=== PATIENT | female | born 1985 | race Two or more races ===

== ENCOUNTER → 2021-03-30 13:24 | Outpatient (REF) | payer OTHER, SELFPAY ==
--- NOTE | 2021-03-30 13:32 | CA_ITS ---
Transthoracic Echocardiogram Patient (Last, First, Middle): Verona Holland D Gender: Female Date of : 1985 Age: 35 Procedure Date: 03/30/2021 Procedure Type: Transthoracic Echocardiogram Location: OP Height: 162.56 cm Weight: 96.62 kg BSA: 2.01 m2 Heart Rate: bpm BP: 137 / 75 mmHg Pen Tester: WON Referring MD: Jose J Mujica MD Symptoms: AWAITING [employer]GAN TRANSPLANT pre kidney Study Quality: Fair ECG Rhythm: Sinus Conclusions: - The left ventricular systolic function is normal. The visually estimated ejection fraction is between 60-65%. - No obvious valvular pathology seen on this study. Findings Left Ventricle Normal left ventricular cavity size. There is normal left ventricular wall thickness. The left ventricular systolic function is normal. The visually estimated ejection fraction is between 60-65%. There is no evidence of regional wall motion abnormalities. Diastolic function is normal for age. Right Ventricle Normal right ventricular cavity size and systolic function. Atria Both atria are normal in size. Aortic Valve There is a normal trileaflet aortic valve. There is mild calcification of the aortic valve. There is no aortic valve stenosis. There is no aortic valve regurgitation. Mitral Valve The mitral valve appears normal. There is no mitral valve regurgitation. There is no mitral valve stenosis. Pulmonic Valve The pulmonic valve was not well visualized. Tricuspid Valve There is trace tricuspid valve regurgitation. The pulmonary artery systolic pressure is normal. Great Vessels The aortic annulus, sinuses of valsalva, and asc aorta are normal in size. Venous The inferior vena cava is normal in size and collapses greater than 50% with inspiration. Pericardium/Pleural There is a trivial pericardial effusion. Prior Study Comparison Changes noted compared to prior study dated: 02/08/2019. Pericardial effusion size smaller. Recommendations, Care & Conclusions No obvious valvular pathology seen on this study. Measurements 2D Linear Measurements IVSd: 0.99 0.6-0.9/0.6-1.0 cm LVIDd: 4.49 3.9-5.3/4.2-5.9 cm LVIDd Index: 2.23 2.4-3.2/2.2-3.1 cm/m2 LVIDs: 3.04 2.0-3.6 cm LVPWd: 1.12 0.7-1.1 cm Ao Root: 3.10 2.1-3.5 cm LA Diam: 3.60 2.7-3.8/3.0-4.0 cm LAIDs Index: 1.79 1.5-2.3 cm/m2 LV Mass: 204.72 67-162/88-224 g LV Mass Index: 101.85 43-95/49-115 g/m2 LVOT Diam: 2.00 3.0+(-)1.3 cm 2D Systolic Function EF 4C: 65.90 >55% EF 2C: 60.00 >55% EF BiP: 63.70 >55% Mitral Valve MV Pk E: 0.66 MV PK A: 0.56 MV Decel Time: 186.00 E/A: 1.20 E'Lateral: 9.03 E'Medial: 7.07 E/E' Med: 9.30 E/E' Lat: 7.30 PHT: 54.00 MVA PHT: 4.07 Decel Bethel: 3.56 Aortic Valve AoV Pk Kevin: 1.36 AoV Pk Grad: 7.00 LVOT LVOT Pk Kevin: 1.17 LVOT Mn Kevin: 0.81 LVOT VTI: 0.27 LVOT Pk Grad: 5.00 LVOT Mn Grad: 3.00 LVOT Diam: 2.00 LVOT Area: 3.14 Diastolic Function MV Pk E: 0.66 MV Pk A: 0.56 E/A: 1.20 E'Medial: 7.07 E/E' Med: 9.30 E' Laterial: 9.03 E/E' Lat: 7.30 Right Ventricle TAPSE (mm): 2.17 Tricuspid Valve TR Pk Kevin: 1.93 TR Pk Grad: 15.00 RA Press: 3.00 RVSP: 18.00 Great Vessels Aorta Ao Root-2D: 3.10 2.0-3.7 cm Ao Asc: 3.10 2.1-3.4 cm Ao Arch: 2.80 Updated in Other Vendor System with Status of Final Cornelio Cheng MD electronically signed on 03/31/2021 8:55:30 AM with status of Final
== END ==
LOC: HO.CARD 13:24
PROVIDERS: PCP Internal Medicine; Visit Provider Internal Medicine Nephrology
DX: Z76.82 Awaiting organ transplant status (principal)
CPT/HCPCS: 93306

== ENCOUNTER 2021-04-27 09:11 | Outpatient (REF) | payer OTHER, SELFPAY ==
[2021-04-27 09:24] LABS: MANUAL DIFF FLAG NO
[2021-04-27 09:45] LABS: Basophils Absolute Auto 0.1 X10*3/uL (0.0-0.2); Basophils Percent Auto 0.8 % (0-2); Eosinophils Absolute Auto 0.3 X10*3/uL (0.0-0.4); Eosinophils Percent Auto 3.1 % (0-4); Hematocrit 38.2 % (37.0-47.0); Hemoglobin 12.2 g/dl (12.0-16.0); Imm Gran Abs Auto 0.03 X10*3/uL (0.00-0.03); Imm Gran Pct Auto 0.3 % (0.0-0.4); Lymphocytes Absolute Auto 2.8 X10*3/uL (1.2-4.9); Lymphocytes Percent Auto 28.2 % (20-40); Mean Corpuscular HGB Conc 31.9 g/dl (31.0-35.0); Mean Corpuscular Hemoglobin 27.4 pg (27.0-33.0); Mean Corpuscular Volume 85.7 fL (80.0-98.0); Mean Platelet Volume 10.3 fL (9.4-12.3); Monocytes Absolute Auto 0.7 X10*3/uL (0.1-1.2); Monocytes Percent Auto 6.7 % (2-11); Neutrophils Percent Auto 60.9 % (45-73); Platelet Count 365 X10*3/uL (160-400); Red Blood Count 4.46 X10*6/uL (4.20-5.50); Red Cell Distribution Width 13.9 % (11.0-16.0); White Blood Count 9.8 X10*3/uL (4.8-10.8)
[2021-04-27 10:27] LABS: Alanine Aminotransferase 8 U/L (0-31); Albumin Level 4.1 g/dL (3.5-5.0); Alkaline Phosphatase 89 U/L (39-117); Anion Gap 19 (12-20); Aspartate Amino Transferase 8 U/L (5-31); Bilirubin Total 0.5 mg/dL (0.0-1.0); Blood Urea Nitrogen 43 mg/dL (9-16); Calcium 8.7 mg/dL (8.4-10.2); Carbon Dioxide 26 mmol/L (22-29); Chloride 100 mmol/L (96-108); Cholesterol 266 mg/dL; Estimated Glomerular Filt Rate 6; Glucose Fasting 81 mg/dL (60-99); HDL Cholesterol 32 mg/dL; LDL Cholesterol Calculated 185 mg/dl; Potassium 3.8 mmol/L (3.3-5.1); Sodium 141 mmol/L (135-145); Total Protein 7.3 g/dL (6.5-8.0); Triglycerides 245 mg/dL
[2021-04-27 10:46] LABS: Vitamin D 25-OH Total 16.7 ng/mL (>30)
[2021-04-27 12:08] LABS: Free T4 (Free Thyroxine) 0.83 ng/dL (0.71-1.85)
== END 2021-04-27 09:12 | disposition home or self-care (01) ==
LOC: HO.LAB 09:11
PROVIDERS: PCP Internal Medicine; Visit Provider Internal Medicine
DX: Z01.810 Encounter for preprocedural cardiovascular examination (principal); I12.0 Hypertensive chronic kidney disease with stage 5 chronic kidney disease or end stage renal disease; N18.6 End stage renal disease; E10.22 Type 1 diabetes mellitus with diabetic chronic kidney disease; E78.00 Pure hypercholesterolemia, unspecified; E55.9 Vitamin D deficiency, unspecified; Z99.2 Dependence on renal dialysis
CPT/HCPCS: 36415; 80053; 80061; 82306; 84439; 84443; 85025; 93005; 99212

== ENCOUNTER → 2021-06-21 09:33 | Outpatient (REF) | payer OTHER, SELFPAY ==
--- NOTE | ~2021-06-21 | NM_ITS ---
Lexiscan Myocardial perfusion study Indication: Preoperative cardiac vascular evaluation, diabetes, assess for coronary disease and ischemia Technique: The patient was brought in for a Lexiscan perfusion study on 06/21/2021 and was injected 0.4 mg of Lexiscan intravenously. Within a minute of this injection 35 mCi of sestamibi was given intravenously. Images were obtained using the SPECT gamma camera interlaced with the gating device. Images were obtained in supine position. Resting perfusion study was performed on 06/23/2021. Patient was administered 35 mCi of sestamibi intravenously at rest. Images were then obtained in supine position. Total DLP 135mGy-cm. Images were processed with the software and compared side to side in short axis, horizontal long axis and vertical long axis views. Findings: Raw acquisition was reviewed. The stress perfusion study showed no significant perfusion abnormality. Both uncorrected as well as CT attenuation corrected images were reviewed. The gated study shows normal LV systolic function with calculated LVEF of 74%. LV cavity is normal in size. The gated study shows normal wall thickening and contraction of segments. Resting study shows no significant perfusion abnormality. Gating at rest reveals normal wall motion with ejection fraction at 69%. The findings are consistent with no significant reversible or fixed perfusion defects. NM/NM cardiolite stress test Impression: 1. Myocardial perfusion imaging study shows likely normal myocardial perfusion. No definitive evidence of any ischemia or infarction. 2. Gated LVEF is 74% during stress and 69% during rest. 3. Transient ischemic dilatation not present. EKG component of the test reported separately.
--- NOTE | 2021-06-21 09:36 | CA_ITS ---
Acquisition Time: 2021-06-21 10:52:04 Total Exercise Time: 00:06:09 Test Indications: Pre-Op Evaluation Medications: SEE H Protocol: KATE Max HR: 122 BPM 66% of Pred: 183 BPM Max BP: 138/058 mmHG Max Work Load: 7.1 METS Exercise stress test with exercise 6 min 9 sec of Kate protocol with request to stop due to difficulty keeping up with treadmill in stage 3. Heart rate suboptimal and EKG nondiagnostic for ischemia. Treadmill placed in recovery and slowed to 1 MPH. Testing changed to a pharmacological stress test with Lexiscan, without arrythmia, with normotensive response to exercise, with nondiagnostic EKG for ischemia. Nuclear images pending. Test reviewed with Dr Harrell. Referred By: Cornelio Cheng Overread By: CRISTOBAL ACE
== END ==
LOC: HO.CARD 09:33
PROVIDERS: PCP Internal Medicine; Visit Provider Internal Medicine
DX: Z01.810 Encounter for preprocedural cardiovascular examination (principal)
CPT/HCPCS: 78452; 93017; A9500; J0280; J2785

== ENCOUNTER 2021-11-04 11:10 | Outpatient (REF) | payer OTHER, SELFPAY ==
[2021-11-04 11:28] LABS: MANUAL DIFF FLAG NO
[2021-11-04 11:47] LABS: Basophils Absolute Auto 0.1 X10*3/uL (0.0-0.2); Basophils Percent Auto 0.7 % (0-2); Eosinophils Absolute Auto 0.2 X10*3/uL (0.0-0.4); Eosinophils Percent Auto 2.4 % (0-4); Hematocrit 36.7 % (37.0-47.0); Hemoglobin 11.6 g/dl (12.0-16.0); Imm Gran Abs Auto 0.03 X10*3/uL (0.00-0.03); Imm Gran Pct Auto 0.3 % (0.0-0.4); Lymphocytes Percent Auto 23.4 % (20-40); Mean Corpuscular HGB Conc 31.6 g/dl (31.0-35.0); Mean Corpuscular Hemoglobin 27.3 pg (27.0-33.0); Mean Corpuscular Volume 86.4 fL (80.0-98.0); Mean Platelet Volume 10.4 fL (9.4-12.3); Monocytes Absolute Auto 0.6 X10*3/uL (0.1-1.2); Monocytes Percent Auto 6.9 % (2-11); Neutrophils Absolute Auto 5.7 x10*3/uL (2.0-8.3); Neutrophils Percent Auto 66.3 % (45-73); Platelet Count 349 X10*3/uL (160-400); Red Blood Count 4.25 X10*6/uL (4.20-5.50); Red Cell Distribution Width 13.9 % (11.0-16.0); White Blood Count 8.6 X10*3/uL (4.8-10.8)
[2021-11-04 12:35] LABS: Free T4 (Free Thyroxine) 0.91 ng/dL (0.71-1.85); Vitamin D 25-OH Total 11.3 ng/mL (>30)
[2021-11-04 13:25] LABS: Alanine Aminotransferase 7 U/L (0-31); Albumin Level 3.7 g/dL (3.5-5.0); Alkaline Phosphatase 75 U/L (39-117); Anion Gap 16 (12-20); Aspartate Amino Transferase 7 U/L (5-31); Bilirubin Total 0.5 mg/dL (0.0-1.0); Blood Urea Nitrogen 20 mg/dL (9-16); Calcium 8.7 mg/dL (8.4-10.2); Carbon Dioxide 30 mmol/L (22-29); Chloride 94 mmol/L (96-108); Cholesterol 248 mg/dL; Estimated Glomerular Filt Rate 7; Glucose Fasting 217 mg/dL (60-99); HDL Cholesterol 32 mg/dL; LDL Cholesterol Calculated 175 mg/dl; Potassium 4.1 mmol/L (3.3-5.1); Sodium 136 mmol/L (135-145); Total Protein 6.9 g/dL (6.5-8.0); Triglycerides 206 mg/dL
[2021-11-04 13:48] LABS: Appearance Urine TURBID; Color Urine RED; Glucose Urine UA >=1000 MG/DL (NEG); Leukocyte Esterase Urine 1+ (NEG); Nitrite Urine NEG (NEG); PH 8.5 (5.0-8.0); UACC Culture Trigger YES; Urine Blood 3+ (NEG); Urine Ketones NEG (NEG)
[2021-11-04 13:51] LABS: Urine Protein 3+ MG/DL (NEG-TRACE)
[2021-11-04 14:19] LABS: Bacteria Urine 2+ /LPF; Squamous Epithelial Cell Urine 2+ /LPF; Triple Phosphate Crystal Urine 4+ /LPF
== END 2021-11-04 11:11 | disposition home or self-care (01) ==
LOC: HO.LAB 11:10
PROVIDERS: PCP Internal Medicine; Visit Provider Internal Medicine
DX: E03.9 Hypothyroidism, unspecified (principal); I10 Essential (primary) hypertension; E55.9 Vitamin D deficiency, unspecified; E78.00 Pure hypercholesterolemia, unspecified
CPT/HCPCS: 36415; 80053; 80061; 81001; 82306; 84439; 84443; 85025; 87086

== ENCOUNTER 2022-03-11 08:53 | Outpatient (REF) | payer OTHER, SELFPAY ==
[2022-03-11 09:12] LABS: MANUAL DIFF FLAG NO
[2022-03-11 09:52] LABS: Basophils Absolute Auto 0.1 X10*3/uL (0.0-0.2); Basophils Percent Auto 0.7 % (0-2); Eosinophils Absolute Auto 0.3 X10*3/uL (0.0-0.4); Eosinophils Percent Auto 2.4 % (0-4); Hematocrit 39.4 % (37.0-47.0); Hemoglobin 12.5 g/dl (12.0-16.0); Imm Gran Abs Auto 0.06 X10*3/uL (0.00-0.03); Imm Gran Pct Auto 0.5 % (0.0-0.4); Mean Corpuscular HGB Conc 31.7 g/dl (31.0-35.0); Mean Corpuscular Hemoglobin 27.5 pg (27.0-33.0); Mean Corpuscular Volume 86.6 fL (80.0-98.0); Mean Platelet Volume 10.5 fL (9.4-12.3); Monocytes Absolute Auto 0.9 X10*3/uL (0.1-1.2); Monocytes Percent Auto 6.9 % (2-11); Neutrophils Absolute Auto 8.3 x10*3/uL (2.0-8.3); Neutrophils Percent Auto 65.5 % (45-73); Platelet Count 397 X10*3/uL (160-400); Red Blood Count 4.55 X10*6/uL (4.20-5.50); Red Cell Distribution Width 14.6 % (11.0-16.0); White Blood Count 12.7 X10*3/uL (4.8-10.8)
[2022-03-11 10:42] LABS: Appearance Urine Turbid; Color Urine Yellow; Glucose Urine UA 100 mg/dL (Negative); Leukocyte Esterase Urine Large (3+) (Negative); Nitrite Urine Negative (Negative); Specific Gravity - Urine 1.015 (1.005-1.025); UMIC TRIGGER UACC YES; Urine Blood Moderate (2+) (Negative); Urine Ketones Negative (Negative); Urine Protein 100 (2+) mg/dL (Neg-Trace)
[2022-03-11 10:58] LABS: Free T4 (Free Thyroxine) 1.05 ng/dL (0.71-1.85); Thyroid Stimulating Hormone 5.77 uIU/mL (0.32-4.0); Vitamin D 25-OH Total 20.7 ng/mL (>30)
[2022-03-11 11:03] LABS: Bacteria Urine 4+ (None Seen); Hyaline Casts Urine 0-2 /LPF (0-2); RBC Urine >20 /HPF (0-2); Squamous Epithelial Cell Urine 0-2 /HPF (0-2); UACC Culture Trigger YES; WBC Urine >50 /HPF (0-5)
[2022-03-11 11:04] LABS: Alanine Aminotransferase 6 U/L (0-31); Alkaline Phosphatase 63 U/L (39-117); Anion Gap 20 (12-20); Aspartate Amino Transferase 9 U/L (5-31); Bilirubin Total 0.5 mg/dL (0.0-1.0); Blood Urea Nitrogen 41 mg/dL (9-16); Calcium 9.3 mg/dL (8.4-10.2); Carbon Dioxide 27 mmol/L (22-29); Chloride 98 mmol/L (96-108); Cholesterol 247 mg/dL; Estimated Glomerular Filt Rate 6; Glucose Fasting 103 mg/dL (60-99); HDL Cholesterol 34 mg/dL; LDL Cholesterol Calculated 183 mg/dl; Potassium 3.9 mmol/L (3.3-5.1); Sodium 141 mmol/L (135-145); Triglycerides 150 mg/dL
== END 2022-03-11 08:54 | disposition home or self-care (01) ==
LOC: HO.LAB 08:53
PROVIDERS: PCP Internal Medicine; Visit Provider Internal Medicine
DX: I10 Essential (primary) hypertension (principal); E78.00 Pure hypercholesterolemia, unspecified; E03.9 Hypothyroidism, unspecified; E55.9 Vitamin D deficiency, unspecified
CPT/HCPCS: 36415; 80053; 80061; 81001; 82306; 84439; 84443; 85025; 87086; 87088; 87186

== ENCOUNTER 2023-01-05 11:28 | Outpatient (AMB) | payer OTHER, SELFPAY ==
[2023-01-05 11:34] VITALS: BP 122/80; PULSE 87; O2SAT 92
--- NOTE | 2023-01-05 11:34 | MHC.PC.OV ---
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 Required: No Accompanied by: Self / Same As Patient Allergies No Known Allergies Allergy (Mild, Verified 01/05/23 12:03) NONE Medication List - Last Reconciled 01/05/23 by Jason Salmon MD atorvastatin 10 mg PO BEDTIME blood sugar diagnostic (FreeStyle Lite Strips) As directed cholecalciferol (vitamin D3) 50 mcg PO DAILY clonidine 1 patch topical QWEEK ferrous sulfate 325 mg PO DAILY 30 days fluticasone propionate 50 mcg/actuation (Flonase Allergy Relief) 1 spray intranasal DAILY 30 days gabapentin 100 mg PO TID insulin aspart U-100 (Novolog FlexPen U-100 Insulin aspart) subcut insulin glargine (Lantus Solostar U-100 Insulin) units subcut levothyroxine 175 mcg PO DAILY 90 days metolazone 10 mg PO DAILY nifedipine ER 90 mg PO DAILY pen needle, diabetic (BD Kiana 2nd Gen Pen Needle) As directed sevelamer carbonate 2,400 mg PO DAILY torsemide 100 mg PO BID Tobacco use date assessed: 01/05/23 Dental Screening Dental Screen Date: 01/05/23 Did you have a dental visit in the last 12 months?: Yes Did you have a dental problem in the last 6 months where you did not have access to dental care?: No Was dental information given to patient?: Patient has dentist HPI DM, HLD, thyroid HPI Details Patient comes in today for her HDF follow up visit She was admitted to [facility] for a week last month for an infection on her left foot She was discharged home with IV Cefazolin that was continued every Monday and Monday after her dialysis sessions until 12/21/22 She was seen for follow-up a couple of weeks ago and was started back on antibiotics, which she is currently still on Patient feels that her left foot infection has improved significantly and is presently almost resolved States that she feels okay Denies any headaches or dizziness Denies any chest pains, no shortness of breath No nausea/vomiting, no abdominal pain No change in bowel habits noted [facility] Medical History Acquired hypothyroidism Anemia Benign essential hypertension Chronic kidney disease with end stage renal failure on dialysis Diabetic retinopathy Obesity (BMI 30-39.9) Peripheral neuropathy Pure hypercholesterolemia Type 1 diabetes mellitus Surgical History History of cataract surgery (~08/2017) History of detached retina repair (~08/15/16) History of eye surgery (~03/2017) S/P arteriovenous (AV) fistula creation (~07/09/18) S/P dilatation and curettage (~02/2018) S/P gastric sleeve procedure (~07/2020) Family History Father No problems noted. Mother No problems noted. Social History Housing: House Alcohol intake: never Patient Tobacco Use Status: Never used Tobacco e-Cigarette/Vaping Use: Never Used Second Hand Smoke Exposure: No service: No Current occupational status: employed Cognitive needs: No Hearing needs: No Vision needs: Yes Questionnaire PHQ-9 Over the last 2 weeks, how often have you been bothered by any of the following problems? 1. Little interest or pleasure in doing things: not at all 2. Feeling down, depressed, or hopeless: not at all 3. Trouble falling or staying asleep, or sleeping too much: not at all 4. Feeling tired or having little energy: not at all 5. Poor appetite or overeating: not at all 6. Feeling bad about yourself - or that you are a failure or have let yourself or your family down: not at all 7. Trouble concentrating on things, such as reading the newspaper or watching television: not at all 8. Moving or speaking so slowly that other people could have noticed. Or the opposite - being so fidgety or restless that you have been moving around a lot more than usual: not at all 9. Thoughts that you would be better off or of hurting yourself in some way: not at all Total score: 0 Depression Screening Interpretation: Negative 47566 - PHQ-9 Billing: Yes Source: Developed by Drs. Dc Fall, Antoine Dailey and colleagues, with an educational itz from [employer]. Thrive Questionnaire Date Thrive assessed: 01/05/23 I am a: Patient What is your living situation today?: I have a steady place to live Within the past 12 months, did the food you bought not last and you didn't have the money to get more?: Never true Within the past 12 months, did you worry whether your food would run out before you got money to buy more?: Never true Do you have trouble paying for medicines?: No Do you have trouble getting transportation to medical appointments?: No Do you have trouble paying your heating and electricity bill?: No Do you have trouble taking care of your child, family member or friend?: No Do you have trouble with day-to-day activities such as bathing, preparing meals, shopping, managing finances, etc.?: No Are you currently unemployed and looking for a job?: No Are you interested in more education?: No Please select the resources that you would like help with: None Currently or been in a relationship where the following occur: no concerns reported AUDIT C Alcohol Use Questionnaire (AUDIT-C) 1. How often do you have a drink containing alcohol?: Never 3. How often do you have six or more drinks on one occasion?: Never Total Score: 0 Score Reviewed/Action Taken: Yes LEÓN-7 AMB Questionnaire LEÓN-7 Date LEÓN - 7 assessed: 01/05/23 Feeling nervous, anxious, or on edge: 0 = Not at all Not being able to stop or control worryin = Not at all Worrying too much about different things: 0 = Not at all Trouble relaxin = Not at all Being so restless that it is hard to sit still: 0 = Not at all Becoming easily annoyed or irritable: 0 = Not at all Feeling afraid as if something awful might happen: 0 = Not at all Total LEÓN-7 score (0-4 normal; 5-9 mild; 10-14 moderate; 15-21 severe): 0 Source: Developed by Drs. Dc Fall, Isaura Cotton, Antoine Rankin and colleagues, with an educational itz from [employer]. LEÓN-7 Assessment Billing LEÓN-7 Assessment Tool: LEÓN-7 Assessment 45037 Review of Systems Const Denies chills, Reports fatigue, Denies fever(s) and Denies headache(s) ENT Denies dysphagia, Denies dizziness, Denies otalgia, Denies headache(s), Denies odynophagia and Denies sore throat Card Denies chest pain, Denies palpitations and Denies dyspnea Resp Denies chest congestion, Denies cough and Denies dyspnea GI Denies abdominal pain, Denies constipation, Denies dysphagia, Denies heartburn, Denies diarrhea, Denies nausea, Denies odynophagia and Denies vomiting Denies difficulty voiding, Denies nocturia and Denies dysuria Neuro Denies dizziness and Denies headache(s) Endo Reports fatigue and Denies palpitations Physical exam (Primary Care) Vital Signs: Last Vital Signs Pulse 87 01/05/23 11:34 BP 122/80 01/05/23 11:34 Pulse Ox 92 01/05/23 11:34 Oxygen Delivery Method Room Air 01/05/23 11:34 Tobacco/Smoking Status: Tobacco use Status Tobacco use date assessed 01/05/23 01/05/23 11:40 Patient Tobacco Use Status Never used Tobacco 01/05/23 11:40 e-Cigarette/Vaping Use Never Used 01/05/23 11:40 PHQ-9: PHQ-9 Score PHQ-9: Total score 0 01/05/23 12:30 Depression Screening Interpretation: Negative Thrive Assessment: Date of Thrive Assessment Date Thrive assessed 01/05/23 01/05/23 11:40 Currently or been in a relationship where the following occur: no concerns reported Const General: no acute distress and alert HENMT Ears: TM's normal bilaterally and EAC's normal Throat: Yes posterior oropharynx normal and Yes tonsils normal (no TP congestion) Neck Neck: Yes no lymphadenopathy and Yes supple Resp Auscultation: clear to auscultation bilaterally, no rales and no wheezes Cardio Rate: regular rate Rhythm: regular rhythm Heart sounds: no murmurs GI Palpation (GI): Soft to palpation and nontender Auscultation: normal bowel sounds Skin Rashes: no rashes Extrem General: Yes no clubbing, cyanosis or edema Results AMB Hemoglobin A1c AMB Hemoglobin A1c 6.6 % Last Edit by Emy Lincoln on 01/05/23 12:31 Results Reviewed Results Reviewed: Laboratory Last Values Hgb A1c (Clinic) 6.6 % (4.0-6.0) H 01/05/23 12:06 Assessment and Plan Assessment & Plan (1) Left foot infection: Code(s): L08.9 - Local infection of the skin and subcutaneous tissue, unspecified Plan: Resolving; S/P IV Cefazolin TIW after dialysis x 14 days Was recently started back on Abx but patient is not sure of the name of the medication - states that she will be finishing up her Abx Tx in another week or so (2) Type 1 diabetes mellitus: Code(s): E10.9 - Type 1 diabetes mellitus without complications Qualifiers: Diabetes mellitus complication detail: with diabetic retinopathy Diabetic retinopathy severity: with proliferative retinopathy Proliferative retinopathy type: unspecified Diabetes mellitus macular edema: macular edema presence unspecified Laterality: bilateral Diabetes mellitus complication status: with ophthalmic complications Qualified Code(s): E10.3593 - 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, bilateral Plan: In-office HgbA1c done today is at 6.6% (was at 6.2% a few months ago) - goal is <7.0% HgbA1c may be inaccurate and is likely lower than it actually is due to her ESRD - is on HD TIW Reinforced diabetic diet Continue Basaglar Kwikpen 20 units daily at bedtime and Humalog Kwikpen 3 times a day with meals per sliding scale Follow up with [facility] Endocrinology as scheduled (3) Benign essential hypertension: Code(s): I10 - Essential (primary) hypertension Plan: Reinforced low sodium diet Continue Nifedipine ER 90 mg QD and Clonidine 0.1 mg patch once a week (4) Pure hypercholesterolemia: Code(s): E78.00 - Pure hypercholesterolemia, unspecified Plan: Reinforced low cholesterol diet Continue Atorvastatin 10 mg QD Will recheck her labs again in 4 months for follow up (5) Chronic kidney disease with end stage renal failure on dialysis: Code(s): N18.6 - End stage renal disease; Z99.2 - Dependence on renal dialysis Plan: Is currently on hemodialysis 3 times a week on Follow up with nephrology as scheduled Continue Sevelamer 800 mg 3 tablets QD and Torsemide 100 mg BID; continue Metolazone 10 mg Q 7 days (6) Anemia: Code(s): D64.9 - Anemia, unspecified Qualifiers: Anemia type: due to chronic kidney disease Chronic kidney disease stage: on chronic dialysis Qualified Code(s): N18.6 - End stage renal disease; D63.1 - Anemia in chronic kidney disease; Z99.2 - Dependence on renal dialysis Plan: Continue Ferrous Sulfate 325 mg QD Will recheck CBC in 4 months for follow up (7) Acquired hypothyroidism: Code(s): E03.9 - Hypothyroidism, unspecified Plan: Continue Levothyroxine 175 mcg QD WIll recheck TFTs in 3 months for follow up (8) Diabetic retinopathy: Comment: Has advanced bilateral diabetic retinopathy (worse in the left eye) and has received injections and laser therapy - is legally blind Code(s): E11.319 - Type 2 diabetes mellitus with unspecified diabetic retinopathy without macular edema Qualifiers: Diabetes mellitus type: type 1 Diabetic retinopathy severity: with proliferative retinopathy Proliferative retinopathy type: unspecified Laterality: bilateral Qualified Code(s): E10.3593 - 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, bilateral Plan: Continue Latanoprost 0.005% 1 drop into the left eye Q HS Follow up with ophthalmology and retina specialist as scheduled (9) Peripheral neuropathy: Code(s): G62.9 - Polyneuropathy, unspecified Qualifiers: Peripheral neuropathy type: polyneuropathy, unspecified Qualified Code(s): G62.9 - Polyneuropathy, unspecified Plan: Continue Gabapentin 100 mg BID (10) Obesity (BMI 30-39.9): Comment: S/P gastric sleeve surgery in July 2020 Code(s): E66.9 - Obesity, unspecified Plan: Reinforced diet/exercise as tolerated/lose weight Plan Follow up in 4 months Orders: Orders Comprehensive [place] Panel Fast 4 Months E78.00 - Pure hypercholesterolemia, unspecified Hemoglobin A1c 4 Months E11.9 - Type 2 diabetes mellitus without complications Lipid Panel 4 Months E78.00 - Pure hypercholesterolemia, unspecified TSH reflex Free T4 4 Months E78.00 - Pure hypercholesterolemia, unspecified Vitamin D 25-OH Total 4 Months E55.9 - Vitamin D deficiency, unspecified Complete Blood Count Auto Diff 4 Months I10 - Essential (primary) hypertension AMB Hemoglobin A1c 01/05/23 E10.9 - Type 1 diabetes mellitus without complications Coding Level of Care Code Est Pt Level 4 (70100) Diagnoses Left foot infection L08.9 Type 1 diabetes mellitus E10.3593 Diabetes mellitus complication detail: with diabetic retinopathy Diabetic retinopathy severity: with proliferative retinopathy Proliferative retinopathy type: unspecified Diabetes mellitus macular edema: macular edema presence unspecified Laterality: bilateral Diabetes mellitus complication status: with ophthalmic complications Benign essential hypertension I10 Pure hypercholesterolemia E78.00 Chronic kidney disease with end stage renal failure on dialysis N18.6; Z99.2 Anemia N18.6; D63.1; Z99.2 Anemia type: due to chronic kidney disease Chronic kidney disease stage: on chronic dialysis Acquired hypothyroidism E03.9 Diabetic retinopathy E10.3593 Diabetes mellitus type: type 1 Diabetic retinopathy severity: with proliferative retinopathy Proliferative retinopathy type: unspecified Laterality: bilateral Peripheral neuropathy G62.9 Peripheral neuropathy type: polyneuropathy, unspecified Obesity (BMI 30-39.9) E66.9 Additional Codes LEÓN-7 Assessment Billing - LEÓN-7 Assessment Tool: LEÓN-7 Assessment [id number] ([id number])
== END 2023-01-05 12:26 | disposition home or self-care (01) ==
PROVIDERS: Visit Provider Internal Medicine
DX: E10.3593 Type 1 diabetes mellitus with proliferative diabetic retinopathy without macular edema, bilateral (principal); I12.0 Hypertensive chronic kidney disease with stage 5 chronic kidney disease or end stage renal disease; N18.6 End stage renal disease; Z99.2 Dependence on renal dialysis; L08.9 Local infection of the skin and subcutaneous tissue, unspecified; E78.00 Pure hypercholesterolemia, unspecified; D63.1 Anemia in chronic kidney disease; E03.9 Hypothyroidism, unspecified; G62.9 Polyneuropathy, unspecified; E66.9 Obesity, unspecified
CPT/HCPCS: 83036; 99214

== ENCOUNTER → 2023-05-02 10:43 | Outpatient (BNVA) | payer OTHER, SELFPAY | PROVIDERS: PCP Internal Medicine; Visit Provider Physician Assistant Surgical ==

== ENCOUNTER 2023-05-15 08:14 | Outpatient (AMB) | payer OTHER, SELFPAY ==
--- NOTE | 2023-05-15 08:07 | MHC.OFFVISWM ---
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 BMI 42.9 Allergies No Known Allergies Allergy (Mild, Verified 05/15/23 08:07) NONE Medication List - Last Reconciled 05/15/23 by Rodriguez Matthews MD atorvastatin 10 mg PO BEDTIME blood sugar diagnostic (FreeStyle Lite Strips) As directed cholecalciferol (vitamin D3) 50 mcg PO DAILY ferrous sulfate 325 mg PO DAILY 30 days fluticasone propionate 50 mcg/actuation (Flonase Allergy Relief) 1 spray intranasal DAILY 30 days gabapentin 100 mg PO TID insulin aspart U-100 (Novolog FlexPen U-100 Insulin aspart) subcut insulin glargine (Lantus Solostar U-100 Insulin) units subcut levothyroxine 175 mcg PO DAILY 90 days metolazone 10 mg PO DAILY nifedipine ER 90 mg PO DAILY pen needle, diabetic (BD Kiana 2nd Gen Pen Needle) As directed sevelamer carbonate 2,400 mg PO DAILY torsemide 100 mg PO BID HPI 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 BMI 42.9 HPI Details Start time: 8.02am, End time: 9.07am ?I spent 60 minutes speaking with the patient on the phone plus an additional 5 minutes reviewing and updating records for a total of 65 minutes HPI Comments History of Present Illness Details Previous weight loss efforts: LSG in 2019 Dr Shelton Wakes up: M/W/F: 8am-10pm, /: 5am-9pm, Weekends: 10am-10pm Breakfast: 9am (toast) Lunch: 12p in non-dialysis days (sandwich) Dinner: 5pm (rice, potatoes, chicken) Snacks: 2-3 between breakfast (cheese crackers, yogurt) Exercise: yoga, has home treadmill Fluids: coffee/tea: none, soda: Gingerale, juice: 3/wk, ETOH: none PFSH Medical History (Updated 05/15/23 @ 08:17 by Rodriguez Matthews MD) Morbid obesity Peripheral neuropathy Diabetic retinopathy Obesity (BMI 30-39.9) Acquired hypothyroidism Chronic kidney disease with end stage renal failure on dialysis Pure hypercholesterolemia Benign essential hypertension Type 1 diabetes mellitus Anemia Surgical History S/P arteriovenous (AV) fistula creation (~07/09/18) S/P dilatation and curettage (~02/2018) History of cataract surgery (~08/2017) History of eye surgery (~03/2017) History of detached retina repair (~08/15/16) S/P gastric sleeve procedure (~07/2020) Family History Father No problems noted. Mother No problems noted. Social History Housing: House Alcohol intake: never Patient Tobacco Use Status: Never used Tobacco e-Cigarette/Vaping Use: Never Used Second Hand Smoke Exposure: No service: No Current occupational status: employed Cognitive needs: No Hearing needs: No Vision needs: Yes Physical Exam Vital Signs: BMI result Body Mass Index 42.8 Assessment & Plan Assessment & Plan (1) Morbid obesity: Code(s): E66.01 - Morbid (severe) obesity due to excess calories Plan: 1.? Plan for lap sleeve gastrectomy. If diaphragmatic or ventral hernias are present at time of surgery, these will be repaired laparoscopically as well. Risks and complications were discussed in detail including possible conversion to an open procedure, anastomotic leak, bleeding requiring transfusion, small bowel obstruction, , DVT and pulmonary embolism, cardiac, or pulmonary complications, as parts counterman complications such as anastomotic ulcer, insufficient weight loss and vitamin deficiencies. I emphasized the importance of close follow-up, adherence to instructions and good communication. 2. Nutritional counseling. a) WITH DINNER: Start with one Isopure INFUSIONS protein shake (buy at [employer]), (HALF scoop in 8oz water) at 10am-12pm, 2 protein bars (Zone Perfect protein bars, buy at [employer]) at 1pm-3pm and 4pm-6pm, dinner at 7pm (6 forks of protein and 6 forks of salad/vegetables). If you wake up at 5am, then you add one more Isopure INFUSIONS shake at 7am-9am with HALF scoop in 8oz water b) WITH LUNCH: Start with one Isopure INFUSIONS protein shake (buy at [employer]), (HALF scoop in 8oz water) at 10am-12pm, dinner at 1pm (6 forks of protein and 6 forks of salad/vegetables), 2 protein bars (Zone Perfect protein bars, buy at [employer]) at 3pm-5pm and 6pm-8pm and one more Isopure INFUSIONS protein shake with HALF scoop in 8oz water. If you wake up at 5am, then you add one more Isopure INFUSIONS shake at 7am-9am with HALF scoop in 8oz water So you do 2-3 protein shakes, 2 protein bars and one meal per day. Meal to include lean meat (beef, fish, pork, turkey, chicken), or serbian yogurt, or egg whites, or beans with a salad with olive oil and fruits (berries, pears, apples, kiwi). Avoid salt, breads, potatoes, rice, pasta, desserts. 3. Each shake would be drunk slowly, like coffee in a period of 2 hours. 4. Cut each bar in 4 pieces and eat each piece in 30min ?to make each bar last 2 hours. 5. I emphasized the importance of measuring accurately the food portion and measure it when serving the food in plate 6. The meal portions include 6 full-size forks of meat and 6 full-size forks of salad. You always eat the meat portion but you can replace up to 3 forks for salad/vegetables with rice, potatoes or pasta, or a fruit ?if you like. The less you do it the better weight loss will be. 7. One full-size fork is what it can be scooped on the fork without falling aside and not what can be bit with the fork. Use regular forks like those you find in a typical restaurant. 8.? Please send me weight measurements as soon as possible and then once a week. Always include your diet and exercise plan. 9. Start treadmill with an incline of 2.0 and speed of 2.5. Increase incline by 1 every 3 min to a max incline of 8.0, stay 3min at 8.0 and then return to 2.0 and repeat same steps until calorie goal is met. Goal is to burn 2000 calories per week on exercise, which means either 300 calories daily, or 400 calories 5 days per week, or 500 calories 4 days per week, or 650 calories 3 days per week. It would be best to do it daily in two sessions for 150 calories each. 10.?It is important of avoiding and for at least 18 months postoperatively and has been discussed at the infosession. 11. Goal is to lose at least 1.5-2lbs per week 12. Goal to lose 10% of your weight before surgery, which is about 25lbs. Ultimate weight goal: 225lbs before surgery 13. Please follow the diet plan exactly without any change. If you don't like something about the plan or you feel hungry you need to communicate with me so I can help you revise the plan. You should not change the plan yourself. 14. Check your blood sugar daily and let me know if it is below 100 or over 150. When you start the diet plan please stop the Novolog Orders: Orders Insulin Today E66.01 - Morbid (severe) obesity due to excess calories Lipid Panel Today E66.01 - Morbid (severe) obesity due to excess calories Vitamin B12 and Folate Today E66.01 - Morbid (severe) obesity due to excess calories Zinc Today E66.01 - Morbid (severe) obesity due to excess calories C Reactive Protein Today E66.01 - Morbid (severe) obesity due to excess calories Vitamin A Today E66.01 - Morbid (severe) obesity due to excess calories US abdomen comp w elastography Today E66.01 - Morbid (severe) obesity due to excess calories XR chest 2V Today E66.01 - Morbid (severe) obesity due to excess calories Hemoglobin A1c Today E66.01 - Morbid (severe) obesity due to excess calories H Pylori Breath Test Today E66.01 - Morbid (severe) obesity due to excess calories Complete Blood Count Auto Diff Today E66.01 - Morbid (severe) obesity due to excess calories IRON PROFILE Today E66.01 - Morbid (severe) obesity due to excess calories Comprehensive Met. Panel Today E66.01 - Morbid (severe) obesity due to excess calories Vitamin B1 Today E66.01 - Morbid (severe) obesity due to excess calories TSH reflex Free T4 Today E66.01 - Morbid (severe) obesity due to excess calories Ferritin Today E66.01 - Morbid (severe) obesity due to excess calories Vitamin D 25-OH Total Today E66.01 - Morbid (severe) obesity due to excess calories ECG 12 lead EKG Today E66.01 - Morbid (severe) obesity due to excess calories FL upper GI w air Today E66.01 - Morbid (severe) obesity due to excess calories Referrals Behavioral Health Referral E66.01 - Morbid (severe) obesity due to excess calories Nutrition/Dietitian Referral E66.01 - Morbid (severe) obesity due to excess calories Telehealth Telehealth Location of provider rendering services: practice address Location of patient: address on file Patient Identification confirmed using: Name, : Yes Telehealth method: voice only Patient verbally consented to treatment: Yes Patient verbally consented to billing insurance company: Yes Patient informed of any privacy concerns related to visit: Yes Minutes spent on Phone/Video with Pt.: 65 Coding Level of Care Code Tele [facility] Pt Level 5 (07729) Diagnoses Morbid obesity E66.01 Time Spent (min) 65
[2023-05-15 08:29] VITALS: BMI 42.8
== END 2023-05-15 09:08 | disposition home or self-care (01) ==
PROVIDERS: PCP Internal Medicine; Visit Provider Surgery
DX: E66.01 Morbid (severe) obesity due to excess calories (principal); Z68.41 Body mass index [BMI] 40.0-44.9, adult
CPT/HCPCS: 99443

== ENCOUNTER → 2023-05-15 08:14 | Outpatient (BNVA) | payer OTHER, SELFPAY | PROVIDERS: PCP Internal Medicine; Visit Provider Surgery ==

== ENCOUNTER 2023-05-16 07:17 | Outpatient (REF) | payer OTHER, SELFPAY ==
--- NOTE | ~2023-05-16 | XR_ITS ---
EXAMINATION: XR CHEST CLINICAL INFORMATION: Reason for Exam E66.01 - Morbid (severe) obesity due to excess calories COMPARISON: Chest radiograph 09/13/2018 TECHNIQUE: 2 views of the chest FINDINGS: Lines and tubes: None. Clear lungs. No pleural effusion. No pneumothorax. Borderline enlarged cardiac silhouette, decreased from prior. XR/XR chest 2V IMPRESSION: Borderline enlarged cardiac silhouette, decreased from prior.
[2023-05-16 07:51] LABS: MANUAL DIFF FLAG NO
--- NOTE | 2023-05-16 07:51 | ECG_ITS ---
Test Reason : E66.01 Blood Pressure : / mmHG Vent. Rate : 080 BPM Atrial Rate : 080 BPM P-R Int : 146 ms QRS Dur : 088 ms QT Int : 406 ms P-R-T Axes : 059 053 061 degrees QTc Int : 468 ms Normal sinus rhythm Normal ECG When compared with ECG of 13-SEP-2018 10:17, No significant change was found Referred By: Rodriguez Matthews Electronically Signed By:Clement Harrell
[2023-05-16 08:04] LABS: Basophils Absolute Auto 0.1 X10*3/uL (0.0-0.2); Basophils Percent Auto 1.1 % (0-2); Eosinophils Absolute Auto 0.2 X10*3/uL (0.0-0.4); Eosinophils Percent Auto 2.5 % (0-4); Hematocrit 34.9 % (37.0-47.0); Hemoglobin 11.1 g/dl (12.0-16.0); Imm Gran Abs Auto 0.02 X10*3/uL (0.00-0.03); Imm Gran Pct Auto 0.2 % (0.0-0.4); Lymphocytes Absolute Auto 2.1 X10*3/uL (1.2-4.9); Lymphocytes Percent Auto 25.8 % (20-40); Mean Corpuscular HGB Conc 31.8 g/dl (31.0-35.0); Mean Corpuscular Hemoglobin 26.7 pg (27.0-33.0); Mean Corpuscular Volume 84.1 fL (80.0-98.0); Monocytes Absolute Auto 0.8 X10*3/uL (0.1-1.2); Neutrophils Percent Auto 60.4 % (45-73); Platelet Count 321 X10*3/uL (160-400); Red Blood Count 4.15 X10*6/uL (4.20-5.50); Red Cell Distribution Width 13.2 % (11.0-16.0); White Blood Count 8.3 X10*3/uL (4.8-10.8)
[2023-05-16 08:11] LABS: Estimated Average Glucose 226 mg/dL; Hemoglobin A1c % 9.5 % (<6.0)
[2023-05-16 08:35] LABS: Alanine Aminotransferase 13 U/L (0-31); Albumin Level 3.9 g/dL (3.5-5.0); Alkaline Phosphatase 55 U/L (39-117); Anion Gap 19 (12-20); Aspartate Amino Transferase 16 U/L (5-31); Bilirubin Total 0.4 mg/dL (0.0-1.0); Blood Urea Nitrogen 36 mg/dL (9-16); C Reactive Protein 3.89 mg/dL (< or = 0.50); Carbon Dioxide 31 mmol/L (22-29); Chloride 94 mmol/L (96-108); Cholesterol 244 mg/dL (<200); Estimated Glomerular Filt Rate 5; Glucose Random 120 mg/dL (60-115); HDL Cholesterol 36 mg/dL (>40); Iron 44 mcg/dL (30-160); LDL Cholesterol Calculated 170 mg/dL (<100); Percent Iron Saturation 24 % (15-50); Potassium 3.6 mmol/L (3.3-5.1); Sodium 140 mmol/L (135-145); Total Iron Binding Capacity 186 mcg/dL (228-428); Total Protein 7.6 g/dL (6.5-8.0); Triglycerides 190 mg/dL (<150); Unsaturated Iron Binding 142 ug/dL
[2023-05-16 08:49] LABS: Insulin 39 uU/mL (2-29); TSH reflex Free T4 0.41 uIU/mL (0.32-4.0); Vitamin D 25-OH Total 17.3 ng/mL (>30)
[2023-05-16 08:59] LABS: Folate 2.5 ng/mL (> or = 4.0); Vitamin B12 355 pg/mL (200-900)
[2023-05-16 09:19] LABS: Ferritin 1649 ng/mL (10-122)
[2023-05-18 16:43] LABS: Zinc 86 mcg/dL (60-130)
[2023-05-19 17:09] LABS: Vitamin A 56 mcg/dL (38-98)
[2023-05-22 13:32] LABS: Vitamin B1 11 nmol/L (8-30)
== END 2023-05-16 07:18 | disposition home or self-care (01) ==
LOC: HO.LAB 07:17
PROVIDERS: PCP Internal Medicine; Visit Provider Surgery
DX: E66.01 Morbid (severe) obesity due to excess calories (principal); I73.9 Peripheral vascular disease, unspecified; E78.00 Pure hypercholesterolemia, unspecified; E55.9 Vitamin D deficiency, unspecified; E53.8 Deficiency of other specified B group vitamins; R30.0 Dysuria; E11.9 Type 2 diabetes mellitus without complications
CPT/HCPCS: 36415; 71046; 80053; 80061; 82306; 82607; 82728; 82746; 83036; 83525; 83540; 84425; 84443; 84590; 84630; 85025; 86140; 93005

== ENCOUNTER → 2023-05-16 07:51 | Outpatient (BNV) | payer OTHER, SELFPAY | PROVIDERS: PCP Internal Medicine; Visit Provider Internal Medicine Cardiovascular Disease | DX: I10 Essential (primary) hypertension (principal) | CPT/HCPCS: 93010 ==

== ENCOUNTER 2023-05-16 09:42 | Outpatient (AMB) | payer OTHER, SELFPAY ==
--- NOTE | 2023-05-16 09:45 | MHC.PC.OV ---
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 Accompanied by: Self / Same As Patient Allergies No Known Allergies Allergy (Mild, Verified 02/04/24 03:01) NONE Medication List - Last Reconciled 05/16/23 by Jason Salmon MD atorvastatin 10 mg PO BEDTIME blood sugar diagnostic (FreeStyle Lite Strips) As directed cholecalciferol (vitamin D3) 50 mcg PO DAILY ferrous sulfate 325 mg PO DAILY 30 days fluticasone propionate 50 mcg/actuation (Flonase Allergy Relief) 1 spray intranasal DAILY 30 days gabapentin 100 mg PO TID insulin aspart U-100 (Novolog FlexPen U-100 Insulin aspart) subcut insulin glargine (Lantus Solostar U-100 Insulin) units subcut levothyroxine 175 mcg PO DAILY 90 days metolazone 10 mg PO DAILY nifedipine ER 90 mg PO DAILY pen needle, diabetic (BD Kiana 2nd Gen Pen Needle) As directed sevelamer carbonate 2,400 mg PO DAILY torsemide 100 mg PO BID Tobacco use date assessed: 05/16/23 Dental Screening Dental Screen Date: 05/16/23 Did you have a dental visit in the last 12 months?: Yes Did you have a dental problem in the last 6 months where you did not have access to dental care?: No Was dental information given to patient?: Patient has dentist HPI DM, ESRD (on HD), sepsis/diabetic foot infection HPI Details Patient comes in today for her follow up visit States that she has been experiencing some SOB and LAN lately; has also been having trouble sleeping at night lately Denies any chest pains Has also noticed lately that her legs will often start to feel heavy with increased walking Also relates (+) pain and cramping in her legs with increased activity/walking She continues to go to dialysis 3 times a week She denies any fever, headaches or dizziness lately No nausea/vomiting, no abdominal pain No change in bowel habits noted Had her follow up labs done a couple of months ago - to discuss her results [facility] Medical History (Updated 02/04/24 @ 04:20 by Jason Salmon MD) Morbid obesity Peripheral neuropathy Diabetic retinopathy Obesity (BMI 30-39.9) Acquired hypothyroidism Chronic kidney disease with end stage renal failure on dialysis Pure hypercholesterolemia Benign essential hypertension Type 1 diabetes mellitus Anemia Surgical History (Updated 02/04/24 @ 04:07 by Jason Salmon MD) History of amputation of lesser toe of left foot S/P arteriovenous (AV) fistula creation (~07/09/18) S/P dilatation and curettage (~02/2018) History of cataract surgery (~08/2017) History of eye surgery (~03/2017) History of detached retina repair (~08/15/16) S/P gastric sleeve procedure (~07/2020) Family History Father No problems noted. Mother No problems noted. Social History Housing: House Alcohol intake: never Patient Tobacco Use Status: Never used Tobacco e-Cigarette/Vaping Use: Never Used Second Hand Smoke Exposure: No service: No Current occupational status: employed Cognitive needs: No Hearing needs: No Vision needs: Yes Questionnaire PHQ-9 Over the last 2 weeks, how often have you been bothered by any of the following problems? 1. Little interest or pleasure in doing things: not at all 2. Feeling down, depressed, or hopeless: not at all 3. Trouble falling or staying asleep, or sleeping too much: not at all 4. Feeling tired or having little energy: not at all 5. Poor appetite or overeating: not at all 6. Feeling bad about yourself - or that you are a failure or have let yourself or your family down: not at all 7. Trouble concentrating on things, such as reading the newspaper or watching television: not at all 8. Moving or speaking so slowly that other people could have noticed. Or the opposite - being so fidgety or restless that you have been moving around a lot more than usual: not at all 9. Thoughts that you would be better off or of hurting yourself in some way: not at all Total score: 0 Depression Screening Interpretation: Negative Depression Screening Done: Yes 16538 - PHQ-9 Billing: Yes Source: Developed by Isaura Solo Kurt Kroenke and colleagues, with an educational itz from [employer]. Thrive Questionnaire Date Thrive assessed: 05/16/23 I am a: Patient What is your living situation today?: I have a steady place to live Within the past 12 months, did the food you bought not last and you didn't have the money to get more?: Never true Within the past 12 months, did you worry whether your food would run out before you got money to buy more?: Never true Do you have trouble paying for medicines?: No Do you have trouble getting transportation to medical appointments?: No Do you have trouble paying your heating and electricity bill?: No Do you have trouble taking care of your child, family member or friend?: No Do you have trouble with day-to-day activities such as bathing, preparing meals, shopping, managing finances, etc.?: No Are you currently unemployed and looking for a job?: No Are you interested in more education?: No Please select the resources that you would like help with: None Currently or been in a relationship where the following occur: no concerns reported AUDIT C Alcohol Use Questionnaire (AUDIT-C) 1. How often do you have a drink containing alcohol?: Never 3. How often do you have six or more drinks on one occasion?: Never Total Score: 0 Score Reviewed/Action Taken: Yes LEÓN-7 AMB Questionnaire LEÓN-7 Date LÓEN - 7 assessed: 05/16/23 Feeling nervous, anxious, or on edge: 0 = Not at all Not being able to stop or control worryin = Not at all Worrying too much about different things: 0 = Not at all Trouble relaxin = Not at all Being so restless that it is hard to sit still: 0 = Not at all Becoming easily annoyed or irritable: 0 = Not at all Feeling afraid as if something awful might happen: 0 = Not at all Total LEÓN-7 score (0-4 normal; 5-9 mild; 10-14 moderate; 15-21 severe): 0 Source: Developed by Isaura Solo Kurt Kroenke and colleagues, with an educational itz from [employer]. LEÓN-7 Assessment Billing LEÓN-7 Assessment Tool: LEÓN-7 Assessment 48442 Review of Systems Const Denies chills, Reports difficulty sleeping (increasing lately), Reports fatigue, Denies fever(s) and Denies headache(s) ENT Denies dysphagia, Denies dizziness, Denies otalgia, Denies headache(s), Denies odynophagia and Denies sore throat Card Denies chest pain, Denies palpitations and Reports dyspnea on exertion Resp Denies chest congestion, Denies cough and Reports dyspnea on exertion GI Denies abdominal pain, Denies constipation, Denies dysphagia, Denies heartburn, Denies diarrhea, Denies nausea, Denies odynophagia and Denies vomiting Denies difficulty voiding, Denies nocturia and Denies dysuria Musc Reports muscle cramps (in both legs, with increased walking) Skin/Breast Denies rash Neuro Denies dizziness and Denies headache(s) Endo Reports fatigue and Denies palpitations Physical exam (Primary Care) Vital Signs: Last Vital Signs Pulse 94 05/16/23 09:46 BP 122/84 05/16/23 09:46 Pulse Ox 92 05/16/23 09:46 Oxygen Delivery Method Room Air 05/16/23 09:46 BMI result Body Mass Index 42.8 Tobacco/Smoking Status: Tobacco use Status Tobacco use date assessed 05/16/23 05/16/23 09:51 Patient Tobacco Use Status Never used Tobacco 05/16/23 09:51 e-Cigarette/Vaping Use Never Used 05/16/23 09:51 PHQ-9: PHQ-9 Score PHQ-9: Total score 0 05/16/23 12:01 Depression Screening Interpretation: Negative Thrive Assessment: Date of Thrive Assessment Date Thrive assessed 05/16/23 05/16/23 09:51 Currently or been in a relationship where the following occur: no concerns reported Const General: no acute distress and alert HENMT Ears: TM's normal bilaterally and EAC's normal Throat: Yes posterior oropharynx normal and Yes tonsils normal (no TP congestion) Neck Neck: Yes no lymphadenopathy and Yes supple Thyroid: Thyroid normal Resp Auscultation: clear to auscultation bilaterally, no rales and no wheezes Cardio Rate: regular rate Rhythm: regular rhythm Heart sounds: no murmurs GI Palpation (GI): Soft to palpation and nontender Auscultation: normal bowel sounds Skin Rashes: no rashes Extrem General: Yes no clubbing, cyanosis or edema Results Reviewed Results Reviewed: Laboratory Tests 03/11/22 03/11/22 03/11/22 09:07 09:10 09:10 WBC 12.7 H Hgb 12.5 Hct 39.4 Plt Count 397 Sodium 141 Potassium 3.9 Creatinine 7.99 H* Estimated GFR 6 Fasting Glucose 103 H Hgb A1c (Clinic) Hemoglobin A1c % Insulin Level Calcium 9.3 D Ferritin AST 9 ALT 6 C-Reactive Protein Triglycerides 150 Cholesterol 247 LDL Cholesterol, Calc 183 HDL Cholesterol 34 25-OH Vitamin D Total 20.7 TSH 5.77 H Free T4 1.05 Ur Specific [place] 1.015 Urine Protein 100 (2+) H Urine Glucose (UA) 100 H Urine Blood Moderate (2+) H 05/18/22 01/05/23 05/16/23 14:48 12:06 07:49 WBC Hgb Hct 34.9 L Plt Count 321 Sodium 140 Potassium 3.6 Creatinine 8.19 H* Estimated GFR 5 Fasting Glucose Hgb A1c (Clinic) 6.2 H 6.6 H Hemoglobin A1c % 9.5 H Insulin Level Calcium Ferritin AST ALT C-Reactive Protein Triglycerides Cholesterol LDL Cholesterol, Calc HDL Cholesterol 25-OH Vitamin D Total TSH Free T4 Ur Specific [place] Urine Protein Urine Glucose (UA) Urine Blood 05/16/23 07:49 WBC 8.3 Hgb 11.1 L Hct Plt Count Sodium Potassium Creatinine Estimated GFR Fasting Glucose Hgb A1c (Clinic) Hemoglobin A1c % Insulin Level 39 H Calcium Ferritin 1649 H AST 16 ALT 13 C-Reactive Protein 3.89 H Triglycerides 190 H Cholesterol 244 H LDL Cholesterol, Calc 170 H HDL Cholesterol 36 L 25-OH Vitamin D Total 17.3 L TSH 0.41 Free T4 Ur Specific [place] Urine Protein Urine Glucose (UA) Urine Blood Assessment and Plan Assessment & Plan (1) Type 1 diabetes mellitus: Code(s): E10.9 - Type 1 diabetes mellitus without complications Qualifiers: Diabetes mellitus complication detail: with diabetic retinopathy Diabetes mellitus complication status: with ophthalmic complications Diabetes mellitus macular edema: macular edema presence unspecified Diabetic retinopathy severity: with proliferative retinopathy Laterality: bilateral Proliferative retinopathy type: unspecified Qualified Code(s): E10.3593 - 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, bilateral Plan: Her HgbA1c was at 9.5% on her labs done earlier today (in-office HgbA1c was at 6.6% a few months ago in January 2023) - goal is <7.0% Her HgbA1c may be inaccurate and is likely lower than it actually is due to her ESRD - is on HD TIW Reinforced diabetic diet Continue Lantus Solostar 50 units Q AM and 44 units Q PM and Novolog Flexpen 20 to 50 units 3 times a day with meals per sliding scale Follow up with [facility] Endocrinology as scheduled (2) Benign essential hypertension: Code(s): I10 - Essential (primary) hypertension Plan: Reinforced low sodium diet Continue Nifedipine ER 90 mg QD and Clonidine 0.1 mg patch once a week (3) Pure hypercholesterolemia: Code(s): E78.00 - Pure hypercholesterolemia, unspecified Plan: Results of her labs done earlier today reviewed and discussed with patient Reinforced low cholesterol diet Will increase her Atorvastatin to 20 mg QD Will recheck her labs and fasting lipids in 4 months for follow up (4) Chronic kidney disease with end stage renal failure on dialysis: Comment: 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 Code(s): N18.6 - End stage renal disease; Z99.2 - Dependence on renal dialysis Plan: She is currently on hemodialysis 3 times a week on Follow up with nephrology as scheduled Continue Sevelamer 800 mg 3 tablets QD and Torsemide 100 mg BID; continue Metolazone 10 mg Q 7 days (5) Anemia: Code(s): D64.9 - Anemia, unspecified Qualifiers: Anemia type: due to chronic kidney disease Chronic kidney disease stage: on chronic dialysis Qualified Code(s): N18.6 - End stage renal disease; D63.1 - Anemia in chronic kidney disease; Z99.2 - Dependence on renal dialysis Plan: Corrected on her recent labs - continue Ferrous Sulfate 325 mg QD Will recheck her CBC in 4 months for follow up (6) Acquired hypothyroidism: Code(s): E03.9 - Hypothyroidism, unspecified Plan: Continue Levothyroxine 175 mcg QD WIll recheck TFTs in 4 months for follow up (7) Diabetic retinopathy: Comment: Has advanced bilateral diabetic retinopathy (worse in the left eye) and has received injections and laser therapy - is legally blind Code(s): E11.319 - Type 2 diabetes mellitus with unspecified diabetic retinopathy without macular edema Qualifiers: Diabetes mellitus type: type 1 Diabetic retinopathy severity: with proliferative retinopathy Laterality: bilateral Proliferative retinopathy type: unspecified Qualified Code(s): E10.3593 - 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, bilateral Plan: Continue Latanoprost 0.005% 1 drop into the left eye Q HS Follow up with ophthalmology and retina specialist as scheduled (8) Peripheral neuropathy: Code(s): G62.9 - Polyneuropathy, unspecified Qualifiers: Peripheral neuropathy type: polyneuropathy, unspecified Qualified Code(s): G62.9 - Polyneuropathy, unspecified Plan: Continue Gabapentin 100 mg BID (9) Claudication of both lower extremities: Code(s): I73.9 - Peripheral vascular disease, unspecified Plan: Will refer her to vascular surgery for further evaluation and management (10) Insomnia: Code(s): G47.00 - Insomnia, unspecified Qualifiers: Insomnia type: unspecified Qualified Code(s): G47.00 - Insomnia, unspecified Plan: Sleep hygiene discussed Will start her on Trazodone 50 mg Q HS PRN (11) Obesity (BMI 30-39.9): Comment: S/P gastric sleeve surgery in July 2020 Code(s): E66.9 - Obesity, unspecified Plan: Reinforced diet/exercise as tolerated/lose weight Plan Follow up in 4 months Orders: Orders Complete Blood Count Auto Diff 4 Months I10 - Essential (primary) hypertension Lipid Panel 4 Months E78.00 - Pure hypercholesterolemia, unspecified TSH reflex Free T4 4 Months E78.00 - Pure hypercholesterolemia, unspecified UA CC w/rflx Micro + Cult 4 Months R30.0 - Dysuria Microalbumin, Random (w Creat) 4 Months E11.9 - Type 2 diabetes mellitus without complications Vitamin D 25-OH Total 4 Months E55.9 - Vitamin D deficiency, unspecified Vitamin B12 and Folate 4 Months E53.8 - Deficiency of other specified B group vitamins Comprehensive [place]. Panel Fast 4 Months E78.00 - Pure hypercholesterolemia, unspecified Hemoglobin A1c 4 Months E11.9 - Type 2 diabetes mellitus without complications Referrals Vascular Surgery Referral I73.9 - Peripheral vascular disease, unspecified Medications: New trazodone 50 mg PO BEDTIME PRN 30 tabs 3RF sleep 30 days atorvastatin 20 mg PO BEDTIME 90 tabs 3RF 90 days Coding Level of Care Code Est Pt Level 4 (03569) Complex EM visit Add On G2211 Diagnoses Type 1 diabetes mellitus with proliferative retinopathy of both eyes, macular edema presence unspecified, unspecified proliferative retinopathy type E10.3593 Diabetes mellitus complication detail: with diabetic retinopathy Diabetes mellitus complication status: with ophthalmic complications Diabetes mellitus macular edema: macular edema presence unspecified Diabetic retinopathy severity: with proliferative retinopathy Laterality: bilateral Proliferative retinopathy type: unspecified Benign essential hypertension I10 Pure hypercholesterolemia E78.00 Chronic kidney disease with end stage renal failure on dialysis N18.6; Z99.2 Anemia due to chronic kidney disease, on chronic dialysis N18.6; D63.1; Z99.2 Anemia type: due to chronic kidney disease Chronic kidney disease stage: on chronic dialysis Acquired hypothyroidism E03.9 Proliferative diabetic retinopathy of both eyes associated with type 1 diabetes mellitus, unspecified proliferative retinopathy type E10.3593 Diabetes mellitus type: type 1 Diabetic retinopathy severity: with proliferative retinopathy Laterality: bilateral Proliferative retinopathy type: unspecified Peripheral polyneuropathy G62.9 Peripheral neuropathy type: polyneuropathy, unspecified Claudication of both lower extremities I73.9 Insomnia, unspecified type G47.00 Insomnia type: unspecified Obesity (BMI 30-39.9) E66.9 Additional Codes LEÓN-7 Assessment Billing - LEÓN-7 Assessment Tool: LEÓN-7 Assessment [id number] ([id number])
[2023-05-16 09:46] VITALS: BP 122/84; PULSE 94; O2SAT 92; BMI 42.8
== END 2023-05-16 10:39 | disposition home or self-care (01) ==
PROVIDERS: PCP Internal Medicine; Visit Provider Internal Medicine
DX: E10.3593 Type 1 diabetes mellitus with proliferative diabetic retinopathy without macular edema, bilateral (principal); I12.0 Hypertensive chronic kidney disease with stage 5 chronic kidney disease or end stage renal disease; E78.00 Pure hypercholesterolemia, unspecified; N18.6 End stage renal disease; Z99.2 Dependence on renal dialysis; D63.1 Anemia in chronic kidney disease; E03.9 Hypothyroidism, unspecified; G62.9 Polyneuropathy, unspecified; I73.9 Peripheral vascular disease, unspecified; G47.00 Insomnia, unspecified; E66.9 Obesity, unspecified
CPT/HCPCS: 99499

== ENCOUNTER 2023-06-07 08:09 | Outpatient (AMB) | payer OTHER, SELFPAY ==
--- NOTE | 2023-06-07 09:06 | A.OFFVIS_ITS ---
Intake Intake Visit Reasons: TV Follow Up SWL - 1ST Allergies No Known Allergies Allergy (Mild, Verified 05/16/23 10:30) NONE HPI TV Follow Up SWL - 1ST HPI Details Start time: 8.50am, End time: 9.14am ?I spent 19 minutes speaking with the patient on the phone plus an additional 5 minutes reviewing and updating records for a total of 24 minutes HPI Comments History of Present Illness Details Has purchased her body composiiton scale but has not arrived yet Has also purchased the protein shakes and bars Reviewed blood work, CXR and EKG results PFSH Medical History Morbid obesity Peripheral neuropathy Diabetic retinopathy Obesity (BMI 30-39.9) Acquired hypothyroidism Chronic kidney disease with end stage renal failure on dialysis Pure hypercholesterolemia Benign essential hypertension Type 1 diabetes mellitus Anemia Surgical History S/P arteriovenous (AV) fistula creation (~07/09/18) S/P dilatation and curettage (~02/2018) History of cataract surgery (~08/2017) History of eye surgery (~03/2017) History of detached retina repair (~08/15/16) S/P gastric sleeve procedure (~07/2020) Family History Father No problems noted. Mother No problems noted. Social History Housing: House Alcohol intake: never Patient Tobacco Use Status: Never used Tobacco e-Cigarette/Vaping Use: Never Used Second Hand Smoke Exposure: No service: No Current occupational status: employed Cognitive needs: No Hearing needs: No Vision needs: Yes Assessment & Plan Assessment & Plan (1) Morbid obesity: Code(s): E66.01 - Morbid (severe) obesity due to excess calories Plan: 1. Check your blood sugar daily and let me know if it drops below 100. Check also your blood pressure daily and let me know if it drops below 120/70. 2. Nutritional counseling. a) WITH DINNER: Start with one Isopure INFUSIONS protein shake (buy at [employer]), (HALF scoop in 8oz water) at 10am-12pm, 2 protein bars (Zone Perfect protein bars, buy at [employer]) at 1pm-3pm and 4pm-6pm, dinner at 7pm (6 forks of protein and 6 forks of salad/vegetables). If you wake up at 5am, then you add one more Isopure INFUSIONS shake at 7am-9am with HALF scoop in 8oz water b) WITH LUNCH: Start with one Isopure INFUSIONS protein shake (buy at [employer]), (HALF scoop in 8oz water) at 10am-12pm, dinner at 1pm (6 forks of protein and 6 forks of salad/vegetables), 2 protein bars (Zone Perfect protein bars, buy at [employer]) at 3pm-5pm and 6pm-8pm. If you wake up at 5am, then you add one more Isopure INFUSIONS shake at 7am-9am with HALF scoop in 8oz water So you do 1-2 protein shakes, 2 protein bars and one meal per day. Meal to include lean meat (beef, fish, pork, turkey, chicken), or guamanian yogurt, or egg whites, or beans with a salad with olive oil and fruits (berries, pears, apples, kiwi). Avoid salt, breads, potatoes, rice, pasta, desserts. 3. Each shake would be drunk slowly, like coffee in a period of 2 hours. 4. Cut each bar in 4 pieces and eat each piece in 30min ?to make each bar last 2 hours. 5. I emphasized the importance of measuring accurately the food portion and measure it when serving the food in plate 6. The meal portions include 6 full-size forks of meat and 6 full-size forks of salad. You always eat the meat portion but you can replace up to 3 forks for salad/vegetables with rice, potatoes or pasta, or a fruit ?if you like. The less you do it the better weight loss will be. 7. One full-size fork is what it can be scooped on the fork without falling aside and not what can be bit with the fork. Use regular forks like those you find in a typical restaurant. 8.? Please send me weight measurements as soon as possible and then once a week. Always include your diet and exercise plan. 9. Start treadmill with an incline of 2.0 and speed of 2.5. Increase incline by 1 every 3 min to a max incline of 8.0, stay 3min at 8.0 and then return to 2.0 and repeat same steps until calorie goal is met. Goal is to burn 2000 calories per week on exercise, which means either 300 calories daily, or 400 calories 5 days per week, or 500 calories 4 days per week, or 650 calories 3 days per week. It would be best to do it daily in two sessions for 150 calories each. Orders: Orders CA echo transthorac w con Today I51.7 - Cardiomegaly Medications: New cholecalciferol (vitamin D3) 125 mcg PO DAILY 90 caps 0RF E55.9 - Vitamin D deficiency, unspecified vitamin E63-agose acid 500-400 mcg administer with a meal 1 tab PO DAILY 90 tabs 0RF E53.8 - Deficiency of other specified B group vitamins Telehealth Telehealth Location of provider rendering services: practice address Location of patient: address on file Patient Identification confirmed using: Name, : Yes Telehealth method: voice only Patient verbally consented to treatment: Yes Patient verbally consented to billing insurance company: Yes Patient informed of any privacy concerns related to visit: Yes Minutes spent on Phone/Video with Pt.: 24 Coding Level of Care Code Tele Est Pt Level 3 (98015) Diagnoses Morbid obesity E66.01 Time Spent (min) 24
== END 2023-06-07 09:15 | disposition home or self-care (01) ==
LOC: HO.HBS 08:09
PROVIDERS: PCP Internal Medicine; Visit Provider Surgery
DX: E66.01 Morbid (severe) obesity due to excess calories (principal); Z68.41 Body mass index [BMI] 40.0-44.9, adult
CPT/HCPCS: 99442

== ENCOUNTER → 2023-06-07 08:09 | Outpatient (BNVA) | payer OTHER, SELFPAY | PROVIDERS: PCP Internal Medicine; Visit Provider Surgery ==

== ENCOUNTER 2023-06-08 10:48 | Outpatient (AMB) | payer OTHER, SELFPAY ==
--- NOTE | 2023-06-08 10:37 | MHC.AMNUTRGE ---
Intake Intake Visit Reasons: TV Initial Nutrition SWL Allergies No Known Allergies Allergy (Mild, Verified 05/16/23 10:30) NONE HPI Nutrition Presentation Details Pt is on Dialysis 3x per week, Peripheral polyneuropathy and retinopathy LSG in 2019 Dr Rojas Reason for consult elevated BMI Diet Assmnt Details Pt reports she has began cutting back on her portions but hasn't started Dr. Matthews nutrition plan. Pt reports seeing Dietitian at [facility] and renal RD Elda Exercise: yoga and walking inside 3x per week SWL online classes : none yet Dietary counseling reduction Who buys your food self and parent Who prepares/cooks your food self and parent Meal frequency regular: breakfast, lunch (sandwich ), dinner and snacks Lifestyle Food frequency Fruit: several times weekly, Vegetables: several times weekly, Grains/pasta/breads/cereal (carbs): daily, Meats/poultry/fish (protein): daily, Meat substitutes/nuts/seeds/legumes: daily, Water: daily, Soda: daily, Juice: daily and Coffee: daily Most Recent Diabetes Results: Cholesterol 244 mg/dL (<200) H 05/16/23 HDL Cholesterol 36 mg/dL (>40) L 05/16/23 Triglycerides 190 mg/dL (<150) H 05/16/23 Creatinine 8.19 mg/dL (0.5-1.4) H* 05/16/23 Blood Urea Nitrogen 36 mg/dL (9-16) H 05/16/23 Sodium 140 mmol/L (135-145) 05/16/23 Potassium 3.6 mmol/L (3.3-5.1) 05/16/23 Chloride 94 mmol/L (96-108) L 05/16/23 Carbon Dioxide 31 mmol/L (22-29) H 05/16/23 Calcium 10.0 mg/dL (8.4-10.2) 05/16/23 AST 16 U/L (5-31) 05/16/23 ALT 13 U/L (0-31) 05/16/23 Total Protein 7.6 g/dL (6.5-8.0) 05/16/23 Albumin 3.9 g/dL (3.5-5.0) 05/16/23 FORMERLY [facility] Medical History Morbid obesity Peripheral neuropathy Diabetic retinopathy Obesity (BMI 30-39.9) Acquired hypothyroidism Chronic kidney disease with end stage renal failure on dialysis Pure hypercholesterolemia Benign essential hypertension Type 1 diabetes mellitus Anemia Surgical History S/P arteriovenous (AV) fistula creation (~07/09/18) S/P dilatation and curettage (~02/2018) History of cataract surgery (~08/2017) History of eye surgery (~03/2017) History of detached retina repair (~08/15/16) S/P gastric sleeve procedure (~07/2020) Family History Father No problems noted. Mother No problems noted. Social History Housing: House Alcohol intake: never Patient Tobacco Use Status: Never used Tobacco e-Cigarette/Vaping Use: Never Used Second Hand Smoke Exposure: No service: No Current occupational status: employed Cognitive needs: No Hearing needs: No Vision needs: Yes Assessment & Plan Assessment & Plan (1) Chronic kidney disease with end stage renal failure on dialysis: Code(s): N18.6 - End stage renal disease; Z99.2 - Dependence on renal dialysis (2) Morbid obesity: Code(s): E66.01 - Morbid (severe) obesity due to excess calories Plan encouraged communication with all providers to ensure delivery of a consistent message. will be seen again to discuss post op diet recs. Telehealth Telehealth Location of provider rendering services: practice address Location of patient: address on file Patient Identification confirmed using: Name, : Yes Telehealth method: voice only Patient verbally consented to treatment: Yes Patient verbally consented to billing insurance company: Yes Patient informed of any privacy concerns related to visit: Yes Minutes spent on Phone/Video with Pt.: 15 Coding Level of Care Code Nutr Indiv Intake (10766) Diagnoses Chronic kidney disease with end stage renal failure on dialysis N18.6; Z99.2 Morbid obesity E66.01 Time Spent (min) 15
== END 2023-06-08 10:51 | disposition home or self-care (01) ==
LOC: HO.HBS 10:48
PROVIDERS: PCP Internal Medicine; Visit Provider Dietitian, Registered
DX: N18.6 End stage renal disease (principal); Z99.2 Dependence on renal dialysis; E66.01 Morbid (severe) obesity due to excess calories

== ENCOUNTER → 2023-06-08 10:48 | Outpatient (BNVA) | payer OTHER, SELFPAY | PROVIDERS: PCP Internal Medicine; Visit Provider Dietitian, Registered | DX: E66.01 Morbid (severe) obesity due to excess calories (principal); N18.6 End stage renal disease; Z99.2 Dependence on renal dialysis | CPT/HCPCS: 97802 ==

== ENCOUNTER 2023-06-19 08:27 | Outpatient (REF) | payer OTHER, SELFPAY ==
--- NOTE | ~2023-06-19 | US_ITS ---
EXAMINATION: US COMPLETE ABDOMEN WITH LIVER ELASTOGRAPHY CLINICAL INFORMATION: Obesity. COMPARISON: Renal ultrasound dated 10/18/2017. TECHNIQUE: Real-time imaging of the abdominal viscera. Noninvasive ultrasound liver fibrosis assessment is performed using Robert ElastPQ point quantification shear wave elastography (2D-SWE) with a C5-2 MHz transducer. Multiple elastography samples are obtained. FINDINGS: PANCREAS: Normal. The visualized pancreatic head and body are normal in appearance. The remainder of the pancreas is obscured from visualization by the overlying bowel gas. ABDOMINAL AORTA: The proximal, middle, and distal aortic segments are normal in caliber. INFERIOR VENA CAVA: Visualized portions are normal. LIVER: There is hepatomegaly. The liver shows normal contour and generally increased echogenicity. No focal lesion or intrahepatic biliary duct dilatation. The right lobe measures 19.6 cm in length. The left lobe measures 12.3 cm in length. Portal flow is towards the liver (hepatopetal). Shear wave liver elastography median stiffness is 1.1 m/s (reference: normal median stiffness is 1.3 m/s or less). IQR/median stiffness to assess sampling precision is 0.12 (reference: good quality data set is IQR/median stiffness of 0.15 or less). GALLBLADDER: There is a large amount of mobile biliary sludge. The gallbladder is physiologically distended without evidence of stones, polyps, wall thickening or pericholecystic fluid. COMMON BILE DUCT: Normal in caliber measuring 0.2 cm in diameter. RIGHT KIDNEY: Normal. No hydronephrosis. No renal calculi or focal parenchymal lesions. The kidney measures 9.5 cm in maximum dimension. LEFT KIDNEY: Normal. No hydronephrosis. No renal calculi or focal parenchymal lesions. The kidney measures 10.0 cm in maximum dimension. SPLEEN: Normal. The spleen measures 10.6 cm in maximum dimension. FREE FLUID: None. US/US abdomen comp w elastography IMPRESSION: 1. There is hepatomegaly. 2. There is generalized increase in hepatic echotexture, consistent with fatty infiltration or hepatocellular disease. Please correlate clinically. No focal hepatic mass or intrahepatic biliary dilatation is seen. 3. Liver elastography: Measurements are consistent with a high probability of normal liver stiffness. 4. There is marked nonshadowing biliary sludge, without shadowing calculus or cholecystitis noted. REFERENCE: Society of Radiologists in Ultrasound Liver Stiffness Thresholds (2020): LIVER STIFFNESS THRESHOLDS: *Liver Stiffness equal or less than 1.3 m/s: High probability of being normal. *Liver Stiffness less than 1.7 m/s: In the absence of other known clinical signs, rules out compensated advanced chronic liver disease. *Liver Stiffness 1.7-2.1 m/s: Suggestive of compensated advanced chronic liver disease but need further test for confirmation. *Liver Stiffness over 2.1 m/s: Rules in compensated advanced chronic liver disease. *Liver Stiffness over 2.4 m/s: Suggestive of clinically significant portal hypertension. QUALITY OF DATA SET: *IQR/Median value equal or less than 0.15 implies a quality data set. *IQR/Median value over 0.15 implies a poor quality data set. SIGNIFICANT CHANGE FROM PRIOR EXAM: Significant change if liver stiffness measurement is 10% or greater from prior exam. OTHER CONSIDERATIONS: The stage of liver fibrosis may be overestimated in the setting of acute hepatitis, liver inflammation, elevated liver function tests, hepatic vascular congestion, obstructive cholestasis, non-fasting state, and infiltrative diseases such as amyloidosis and lymphoma. In some patients with NAFLD, the liver stiffness thresholds for compensated advanced chronic liver disease may be lower. In causes other than viral hepatitis and NAFLD, liver stiffness thresholds are not well established.
== END 2023-06-19 08:28 | disposition home or self-care (01) ==
LOC: HO.US 08:27
PROVIDERS: PCP Internal Medicine; Visit Provider Surgery
DX: E66.01 Morbid (severe) obesity due to excess calories (principal)
CPT/HCPCS: 76700; 76981

== ENCOUNTER 2023-06-21 12:31 | Day surgery (SDC) | payer OTHER, SELFPAY ==
--- NOTE | 2023-06-16 23:38 | MHC.SHP ---
Pre-Procedural Eval Section A Date of Service: 06/16/23 The patient is an INPATIENT: No The History & Physical has been completed within 30 days and I have reviewed it.: Yes Section B Chief Complaint: obesity Details of Present Illness: GERD, s/p sleeve gastrectomy Relevant Family History (Specify if Yes): No Relevant Social History: None Present Medications: None Medical History: No relevant PMH History of Previous Operations: No relevant previous surgery Allergies: Allergies Allergy/AdvReac Type Severity Reaction Status Date / Time No Known Allergies Allergy Mild NONE Verified 05/16/23 10:30 Review of Systems Sugical H&P ROS: Negative: Constitution, Cardiovascular, Respiratory, Neurological, Psychiatric, Hem-Onc, Allergic/Immunologic, Gastrointestinal, Genitourinary, Musculoskeletal, Integumentary, Endocrine and Eyes/Ears/Nose/Throat Exam Surgical H&P Exam: Normal: HEENT, Normal: Heart, Normal: Lungs, Normal: Extremities, Normal: Abdomen, Normal: Skin and Normal: Neurological Plan Diagnosis/Plan: Unchanged (EGD to assess for esophagitis. Risks for perforation and bleeding were discussed with patient. She is in agreement with the plan) I have reviewed the history and physical and performed a pertinent physical examination on my patient. No changes have occurred unless specified. Time Spent With Patient Time: Total time managing care of this patient today ____ minutes.
--- NOTE | 2023-06-19 12:23 | HO.ANESPROP2 ---
Documented by User: Joan Hayden NP 06/19/23 12:29 HPI - Anesthesia Eval Consult details Narrative: 38yo F for Upper Endoscopy ESRD d/t DM on HD MWF. *LUE AV fistula* No IV/BP on LEFT* Legally blind (retinopathy d/t DM) (HCG quant ordered for DOS - ? anuresis) PMFSH Active Problems Active Problems: All Active Problems (Updated 06/07/23 @ 09:13 by Rodriguez Matthews MD) Cardiomegaly (Acute) Vitamin B12 deficiency (Acute) Folic acid deficiency (Acute) Vitamin D deficiency (Acute) Claudication of both lower extremities (Acute) Morbid obesity (Acute) Left foot infection (Acute) Seasonal allergies (Acute) Dyspnea (Acute) Preoperative cardiovascular examination (Acute) Peripheral neuropathy (Acute) Diabetic retinopathy (Acute) Obesity (BMI 30-39.9) (Acute) Acquired hypothyroidism (Acute) Chronic kidney disease with end stage renal failure on dialysis (Acute) Pure hypercholesterolemia (Acute) Benign essential hypertension (Acute) Type 1 diabetes mellitus (Acute) Anemia (Acute) Past Medical History Medical History Morbid obesity Peripheral neuropathy Diabetic retinopathy Obesity (BMI 30-39.9) Acquired hypothyroidism Chronic kidney disease with end stage renal failure on dialysis Pure hypercholesterolemia Benign essential hypertension Type 1 diabetes mellitus Anemia Family History Family History Father No problems noted. Mother No problems noted. Surgical History Surgical History S/P arteriovenous (AV) fistula creation (~07/09/18) S/P dilatation and curettage (~02/2018) History of cataract surgery (~08/2017) History of eye surgery (~03/2017) History of detached retina repair (~08/15/16) S/P gastric sleeve procedure (~07/2020) Social History Social History Housing: House Alcohol intake: never Patient Tobacco Use Status: Never used Tobacco e-Cigarette/Vaping Use: Never Used Second Hand Smoke Exposure: No Use of substances other than those prescribed or required for medical reasons: No Have you been hit, kicked, punched, or otherwise hurt by someone within the past year? If so, by whom?: No Advance Directives: No Advance Directives Information Provided: Yes Recently lost weight without trying: No Eating poorly because of decreased appetite: No Nutrition Risks: No Nutritional Risk Patient : No FDLMP: 06/15/23 : No Poor oral hygiene: No service: No Current occupational status: employed Cognitive needs: No Hearing needs: No Vision needs: Yes Meds Allergies Allergy/AdvReac Type Severity Reaction Status Date / Time No Known Allergies Allergy Mild NONE Verified 05/16/23 10:30 Home Medications Medication Instructions Recorded Confirmed Last Taken Type blood sugar diagnostic (FreeStyle #10 ea 04/09/21 05/16/23 Unknown History Lite Strips) insulin aspart U-100 100 unit/mL 20 - 50 sliding scale dose subcut 04/09/21 06/19/23 Unknown History (3 mL) subcutaneous pen (Novolog TIDAC FlexPen U-100 Insulin aspart) insulin glargine 100 unit/mL (3 50 unit subcut QAM 04/09/21 06/19/23 Unknown History mL) subcutaneous pen (Lantus Solostar U-100 Insulin) nifedipine 90 mg tablet,extended 90 mg PO DAILY 04/09/21 06/19/23 Unknown History release pen needle, diabetic 32 gauge x #50 ea 04/09/21 05/16/23 Unknown History (BD Kiana 2nd Gen Pen Needle) gabapentin 100 mg capsule 100 mg PO TID 04/10/21 06/19/23 Unknown History metolazone 10 mg tablet 10 mg PO DAILY 04/10/21 06/19/23 Unknown History sevelamer carbonate 800 mg tablet 2,400 mg PO DAILY 04/10/21 06/19/23 Unknown History torsemide 100 mg tablet 100 mg PO BID 04/10/21 06/19/23 Unknown History insulin glargine 100 unit/mL (3 44 unit subcut QPM 06/19/23 06/19/23 Unknown History mL) subcutaneous pen Exam Pertinent Lab Results Pertinent Lab Results: Laboratory Tests 05/16/23 07:49 WBC 8.3 Hgb 11.1 L Hct 34.9 L Plt Count 321 Narrative Narrative: EKG 05/2023 Vent. Rate : 080 BPM Atrial Rate : 080 BPM P-R Int : 146 ms QRS Dur : 088 ms QT Int : 406 ms P-R-T Axes : 059 053 061 degrees QTc Int : 468 ms Normal sinus rhythm Normal ECG When compared with ECG of 13-SEP-2018 10:17, No significant change was found Assessment and Plan Assessment Anesthesia Assessment: Chart Reviewed Documented by User: Isidra Sr MD 06/21/23 13:40 HPI - Anesthesia Eval Consult details Narrative: 38yo F for Upper Endoscopy ESRD d/t DM on HD MWF. *LUE AV fistula* No IV/BP on LEFT* Legally blind (retinopathy d/t DM) (HCG quant ordered for DOS - ? anuresis) Dialysis this am 06/21/23. Post dialysis K+ 3.5 PMFSH Active Problems Active Problems: All Active Problems (Updated 06/21/23 @ 13:23 by Isidra Sr MD) Cardiomegaly (Acute) Vitamin B12 deficiency (Acute) Folic acid deficiency (Acute) Vitamin D deficiency (Acute) Claudication of both lower extremities (Acute) Morbid obesity (Acute) Seasonal allergies (Acute) Dyspnea (Acute) Preoperative cardiovascular examination (Acute) Peripheral neuropathy (Acute) Diabetic retinopathy (Acute) Obesity (BMI 30-39.9) (Acute) BMI 42.8 Acquired hypothyroidism (Acute) Chronic kidney disease with end stage renal failure on dialysis (Acute) Pure hypercholesterolemia (Acute) Benign essential hypertension (Acute) Type 1 diabetes mellitus (Acute) Anemia (Acute) ANDERSON. Uses CPAP machine Past Medical History Medical History Morbid obesity Peripheral neuropathy Diabetic retinopathy Obesity (BMI 30-39.9) Acquired hypothyroidism Chronic kidney disease with end stage renal failure on dialysis Pure hypercholesterolemia Benign essential hypertension Type 1 diabetes mellitus Anemia Family History Family History Father No problems noted. Mother No problems noted. Family history of problems with anesthesia: No Surgical History Surgical History S/P arteriovenous (AV) fistula creation (~07/09/18) S/P dilatation and curettage (~02/2018) History of cataract surgery (~08/2017) History of eye surgery (~03/2017) History of detached retina repair (~08/15/16) S/P gastric sleeve procedure (~07/2020) History of Problems with Anesthesia: No Social History Social History Housing: House Alcohol intake: never Patient Tobacco Use Status: Never used Tobacco e-Cigarette/Vaping Use: Never Used Second Hand Smoke Exposure: No Use of substances other than those prescribed or required for medical reasons: No Have you been hit, kicked, punched, or otherwise hurt by someone within the past year? If so, by whom?: No Advance Directives: No Advance Directives Information Provided: Yes Recently lost weight without trying: No Eating poorly because of decreased appetite: No Nutrition Risks: No Nutritional Risk Patient : No FDLMP: 06/15/23 : No Poor oral hygiene: No service: No Current occupational status: employed Cognitive needs: No Hearing needs: No Vision needs: Yes Meds Allergies Allergy/AdvReac Type Severity Reaction Status Date / Time No Known Allergies Allergy Mild NONE Verified 05/16/23 10:30 Home Medications Medication Instructions Recorded Confirmed Last Taken Type blood sugar diagnostic (FreeStyle #10 ea 04/09/21 05/16/23 Unknown History Lite Strips) insulin aspart U-100 100 unit/mL 20 - 50 sliding scale dose subcut 04/09/21 06/19/23 Unknown History (3 mL) subcutaneous pen (Novolog TIDAC FlexPen U-100 Insulin aspart) insulin glargine 100 unit/mL (3 50 unit subcut QAM 04/09/21 06/19/23 Unknown History mL) subcutaneous pen (Lantus Solostar U-100 Insulin) nifedipine 90 mg tablet,extended 90 mg PO DAILY 04/09/21 06/19/23 Unknown History release pen needle, diabetic 32 gauge x #50 ea 04/09/21 05/16/23 Unknown History (BD Kiana 2nd Gen Pen Needle) gabapentin 100 mg capsule 100 mg PO TID 04/10/21 06/19/23 Unknown History metolazone 10 mg tablet 10 mg PO DAILY 04/10/21 06/19/23 Unknown History sevelamer carbonate 800 mg tablet 2,400 mg PO DAILY 04/10/21 06/19/23 Unknown History torsemide 100 mg tablet 100 mg PO BID 04/10/21 06/19/23 Unknown History insulin glargine 100 unit/mL (3 44 unit subcut QPM 06/19/23 06/19/23 Unknown History mL) subcutaneous pen Exam Height,Weight and Vital Signs: Height 5 ft 4 in Weight 113.115 kg Vital Signs Temp Pulse Resp BP Pulse Ox O2 Del Method 06/21/23 13:13 97.9 F 87 16 121/74 97 Room Air Pertinent Lab Results Pertinent Lab Results: Laboratory Tests 05/16/23 07:49 WBC 8.3 Hgb 11.1 L Hct 34.9 L Plt Count 321 Lab Results 06/21/23 06/21/23 Range/Units 12:57 13:32 Sodium 136 (135-145) mmol/L Potassium 3.5 (3.3-5.1) mmol/L Chloride 92 L (96-108) mmol/L Carbon Dioxide 32 H (22-29) mmol/L Anion Gap 16 (12-20) POC Glucose 108 (60-115) mg/dL Beta HCG, Quant < 2 mIU/mL Airway Mallampati Class: II TM Dist: >3cm Neck ROM: Full Loose/Missing/Broken Teeth: Yes (Missing 1 tooth back bottom left and right. Denies broken or loose teeth) Heart: RRR Lungs: CTAB Assessment and Plan Assessment Anesthesia Assessment: Anesthesia Plan Discussed Final Anesthetic Review Family History of Problems with Anesthesia: No History of Problems with Anesthesia: No NPO: Yes ASA Class: III Final Preanesthetic Review: No Changes in Pt Med Stat, Meds/Allgs Chart Reviewed, Consent Obtained/Reviewed and Anes Risks/Benef Reviewed Patient Risk: Intermediate Procedure Risk: Low Assessment/Block/Sedation in SS: Assess/Block/Sedation-SS Anesthetic Plan Anesthetic Plan: TIVA Disposition: Standard PACU
[2023-06-19 13:42] VITALS: BMI 42.8
[2023-06-21 13:13] VITALS: BP 121/74; PULSE 87; RESP 16; TEMP 36.6; O2SAT 97
[2023-06-21] MEDS: 0.9 % Sodium Chloride 1,000 ML 100 ML IVCONT (13:15)
[2023-06-21 13:20] LABS: Anion Gap 16 (12-20); Carbon Dioxide 32 mmol/L (22-29); Chloride 92 mmol/L (96-108); Potassium 3.5 mmol/L (3.3-5.1); Sodium 136 mmol/L (135-145)
[2023-06-21 13:26] LABS: HCG Quantitative < 2 mIU/mL
[2023-06-21 13:37] LABS: Glucose, Whole Blood 108 mg/dL (60-115)
--- NOTE | 2023-06-21 13:39 | P.BOP_ITS ---
Brief Operative Note Date of Service: 06/21/23 Pre-op diagnosis: Anemia Post-op diagnosis: same Procedure: PROCEDURE DATE: 06/21/2023 PREOPERATIVE DIAGNOSIS: Anemia, s/p sleeve gastrectomy POSTOPERATIVE DIAGNOSIS: ?Same as above. 1) redundant proximal sleeve, 2) esophagitis PROCEDURE: [id number] with biopsies Surgeon: ?Leonid Matthews M.D.. Ph.D. Industrial Automation Engineer: None ? Anesthesia: IV sedation Estimated blood loss: ?Minimal FINDINGS AND PROCEDURE: ? OPERATIVE INDICATIONS: ?The patient is a 38 year old female known to me who underwent a laparoscopic sleeve gastrectomy by Dr. Rojas. The patient had inadequate weight loss so far and has anemia. Based on this information I recommended an upper endoscopy to evaluate the patient's symptoms. Risks and complications of the surgery were discussed with the patient in advance particularly the possibility of perforation or bleeding that may require surgical intervention. The patient understood the risks and was in agreement with the plan. ? PROCEDURE: After informed consent was obtained by the patient, the patient was ?transferred to the Operating Room and was placed in the supine position.? After successful induction of IV sedation, a mouth block was inserted and the patient was placed in the left lateral decubitus position. An upper endoscopy was performed next, the oropharynx and esophagus appeared within the normal limits. There was no hiatal hernia. The z-line was irregular with tongues of gastric mucosa protruding into the esophagus in 25% of cicrumference. Two biopsies were obtained from the distal esophagus 2-3 cm prox imal to the GE junction and two additional biopsies from the GE junction. The sleeve was entered. There was redundancy in the proximal stomach and the caliber was larger than the rest of the sleeve. Overall the sleeve caliber was enlarged as well. There was no gastritis at distal antrum. There was no stricture or ulcer. Biopsies were obtained from the proximal sleeve as well as the distal antrum. No significant bleeding was noted from any of the biopsy sites. The scope was then advanced into the duodenum which appeared to be normal as well. At that point the duodenum ?and the sleeve were decompressed and the scope was withdrawn from the patient's mouth. The patient extubated and was transferred in stable condition to the Recovery Room for further care. I was present and performed all steps of the procedure. There were no residents to assist with this case. Leonid Matthews M.D., Ph.D. Surgeon: Rodriguez Matthews MD Anesthesia: MAC Was an Industrial Automation Engineer used for this Procedure?: No Estimated blood loss (mL): 0 IV fluids (mL): 400 Urine output (mL): 0 (No Lozada to record output) Pathology: other (1) antrum x1, 2) proximal sleeve/gastric fundus x1, 3) EGJ x2, 4) distal esophagus x2) Condition: stable Disposition: PACU
[2023-06-21 14:14] VITALS: BP 116/68; PULSE 81; RESP 16; TEMP 36.6; O2SAT 95
[2023-06-21 14:29] VITALS: BP 118/70; PULSE 86; RESP 16; O2SAT 96
[2023-06-21 14:44] VITALS: BP 121/82; PULSE 97; RESP 16; TEMP 36.1; O2SAT 99
== END 2023-06-21 15:52 | disposition home or self-care (01) ==
PROVIDERS: Nurse Practitioner; PCP Internal Medicine; Visit Provider Surgery
PROC: 0DJ08ZZ Inspection of Upper Intestinal Tract, Via Natural or Artificial Opening Endoscopic (ICD-10-PCS; CPT 43235; principal; 2023-06-21 15:10)
DX: D64.9 Anemia, unspecified (principal); K20.90 Esophagitis, unspecified without bleeding; K63.89 Other specified diseases of intestine; E66.01 Morbid (severe) obesity due to excess calories; I12.0 Hypertensive chronic kidney disease with stage 5 chronic kidney disease or end stage renal disease; E10.22 Type 1 diabetes mellitus with diabetic chronic kidney disease; N18.6 End stage renal disease; H54.7 Unspecified visual loss; Z98.84 Bariatric surgery status; Z99.2 Dependence on renal dialysis
CPT/HCPCS: 43239; 36415; 80051; 82947; 84702; 88305; 88313; 88342; J1596; J2250; J2704

== ENCOUNTER → 2023-06-21 12:31 | Outpatient (BNV) | payer OTHER, SELFPAY | PROVIDERS: PCP Internal Medicine; Visit Provider Surgery | DX: D64.9 Anemia, unspecified (principal); K95.89 Other complications of other bariatric procedure; Z90.3 Acquired absence of stomach [part of]; K20.90 Esophagitis, unspecified without bleeding | CPT/HCPCS: 43239 ==

== ENCOUNTER → 2023-06-29 10:51 | Outpatient (REF) | payer OTHER, SELFPAY ==
--- NOTE | 2023-06-29 10:53 | CA_ITS ---
Transthoracic Echocardiogram Patient (Last, First, Middle): Verona Holland D Gender: Female Date of : 1985 Age: 38 Procedure Date: 06/29/2023 Procedure Type: Transthoracic Echocardiogram Location: OP Height: 162.56 cm Weight: 99.79 kg BSA: 2.04 m2 Heart Rate: bpm BP: 140 / 60 mmHg Thinner Sprayer: TO Referring MD: Rodriguez Matthews MD [employer] Marketing: Zana Mendoza MD Symptoms: I51.7 - Cardiomegaly Study Quality: Fair/contrast ECG Rhythm: Sinus Conclusions: - 1. Technically limited study despite use of contrast agent 2. Normal LV ejection fraction with mild LVH 3. Mildly dilated left atrium 4. Normal cardiac valvular Doppler Findings Procedure Information Contrast agent, definity, is being given per protocol without apparent complications. Left Ventricle Normal left ventricular size and systolic function. There is mildly increased left ventricular wall thickness. The visually estimated ejection fraction is between 65-70%. Spectral Doppler is indicative of a normal filling pattern. Right Ventricle Normal right ventricular cavity size and systolic function. Atria The left atrium is mildly dilated. Interatrial shunt cannot be excluded. The right atrium is normal in size. Aortic Valve The aortic valve structure and function is likely normal. There is no aortic valve stenosis. There is no aortic valve regurgitation. Mitral Valve Likely normal mitral valve structure and function. There is trace mitral valve regurgitation. There is no mitral valve stenosis. Pulmonic Valve The pulmonic valve is likely normal. Tricuspid Valve The tricuspid valve was not well visualized. Tricuspid regurgitation envelope is inadequate for calculation of right ventricular systolic pressure. Normal right atrial pressure. Great Vessels The aorta was not well visualized. The pulmonary artery was not well visualized. There is no dilatation of the ascending aorta measuring 3.10 cm. Venous The inferior vena cava is normal in size and collapses greater than 50% with inspiration. Pericardium/Pleural The pericardium was not well visualized. Measurements 2D Linear Measurements IVSd: 1.45 0.6-0.9/0.6-1.0 cm LVIDd: 4.34 3.9-5.3/4.2-5.9 cm LVIDd Index: 2.13 2.4-3.2/2.2-3.1 cm/m2 LVIDs: 3.14 2.0-3.6 cm LVPWd: 1.19 0.7-1.1 cm LA Diam: 3.80 2.7-3.8/3.0-4.0 cm LAIDs Index: 1.86 1.5-2.3 cm/m2 LV Mass: 268.65 67-162/88-224 g LV Mass Index: 131.69 43-95/49-115 g/m2 LVOT Diam: 2.00 3.0+(-)1.3 cm 2D Systolic Function EF 4C: 69.20 >55% EF 2C: 68.80 >55% EF BiP: 68.60 >55% Mitral Valve MV VTI: 0.26 MV Pk Kevin: 1.18 MV Mn Kevin: 0.80 MV Pk Grad: 6.00 MV Mn Grad: 3.00 MV Pk E: 1.08 MV PK A: 0.75 MV Decel Time: 171.00 E/A: 1.40 E'Lateral: 9.25 E'Medial: 8.92 E/E' Med: 12.10 E/E' Lat: 11.70 PHT: 50.00 MVA PHT: 4.40 MVA Continuity: 3.46 Decel Ballard: 6.29 Aortic Valve AoV Pk Kevin: 1.70 AoV Mn Kevin: 1.12 AoV VTI: 0.31 AoV Pk Grad: 12.00 Aov Mn Grad: 6.00 JACKELIN Cont.VTI: 2.91 LVOT LVOT Pk Kevin: 1.41 LVOT Mn Kevin: 0.96 LVOT VTI: 0.29 LVOT Pk Grad: 8.00 LVOT Mn Grad: 4.00 LVOT Diam: 2.00 LVOT Area: 3.14 Diastolic Function MV Pk E: 1.08 MV Pk A: 0.75 E/A: 1.40 E'Medial: 8.92 E/E' Med: 12.10 E' Laterial: 9.25 E/E' Lat: 11.70 Right Ventricle TAPSE (mm): 18.90 TVS' Kevin: 18.40 Tricuspid Valve RA Press: 3.00 Great Vessels Aorta Sinus of Valsalva: 3.17 2.0-3.5 cm Ao Asc: 3.10 2.1-3.4 cm Updated in Other Vendor System with Status of Final Zana Mendoza MD electronically signed on 06/30/2023 1:25:10 PM with status of Final
== END ==
LOC: HO.CARD 10:51
PROVIDERS: PCP Internal Medicine; Visit Provider Surgery
DX: I51.7 Cardiomegaly (principal)
CPT/HCPCS: 93306; Q9957

== ENCOUNTER → 2023-06-29 10:53 | Outpatient (BNV) | payer OTHER, SELFPAY | PROVIDERS: PCP Internal Medicine; Visit Provider Internal Medicine Cardiovascular Disease | DX: I51.7 Cardiomegaly (principal) | CPT/HCPCS: 93306 ==

== ENCOUNTER 2023-07-07 08:04 | Outpatient (AMB) | payer OTHER, SELFPAY ==
--- NOTE | 2023-07-07 09:43 | A.OFFVIS_ITS ---
Intake VS Expanded 07/07/23 09:44 Height 5 ft 4 in Weight 244 lb 2 oz BMI 41.9 Intake Visit Reasons: TV Follow Up SWL Allergies No Known Allergies Allergy (Mild, Verified 05/16/23 10:30) NONE HPI TV Follow Up SWL HPI Details Start time: 9.36am, End time: 10.02am ?I spent 21 minutes speaking with the patient on the phone plus an additional 5 minutes reviewing and updating records for a total of 26 minutes HPI Comments History of Present Illness Details Overall weight loss: 5.6 lbs, or 2.24% TBWL Is doing 2 Isopure Infusions shakes (1/2 scoop in water), 2 Zone Perfect protein bars and one meal (4 forks of protein and 4 forks of salad or vegetables) Exercise: is doing treadmill x3/wk for 600 calories for 1hr (incline 2.5, speed 1-2 PFSH Medical History Morbid obesity Peripheral neuropathy Diabetic retinopathy Obesity (BMI 30-39.9) Acquired hypothyroidism Chronic kidney disease with end stage renal failure on dialysis Pure hypercholesterolemia Benign essential hypertension Type 1 diabetes mellitus Anemia Surgical History S/P arteriovenous (AV) fistula creation (~07/09/18) S/P dilatation and curettage (~02/2018) History of cataract surgery (~08/2017) History of eye surgery (~03/2017) History of detached retina repair (~08/15/16) S/P gastric sleeve procedure (~07/2020) Family History Father No problems noted. Mother No problems noted. Social History Housing: House Alcohol intake: never Patient Tobacco Use Status: Never used Tobacco e-Cigarette/Vaping Use: Never Used Second Hand Smoke Exposure: No service: No Current occupational status: employed Cognitive needs: No Hearing needs: No Vision needs: Yes Assessment & Plan Assessment & Plan (1) Morbid obesity: Code(s): E66.01 - Morbid (severe) obesity due to excess calories Plan: 1. Continue same nutritional plan of 2 Isopure Infusons protein shakes (half scoop each in 8oz water), 2 Zone Perfect protein bars and one meal (4 forks of protein and 4 forks of salad or vegetables) 2. Start treadmill with an incline of 2.0 and speed of 3.0. Increase incline by 1 every 3 min to a max incline of 8.0, stay 3min at 8.0 and then return to 2.0 and repeat same steps until calorie goal is met. Goal is to burn 2000 calories per week on exercise, which means either 300 calories daily, or 400 calories 5 days per week, or 500 calories 4 days per week, or 650 calories 3 days per week. 3. Send me pictures of the console of the treadmill after you complete the work- out 4. Send me pictures of your meal daily after you measure it but before you eat it 5. Send me weight measurements weekly on Saturdays Telehealth Telehealth Location of provider rendering services: practice address Location of patient: address on file Patient Identification confirmed using: Name, : Yes Telehealth method: voice only Patient verbally consented to treatment: Yes Patient verbally consented to billing insurance company: Yes Patient informed of any privacy concerns related to visit: Yes Minutes spent on Phone/Video with Pt.: 26 Coding Level of Care Code Tele Est Pt Level 3 (64767) Diagnoses Morbid obesity E66.01 Time Spent (min) 26
[2023-07-07 09:44] VITALS: BMI 41.9
== END 2023-07-07 10:03 | disposition home or self-care (01) ==
LOC: HO.HBS 08:04
PROVIDERS: PCP Internal Medicine; Visit Provider Surgery
DX: E66.01 Morbid (severe) obesity due to excess calories (principal); Z68.41 Body mass index [BMI] 40.0-44.9, adult; Z90.3 Acquired absence of stomach [part of]; Z98.84 Bariatric surgery status
CPT/HCPCS: 99443

== ENCOUNTER → 2023-07-07 08:04 | Outpatient (BNVA) | payer OTHER, SELFPAY | PROVIDERS: PCP Internal Medicine; Visit Provider Surgery ==

== ENCOUNTER 2023-07-25 16:00 | Outpatient (AMB) | payer OTHER, SELFPAY ==
--- NOTE | 2023-07-25 16:10 | A.OFFWM_ITS ---
Intake Intake Visit Reasons: VIDEO BH Intake Allergies No Known Allergies Allergy (Mild, Verified 05/16/23 10:30) NONE PFSH Medical History Morbid obesity Peripheral neuropathy Diabetic retinopathy Obesity (BMI 30-39.9) Acquired hypothyroidism Chronic kidney disease with end stage renal failure on dialysis Pure hypercholesterolemia Benign essential hypertension Type 1 diabetes mellitus Anemia Surgical History S/P arteriovenous (AV) fistula creation (~07/09/18) S/P dilatation and curettage (~02/2018) History of cataract surgery (~08/2017) History of eye surgery (~03/2017) History of detached retina repair (~08/15/16) S/P gastric sleeve procedure (~07/2020) Family History Father No problems noted. Mother No problems noted. Social History Housing: House Alcohol intake: never Patient Tobacco Use Status: Never used Tobacco e-Cigarette/Vaping Use: Never Used Second Hand Smoke Exposure: No service: No Current occupational status: employed Cognitive needs: No Hearing needs: No Vision needs: Yes Behavioral Health Assessment Weight Management Therapy Therapy Notes Details Pt is looking to have weight loss surgery revision to help improve her health and quality of care. Pt is on dialysis and needs a kidney transplant. She is currently not in therapy but was when she was a child, she grew up with her extended family and had some anger issues. Has been on medication for anxiety a few years ago but not currently. Pt has no history of problems with drugs or alcohol. No hx of inpatient psychiatric admissions. Presenting Concerns Referral Source provider Reason for referral weight loss surgery evaluation Precipitating Event obesity Living Situation Current Living Situation Relative's/Guardian's Tao At risk of losing current housing? No Satisfied with current living situation? Yes Comments Pt lives with her mom and dad. She is single and has no children. Food/Weight/Diet Expectations of change weight loss and maintenance History/Relationship with food Pt stated that she has struggled to loose weight because of her health, she reported eating small portions since having previous LSG. History/Relationship with weight Pt stated that she has been overweight since childhood. History/Relationship with dieting highest 300lbs and then after LSG in 2019 she went down to 230lbs. Social History Family history and relationship mon, mon, monday she is in dialysis for 4 hours, then if she feels well enough she will do some chores. 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 Verona is a single 38 year old female with no children, currently lives with her parents. 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 none reported Education Highest grade completed associates degree Preferred learning style Auditory, Verbal, Written, Learn by doing and Visual Currently enrolled in educational program? No Interested in further educational program? 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 No Meaningful activities goes to the gym, gardening, taking photos Financial Situation Describe current financial situation Occasional struggle Financial assistance? None Service Service? No Mental Health and Addiction Treatment Current/Past substance abuse? No Current/Past addictive behavior concerns? No Medical and Physical Health Summary Physical exam in the last year? Yes Pain Screening Current pain? No Pain in the last few months? No Medications Is the patient compliant with medications? Yes Does the patient have Luke Guardian in place? Not applicable Does the patient use complimentary health approaches? No Trauma/Abuse History History of trauma? No Questionnaires PHQ-9 Over the last 2 weeks, how often have you been bothered by any of the following problems? 1. Little interest or pleasure in doing things: several days 2. Feeling down, depressed, or hopeless: several days 3. Trouble falling or staying asleep, or sleeping too much: more than half the days 4. Feeling tired or having little energy: more than half the days 5. Poor appetite or overeating: not at all 6. Feeling bad about yourself - or that you are a failure or have let yourself or your family down: more than half the days 7. Trouble concentrating on things, such as reading the newspaper or watching television: not at all 8. Moving or speaking so slowly that other people could have noticed. Or the opposite - being so fidgety or restless that you have been moving around a lot more than usual: not at all 9. Thoughts that you would be better off or of hurting yourself in some way: not at all Total score: 8 Source: Developed by Drs. Dc Fall, Isaura Cotton, Antoine Rankin and colleagues, with an educational itz from [employer]. Binge Eating Scale Group 1 A. I don't feel self-conscious about my wt. or body size when I'm with others. B. I feel concerned about how I look to others, but it normally does not make me fell disappointed with myself C. I do get self-conscious about my appearance and wt. which makes me feel disappointed in myself. D. I feel very self-conscious about my wt. and frequently I feel intense shame and disgust for myself. I try to avoid social contacts because of my self- consciousness. Response Group 1: C Group 2 A. I don't have any difficulty eating slowly in the proper manner. B. Although I seem to gobble down foods, I don't end up feeling stuffed because of eating to much. C. At times, I tend to eat quickly and then, I feel uncomfortably full afterwards. D. I have the habit of bolting down my food, without really chewing it. When this happens I usually feel uncomfortably stuffed because I've eaten to much. Response Group 2: A Group 3 A. I feel capable to control my eating urges when I want to. B. I feel like I have failed to control my eating more than the average person. C. I feel utterly helpless when it comes to feeling in control of my eating urges. D. Because I feel so helpless about controlling my eating I have become very desperate about trying to get control. Response Group 3: A Group 4 A. I don't have the habit of eating when I'm bored. B. I sometimes eat when I'm bored, but often I'm able to get busy and get my mind off food. C. I have a regular habit of eating when I'm bored, but occasionally, I can use some other activity to get my mind off eating. D. I have a strong habit of eating when I'm bored. Nothing seems to help me breath the habit. Response Group 4: A Group 5 A. I'm usually physically hungry when I eat something. B. Occasionally, I eat something on impulse even though I really am not hungry. C. I have the regular habit of eating foods, that I might not really enjoy, to satisfy a hungry feeling even though physically, I don't need the food. D. Although I'm not physically hungry, I get a hungry feeling in my mouth that only seems to be satisfied when I eat a food, like sandwich, that fills my mouth. Sometimes, when I eat the food to satisfy my mouth hunger, I then spit the food out so I won't gain weight. Response Group 5: A Group 6 A. I don't feel any guilt or self-hate after I overeat. B. After I overeat, occasionally I feel guilt or self-hate. C. Almost all the time I experience strong guilt or self-hate after I overeat. Response Group 6: A Group 7 A. I don't lose total control of my eating when dieting even after periods when I overeat. B. Sometimes when I eat a forbidden food on a diet, I feel like I blew it and eat even more. C. Frequently, I have the habit of saying to myself, I've blown it now, why not go all the way, when I overeat on a diet. When that happens I eat more. D. I have a regular habit of starting a strict diets for myself but I break the diets by going on an eating binge. My life seems to be either a feast or famine. Response Group 7: A Group 8 A. I rarely eat so much food that I feel uncomfortably stuffed afterwards. B. Usually about once a month, I each such a quantity of food, I end up feeling very stuffed. C. I have regular periods during the month when I eat large amounts of food, either at mealtime or at snacks. D. I eat so much food that I regularly feel quite uncomfortable after eating and sometimes a bit nauseous. Response Group 8: A Group 9 A. My level of calorie intake does not go up very high or go down very low on a regular basis. B. Sometimes after I overeat, I will try to reduce my caloric intake to almost nothing to compensate for the excess calories I've eaten. C. I have a regular habit of overeating during the night. It seems that my routine is not to be hungry in the morning but overeat in the evening. D. In my adult years, I have had week-long periods where I practically starve myself. This follows periods when I overeat. It seems I live a life of either feast or famine. Response Group 9: A Group 10 A. I usually am able to stop eating when I want to. I know when enough is enough. B. Every so often, I experience a compulsion to eat which I can't seem to control. C. Frequently, I experience strong urges to eat which I seem unable to control, but at other times I can control my eating urges. D. I feel incapable of controlling urges to eat. I have a fear of not being able to stop eating voluntarily. Response Group 10: A Group 11 A. I don't have any problem stopping eating when I feel full. B. I usually can stop eating when I feel full but occasionally overeat leaving me feeling uncomfortably stuffed. C. I have a problem stopping eating once I start and usually I feel uncomfortably stuffed after I eat a meal. D. Because I have a problem not being able to stop eating when I want, I sometimes have to induce vomiting to relieve my stuffed feeling. Response Group 11: A Group 12 A. I seem to eat just as much when I'm with others, Family social gatherings as when I'm by myself. B. Sometimes, when I'm with other persons, I don't eat as much as I want to eat because I'm self-conscious about my eating. C. Frequently, I eat only a small amount of food when others are present, because I'm very embarrassed about my eating. D. I feel so ashamed about overeating that I pick times to overeat when I know no one will see me. I feel like a closet eater. Response Group 12: A Group 13 A. I eat three meals a day with only an occasional between meal snack. B. I eat 3 meals a day, but I also normally snack between meals. C. When I am snacking heavily, I get in the habit of skipping regular meals. D. There are regular periods when I seem to be continually eating, with no planned meals. Response Group 13: A Group 14 A. I don't think much about trying to control unwanted eating urges. B. At least some of the time, I feel my thoughts are pre-occupied with trying to control my eating urges. C. I feel that frequently I spend much time thinking about how much I ate or about trying not to eat anymore. D. It seems to me that most of my waking hours are pre-occupied by thoughts about eating or not eating. I feel like I'm constantly struggling not to eat. Response Group 14: A Group 15 A. I don't think about food a great deal. B. I have strong craving for food but they last only for brief periods of time. C. I have days when I can't seem to think about anything else but food. D. Most of my days seem to be pre-occupied with thoughts about food. I feel like I live to eat. Response Group 15: A Group 16 A. I usually know whether or not I'm physically hungry. I take the right portion of food to satisfy me. B. Occasionally, I feel uncertain about knowing whether or not I'm physically hungry. A these times it's hard to know how much food I should take to satisfy me. C. Even though I might know how many calories I should eat, I don't have any idea what is a normal amount of food for me. 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 She is currently not in therapy and would like to have more support. She has no other major barriers. Pt is cleared for surgery and will be seen again. Telehealth Telehealth Location of provider rendering services: other Location of patient: other Patient Identification confirmed using: Name, : Yes Telehealth method: voice only Patient verbally consented to treatment: Yes Patient verbally consented to billing insurance company: Yes Patient informed of any privacy concerns related to visit: Yes Minutes spent on Phone/Video with Pt.: 40 Coding Level of Care Code Tele Psy Diag Yandel ([id number]) Diagnoses Major depressive disorder, recurrent, mild F33.0 Chronic kidney disease with end stage renal failure on dialysis N18.6; Z99.2 Time Spent (min) 45
== END 2023-07-25 17:30 ==
LOC: HO.HBST 07-26 08:42
PROVIDERS: PCP Internal Medicine; Visit Provider Counselor Mental Health
DX: F33.0 Major depressive disorder, recurrent, mild (principal); N18.6 End stage renal disease; Z99.2 Dependence on renal dialysis
CPT/HCPCS: 90791

== ENCOUNTER → 2023-07-25 16:00 | Outpatient (BNVA) | payer OTHER, SELFPAY | PROVIDERS: PCP Internal Medicine; Visit Provider Counselor Mental Health | DX: F33.0 Major depressive disorder, recurrent, mild (principal); N18.6 End stage renal disease; Z99.2 Dependence on renal dialysis ==

== ENCOUNTER 2023-07-31 08:01 | Outpatient (AMB) | payer OTHER, SELFPAY ==
[2023-07-31 09:13] VITALS: BMI 41.0
--- NOTE | 2023-07-31 09:13 | MHC.OFFVISWM ---
Intake VS Expanded 07/31/23 09:13 Height 5 ft 4 in Weight 239 lb BMI 41.0 Intake Visit Reasons: TV Follow Up SWL Allergies No Known Allergies Allergy (Mild, Verified 05/16/23 10:30) NONE HPI TV Follow Up SWL HPI Details Start time: 9.10am, End time: 9.30am ?I spent 15 minutes speaking with the patient on the phone plus an additional 5 minutes reviewing and updating records for a total of 20 minutes HPI Comments History of Present Illness Details Overall weight loss: 10.8 lbs, or 4.32% TBWL Is doing 2-3 Isopure Infusions (1/2 scoop in water), 1.5-2 Zone Perfect protein bars and one meal (4 forks of meat and 4 forks of rice) Exercise: treadmill for 4 days per week [facility] Medical History Morbid obesity Peripheral neuropathy Diabetic retinopathy Obesity (BMI 30-39.9) Acquired hypothyroidism Chronic kidney disease with end stage renal failure on dialysis Pure hypercholesterolemia Benign essential hypertension Type 1 diabetes mellitus Anemia Surgical History S/P arteriovenous (AV) fistula creation (~07/09/18) S/P dilatation and curettage (~02/2018) History of cataract surgery (~08/2017) History of eye surgery (~03/2017) History of detached retina repair (~08/15/16) S/P gastric sleeve procedure (~07/2020) Family History Father No problems noted. Mother No problems noted. Social History Housing: House Alcohol intake: never Patient Tobacco Use Status: Never used Tobacco e-Cigarette/Vaping Use: Never Used Second Hand Smoke Exposure: No service: No Current occupational status: employed Cognitive needs: No Hearing needs: No Vision needs: Yes Physical Exam Vital Signs: BMI result Body Mass Index 41.0 Assessment & Plan Assessment & Plan (1) Morbid obesity: Code(s): E66.01 - Morbid (severe) obesity due to excess calories Plan: 1. Continue same nutritional plan of 2 Isopure Infusions (1/2 scoop in water), 2 Zone Perfect protein bars and one meal (4 forks of meat and 4 forks of rice) 2. Try to replace rice with 4 slices of tomoato or cucumbers a few days per week 3. Do the treadmill for 100 calories before your dialysis the 5 days of dialysis, and for 400 calories per day the two days you don't have dialysis 4. Buy a body composition scale 5. Send weight measurements weekly on Sundays Telehealth Telehealth Location of provider rendering services: practice address Location of patient: address on file Patient Identification confirmed using: Name, : Yes Telehealth method: voice only Patient verbally consented to treatment: Yes Patient verbally consented to billing insurance company: Yes Patient informed of any privacy concerns related to visit: Yes Minutes spent on Phone/Video with Pt.: 20 Coding Level of Care Code Tele Est Pt Level 3 (22385) Diagnoses Morbid obesity E66.01 Time Spent (min) 20
== END 2023-07-31 09:53 | disposition home or self-care (01) ==
LOC: HO.HBS 08:02
PROVIDERS: PCP Internal Medicine; Visit Provider Surgery
DX: E66.01 Morbid (severe) obesity due to excess calories (principal); Z68.41 Body mass index [BMI] 40.0-44.9, adult
CPT/HCPCS: 99442

== ENCOUNTER → 2023-07-31 08:01 | Outpatient (BNVA) | payer OTHER, SELFPAY | PROVIDERS: PCP Internal Medicine; Visit Provider Surgery ==

== ENCOUNTER 2023-08-01 09:03 | Outpatient (REF) | payer OTHER, SELFPAY ==
--- NOTE | ~2023-08-01 | FL_ITS ---
EXAMINATION: XR FLUOROSCOPY UPPER GI WITH AIR CLINICAL INFORMATION: Preop evaluation prior to bariatric surgery COMPARISON: None TECHNIQUE: Fluoroscopic air contrast upper GI examination was performed utilizing standard techniques with thin and thick barium and effervescent granules. Numerous spot images were obtained. FINDINGS: Dual and single contrast images of the esophagus demonstrate normal caliber, contour, and mucosal pattern. No evidence of stricture, mass, or ulcerations identified. Esophageal peristalsis was normal. No evidence of hiatus hernia identified. No significant gastroesophageal reflux was seen during the course of the examination and on reflux views. Dual contrast and single contrast images of the stomach demonstrated an expected contour consistent with history of sleeve gastrectomy. Mucosal pattern is normal, without evidence of mass, ulceration, or other abnormality. Contrast freely passed into the gastric antrum and duodenal bulb without delay. Single and air-contrast images of the duodenal bulb demonstrate no abnormality. The duodenal sweep has a normal appearance, course, and mucosal fold appearance. The imaged proximal jejunum has a normal fold pattern and caliber. FLUOROSCOPY TIME: 2 minutes 49 seconds Number of Spot Images: 6 Number of Cine: 13 DOSE AREA PRODUCT: 2444 uGy-m2 (microgray-meter squared) FL/FL upper GI w air IMPRESSION: 1. Postsurgical changes consistent with prior history of sleeve gastrectomy. Otherwise unremarkable examination. This procedure was performed by Gabriele Cortez PA-C, and supervised by Dr. Miller
== END 2023-08-01 09:04 | disposition home or self-care (01) ==
LOC: HO.XRAY 09:03
PROVIDERS: PCP Internal Medicine; Visit Provider Surgery
DX: E66.01 Morbid (severe) obesity due to excess calories (principal)
CPT/HCPCS: 74246

== ENCOUNTER → 2023-08-01 09:04 | Outpatient (BNV) | payer OTHER, SELFPAY | PROVIDERS: PCP Internal Medicine; Visit Provider Physician Assistant Surgical | DX: E66.01 Morbid (severe) obesity due to excess calories (principal); Z01.818 Encounter for other preprocedural examination | CPT/HCPCS: 74246 ==

== ENCOUNTER 2023-08-08 13:16 | Outpatient (AMB) | payer OTHER, SELFPAY ==
--- NOTE | 2023-08-08 13:13 | A.OFFVIS_ITS ---
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 Matthews - no concerns or issues. she is rather guarded. Asked what she struggled with after LSG in 2019 and she states nothing at all. chicken and salad I have to separate all my food into portions Pt reports seeing Dietitian at [facility] and renal RD Elda SEXTON online classes: completed Dietary counseling reduction Diagnosis Nutrition problem #1 overweight/obesity As related to (etiology) #1 excess energy intake and physical inactivity As evidenced by (sign/symptom) #1 high BMI Monitoring/Goals Nutrition problem monitoring total energy intake, level of knowledge/skill, total PRO intake, weight and oral fluids Learning/Education Readiness to learn poor Most Recent Diabetes Results: Sodium 136 mmol/L (135-145) 06/21/23 Potassium 3.5 mmol/L (3.3-5.1) 06/21/23 Chloride 92 mmol/L (96-108) L 06/21/23 Carbon Dioxide 32 mmol/L (22-29) H 06/21/23 [facility] Medical History Morbid obesity Peripheral neuropathy Diabetic retinopathy Obesity (BMI 30-39.9) Acquired hypothyroidism Chronic kidney disease with end stage renal failure on dialysis Pure hypercholesterolemia Benign essential hypertension Type 1 diabetes mellitus Anemia Surgical History S/P arteriovenous (AV) fistula creation (~07/09/18) S/P dilatation and curettage (~02/2018) History of cataract surgery (~08/2017) History of eye surgery (~03/2017) History of detached retina repair (~08/15/16) S/P gastric sleeve procedure (~07/2020) Family History Father No problems noted. Mother No problems noted. Social History Housing: House Alcohol intake: never Patient Tobacco Use Status: Never used Tobacco e-Cigarette/Vaping Use: Never Used Second Hand Smoke Exposure: No service: No Current occupational status: employed Cognitive needs: No Hearing needs: No Vision needs: Yes Assessment & Plan Assessment & Plan (1) Morbid (severe) obesity due to excess calories: Code(s): E66.01 - Morbid (severe) obesity due to excess calories Plan pt is cleared when ready but would benefit from more time in the program Telehealth Telehealth Location of provider rendering services: practice address Location of patient: address on file Patient Identification confirmed using: Name, : Yes Telehealth method: voice only Patient verbally consented to treatment: Yes Patient verbally consented to billing insurance company: Yes Patient informed of any privacy concerns related to visit: Yes Minutes spent on Phone/Video with Pt.: 15 Coding Level of Care Code Nutr Indiv Subseq (52768) Diagnoses Morbid (severe) obesity due to excess calories E66.01 Time Spent (min) 15
== END 2023-08-08 13:21 | disposition home or self-care (01) ==
LOC: HO.HBS 13:16
PROVIDERS: PCP Internal Medicine; Visit Provider Dietitian, Registered
DX: E66.01 Morbid (severe) obesity due to excess calories (principal)

== ENCOUNTER → 2023-08-08 13:16 | Outpatient (BNVA) | payer OTHER, SELFPAY | PROVIDERS: PCP Internal Medicine; Visit Provider Dietitian, Registered | DX: E66.01 Morbid (severe) obesity due to excess calories (principal) | CPT/HCPCS: 97803 ==

== ENCOUNTER 2023-08-08 13:58 | Outpatient (AMB) | payer OTHER, SELFPAY ==
--- NOTE | 2024-01-03 15:02 | MHC.WMTHER ---
Intake Intake Visit Reasons: VIDEO BH F/U Allergies No Known Allergies Allergy (Mild, Verified 09/19/23 15:17) NONE PFS Medical History Morbid obesity Peripheral neuropathy Diabetic retinopathy Obesity (BMI 30-39.9) Acquired hypothyroidism Chronic kidney disease with end stage renal failure on dialysis Pure hypercholesterolemia Benign essential hypertension Type 1 diabetes mellitus Anemia Surgical History S/P arteriovenous (AV) fistula creation (~07/09/18) S/P dilatation and curettage (~02/2018) History of cataract surgery (~08/2017) History of eye surgery (~03/2017) History of detached retina repair (~08/15/16) S/P gastric sleeve procedure (~07/2020) Family History Father No problems noted. Mother No problems noted. Social History Housing: House Alcohol intake: never Patient Tobacco Use Status: Never used Tobacco e-Cigarette/Vaping Use: Never Used Second Hand Smoke Exposure: No service: No Current occupational status: employed Cognitive needs: No Hearing needs: No Vision needs: Yes Behavioral Health Assessment Weight Management Therapy Therapy Notes Details Patient reports doing well no issues, could not identify what she has struggled with in the past. Pt is looking to have weight loss surgery revision to help improve her health and quality of care. Pt is on dialysis and needs a kidney transplant. She is currently not in therapy but was when she was a child, she grew up with her extended family and had some anger issues. Has been on medication for anxiety a few years ago but not currently. Pt has no history of problems with drugs or alcohol. No hx of inpatient psychiatric admissions. Presenting Concerns Referral Source provider Reason for referral weight loss surgery evaluation Precipitating Event obesity Living Situation Current Living Situation Relative's/Guardian's Tao At risk of losing current housing? No Satisfied with current living situation? Yes Comments Pt lives with her mom and dad. She is single and has no children. Food/Weight/Diet Expectations of change weight loss and maintenance History/Relationship with food Pt stated that she has struggled to loose weight because of her health, she reported eating small portions since having previous LSG. History/Relationship with weight Pt stated that she has been overweight since childhood. History/Relationship with dieting highest 300lbs and then after LSG in 2019 she went down to 230lbs. Social History Family history and relationship mon, mon, monday she is in dialysis for 4 hours, then if she feels well enough she will do some chores. 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 [place] is a single 38 year old female with no children, currently lives with her parents. Parental/Familial first breaker feeder obligations none Developmental history and status none known Social support parents Restoration/Spirituality Jain Cultural/Ethnic information Legal Involvement and History Current or historical involvement with the legal system? none reported Education Highest grade completed associates degree Preferred learning style Auditory, Verbal, Written, Learn by doing and Visual Currently enrolled in educational program? No Interested in further educational program? No Employment Employment Status [employer] Wants help to find employment? No Meaningful activities goes to the gym, gardening, taking photos Financial Situation Describe current financial situation Occasional struggle Financial assistance? None Service Service? No Mental Health and Addiction Treatment Current/Past substance abuse? No Current/Past addictive behavior concerns? No Medical and Physical Health Summary Physical exam in the last year? Yes Pain Screening Current pain? No Pain in the last few months? No Medications Is the patient compliant with medications? Yes Does the patient have Luke Guardian in place? Not applicable Does the patient use complimentary health approaches? No Trauma/Abuse History History of trauma? No Assessment & Plan Assessment & Plan (1) Major depressive disorder, recurrent, mild: Code(s): F33.0 - Major depressive disorder, recurrent, mild (2) Chronic kidney disease with end stage renal failure on dialysis: Comment: dialysis MWF @ [facility] Code(s): N18.6 - End stage renal disease; Z99.2 - Dependence on renal dialysis Plan Pt is a 38 year female who has some depression due to her health status. She is currently not in therapy and would like to have more support. She has no other major barriers. Telehealth Telehealth Location of provider rendering services: other Location of patient: other Patient Identification confirmed using: Name, : Yes Telehealth method: voice only Patient verbally consented to treatment: Yes Patient verbally consented to billing insurance company: Yes Patient informed of any privacy concerns related to visit: Yes Minutes spent on Phone/Video with Pt.: 30 Coding Level of Care Code Tele Psytx 30 mins (26894) Diagnoses Major depressive disorder, recurrent, mild F33.0 Chronic kidney disease with end stage renal failure on dialysis N18.6; Z99.2 Time Spent (min) 30
== END 2023-08-08 14:30 | disposition home or self-care (01) ==
LOC: HO.HBST 13:58
PROVIDERS: PCP Internal Medicine; Visit Provider Counselor Mental Health
DX: F33.0 Major depressive disorder, recurrent, mild (principal); N18.6 End stage renal disease; Z99.2 Dependence on renal dialysis
CPT/HCPCS: 99499

== ENCOUNTER 2023-09-19 13:49 | Outpatient (REF) | payer OTHER, SELFPAY ==
[2023-09-19 14:01] LABS: MANUAL DIFF FLAG NO
[2023-09-19 14:16] LABS: Appearance Urine Clear; Color Urine Yellow; Glucose Urine UA 500 mg/dL (Negative); Leukocyte Esterase Urine Negative (Negative); Nitrite Urine Negative (Negative); PH 8.5 (5.0-9.0); Specific Gravity - Urine 1.015 (1.005-1.025); UMIC TRIGGER UACC YES; Urine Blood Trace (Negative); Urine Ketones Negative (Negative); Urine Protein 100 (2+) mg/dL (Neg-Trace)
[2023-09-19 14:21] LABS: Bacteria Urine None Seen (None Seen); Hyaline Casts Urine 0-2 /LPF (0-2); RBC Urine 0-2 /HPF (0-2); Squamous Epithelial Cell Urine 0-2 /HPF (0-2); WBC Urine 0-5 /HPF (0-5)
[2023-09-19 14:21] LABS: Basophils Absolute Auto 0.1 X10*3/uL (0.0-0.2); Basophils Percent Auto 0.8 % (0-2); Eosinophils Absolute Auto 0.3 X10*3/uL (0.0-0.4); Eosinophils Percent Auto 3.5 % (0-4); Hematocrit 40.2 % (37.0-47.0); Hemoglobin 12.9 g/dl (12.0-16.0); Imm Gran Abs Auto 0.03 X10*3/uL (0.00-0.03); Imm Gran Pct Auto 0.3 % (0.0-0.4); Lymphocytes Absolute Auto 2.2 X10*3/uL (1.2-4.9); Lymphocytes Percent Auto 24.8 % (20-40); Mean Corpuscular HGB Conc 32.1 g/dl (31.0-35.0); Mean Corpuscular Hemoglobin 26.8 pg (27.0-33.0); Mean Corpuscular Volume 83.6 fL (80.0-98.0); Mean Platelet Volume 10.5 fL (9.4-12.3); Monocytes Absolute Auto 0.7 X10*3/uL (0.1-1.2); Monocytes Percent Auto 7.5 % (2-11); Neutrophils Absolute Auto 5.5 x10*3/uL (2.0-8.3); Neutrophils Percent Auto 63.1 % (45-73); Platelet Count 344 X10*3/uL (160-400); Red Blood Count 4.81 X10*6/uL (4.20-5.50); Red Cell Distribution Width 14.5 % (11.0-16.0); White Blood Count 8.8 X10*3/uL (4.8-10.8)
[2023-09-19 14:44] LABS: Estimated Average Glucose 209 mg/dL; Hemoglobin A1c % 8.9 % (<6.0)
[2023-09-19 15:17] LABS: Creatinine Urine 67.43 mg/dL; Microalbum/Creatinine Ratio Ur 290.6 ug/mg cr (<30)
[2023-09-19 17:28] LABS: Alanine Aminotransferase 28 U/L (0-31); Albumin Level 3.9 g/dL (3.5-5.0); Alkaline Phosphatase 105 U/L (39-117); Anion Gap 16 (12-20); Aspartate Amino Transferase 13 U/L (5-31); Bilirubin Total 0.7 mg/dL (0.0-1.0); Blood Urea Nitrogen 41 mg/dL (9-16); Calcium 8.6 mg/dL (8.4-10.2); Carbon Dioxide 28 mmol/L (22-29); Chloride 97 mmol/L (96-108); Cholesterol 218 mg/dL (<200); Estimated Glomerular Filt Rate 6; Glucose Fasting 246 mg/dL (60-99); HDL Cholesterol 35 mg/dL (>40); LDL Cholesterol Calculated 148 mg/dL (<100); Potassium 4.2 mmol/L (3.3-5.1); Sodium 137 mmol/L (135-145); Total Protein 7.7 g/dL (6.5-8.0); Triglycerides 175 mg/dL (<150)
[2023-09-19 17:42] LABS: TSH reflex Free T4 0.97 uIU/mL (0.32-4.0); Vitamin D 25-OH Total 71.2 ng/mL (>30)
[2023-09-19 19:06] LABS: Folate 3.4 ng/mL (> or = 4.0); Vitamin B12 851 pg/mL (200-900)
== END 2023-09-19 13:50 | disposition home or self-care (01) ==
LOC: HO.LAB 13:49
PROVIDERS: Visit Provider Internal Medicine
DX: I10 Essential (primary) hypertension (principal); E55.9 Vitamin D deficiency, unspecified; E53.8 Deficiency of other specified B group vitamins; E11.9 Type 2 diabetes mellitus without complications; E78.00 Pure hypercholesterolemia, unspecified
CPT/HCPCS: 36415; 80053; 80061; 81001; 82043; 82306; 82570; 82607; 82746; 83036; 84443; 85025

== ENCOUNTER 2023-09-19 15:13 | Outpatient (AMB) | payer OTHER, SELFPAY ==
--- NOTE | 2023-09-19 15:15 | MHC.PC.OV ---
Vital Signs 09/19/23 15:17 Height 5 ft 4 in Weight 245 lb 6 oz BMI 42.1 BP 122/72 Blood Pressure Location Rt brachial Position Sitting Pulse 91 Pulse Source Pulse Oximeter Pulse Oximetry (%) 95 Oxygen Delivery Method Room Air Intake Visit Reasons: DM, hyperlipidemia, ESRD Intake Note: Patient is here to follow up on DM, HLD, ESRD. Application Administrator Required: No Reservation Clerk: Not Required per policy Accompanied by: Self / Same As Patient Allergies No Known Allergies Allergy (Mild, Verified 02/04/24 03:01) NONE Medication List - Last Reconciled 02/04/24 by Jason Salmon MD atorvastatin 20 mg PO BEDTIME 90 days blood sugar diagnostic (FreeStyle Lite Strips) As directed cholecalciferol (vitamin D3) 125 mcg PO DAILY cyanocobalamin (vitamin B-12) 500 mcg PO DAILY 90 days ferrous sulfate 325 mg PO DAILY 30 days fluticasone propionate 50 mcg/actuation (Flonase Allergy Relief) 1 spray intranasal DAILY 30 days folic acid 400 mcg PO DAILY 90 days gabapentin 100 mg PO TID insulin aspart U-100 (Novolog FlexPen U-100 Insulin aspart) 20 - 50 sliding scale doses subcut TIDAC insulin glargine 44 units subcut QPM insulin glargine (Lantus Solostar U-100 Insulin) 50 units subcut QAM levothyroxine 175 mcg PO DAILY 90 days metolazone 10 mg PO DAILY nifedipine ER 90 mg PO DAILY pen needle, diabetic (BD Kiana 2nd Gen Pen Needle) As directed sevelamer carbonate 2,400 mg PO DAILY torsemide 100 mg PO BID trazodone 50 mg PO BEDTIME PRN 30 days Tobacco use date assessed: 09/19/23 Dental Screening Dental Screen Date: 09/19/23 Did you have a dental visit in the last 12 months?: Yes Did you have a dental problem in the last 6 months where you did not have access to dental care?: No Was dental information given to patient?: Patient has dentist HPI DM, hyperlipidemia, ESRD HPI Details Patient comes in today for her follow up visit States that she feels okay She denies any headaches or dizziness Denies any chest pains, no increased SOB No nausea/vomiting, no abdominal pain No change in bowel habits noted She had her follow up labs done just a couple of hours ago at [facility] - to discuss her results [facility] Medical History Morbid obesity Peripheral neuropathy Diabetic retinopathy Obesity (BMI 30-39.9) Acquired hypothyroidism Chronic kidney disease with end stage renal failure on dialysis Pure hypercholesterolemia Benign essential hypertension Type 1 diabetes mellitus Anemia Surgical History S/P arteriovenous (AV) fistula creation (~07/09/18) S/P dilatation and curettage (~02/2018) History of cataract surgery (~08/2017) History of eye surgery (~03/2017) History of detached retina repair (~08/15/16) S/P gastric sleeve procedure (~07/2020) Family History Father No problems noted. Mother No problems noted. Social History Housing: House Alcohol intake: never Patient Tobacco Use Status: Never used Tobacco e-Cigarette/Vaping Use: Never Used Second Hand Smoke Exposure: No service: No Current occupational status: employed Cognitive needs: No Hearing needs: No Vision needs: Yes Questionnaire PHQ-9 Over the last 2 weeks, how often have you been bothered by any of the following problems? 1. Little interest or pleasure in doing things: not at all 2. Feeling down, depressed, or hopeless: not at all 3. Trouble falling or staying asleep, or sleeping too much: not at all 4. Feeling tired or having little energy: not at all 5. Poor appetite or overeating: not at all 6. Feeling bad about yourself - or that you are a failure or have let yourself or your family down: not at all 7. Trouble concentrating on things, such as reading the newspaper or watching television: not at all 8. Moving or speaking so slowly that other people could have noticed. Or the opposite - being so fidgety or restless that you have been moving around a lot more than usual: not at all 9. Thoughts that you would be better off or of hurting yourself in some way: not at all Total score: 0 Depression Screening Interpretation: Negative Depression Screening Done: Yes 51953 - PHQ-9 Billing: Yes Source: Developed by Drs. Dc Fall, Antoine Dailey and colleagues, with an educational itz from [employer]. Thrive Questionnaire Date Thrive assessed: 09/19/23 I am a: Patient What is your living situation today?: I have a steady place to live Within the past 12 months, did the food you bought not last and you didn't have the money to get more?: Never true Within the past 12 months, did you worry whether your food would run out before you got money to buy more?: Never true Do you have trouble paying for medicines?: No Do you have trouble getting transportation to medical appointments?: No Do you have trouble paying your heating and electricity bill?: No Do you have trouble taking care of your child, family member or friend?: No Do you have trouble with day-to-day activities such as bathing, preparing meals, shopping, managing finances, etc.?: No Are you currently unemployed and looking for a job?: No Are you interested in more education?: No Currently or been in a relationship where the following occur: no concerns reported THRIVE Score: 0 AUDIT C Alcohol Use Questionnaire (AUDIT-C) 1. How often do you have a drink containing alcohol?: Never 3. How often do you have six or more drinks on one occasion?: Never Total Score: 0 Score Reviewed/Action Taken: Yes LEÓN-7 AMB Questionnaire LEÓN-7 Date LEÓN - 7 assessed: 09/19/23 Feeling nervous, anxious, or on edge: 0 = Not at all Not being able to stop or control worryin = Not at all Worrying too much about different things: 0 = Not at all Trouble relaxin = Not at all Being so restless that it is hard to sit still: 0 = Not at all Becoming easily annoyed or irritable: 0 = Not at all Feeling afraid as if something awful might happen: 0 = Not at all Total LEÓN-7 score (0-4 normal; 5-9 mild; 10-14 moderate; 15-21 severe): 0 Source: Developed by Isaura Solo Kurt Kroenke and colleagues, with an educational itz from [employer]. Review of Systems Const Denies chills, Reports difficulty sleeping, Reports fatigue, Denies fever(s) and Denies headache(s) ENT Denies dysphagia, Denies dizziness, Denies otalgia, Denies headache(s), Denies neck pain, Denies odynophagia and Denies sore throat Card Denies chest pain, Denies palpitations and Reports dyspnea on exertion (mild) Resp Denies chest congestion, Denies cough and Reports dyspnea on exertion (mild) GI Denies abdominal pain, Denies constipation, Denies dysphagia, Denies heartburn, Denies diarrhea, Denies nausea, Denies odynophagia and Denies vomiting Denies difficulty voiding, Denies nocturia, Denies dysuria and Denies urinary urgency Musc Reports muscle cramps (in both legs, with increased walking) and Denies neck pain Skin/Breast Denies rash Neuro Denies dizziness and Denies headache(s) Endo Reports fatigue and Denies palpitations Physical exam (Primary Care) Vital Signs: Last Vital Signs Pulse 91 09/19/23 15:17 BP 122/72 09/19/23 15:17 Pulse Ox 95 09/19/23 15:17 Oxygen Delivery Method Room Air 09/19/23 15:17 BMI result Body Mass Index 42.1 Tobacco/Smoking Status: Tobacco use Status Tobacco use date assessed 09/19/23 09/19/23 15:23 Patient Tobacco Use Status Never used Tobacco 09/19/23 15:23 e-Cigarette/Vaping Use Never Used 09/19/23 15:23 PHQ-9: PHQ-9 Score PHQ-9: Total score 0 09/19/23 15:53 Depression Screening Interpretation: Negative Thrive Assessment: Date of Thrive Assessment Date Thrive assessed 09/19/23 09/19/23 15:23 Currently or been in a relationship where the following occur: no concerns reported Const General: no acute distress and alert HENMT Ears: TM's normal bilaterally and EAC's normal Throat: Yes posterior oropharynx normal and Yes tonsils normal (no TP congestion) Neck Neck: Yes no lymphadenopathy and Yes supple Thyroid: Thyroid normal Resp Auscultation: clear to auscultation bilaterally, no rales and no wheezes Cardio Rate: regular rate Rhythm: regular rhythm Heart sounds: no murmurs GI Palpation (GI): Soft to palpation and nontender Auscultation: normal bowel sounds Skin Rashes: no rashes Extrem General: Yes no clubbing, cyanosis or edema Results Reviewed Results Reviewed: Laboratory Tests 09/19/23 09/19/23 13:55 13:58 WBC 8.8 Hgb 12.9 Hct 40.2 Plt Count 344 Sodium 137 Potassium 4.2 Creatinine 7.88 H* Estimated GFR 6 Fasting Glucose 246 H Hemoglobin A1c % 8.9 H Calcium 8.6 D AST 13 ALT 28 Triglycerides 175 H Cholesterol 218 H LDL Cholesterol, Calc 148 H HDL Cholesterol 35 L Vitamin B12 851 25-OH Vitamin D Total 71.2 TSH 0.97 Ur Specific Jenison 1.015 Urine Protein 100 (2+) H Urine Glucose (UA) 500 H Urine Blood Trace H Urine Nitrite Negative Ur Leukocyte Esterase Negative Microalb/Creat Ratio 290.6 H Assessment and Plan Assessment & Plan (1) Type 1 diabetes mellitus: Code(s): E10.9 - Type 1 diabetes mellitus without complications Qualifiers: Diabetes mellitus complication detail: with diabetic retinopathy Diabetes mellitus complication status: with ophthalmic complications Diabetes mellitus macular edema: macular edema presence unspecified Diabetic retinopathy severity: with proliferative retinopathy Laterality: bilateral Proliferative retinopathy type: unspecified Qualified Code(s): E10.3593 - 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, bilateral Plan: Her HgbA1c was at 8.9% on her labs done earlier today (her in-office HgbA1c was at 6.6% a few months ago) - goal is <7.0% Reinforced diabetic diet Continue Lantus Solostar 50 units Q AM and 44 units Q PM and Novolog Flexpen 20 to 50 units 3 times a day with meals per sliding scale Follow up with [facility] Endocr[facility]ology as scheduled (2) Benign essential hypertension: Code(s): I10 - Essential (primary) hypertension Plan: Reinforced low sodium diet Continue Nifedipine ER 90 mg QD and Clonidine 0.1 mg patch once a week (3) Pure hypercholesterolemia: Code(s): E78.00 - Pure hypercholesterolemia, unspecified Plan: Results of her labs done earlier today reviewed and discussed with patient Reinforced low cholesterol diet Continue Atorvastatin 20 mg QD Will recheck her labs and fasting lipids in 4 months for follow up (4) Chronic kidney disease with end stage renal failure on dialysis: Comment: dialysis MWF @ [id number] is weekend anchor Code(s): N18.6 - End stage renal disease; Z99.2 - Dependence on renal dialysis Plan: Is currently on hemodialysis 3 times a week on Follow up with nephrology (Dr. Patel) as scheduled Continue Sevelamer 800 mg 3 tablets QD and Torsemide 100 mg BID; continue Metolazone 10 mg Q 7 days (5) Anemia: Code(s): D64.9 - Anemia, unspecified Qualifiers: Anemia type: due to chronic kidney disease Chronic kidney disease stage: on chronic dialysis Qualified Code(s): N18.6 - End stage renal disease; D63.1 - Anemia in chronic kidney disease; Z99.2 - Dependence on renal dialysis Plan: Her H/H appear to have corrected on her recent labs Continue Ferrous Sulfate 325 mg QD Will continue to monitor her CBC regularly and recheck her CBC in 4 months for follow up (6) Acquired hypothyroidism: Code(s): E03.9 - Hypothyroidism, unspecified Plan: Continue Levothyroxine 175 mcg QD WIll recheck her TFTs in 4 months for follow up (7) Diabetic retinopathy: Comment: Has advanced bilateral diabetic retinopathy (worse in the left eye) and has received injections and laser therapy - is legally blind Code(s): E11.319 - Type 2 diabetes mellitus with unspecified diabetic retinopathy without macular edema Qualifiers: Diabetes mellitus type: type 1 Diabetic retinopathy severity: with proliferative retinopathy Laterality: bilateral Proliferative retinopathy type: unspecified Qualified Code(s): E10.3593 - 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, bilateral Plan: Continue Latanoprost 0.005% 1 drop into the left eye Q HS Follow up with ophthalmology and retina specialist as scheduled (8) Peripheral neuropathy: Code(s): G62.9 - Polyneuropathy, unspecified Qualifiers: Peripheral neuropathy type: polyneuropathy, unspecified Qualified Code(s): G62.9 - Polyneuropathy, unspecified Plan: Continue Gabapentin 100 mg BID (9) Obesity (BMI 30-39.9): Comment: S/P gastric sleeve surgery in July 2020 Code(s): E66.9 - Obesity, unspecified Plan: Reinforced diet/exercise as tolerated/lose weight Plan Follow up in 4 months Orders: Orders Comprehensive [place]. Panel Fast 4 Months E78.00 - Pure hypercholesterolemia, unspecified TSH reflex Free T4 4 Months E78.00 - Pure hypercholesterolemia, unspecified UA CC w/rflx Micro + Cult 4 Months R30.0 - Dysuria Hemoglobin A1c 4 Months E11.9 - Type 2 diabetes mellitus without complications Complete Blood Count Auto Diff 4 Months D64.9 - Anemia, unspecified Lipid Panel 4 Months E78.00 - Pure hypercholesterolemia, unspecified Microalbumin, Random (w Creat) 4 Months E11.9 - Type 2 diabetes mellitus without complications Vitamin D 25-OH Total 4 Months E55.9 - Vitamin D deficiency, unspecified Coding Level of Care Code Est Pt Level 4 (52547) Complex EM visit Add On G2211 Diagnoses Type 1 diabetes mellitus with proliferative retinopathy of both eyes, macular edema presence unspecified, unspecified proliferative retinopathy type E10.3593 Diabetes mellitus complication detail: with diabetic retinopathy Diabetes mellitus complication status: with ophthalmic complications Diabetes mellitus macular edema: macular edema presence unspecified Diabetic retinopathy severity: with proliferative retinopathy Laterality: bilateral Proliferative retinopathy type: unspecified Benign essential hypertension I10 Pure hypercholesterolemia E78.00 Chronic kidney disease with end stage renal failure on dialysis N18.6; Z99.2 Anemia due to chronic kidney disease, on chronic dialysis N18.6; D63.1; Z99.2 Anemia type: due to chronic kidney disease Chronic kidney disease stage: on chronic dialysis Acquired hypothyroidism E03.9 Proliferative diabetic retinopathy of both eyes associated with type 1 diabetes mellitus, unspecified proliferative retinopathy type E10.3593 Diabetes mellitus type: type 1 Diabetic retinopathy severity: with proliferative retinopathy Laterality: bilateral Proliferative retinopathy type: unspecified Peripheral polyneuropathy G62.9 Peripheral neuropathy type: polyneuropathy, unspecified Obesity (BMI 30-39.9) E66.9
[2023-09-19 15:17] VITALS: BP 122/72; PULSE 91; O2SAT 95; BMI 42.1
== END 2023-09-19 15:58 | disposition home or self-care (01) ==
PROVIDERS: PCP Internal Medicine; Visit Provider Internal Medicine
DX: E10.3593 Type 1 diabetes mellitus with proliferative diabetic retinopathy without macular edema, bilateral (principal); I12.0 Hypertensive chronic kidney disease with stage 5 chronic kidney disease or end stage renal disease; E78.00 Pure hypercholesterolemia, unspecified; N18.6 End stage renal disease; Z99.2 Dependence on renal dialysis; D63.1 Anemia in chronic kidney disease; E03.9 Hypothyroidism, unspecified; G62.9 Polyneuropathy, unspecified; E66.9 Obesity, unspecified
CPT/HCPCS: 99499

== ENCOUNTER 2024-02-06 12:35 | Outpatient (AMB) | payer OTHER, SELFPAY ==
[2024-02-06 12:41] VITALS: BP 118/64; PULSE 90; O2SAT 98; BMI 39.0
--- NOTE | 2024-02-06 12:41 | MHC.PC.OV ---
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 [place] [facility] [place] the same day. She was seen at ED after injuring her second right toe on right foot. She was treated with Keflex Abx for 5 days. Xray Foot negative for Fx. Today Pt reports feeling good, denies pain to the wound. Denies fevers, chills, nauses or vomiting. She had a wound care nurse who came in today and changed dressing. [facility] Medical History (Updated 02/04/24 @ 04:20 by Jason Salmon MD) Morbid obesity Peripheral neuropathy Diabetic retinopathy Obesity (BMI 30-39.9) Acquired hypothyroidism Chronic kidney disease with end stage renal failure on dialysis Pure hypercholesterolemia Benign essential hypertension Type 1 diabetes mellitus Anemia Surgical History History of amputation of lesser toe of left foot S/P arteriovenous (AV) fistula creation (~07/09/18) S/P dilatation and curettage (~02/2018) History of cataract surgery (~08/2017) History of eye surgery (~03/2017) History of detached retina repair (~08/15/16) S/P gastric sleeve procedure (~07/2020) Family History Father No problems noted. Mother No problems noted. Social History Housing: House Alcohol intake: never Patient Tobacco Use Status: Never used Tobacco e-Cigarette/Vaping Use: Never Used Second Hand Smoke Exposure: No service: No Current occupational status: employed Cognitive needs: No Hearing needs: No Vision needs: Yes Questionnaire PHQ-9 Over the last 2 weeks, how often have you been bothered by any of the following problems? 1. Little interest or pleasure in doing things: not at all 2. Feeling down, depressed, or hopeless: not at all 3. Trouble falling or staying asleep, or sleeping too much: not at all 4. Feeling tired or having little energy: not at all 5. Poor appetite or overeating: not at all 6. Feeling bad about yourself - or that you are a failure or have let yourself or your family down: not at all 7. Trouble concentrating on things, such as reading the newspaper or watching television: not at all 8. Moving or speaking so slowly that other people could have noticed. Or the opposite - being so fidgety or restless that you have been moving around a lot more than usual: not at all 9. Thoughts that you would be better off or of hurting yourself in some way: not at all Total score: 0 Depression Screening Interpretation: Negative Depression Screening Done: Yes [id number] - PHQ-9 Billing: Yes Source: Developed by Drs. Dc Fall, Isaura Cotton, Antoine Rankin and colleagues, with an educational itz from [employer]. Thrive Questionnaire Date Thrive assessed: 02/06/24 I am a: Patient What is your living situation today?: I have a steady place to live Within the past 12 months, did the food you bought not last and you didn't have the money to get more?: Never true Within the past 12 months, did you worry whether your food would run out before you got money to buy more?: Never true Do you have trouble paying for medicines?: No Do you have trouble getting transportation to medical appointments?: No Do you have trouble paying your heating and electricity bill?: No Do you have trouble taking care of your child, family member or friend?: No Do you have trouble with day-to-day activities such as bathing, preparing meals, shopping, managing finances, etc.?: No Are you currently unemployed and looking for a job?: No Are you interested in more education?: No Please select the resources that you would like help with: None Currently or been in a relationship where the following occur: No concerns reported THRIVE Score: 0 AUDIT C Alcohol Use Questionnaire (AUDIT-C) 1. How often do you have a drink containing alcohol?: Never 3. How often do you have six or more drinks on one occasion?: Never Total Score: 0 Score Reviewed/Action Taken: Yes LEÓN-7 AMB Questionnaire LEÓN-7 Date LEÓN - 7 assessed: 02/06/24 Feeling nervous, anxious, or on edge: 0 = Not at all Not being able to stop or control worryin = Not at all Worrying too much about different things: 0 = Not at all Trouble relaxin = Not at all Being so restless that it is hard to sit still: 0 = Not at all Becoming easily annoyed or irritable: 0 = Not at all Feeling afraid as if something awful might happen: 0 = Not at all Total LEÓN-7 score (0-4 normal; 5-9 mild; 10-14 moderate; 15-21 severe): 0 Source: Developed by Drs. Dc Fall, Isaura Cotton, Antoine Rankin and colleagues, with an educational itz from [employer]. Review of Systems Const All systems reviewed & are unremarkable except as noted in HPI and below Physical exam (Primary Care) Vital Signs: Last Vital Signs Pulse 90 02/06/24 12:41 BP 118/64 02/06/24 12:41 Pulse Ox 98 02/06/24 12:41 Oxygen Delivery Method Room Air 02/06/24 12:41 BMI result Body Mass Index 39.0 Tobacco/Smoking Status: Tobacco use Status Tobacco use date assessed 02/06/24 02/06/24 12:49 Patient Tobacco Use Status Never used Tobacco 02/06/24 12:49 e-Cigarette/Vaping Use Never Used 02/06/24 12:49 PHQ-9: PHQ-9 Score PHQ-9: Total score 0 02/06/24 12:53 Depression Screening Interpretation: Negative Thrive Assessment: Date of Thrive Assessment Date Thrive assessed 09/03/24 09/03/24 12:49 Currently or been in a relationship where the following occur: No concerns reported Const General: cooperative, comfortable and no acute distress Nutritional Appearance: obese Orientation/consciousness: patient oriented x3 Skin Wounds: wounds noted (right second toe) Neuro General: patient oriented x3, gait normal and moves all extremities Extrem Right lower extremity: foot (Clean and dry dressing right second toe ) Details: normal capillary refill, toes with normal ROM and no edema; no tenderness Psych Speech and movement: Normal speech and movement present Assessment and Plan Assessment & Plan (1) Injury of second toe of right foot: Code(s): S99.921A - Unspecified injury of right foot, initial encounter Plan: Well healing wound, no S&S of infection at this point Finished Abx prescribed from ED Has Wound care nurse who come in for dressing changes. Coding Level of Care Code Est Pt Level 4 (33633) Diagnoses Injury of second toe of right foot S99.921A Time Spent (min) 20 Comment Spent reviewing hospital notes
== END 2024-02-06 16:07 | disposition home or self-care (01) ==
PROVIDERS: PCP Internal Medicine; Visit Provider Nurse Practitioner Family
DX: S99.921A Unspecified injury of right foot, initial encounter (principal)
CPT/HCPCS: 99214

== ENCOUNTER 2024-07-26 15:53 | Outpatient (AMB) | payer OTHER, SELFPAY ==
--- OUTSIDE RECORDS SUMMARY | 2024-07-26 15:55 | XMS_ITS | Continuity of Care Document ---
Author Organization [facility] Address [address] [place] [id number]- Care Team Providers Care Bottle Booth Attendant Name Role Phone Luis Antonio NAIDU, Jason Martinez Primary Care Physician Encounter [facility] [place](s): 06/14/24 - 07/14/24 [facility] [address] [place] [id number] Encounter Type: Triage Allergies, Adverse Reactions, Alerts No Known Allergies Immunizations Given and Recorded Vaccine Date Status Refusal Reason influenza virus vaccine, inactivated 03/07/24 Give n SARS-CoV-2 (COVID-19) mRNA-1273 vaccine 08/26/20 R ecorded SARS-CoV-2 (COVID-19) mRNA-1273 vaccine 07/15/20 R ecorded Medications Alcohol Pads See Instructions, # 200 each, Refills 11, Tot. Refills 11, Maintenance, use as directed for diabetes care 4 times per day. E10.9, 10/27/23 2:49:00 PM EDT, Supply, 164.3, cm, 10/27/23 14:32:00 EDT, Height, 109.8, kg, 01/19/23 8:11:00 EDT, Dry Weight Start Date: 10/27/23 Status: Ordered Quantity: 200.0 Unit: each Repeat number: 12 atorvastatin 20 mg oral tablet 90 each, 0 Refill(s), TAKE 1 TABLET BY MOUTH AT BEDTIME, 0 Refills, 03/05/24 9:33:00 AM EDT, Partialfill upon patient request if the prescription is for a schedule II opioid drug. Start Date: 03/05/24 Status: Ordered Repeat number: 1 Auryxia 210 mg oral tablet 2 tablet = 420 mg, By Mouth, 3 times a day with meals, # 200 each, 0 Refills, Maintenance, 05/07/24 7:59:00 AM EST, Tablet, Partial fill upon patient request if the prescription is for a schedule II opioid drug. Start Date: 05/07/24 Status: Ordered Quantity: 200.0 Unit: each Repeat number: 1 BKA prosthesis BKA prosthesis, See Instructions, # 1 each, Refills 0, Tot. Refills 0, Maintenance, right BKA, K3, 07/04/24 8:29:00 AM EST, Supply Start Date: 07/04/24 Status: Ordered Quantity: 1.0 Unit: each Repeat number: 1 Dexcom G7 Fig Bar Machine Operator Dexcom G7 Fig Bar Machine Operator, See Instructions, # 1 each, Refills 0, Tot. Refills 0, Maintenance, Use as directed for type 1 diabetes control. 90 day supply, 12/11/23 1:31:00 PM EDT, Supply, 164.3, cm, 10/27/23 14:32:00 EDT, Height, 109.8, kg, 01/19/23 8:11:00 EDT, Dry Weight Start Date: 12/11/23 Status: Ordered Quantity: 1.0 Unit: each Repeat number: 1 Dexcom G7 Sensor Dexcom G7 Sensor, See Instructions, # 9 each, Refills 3, Tot. Refills 3, Maintenance, Use as directed for diabetes control. 90 day supply, 10/27/23 2:49:00 PM EDT, Supply, 164.3, cm, 10/27/23 14:32:00EDT, Height, 109.8, kg, 01/19/23 8:11:00 EDT, Dry Weight Start Date: 10/27/23 Status: Ordered Quantity: 9.0 Unit: each Repeat number: 4 Dexcom G7 sensors Dexcom G7 sensors, See Instructions, # 3 each, Refills 11, Tot. Refills 11, Maintenance, Use sensorto monitor glucose. New sensor to be placed every 10 days. E10.65, 11/30/23 9:32:00 AM EDT, please include skin tac wipes, Supply, 164.3, cm, 10/27/23 14:32:00 EDT, Height, 109.8, kg, 01/19/23 8:11:00EDT, Dry Weight Start Date: 11/30/23 Status: Ordered Quantity: 3.0 Unit: each Repeat number: 12 Dilaudid 2 mg oral tablet See Instructions, 1 tablet By Mouth at bedtime, # 14 tablet, 0 Refills, Maintenance, 06/14/24 8:01:00 AM EST, [facility], Partial fill upon patient request if the prescription is for a schedule II opioid drug., 162.5, cm, 06/14/24 7:57:00 EST, Height, 95, kg, 06/04/24 23:11:00 EST, Dry Weight Start Date: 06/14/24 Status: Ordered Quantity: 14.0 Unit: tablet Repeat number: 1 ergocalciferol 94291 iu oral capsule 3 each, 0 Refill(s), TAKE 1 CAPSULE BY MOUTH WEEKLY FOR 8 WEEKS THEN 1 CAP MONTHLY THEREAFTER, Refills 0, 03/05/24 9:33:00 AM EDT, Partial fill upon patient request if the prescription is for a schedule II opioid drug. Start Date: 03/05/24 Status: Ordered Repeat number: 1 ferrous sulfate 325 mg oral enteric coated tablet 325 mg, 1, tablet, By Mouth, Daily, # 30 tablet, Refills 0, Maintenance, 07/09/18 10:46:43 AM EST Start Date: 07/09/18 Status: Ordered Quantity: 30.0 Unit: tablet Repeat number: 1 fluticasone 50 mcg/inh nasal spray 32 Gm, 0 Refill(s), SPRAY 1 SPRAY INTO NOSTRILS EVERY DAY, 0 Refills, 03/05/24 9:33:00 AM EDT, Partial fill upon patient request if the prescription is for a schedule II opioid drug. Start Date: 03/05/24 Status: Ordered Repeat number: 1 Freestyle Lancets See Instructions, # 250 each, Refills 11, Tot. Refills 11, Maintenance, test blood sugar 7-8x day DX E10.9, 09/15/17 1:50:16 PM EDT, Compound Start Date: 09/15/17 Stop Date: 09/10/18 Status: Ordered Quantity: 250.0 Unit: each Repeat number: 12 Indication: Type 1 diabetes mellitus without complications Freestyle Lancets See Instructions, # 200 each, Refills 11, Tot. Refills 11, Maintenance, use as directed for diabetes care 4 times per day. E10.9, 10/27/23 2:49:00 PM EDT, Supply, 164.3, cm, 10/27/23 14:32:00 EDT, Height, 109.8, kg, 01/19/23 8:11:00 EDT, Dry Weight Start Date: 10/27/23 Status: Ordered Quantity: 200.0 Unit: each Repeat number: 12 Freestyle Lite Monitor See Instructions, # 1 each, Refills 0, Tot. Refills 0, Maintenance, use as directed for diabetes care 4 times per day. E10.9. Patient had lost her old meter., 10/27/23 2:50:00 PM EDT, Supply, 164.3, cm, 10/27/23 14:32:00 EDT, Height, 109.8, kg, 01/19/23 8:11:00 EDT, Dry Weight Start Date: 10/27/23 Status: Ordered Quantity: 1.0 Unit: each Repeat number: 1 Freestyle Lite Monitor See Instructions, # 1 each, Refills 0, Tot. Refills 0, Maintenance, Use to check blood sugar 5 times daily. E10.65., 12/31/20 8:03:00 PM EDT, Compound, 165.1, cm, 07/04/20 3:17:00 EST, Height, 122.6, kg, 07/02/20 12:48:00 EST, Dry Weight Start Date: 12/31/20 Status: Ordered Quantity: 1.0 Unit: each Repeat number: 1 Indication: Type 1 diabetes mellitus without complications Freestyle Lite Test Strips See Instructions, # 200 each, Refills 11, Tot. Refills 11, Maintenance, use as directed for diabetes care 4 times per day. E10.9, 10/27/23 2:50:00 PM EDT, Supply, 164.3, cm, 10/27/23 14:32:00 EDT, Height, 109.8, kg, 01/19/23 8:11:00 EDT, Dry Weight Start Date: 10/27/23 Status: Ordered Quantity: 200.0 Unit: each Repeat number: 12 Freestyle Lite Test Strips See Instructions, # 150 each, Refills 11, Tot. Refills 11, Maintenance, Use to check blood sugar 5 times daily. E10.65., 01/03/22 10:39:00 AM EDT, Compound, 165, cm, 07/07/21 8:08:00 EST, Height, 122.6, kg, 07/02/20 12:48:00 EST, Dry Weight Start Date: 01/03/22 Status: Ordered Quantity: 150.0 Unit: each Repeat number: 12 gabapentin 100 mg oral capsule 100 mg, 1, capsule, By Mouth, 3 times a day, # 90 capsule, Refills 5, Tot. Refills 5, Maintenance, 05/10/24 12:48:00 PM EST, Route to Pharmacy Electronically, [facility], Partial fill upon patient request if the prescription is for a schedule II opioid drug., 163, cm, 05/10/24 11:58:00 EST, Height, 95, kg, 05/06/24 8:01:00 EST, Dry Weight Start Date: 05/10/24 Status: Ordered Quantity: 90.0 Unit: capsule Repeat number: 6 gabapentin 100 mg oral capsule 100 mg, 1, capsule, By Mouth, 2 times a day, PRN, # 120 capsule, Refills 0, Maintenance, Other, 04/08/22 11:20:00 AM EDT, Partial fill upon patient request if the prescription is for a schedule II opioid drug. Start Date: 04/08/22 Status: Ordered Quantity: 120.0 Unit: capsule Repeat number: 1 Glucagon Emergency Kit See Instructions, PRN, # 3 each, Refills 12, Tot. Refills 12, Maintenance, Blood Glucose, for use if BG <40, unconscious, or difficulty swallowing.1mo., 07/24/17 8:56:39 AM EST, Compound Start Date: 07/24/17 Stop Date: 08/18/18 Status: Ordered Quantity: 3.0 Unit: each Repeat number: 13 Indication: Type 1 diabetes mellitus without complications insulin lispro 100 u/ml subcutaneous injection 25-55 units, Subcutaneous Injection, 3 times a day with meals, Starting at 135 for BS, 0 Refills, Maintenance, 03/20/24 12:55:00 PM EDT, Injection, Partial fill upon patient request if the prescription is for a schedule II opioid drug. Start Date: 03/20/24 Status: Ordered Repeat number: 1 Ketostix See Instructions, # 1 pack/packet, Refills 3, Tot. Refills 3, Maintenance, Use twice daily if glucose is over 400 or is consistently over 200., 10/27/23 2:52:00 PM EDT, Supply, 164.3, cm, 10/27/23 14:32:00 EDT, Height, 109.8, kg, 01/19/23 8:11:00 EDT, Dry Weight Start Date: 10/27/23 Stop Date: 10/21/24 Status: Ordered Quantity: 1.0 Unit: pack/packet Repeat number: 4 Ketostix See Instructions, # 2 vials, Refills 11, Tot. Refills 11, Maintenance, use as directed for Type 1 Diabetes Mellitus. sugar 350 mg/dL or ill., 04/28/17 3:05:32 PM EST, Compound Start Date: 04/28/17 Stop Date: 04/23/18 Status: Ordered Quantity: 2.0 Unit: vials Repeat number: 12 Indication: Type 1 diabetes mellitus without complications ketotifen 0.025% ophthalmic solution 5 mL, 0 Refill(s), INSTILL 1 DROP INTO BOTH EYES TWICE A DAY NEEDED, 0 Refills, 03/05/24 9:33:00 AM EDT, Partial fill upon patient request if the prescription is for a schedule II opioid drug. Start Date: 03/05/24 Status: Ordered Repeat number: 1 Lantus Inj = 50 units, Subcutaneous Injection, Daily in AM, 0 Refills, Maintenance, 03/20/24 12:55:00 PM EDT, Injection, Partial fill upon patient request if the prescription is for a schedule II opioid drug. Start Date: 03/20/24 Status: Ordered Repeat number: 1 latanoprost 0.005% ophthalmic solution 1 drops, Eye, Left, Daily at bedtime, # 3 mL, 0 Refills, Maintenance, 04/08/22 11:20:00 AM EDT, Ophth Solution, Partial fill upon patient request if the prescription is for a schedule II opioid drug. Start Date: 04/08/22 Status: Ordered Quantity: 3.0 Unit: mL Repeat number: 1 levothyroxine 175 mcg (0.175 mg) oral tablet 1 tablet = 175 mcg, By Mouth, Daily, # 30 tablet, 11 Refills, Maintenance, 10/05/17 11:44:04 AM EDT, Tablet, [facility] #[id number] Start Date: 10/05/17 Status: Ordered Quantity: 30.0 Unit: tablet Repeat number: 12 loratadine 10 mg oral tablet 15 each, 0 Refill(s), TAKE 1 TABLET BY MOUTH EVERY OTHER DAY NEEDED FOR ITCHING, Refills 0, 03/05/24 9:33:00 AM EDT, Partial fill upon patient request if the prescription is for a schedule II opioid drug. Start Date: 03/05/24 Status: Ordered Repeat number: 1 melatonin 3 mg oral tablet = 3 mg, By Mouth, Daily at bedtime, PRN Insomnia, 0 Refills, Maintenance, 03/20/24 12:57:00 PM EDT,Tablet, Partial fill upon patient request if the prescription is for a schedule II opioid drug. Start Date: 03/20/24 Status: Ordered Repeat number: 1 Nephrocap Capsule 1, capsule, By Mouth, Daily, Refills 0, Maintenance, 03/20/24 12:56:00 PM EDT, Capsule, Partial fill upon patient request if the prescription is for a schedule II opioid drug. Start Date: 03/20/24 Status: Ordered Repeat number: 1 offloading shoe for right foot offloading shoe for right foot, See Instructions, # 1 each, Refills 0, Tot. Refills 0, Maintenance,Dx: diabetic foot wound, s/p R2 toe amp and right lateral plantar foot wound over R5 MT head, 02/27/24 1:56:00 PM EDT, Supply Start Date: 02/27/24 Status: Ordered Quantity: 1.0 Unit: each Repeat number: 1 Pen [place], 32 G x 4 mm BD Ultra Fine III See instructions, # 150 each, Refills 11, Tot. Refills 11, Maintenance, 5 daily inejctions. for T1DM E10.9, 02/24/21 9:59:00 AM EDT, Compound, 165, cm, 02/24/21 9:31:00 EDT, Height, 122.6, kg, 07/02/20 12:48:00 EST, Dry Weight Start Date: 02/24/21 Stop Date: 02/19/22 Status: Ordered Quantity: 150.0 Unit: each Repeat number: 12 Indication: Type 2 diabetes mellitus without complications physical therapy physical therapy, See Instructions, # 1 each, Refills 0, Tot. Refills 0, Maintenance, Dx: right BKA, gait and prosthetic training, 07/04/24 8:29:00 AM EST, Supply Start Date: 07/04/24 Status: Ordered Quantity: 1.0 Unit: each Repeat number: 1 Please measure left forefoot offloading shoe Please measure left forefoot offloading shoe, See Instructions, # 1 each, Refills 0, Tot. Refills 0, Maintenance, Please measure patient for a left forefoot offloading shoe she has a wound to her left forefoot status post ray amputation left fifth toe, 01/05/23 9:49:00 AM EDT, Supply Start Date: 01/05/23 Status: Ordered Quantity: 1.0 Unit: each Repeat number: 1 Rolling Walker. Rolling Walker., See Instructions, # 1 each, Refills 0, Tot. Refills 0, Maintenance, Rolling Walker, 12/09/22 9:04:00 AM EDT, Supply Start Date: 12/09/22 Status: Ordered Quantity: 1.0 Unit: each Repeat number: 1 Sensipar 30 mg oral tablet = 90 mg, By Mouth, Daily, 0 Refills, Maintenance, 03/20/24 12:56:00 PM EDT, Tablet, Partial fill upon patient request if the prescription is for a schedule II opioid drug. Start Date: 03/20/24 Status: Ordered Repeat number: 1 sevelamer carbonate 800 mg oral tablet = 1,600 mg, By Mouth, 3 times a day with meals, Refill per PCP or Director Of [employer], # 180 tablet, 0 Refills, Maintenance, 01/30/24 1:52:00 PM EDT, Tablet, 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 Refills 0, Maintenance, right BKA, K3, 07/04/24 8:28:00 AM EST, Supply Start Date: 07/04/24 Status: Ordered Quantity: 1.0 Unit: each Repeat number: 1 timolol maleate 0.5% ophthalmic solution 15 mL, 0 Refill(s), INSTILL 1 DROP INTO BOTH EYES TWICE A DAY, 0 Refills, 03/05/24 9:33:00 AM EDT, Partial fill upon patient request if the prescription is for a schedule II opioid drug. Start Date: 03/05/24 Status: Ordered Repeat number: 1 torsemide 100 mg oral tablet 1 tablet = 100 mg, By Mouth, 2 times a day, 0 Refills, Maintenance, 10/15/18 7:33:49 AM EDT Start Date: 10/15/18 Status: Ordered Repeat number: 1 Tylenol 325 mg oral tablet 975 mg, By Mouth, Every 6 hours, PRN, Refills 0, Maintenance, Pain , Moderate, 03/20/24 12:54:00 PMEDT, Partial fill upon patient request if the prescription is for a schedule II opioid drug. Start Date: 03/20/24 Status: Ordered Repeat number: 1 Vitamin D3 2000 intl units oral tablet = 50 mcg, By Mouth, Daily, 0 Refills, Maintenance, 06/29/20 6:16:00 PM EST, Partial fill upon patient request if the prescription is for a schedule II opioid drug. Start Date: 06/29/20 Status: Ordered Repeat number: 1 Problem List Condition Confirmation Course Effective Dates Status H ealth Status Informant Cataract Confirmed Active CKD (chronic kidney disease), stage IV Confirmed Active Menorrhalgia Confirmed Active ESRD (end stage renal disease)starting on dialysis 1, 2, 3 Confirmed Active EIN (endometrial intraepithelial neoplasia) Confirmed Active History of PCOS Confirmed Active S/P dilatation and curettage Confirmed Active S/P cataract surgery Confirmed Active Hyperlipidemia Confirmed Active Hypothyroidism Confirmed Active Anemia, iron deficiency Confirmed Active Morbid obesity Confirmed Active Nephrotic syndrome Confirmed Active Peripheral artery disease Confirmed Active Retinal detachment Confirmed Active Severe obesity (BMI 35.0-39.9) with comorbidity Confirmed Active Type 1 diabetes, HbA1c goal < 8% Confirmed Active [facility] [place] [facility] [address], [place] [address] 2M,W,F 11am-3:30pm [phone] Social History Social History Type Response Smoking Status Never smoker entered on: 09/15/17 Sex Sex Representation Female (finding) Patient Care team information Care Team Personnel Name: Blas Doty Position: [facility] Associate Professional Member Role: Lifetime Consulting Provider Address: [address] [facility] [place], [place] [address] Telecom: Name: Jason Salmon MD Position: Reference Physician Member Role: PCP Address: [address] [place] [address] Drive [address] [place], [place] [address] Telecom: Name: Christina Gan RN Position: [facility] RN Member Role: Primary Care Nurse Name: Tiffanie Santos RN Position: [facility] RN Member Role: Primary Care Nurse Name: Bianka Mendes RN Position: [facility] RN Member Role: Primary Care Nurse Name: Yolanda Butler Position: [facility] Outreach Member Role: Lifetime Consulting Physician Name: Joy Springer Position: [facility] Associate Professional Member Role: Lifetime Consulting Provider Address: [address] [facility] [place] [address]- Telecom: Name: Al Suazo MD Position: [facility] Renal MD Member Role: Lifetime Consulting Physician Address: [address] [place] [address] [address] [facility] [place], [place] [address] Telecom: Name: Sydnie Rubi RN Position: [facility] RN Member Role: Primary Care Nurse Name: Anupam Vernon RN Position: [facility] RN Member Role: Primary Care Nurse Name: Ana Manzano RN Position: [facility] RN Member Role: Primary Care Nurse Name: Chery Lazo RN Position: [facility] RN Member Role: Primary Care Nurse Name: Whitney Reid RN Position: [facility] RN Member Role: Primary Care Nurse Name: Anthony Feliciano RN Position: [facility] RN Member Role: Primary Care Nurse Name: Kelli Corado RN Position: [facility] RN Member Role: Primary Care Nurse Name: Dale Barajas RN Position: [facility] RN Member Role: Primary Care Nurse Name: Teresa Guerra Position: [facility] Outreach Member Role: Lifetime Consulting Physician Name: Ronak Yates RN Position: [facility] RN Member Role: Primary Care Nurse Name: Baldemar Romero RN Position: [facility] RN Member Role: Primary Care Nurse Name: Sunitha Murillo RN Position: [facility] RN Member Role: Primary Care Nurse Name: Dc Blackwood III, RN Position: [facility] RN Member Role: Primary Care Nurse Name: Dede Jordan RN Position: [facility] RN Member Role: Primary Care Nurse Name: Charissa Dominguez RN Position: [facility] RN Member Role: Primary Care Nurse Name: Vicenta Simms RN Position: [facility] RN Member Role: Primary Care Nurse Name: Danyell Frost RN Position: [facility] RN Member Role: Primary Care Nurse Name: Pooja Starkey RN Position: [facility] OB RN Member Role: Primary Care Nurse Name: Jesus Patel MD Position: [facility] Renal MD Member Role: Lifetime Consulting Physician Address: [address] [facility] [address] Telecom: Name: Maria Del Rosario Mejia RN Position: [facility] RN Member Role: Primary Care Nurse Name: Patricia Oshea RN Position: [facility] RN Member Role: Primary Care Nurse Name: Kuldeep Paris RN Position: [facility] RN Member Role: Primary Care Nurse Name: Yola Choi MD Position: [facility] SERV[employer]ER [employer]ACH[employer] MD Member Role: Lifetime [employer]ER [employer] Physician Address: [address] [facility] [employer] [address] Telecom: Name: Giovana Osei RN Position: [facility] RN Member Role: Primary Care Nurse Name: Ellen Feldman RN Position: [facility] RN Member Role: Primary Care Nurse Name: Alesha Montes RN Position: [facility] RN Member Role: Primary Care Nurse Name: Elizabeth Peralta RN Position: [facility] RN Member Role: Primary Care Nurse Name: Mayra Diaz RN Position: [facility] RN Member Role: Primary Care Nurse Care Team Related Persons Name: KAREEM, KATIE Name: ISAURA GREENE Name: NIC GREENE Name: TRACI ALBERT Insurance Providers Guarantor name: CARLEEN GREENE [facility] Plan Information #: 1 Payer: [facility] [employer]/[facility] Member Number: NA Policy Number: NA Group Number: [id number]
--- OUTSIDE RECORDS SUMMARY | 2024-07-26 15:55 | XMS_ITS ---
Author Organization [facility] ([facility]) Address [address] [place] [id number] Care Team Providers Care Subeditor Name Role Phone Unavailable Unavailable Unavailable Allergies, Adverse Reactions, Alerts This patient has no known allergies or adverse reactions. Problems This patient has no known problems.
--- OUTSIDE RECORDS SUMMARY | 2024-07-26 15:55 | XMS_ITS | Encounter Summary ---
Author Organization [facility] Address [address] [address] Phone Care Team Providers Care Datastage Consultant Name Role Phone April Sharma MD Primary Care Provider [phone] Encounter Details Date Type Department Care Team ([facility] st Contact Info) Description 07/17/2024 Treatment [facility] P. [address] [address] Cade Spencer MD [address] [address] Social History Tobacco Use Types Packs/Day Years Used Date Smoking Tobacco: Never Alcohol Use Standard Drinks/Week Comments Yes 0 (1 standard drink = 0.6 oz pure alcohol) Alcoholic Drinks/day: Occasional social drink Comments Unknown Sex and Gender Information Value Date Recorded Sex Assigned at Not on file Legal Sex Female 4:59 PM EST Gender Identity Not on file Sexual Orientation Not on file documented as of this encounter Miscellaneous Notes * Dialysis Note - Cade Spencer MD - 07/17/2024 12:00 AM EST Patient: Verona Holland : 1985 Note Type: Dialysis Rounds-Comp Service Date: 07/17/2024 This patient was personally seen for a complete visit as part of routine monthly dialysis care for end stage renal disease. Attending Automatic Typewriter Inspector: CADE SPENCER MD Dialysis Location: [facility] Schedule: Shift: 2 ADEQUACY ASSESSMENT Kt/V, Natural Log 1.28 (07/10/24) 1.48 (06/12/24) 1.51 (05/17/24) UREA REDUCTION RATIO (%) 66 (07/10/24) 71 (06/12/24) 73 (05/17/24) BUN 50 (07/10/24) 62 (06/12/24) 73 (05/17/24) BUN Post Dialysis 17 (07/10/24) 18 (06/12/24) 20 (05/17/24) Creatinine 8.62 (07/10/24) 8.89 (06/12/24) 12.86 (05/17/24) Bicarbonate (CO2) 26 (07/10/24) 24 (06/12/24) 14 (05/17/24) Sodium 140 (07/10/24) 136 (06/12/24) 139 (05/17/24) ANEMIA ASSESSMENT Hgb 11.5 (07/10/24) 10.3 (06/12/24) 10.8 (05/26/24) Iron Saturation (TSat) 42 (07/10/24) 53 (06/12/24) 48 (05/17/24) Ferritin 1,207 (07/10/24) 1,507 (06/12/24) 2,003 (04/12/24) Iron 78 (07/10/24) 92 (06/12/24) 77 (05/17/24) TIBC 185 (07/10/24) 175 (06/12/24) 160 (05/17/24) MCV 86.4 (07/10/24) 84.6 (06/12/24) 87.6 (05/17/24) Platelets 401 (07/10/24) 361 (06/12/24) 448 (05/17/24) BMM ASSESSMENT Calcium, Adjusted Total 10.0 07/10/24 9.2 06/12/24 10.1 06/02/24 Calcium 10.0 07/10/24 9.1 06/12/24 10.0 06/02/24 Phosphorus, Serum 5.0 07/10/24 9.9 06/26/24 10.1 06/12/24 Ca*PO4 50.0 07/10/24 91.9 06/12/24 113.0 06/02/24 PTH, Intact 1,081 07/10/24 1,522 06/12/24 532 04/17/24 Vitamin D, 25-Hydroxy 40 06/12/24 Magnesium 2.5 07/10/24 2.4 06/12/24 2.7 05/17/24 Alkaline Phosphatase 118 07/10/24 77 06/12/24 94 05/17/24 Aluminum 2 06/12/24 NUTRITION ASSESSMENT Albumin 4.0 07/10/24 3.9 06/12/24 3.9 06/02/24 Potassium 4.2 07/10/24 4.3 06/19/24 4.1 06/12/24 Hemoglobin A1C 6.9 06/12/24 ADDITIONAL LABS White Blood Cells 12.0 (07/10/24) 12.1 (06/12/24) 11.7 (05/17/24) Cholesterol 221 (06/12/24) HDL 38 (06/12/24) LDL-Calc 152 (06/12/24) Triglycerides 156 (06/12/24) Hep B Surface Antibody 45 (06/12/24) 14 (05/17/24) Uric Acid 5.8 (06/12/24) ADDITIONAL COMMENT COMMENTS: 07/15/24 stable 07/17/24 cont f/u re prosthesis 02/07/24 stable 02/12/24 no new issues 02/19/24 stable 02/26/24 doing ok, has appt for xplant eval in [place] 03/27/24 [facility], cont f/u vasc and wound care 04/15/24 stable, cont Abx 05/03/24 doing ok 05/06/24 cont f/u ortho re osteo foot 05/20/24 same issues 06/07/24 cont rehab 06/26/24 stable, still not ready for prosthesis 07/05/24 stable Signed by: CADE SPENCER MD on 07/18/2024 at 06:10:57 AM documented in this encounter Plan of Treatment Not on file documented as of this encounter Visit Diagnoses Not on filedocumented in this encounter Care Teams Datastage Consultant Relationship Specialty Start Date End Date April Sharma MD [facility] [address] [place], [place] PCP - General 06/15/20 documented as of this encounter
--- OUTSIDE RECORDS SUMMARY | 2024-07-26 15:55 | XMS_ITS | Encounter Summary ---
Author Organization [facility] Address [address] [address] Phone Care Team Providers Care Surgical Territory Manager Name Role Phone April Sharma MD Primary Care Provider [phone] Encounter Details Date Type Department Care Team (Late st Contact Info) Description 06/26/2024 Treatment [facility] P. [address] [address] Cade Spencer MD [address] [address] Social History Tobacco Use Types [...] Dialysis Note - Cade Spencer MD - 06/26/2024 12:00 AM EST Patient: Verona Holland : 1985 Note Type: Dialysis Rounds-Basic Telehealth Service Date: 06/26/2024 Telehealth encounter using audiovisual technology, performed according to state requirements. Appropriate patient consent obtained. This patient was personally seen for a basic visit as part of routine monthly dialysis care for end stage renal disease. Attending Mountain Bike Guide: CADE SPENCER Dialysis Location: [facility] Schedule: Shift: 2 ADEQUACY ASSESSMENT Kt/V, Natural Log 1.48 (06/12/24) 1.51 (05/17/24) 1.69 (04/12/24) UREA REDUCTION RATIO (%) 71 (06/12/24) 73 (05/17/24) 77 (04/12/24) BUN 62 (06/12/24) 73 (05/17/24) 56 (04/12/24) BUN Post Dialysis 18 (06/12/24) 20 (05/17/24) 13 (04/12/24) Creatinine 8.89 (06/12/24) 12.86 (05/17/24) 9.00 (04/12/24) Bicarbonate (CO2) 24 (06/12/24) 14 (05/17/24) 19 (04/12/24) Sodium 136 (06/12/24) 139 (05/17/24) 136 (04/12/24) ANEMIA ASSESSMENT Hgb 10.3 (06/12/24) 10.8 (05/26/24) 11.4 (05/22/24) Iron Saturation (TSat) 53 (06/12/24) 48 (05/17/24) 39 (04/12/24) Ferritin 1,507 (06/12/24) 2,003 (04/12/24) Iron 92 (06/12/24) 77 (05/17/24) 64 (04/12/24) TIBC 175 (06/12/24) 160 (05/17/24) 162 (04/12/24) MCV 84.6 (06/12/24) 87.6 (05/17/24) 87.1 (04/12/24) Platelets 361 (06/12/24) 448 (05/17/24) 469 (04/12/24) BMM ASSESSMENT Calcium, Adjusted Total 9.2 06/12/24 10.1 06/02/24 9.8 05/22/24 Calcium 9.1 06/12/24 10.0 06/02/24 9.8 05/22/24 Phosphorus, Serum 10.1 06/12/24 11.3 06/02/24 12.0 05/17/24 Ca*PO4 91.9 06/12/24 113.0 06/02/24 108.0 05/17/24 PTH, Intact 1,522 06/12/24 532 04/17/24 Vitamin D, 25-Hydroxy 40 06/12/24 Magnesium 2.4 06/12/24 2.7 05/17/24 2.6 04/12/24 Alkaline Phosphatase 77 06/12/24 94 05/17/24 127 04/12/24 Aluminum 2 06/12/24 NUTRITION ASSESSMENT Albumin 3.9 06/12/24 3.9 06/02/24 4.0 05/22/24 Potassium 4.3 06/19/24 4.1 06/12/24 4.5 06/02/24 Hemoglobin A1C 6.9 06/12/24 ADDITIONAL LABS White Blood Cells 12.1 (06/12/24) 11.7 (05/17/24) 16.8 (04/12/24) Cholesterol 221 (06/12/24) HDL 38 (06/12/24) LDL-Calc 152 (06/12/24) Triglycerides 156 (06/12/24) Hep B Surface Antibody 45 (06/12/24) 14 (05/17/24) Uric Acid 5.8 (06/12/24) ADDITIONAL COMMENT COMMENTS: 02/07/24 stable 02/12/24 no new issues 02/19/24 stable 02/26/24 doing ok, has appt for xplant eval in [place] 03/27/24 [facility], cont f/u vasc and wound care 04/15/24 stable, cont Abx 05/03/24 doing ok 05/06/24 cont f/u ortho re osteo foot 05/20/24 same issues 06/07/24 cont rehab 06/26/24 stable, still not ready for prosthesis Signed by: CADE SPENCER MD on 06/26/2024 at 06:03:53 PM Transcribed by: CADE SPENCER MD on 06/26/2024 at 06:03:53 PM documented in this encounter Plan of Treatment Not on file documented as of this encounter Visit Diagnoses Not on filedocumented in this encounter Care Teams Surgical Territory Manager Relationship Specialty Start Date End Date April Sharma MD [facility] INTER[facility] [address] [place] PCP - General 06/15/20 documented as of this encounter
--- OUTSIDE RECORDS SUMMARY | 2024-07-26 15:55 | XMS_ITS | Encounter Summary ---
Author Organization [facility] Address [address] [address] Phone Care Team Providers Care Neurodiagnostic Technician Name Role Phone April Sharma MD Primary Care Provider [phone] Encounter Details Date Type Department Care Team (Late st Contact Info) Description 06/28/2024 Treatment [facility] P. [address] [address] Cade Spencer MD [address] [address] Social History Tobacco Use Types [...] Dialysis Note - Cade Spencer MD - 06/28/2024 12:00 AM EST Patient: Verona Holland : 1985 Note Type: Dialysis Rounds-Basic Telehealth Service Date: 06/28/2024 Telehealth encounter using audiovisual technology, performed according to state requirements. Appropriate patient consent obtained. This patient was personally seen for a basic visit as part of routine monthly dialysis care for end stage renal disease. Attending Garbage Pick Up Worker: CADE SPENCER Dialysis Location: [facility] Schedule: Shift: 2 ADEQUACY ASSESSMENT Kt/V, [...] 06/12/24 10.0 06/02/24 9.8 05/22/24 Phosphorus, Serum 9.9 06/26/24 10.1 06/12/24 11.3 06/02/24 Ca*PO4 91.9 06/12/24 113.0 06/02/24 108.0 05/17/24 [...] ok, has appt for xplant eval in [place] 03/27/24 [facility], cont f/u vasc and wound care 04/15/24 stable, cont Abx 05/03/24 doing ok 05/06/24 cont f/u ortho re osteo foot 05/20/24 same issues 06/07/24 cont rehab 06/26/24 stable, still not ready for prosthesis 07/05/24 stable Signed by: CADE SPENCER MD on 07/05/2024 at 08:01:53 PM Transcribed by: CADE SPENCER MD on 07/05/2024 at 08:01:53 PM documented in this encounter Plan of Treatment Not on file documented as of this encounter Visit Diagnoses Not on filedocumented in this encounter Care Teams Neurodiagnostic Technician Relationship Specialty Start Date End Date Po, MD April [facility] INTER[facility] [address] [place], [place] PCP - General 06/15/20 documented as of this encounter
--- OUTSIDE RECORDS SUMMARY | 2024-07-26 15:55 | XMS_ITS | Continuity of Care Document ---
Author Organization [facility] Address [address] [place] [address], [address] [address]- Care Team Providers Care Clinical Nursing Director Name Role Phone Jason Salmon MD Primary Care Physician Encounter [facility] [id number] Date(s): 06/04/24 - 07/04/24 [facility] [address] [facility], [address] [place] [phone] Encounter Type: Triage Allergies, Adverse Reactions, Alerts [...] Unit: each Repeat number: 1 Dexcom G7 Senior Medical Director Dexcom G7 Senior Medical Director, See Instructions, # 1 each, Refills 0, [...] 0 Refills, Maintenance, 06/14/24 8:01:00 AM EST, [facility], Partial fill upon patient request if the prescription is for a schedule II opioid drug., 162.5, cm, 06/14/24 7:57:00 EST, Height, 95, kg, 06/04/24 23:11:00 EST, Dry Weight Start Date: 06/14/24 Status: Ordered Quantity: 14.0 Unit: tablet Repeat number: 1 ergocalciferol 03465 iu oral capsule 3 each, 0 Refill(s), [...] 12:48:00 PM EST, Route to Pharmacy Electronically, [facility], Partial fill upon patient request if [...] Refills, Maintenance, 10/05/17 11:44:04 AM EDT, Tablet, [id number] Start Date: 10/05/17 Status: Ordered Quantity: 30.0 [...] 1.0 Unit: each Repeat number: 1 Pen [place], 32 G x 4 mm BD Ultra [...] day with meals, Refill per PCP or Sourcing Associate, # 180 tablet, 0 Refills, Maintenance, 01/30/24 1:52:00 PM EDT, Tablet, [facility], Partial fill upon patient request if the prescription is for a schedule II opioid drug., 163, cm, 01/30/24 11:32:00 EDT, Height, 106.9, kg, 01/26/24 21:23:00 EDT, Dry Weight Start Date: 01/30/24 Status: Ordered Quantity: 180.0 Unit: tablet Repeat number: 1 stump fisheries diver stump fisheries diver, See Instructions, # 1 each, Refills 0, [...] goal < 8% Confirmed Active [facility] [place] [facility] [address], [place], [place] 2M,W,F 11am-3:30pm [id number] Social History Social History Type Response Smoking Status Never smoker entered on: 09/15/17 Sex Sex Representation Female (finding) Patient Care team information Care Team Personnel Name: Blas Doty Position: [facility] Associate Professional Member Role: Lifetime Consulting Provider Address: [address] [facility] [place] [place] [address] Telecom: Name: Jason Salmon MD Position: Reference Physician Member Role: PCP Address: [address] [place] [address] [address] [place], [place] [address] Telecom: Name: Christina Gan RN Position: [facility] RN Member Role: Primary Care Nurse Name: Tiffanie Santos RN Position: [facility] RN Member Role: Primary Care Nurse Name: Bianka Mendes RN Position: [facility] RN Member Role: Primary Care Nurse Name: Yolanda Butler Position: [facility] Outreach Member Role: Lifetime Consulting Physician Name: Joy Springer Position: [facility] Associate Professional Member Role: Lifetime Consulting Provider Address: [address] [facility] [place] [address]- Telecom: Name: Al Suazo MD Position: [facility] Renal MD Member Role: Lifetime Consulting Physician Address: [address] [place] [address] [address] [facility] [place], [place] [facility] Telecom: Name: Sydnie Rubi RN Position: [facility] RN Member Role: Primary Care Nurse Name: Anupam Vernon RN Position: [facility] RN Member Role: Primary Care Nurse Name: Ana Manzano RN Position: [facility] RN Member Role: Primary Care Nurse Name: Chery Lazo RN Position: S RN Member Role: Primary Care Nurse Name: Whitney Reid RN Position: [facility] RN Member Role: Primary Care Nurse Name: Anthony Feliciano RN Position: S RN Member Role: Primary Care Nurse Name: Kelli Corado RN Position: [facility] SN RN Member Role: Primary Care Nurse Name: Dale Barajas RN Position: [facility] RN Member Role: Primary Care Nurse Name: Teresa Guerra Position: [facility] Outreach Member Role: Lifetime Consulting Physician Name: Ronak Yates RN Position: [facility] RN Member Role: Primary Care Nurse Name: Baldemar Romero RN Position: [facility] RN Member Role: Primary Care Nurse Name: Sunitha Murillo RN Position: [facility] RN Member Role: Primary Care Nurse Name: Dc Blackwood III, RN Position: [facility] RN Member Role: Primary Care Nurse Name: Dede Jordan RN Position: [facility] RN Member Role: Primary Care Nurse Name: Charissa Dominguez RN Position: [facility] RN Member Role: Primary Care Nurse Name: Vicenta Simms RN Position: [facility] RN Member Role: Primary Care Nurse Name: Danyell Frost RN Position: [facility] RN Member Role: Primary Care Nurse Name: Pooja Starkey RN Position: [facility] OB RN Member Role: Primary Care Nurse Name: Jesus Patel MD Position: [facility] Renal MD Member Role: Lifetime Consulting Physician Address: [address] [facility] [address] [facility] [address] Telecom: Name: Maria Del Rosario Mejia RN Position: [facility] RN Member Role: Primary Care Nurse Name: Patricia Oshea RN Position: [facility] RN Member Role: Primary Care Nurse Name: Kuldeep Paris RN Position: [facility] RN Member Role: Primary Care Nurse Name: Yola Choi MD Position: [facility] BOAT TESTER MD Member Role: Lifetime BOAT TESTER Physician Address: [address] [facility] [place]AT TE[place], [place] [address] Telecom: Name: Giovana Osei RN Position: [facility] RN Member Role: Primary Care Nurse Name: Ellen Feldman RN Position: [facility] RN Member Role: Primary Care Nurse Name: Alesha Montes RN Position: [facility] RN Member Role: Primary Care Nurse Name: Elizabeth Peralta RN Position: [facility] RN Member Role: Primary Care Nurse Name: Mayra Diaz RN Position: [facility] RN Member Role: Primary Care Nurse Care Team Related Persons Name: KATIE SERNA Name: ISAURA GREENE Name: NIC GREENE Name: TRACI ALBERT Insurance Providers Guarantor name: CARLEEN GREENE Health Plan Information #: 1 Payer: [facility] Member Number: NA Policy Number: NA Group Number: NA
--- OUTSIDE RECORDS SUMMARY | 2024-07-26 15:55 | XMS_ITS | Encounter Summary ---
Author Organization [facility] Address [address] [address] Phone Care Team Providers Care Pipe Insulator Helper Name Role Phone April Sharma MD Primary Care Provider [phone] Encounter Details Date Type Department Care Team (Late st Contact Info) Description 07/05/2024 Treatment [facility] P. [address] [address] Cade Spencer MD [address] [address] Social History Tobacco Use Types [...] Dialysis Note - Cade Spencer MD - 07/05/2024 12:00 AM EST Patient: Verona Holland : 1985 Note Type: Dialysis Rounds-Basic Telehealth Service Date: 07/05/2024 Telehealth encounter using audiovisual technology, performed according to state requirements. Appropriate patient consent obtained. This patient was personally seen for a basic visit as part of routine monthly dialysis care for end stage renal disease. Attending Engraving Press Operator: CADE SPENCER Dialysis Location: [facility] Schedule: Shift: 2 ADEQUACY ASSESSMENT [...] ok, has appt for xplant eval in [place] 03/27/24 [facility], cont f/u vasc and wound care 04/15/24 stable, cont Abx 05/03/24 doing ok 05/06/24 cont f/u ortho re osteo foot 05/20/24 same issues 06/07/24 cont rehab 06/26/24 stable, still not ready for prosthesis 07/05/24 stable Signed by: CADE SPENCER MD on 07/05/2024 at 08:01:31 PM Transcribed by: CADE SPENCER MD on 07/05/2024 at 08:01:31 PM documented in this encounter Plan of Treatment Not on file documented as of this encounter Visit Diagnoses Not on filedocumented in this encounter Care Teams Pipe Insulator Helper Relationship Specialty Start Date End Date Po, MD April [facility] INTERNAL [address] [place], [place] PCP - General 06/15/20 documented as of this encounter
--- OUTSIDE RECORDS SUMMARY | 2024-07-26 15:55 | XMS_ITS | Encounter Summary ---
Author Organization [facility] Address [address] [address] Phone Care Team Providers Care Manager Home Name Role Phone April Sharma MD Primary Care Provider [phone] Encounter Details Date Type Department Care Team ([facility] st Contact Info) Description 07/15/2024 Treatment [facility] P. [address] [address] Cade Spencer MD [address] [address] Social History Tobacco Use Types [...] Dialysis Note - Cade Spencer MD - 07/15/2024 12:00 AM EST Patient: Verona Holland : 1985 Note Type: Dialysis Rounds-Basic Service Date: 07/15/2024 This patient was personally seen for a basic visit as part of routine monthly dialysis care for end stage renal disease. Attending Director Of Physical Education: CADE SPENCER MD Dialysis Location: [facility] Schedule: Shift: 2 ADEQUACY ASSESSMENT Kt/V, [...] ok, has appt for xplant eval in [place] 03/27/24 [facility], cont f/u vasc and wound care 04/15/24 stable, cont Abx 05/03/24 doing ok 05/06/24 cont f/u ortho re osteo foot 05/20/24 same issues 06/07/24 cont rehab 06/26/24 stable, still not ready for prosthesis 07/05/24 stable Signed by: CADE SPENCER MD on 07/18/2024 at 06:11:09 AM documented in this encounter Plan of Treatment Not on file documented as of this encounter Visit Diagnoses Not on filedocumented in this encounter Care Teams Manager Home Relationship Specialty Start Date End Date April Sharma MD [facility] [place] [address] [place], [place] PCP - General 06/15/20 documented as of this encounter
--- OUTSIDE RECORDS SUMMARY | 2024-07-26 15:55 | XMS_ITS | Encounter Summary ---
Author Organization [facility] Address [address] [facility] [facility] [address] [place] [address] Phone Care Team Providers Care Distribution Engineer Name Role Phone April Sharma MD Primary Care Provider [phone] Reason for Visit * Reason Comments Med Refill Encounter Details Date Type Department Care Team (Late st Contact Info) Description 10/18/2020 Refill [facility] [address] [facility] [facility] [address] [place] [phone] Seamus Ramsey MD [address] [facility] [address] [place] [phone] Social History Tobacco Use Types Packs/Day Years [...] as of this encounter Miscellaneous Notes * Telephone Encounter - Chery Langford - 10/20/2020 10:12 AM EDT Called [facility]; they will be filling Clonidine patch for pt! Thank you * Telephone Encounter - Seamus Ramsey MD - 10/18/2020 10:58 PM EDT Have meds through her dialysis center please documented in this encounter Plan of Treatment Not on file documented as of this encounter Visit Diagnoses Not on filedocumented in this encounter Care Teams Distribution Engineer Relationship Specialty Start Date End Date April Sharma MD [address] [place] PCP - General 06/15/20 documented as of this encounter
[2024-07-26 15:56] VITALS: BP 110/64; PULSE 97; O2SAT 98
--- NOTE | 2024-07-26 15:56 | A.OFFPC_ITS ---
Vital Signs 07/26/24 15:56 Height 5 ft 4 in BMI Reason not done Patient refused/unable BP 110/64 Blood Pressure Location Lt brachial Position Sitting Pulse 97 Pulse Source Pulse Oximeter Pulse Oximetry (%) 98 Oxygen Delivery Method Room Air Intake Visit Reasons: Follow Up Check up Hydraulic Miner Required: No Accompanied by: Self / Same As Patient Allergies No Known Allergies Allergy (Mild, Verified 07/26/24 16:40) NONE Medication List - Last Reconciled 07/26/24 by Jason Salmon MD atorvastatin 20 mg PO BEDTIME 90 days blood sugar diagnostic (FreeStyle Lite Strips) As directed cholecalciferol (vitamin D3) 125 mcg PO DAILY cyanocobalamin (vitamin B-12) 500 mcg PO DAILY 90 days ferrous sulfate 325 mg PO DAILY 30 days fluticasone propionate 50 mcg/actuation (Flonase Allergy Relief) 1 spray intranasal DAILY 30 days folic acid 400 mcg PO DAILY 90 days gabapentin 100 mg PO TID insulin aspart U-100 (Novolog FlexPen U-100 Insulin aspart) 20 - 50 sliding scale doses subcut TIDAC insulin glargine 44 units subcut QPM insulin glargine (Lantus Solostar U-100 Insulin) 50 units subcut QAM levothyroxine 175 mcg PO DAILY 90 days metolazone 10 mg PO DAILY nifedipine ER 90 mg PO DAILY pen needle, diabetic (BD Kiaan 2nd Gen Pen Needle) As directed sevelamer carbonate 2,400 mg PO DAILY torsemide 100 mg PO BID trazodone 50 mg PO BEDTIME PRN 30 days Tobacco use date assessed: 07/26/24 Dental Screening Dental Screen Date: 07/26/24 Did you have a dental visit in the last 12 months?: Yes Did you have a dental problem in the last 6 months where you did not have access to dental care?: No Was dental information given to patient?: Patient has dentist HPI Follow Up Check up HPI Details Patient comes in today for her follow-up visit - she was last seen by me over 10 months ago on 09/19/2023 Since then, she has 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 She initially underwent R2 amputation with right SFA and AT angioplasty but developed necrotizing fasciitis of the foot and had a right TMA done in March 2024 Her surgical incision did not heal and she ultimately had a right BKA done on 05/07/2024 due to lack of revascularization options She currently is still experiencing phantom limb pain over her right lower extremity States that she feels okay otherwise and that she is continuing to see criminal lawyer and endocrinology at [facility] for her diabetes management She denies any headaches or dizziness Denies any chest pains, no increased shortness of breath No nausea / vomiting, no abdominal pain No change in bowel habits noted She is currently still going through hemodialysis 3 times a week and states that her labs are monitored regularly there although we do not have any recent lab results available on file for review [facility] Medical History (Updated 07/27/24 @ 05:12 by Jason Salmon MD) Peripheral artery disease Amputation of toe of right foot Morbid obesity Peripheral neuropathy Diabetic retinopathy Obesity (BMI 30-39.9) Acquired hypothyroidism Chronic kidney disease with end stage renal failure on dialysis Pure hypercholesterolemia Benign essential hypertension Type 1 diabetes mellitus Anemia Surgical History (Updated 07/27/24 @ 04:52 by Jason Salmon MD) History of amputation of right second toe Hx of right BKA History of amputation of lesser toe of left foot S/P arteriovenous (AV) fistula creation (~07/09/18) S/P dilatation and curettage (~02/2018) History of cataract surgery (~08/2017) History of eye surgery (~03/2017) History of detached retina repair (~08/15/16) S/P gastric sleeve procedure (~07/2020) Family History Father No problems noted. Mother No problems noted. Social History Housing: House Alcohol intake: never Patient Tobacco Use Status: Never used Tobacco e-Cigarette/Vaping Use: Never Used Second Hand Smoke Exposure: No service: No Current occupational status: employed Cognitive needs: No Hearing needs: No Vision needs: Yes Questionnaire PHQ-9 Over the last 2 weeks, how often have you been bothered by any of the following problems? 1. Little interest or pleasure in doing things: several days 2. Feeling down, depressed, or hopeless: several days 3. Trouble falling or staying asleep, or sleeping too much: more than half the days 4. Feeling tired or having little energy: more than half the days 5. Poor appetite or overeating: more than half the days 6. Feeling bad about yourself - or that you are a failure or have let yourself or your family down: not at all 7. Trouble concentrating on things, such as reading the newspaper or watching television: not at all 8. Moving or speaking so slowly that other people could have noticed. Or the opposite - being so fidgety or restless that you have been moving around a lot more than usual: not at all 9. Thoughts that you would be better off or of hurting yourself in some way: not at all Total score: 8 Depression Screening Interpretation: Positive Depression Screening Follow-up: Follow-up Visit Requested and Declines treatment Depression Screening Done: Yes 55623 - PHQ-9 Billing: Yes Source: Developed by Drs. Dc Fall, Isaura Cotton, Antoine Rankin and colleagues, with an educational itz from [employer]). Thrive Questionnaire Date Thrive assessed: 07/26/24 I am a: Patient What is your living situation today?: I have a steady place to live Within the past 12 months, did the food you bought not last and you didn't have the money to get more?: Never true Within the past 12 months, did you worry whether your food would run out before you got money to buy more?: Never true Do you have trouble paying for medicines?: No Do you have trouble getting transportation to medical appointments?: No Do you have trouble paying your heating and electricity bill?: No Do you have trouble taking care of your child, family member or friend?: No Do you have trouble with day-to-day activities such as bathing, preparing meals, shopping, managing finances, etc.?: No Are you currently unemployed and looking for a job?: No Are you interested in more education?: No Please select the resources that you would like help with: None Currently or been in a relationship where the following occur: No concerns reported THRIVE Score: 0 AUDIT C Alcohol Use Questionnaire (AUDIT-C) 1. How often do you have a drink containing alcohol?: Never 3. How often do you have six or more drinks on one occasion?: Never Total Score: 0 Score Reviewed/Action Taken: Yes LEÓN-7 AMB Questionnaire LEÓN-7 Date LEÓN - 7 assessed: 07/26/24 Feeling nervous, anxious, or on edge: 0 = Not at all Not being able to stop or control worryin = More than half the days Worrying too much about different things: 0 = Not at all Trouble relaxin = Several days Being so restless that it is hard to sit still: 0 = Not at all Becoming easily annoyed or irritable: 1 = Several days Feeling afraid as if something awful might happen: 0 = Not at all Total LEÓN-7 score (0-4 normal; 5-9 mild; 10-14 moderate; 15-21 severe): 4 Source: Developed by Drs. Dc Fall, Isaura Cotton, Antoine Rankin and colleagues, with an educational itz from [employer]). Review of Systems Const Denies chills, Reports difficulty sleeping, Reports fatigue, Denies fever(s) and Denies headache(s) ENT Denies dysphagia, Denies dizziness, Denies otalgia, Denies headache(s), Denies neck pain, Denies odynophagia and Denies sore throat Card Denies chest pain, Denies palpitations and Reports dyspnea on exertion (mild) Resp Denies chest congestion, Denies cough and Reports dyspnea on exertion (mild) GI Denies abdominal pain, Denies constipation, Denies dysphagia, Denies heartburn, Denies diarrhea, Denies nausea, Denies odynophagia and Denies vomiting Denies difficulty voiding, Denies nocturia, Denies dysuria and Denies urinary urgency Musc Denies back pain and Denies neck pain Skin/Breast Denies rash Neuro Details: (+) recurrent phantom limb pain on R lower extremity Denies dizziness and Denies headache(s) Psych Reports depression Endo Reports fatigue and Denies palpitations Physical exam (Primary Care) Vital Signs: Last Vital Signs Pulse 97 07/26/24 15:56 BP 110/64 07/26/24 15:56 Pulse Ox 98 07/26/24 15:56 Oxygen Delivery Method Room Air 07/26/24 15:56 Tobacco/Smoking Status: Tobacco use Status Tobacco use date assessed 07/26/24 07/26/24 16:06 Patient Tobacco Use Status Never used Tobacco 07/26/24 16:06 e-Cigarette/Vaping Use Never Used 07/26/24 16:06 PHQ-9: PHQ-9 Score PHQ-9: Total score 8 07/26/24 16:45 Depression Screening Interpretation: Positive Depression Screening Follow-up: Follow-up Visit Requested and Declines treatment Thrive Assessment: Date of Thrive Assessment Date Thrive assessed 07/26/24 07/26/24 16:06 Currently or been in a relationship where the following occur: No concerns reported Const General: no acute distress and alert HENMT Ears: TM's normal bilaterally and EAC's normal Throat: Yes posterior oropharynx normal and Yes tonsils normal (no TP congestion) Neck Neck: Yes supple and No lymphadenopathy Thyroid: Thyroid normal Resp Auscultation: clear to auscultation bilaterally, no rales and no wheezes Cardio Rate: regular rate Rhythm: regular rhythm Heart sounds: no murmurs GI Palpation (GI): Soft to palpation and nontender Auscultation: normal bowel sounds General: Yes no CVA tenderness Back/Spine/Pelvis Back: no CVA tenderness Thoracic/Lumbar Spine: No lumbar spinal tenderness Skin Rashes: no rashes Extrem Other: S/P R BKA General: Yes no clubbing, cyanosis or edema (on left lower extremity) Coding Level of Care Code Est Pt Level 4 (61083) Diagnoses Type 1 diabetes mellitus with proliferative retinopathy of both eyes, macular edema presence unspecified, unspecified proliferative retinopathy type E10.3593 Diabetes mellitus complication status: with ophthalmic complications Diabetes mellitus complication detail: with diabetic retinopathy Diabetic retinopathy severity: with proliferative retinopathy Proliferative retinopathy type: unspecified Diabetes mellitus macular edema: macular edema presence unspecified Laterality: bilateral Benign essential hypertension I10 Pure hypercholesterolemia E78.00 Chronic kidney disease with end stage renal failure on dialysis N18.6; Z99.2 Anemia due to chronic kidney disease, on chronic dialysis N18.6; D63.1; Z99.2 Anemia type: due to chronic kidney disease Chronic kidney disease stage: on chronic dialysis Acquired hypothyroidism E03.9 Proliferative diabetic retinopathy of both eyes associated with type 1 diabetes mellitus, unspecified proliferative retinopathy type E10.3593 Diabetes mellitus type: type 1 Diabetic retinopathy severity: with proliferative retinopathy Proliferative retinopathy type: unspecified Laterality: bilateral Peripheral polyneuropathy G62.9 Peripheral neuropathy type: polyneuropathy, unspecified Peripheral artery disease I73.9 Vitamin D deficiency E55.9 Vitamin B12 deficiency E53.8 Major depressive disorder, recurrent, mild F33.0 Insomnia, unspecified type G47.00 Insomnia type: unspecified Obesity (BMI 30-39.9) E66.9 Additional Codes PHQ-9 - 91705 - PHQ-9 Billing: Yes ([id number]) Assessment & Plan Assessment & Plan (1) Type 1 diabetes mellitus: Code(s): E10.9 - Type 1 diabetes mellitus without complications Category: Medical Qualifiers: Diabetes mellitus complication status: with ophthalmic complications Diabetes mellitus complication detail: with diabetic retinopathy Diabetic retinopathy severity: with proliferative retinopathy Proliferative retinopathy type: unspecified Diabetes mellitus macular edema: macular edema presence unspecified Laterality: bilateral Qualified Code(s): E10.3593 - 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, bilateral Plan: Patient's last recorded HgbA1c was at 8.9% back on 09/19/2023 - goal is at least <7.0% Reinforced diabetic diet Continue Lantus Solostar 50 units Q AM and 44 units Q PM and NovoLog FlexPen 20-50 units 3 times a day with meals per sliding scale Patient is instructed to continue following up with [facility] Endocrinology and with her criminal lawyer as scheduled We have not received any correspondence from [facility] Endocrinology so far and will again try to request for copies of her outpatient visit notes sent over for her records and documentation (2) Benign essential hypertension: Code(s): I10 - Essential (primary) hypertension Category: Medical Plan: Reinforced low sodium diet Continue Nifedipine ER 90 mg QD and Clonidine 0.1 mg patch once a week (3) Pure hypercholesterolemia: Code(s): E78.00 - Pure hypercholesterolemia, unspecified Category: Medical Plan: Patient has no follow-up labs done in a while now and have instructed her to have her labs drawn before her next hemodialysis session to get this updated - she is provided with a printout of her lab orders today Reinforced low cholesterol diet Continue Atorvastatin 20 mg QD (4) Chronic kidney disease with end stage renal failure on dialysis: Comment: 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 Patel) as scheduled Continue Sevelamer 800 mg 3 tablets QD and Torsemide 100 mg BID; continue Metolazone 10 mg Q 7 days (5) Anemia: Code(s): D64.9 - Anemia, unspecified Category: Medical Qualifiers: Anemia type: due to chronic kidney disease Chronic kidney disease stage: on chronic dialysis Qualified Code(s): N18.6 - End stage renal disease; D63.1 - Anemia in chronic kidney disease; Z99.2 - Dependence on renal dialysis Plan: Continue Ferrous Sulfate 325 mg QD Will have patient check her CBC LISBETH for follow-up (6) Acquired hypothyroidism: Code(s): E03.9 - Hypothyroidism, unspecified Category: Medical Plan: Continue Levothyroxine 175 mcg QD WIll recheck her TFTs LISBETH for follow up (7) Diabetic retinopathy: Comment: Has advanced bilateral diabetic retinopathy (worse in the left eye) and has received injections and laser therapy - is legally blind Code(s): E11.319 - Type 2 diabetes mellitus with unspecified diabetic retinopathy without macular edema Category: Medical Qualifiers: Diabetes mellitus type: type 1 Diabetic retinopathy severity: with proliferative retinopathy Proliferative retinopathy type: unspecified Laterality: bilateral Qualified Code(s): E10.3593 - 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, bilateral Plan: Continue Latanoprost 0.005% 1 drop into the left eye Q HS Follow up with ophthalmology and retina specialist as scheduled (8) Peripheral neuropathy: Code(s): G62.9 - Polyneuropathy, unspecified Category: Medical Qualifiers: Peripheral neuropathy type: polyneuropathy, unspecified Qualified Code(s): G62.9 - Polyneuropathy, unspecified Plan: Continue Gabapentin 100 mg BID (9) Peripheral artery disease: Code(s): I73.9 - Peripheral vascular disease, unspecified Category: Medical Plan: She initially underwent R2 amputation with right SFA and AT angioplasty but developed necrotizing fasciitis of the foot and had a right TMA done in March 2024 Her surgical incision did not heal and she ultimately had a right BKA done on 05/07/2024 due to lack of revascularization options Follow-up with vascular surgery as scheduled (10) Vitamin D deficiency: Code(s): E55.9 - Vitamin D deficiency, unspecified Category: Medical Plan: Continue Vitamin D3 125 mcg QD (11) Vitamin B12 deficiency: Code(s): E53.8 - Deficiency of other specified B group vitamins Category: Medical Plan: Continue Vitamin B12 500 mcg QD (12) Major depressive disorder, recurrent, mild: Code(s): F33.0 - Major depressive disorder, recurrent, mild Category: Medical Plan: Follow up with psychiatry as scheduled (13) Insomnia: Code(s): G47.00 - Insomnia, unspecified Category: Medical Qualifiers: Insomnia type: unspecified Qualified Code(s): G47.00 - Insomnia, unspecified Plan: Sleep hygiene reinforced Will increase her Trazodone from 50 mg to 100 mg Q HS PRN (14) Obesity (BMI 30-39.9): Comment: S/P gastric sleeve surgery in July 2020 Code(s): E66.9 - Obesity, unspecified Category: Medical Plan: Reinforced diet; exercise and weight loss may be impractical given patient's BKA status and multiple comorbidities Plan Follow up in 3 months Orders: Orders Complete Blood Count Auto Diff 07/26/24 D64.9 - Anemia, unspecified Comprehensive [place]. Panel Fast 07/26/24 E78.00 - Pure hypercholesterolemia, unspecified Lipid Panel 07/26/24 E78.00 - Pure hypercholesterolemia, unspecified Vitamin D 25-OH Total 07/26/24 E55.9 - Vitamin D deficiency, unspecified Hemoglobin A1c 07/26/24 E11.9 - Type 2 diabetes mellitus without complications TSH reflex Free T4 07/26/24 E78.00 - Pure hypercholesterolemia, unspecified Medications: Changed From trazodone 50 mg PO BEDTIME 30 days PRN 30 tabs 3RF sleep To trazodone 100 mg PO BEDTIME 30 days PRN 30 tabs 3RF sleep
--- OUTSIDE RECORDS SUMMARY | 2024-07-26 15:56 | XMS_ITS | Continuity of Care Document ---
Author Organization [facility] Address [address] [place] [address]- [facility] Name Relationship Address Phone KATIE SERNA Other Unknown Unavailable TRACI GREENE Personal Relationship Unknown Kayy vailable TRACI ALBERT Personal Relationship Unknown Unava ilable RAMONA, OGELLIOTT mother Unknown Unavailable NIC GREENE mother Unknown Unavailable Care Team Providers Care Associate Professor Of Biostatistics Name Role Phone Jason Salmon MD Primary [id number] Date[facility]/30/24 - 06/29/24 [facility] [address] [facility] [address] Attending Physician: Nahomy Chapman MD Admitting Physician: Nahomy Chapman MD Encounter Type: Pre-OutPatient One Time Allergies, Adverse Reactions, Alerts No Known Allergies [...] Quantity: 200.0 Unit: each Repeat number: 1 Dexcom G7 Rigging Slinger Dexcom G7 Rigging Slinger, See Instructions, # 1 each, Refills 0, [...] 0 Refills, Maintenance, 06/14/24 8:01:00 AM EST, [facility], Partial fill upon patient request if the prescription is for a schedule II opioid drug., 162.5, cm, 06/14/24 7:57:00 EST, Height, 95, kg, 06/04/24 23:11:00 EST, Dry Weight Start Date: 06/14/24 Status: Ordered Quantity: 14.0 Unit: tablet Repeat number: 1 ergocalciferol 81774 iu oral capsule 3 each, 0 Refill(s), [...] 12:48:00 PM EST, Route to Pharmacy Electronically, [facility], Partial fill upon patient request if [...] Refills, Maintenance, 10/05/17 11:44:04 AM EDT, Tablet, [facility]/pharmacy #[id number] Start Date: 10/05/17 Status: Ordered Quantity: 30.0 [...] 1.0 Unit: each Repeat number: 1 Pen [place], 32 G x 4 mm BD Ultra [...] Indication: Type 2 diabetes mellitus without complications Please measure left forefoot offloading shoe Please [...] day with meals, Refill per PCP or Canceling Machine Operator, # 180 tablet, 0 Refills, Maintenance, 01/30/24 1:52:00 PM EDT, Tablet, [facility], Partial fill upon patient request if the prescription is for a schedule II opioid drug., 163, cm, 01/30/24 11:32:00 EDT, Height, 106.9, kg, 01/26/24 21:23:00 EDT, Dry Weight Start Date: 01/30/24 Status: Ordered Quantity: 180.0 Unit: tablet Repeat number: 1 timolol maleate 0.5% ophthalmic [...] goal < 8% Confirmed Active [facility] [place] [facility] [address], [place] [address] 2M,W,F 11am-3:30pm [phone] Social History Social History Type Response Smoking Status Never smoker entered on: 09/15/17 Sex Sex Representation Female (finding) Patient Care team information Care Team Personnel Name: Blas Doty Position: [facility] Associate Professional Member Role: Lifetime Consulting Provider Address: [address] [place] [address] [address] [facility] [place] [address]- Telecom: Name: Jason Salmon MD Position: Reference Physician Member Role: PCP Address: [address] [place] [address] [address] [place] [address]- Telecom: Name: Christina Gan RN Position: S RN Member Role: Primary Care Nurse Name: Tiffanie Santos RN Position: [facility] RN Member Role: Primary Care Nurse Name: Bianka Mendes RN Position: [facility] RN Member Role: Primary Care Nurse Name: Yolanda Butler Position: [facility] Outreach Member Role: Lifetime Consulting Physician Name: Joy Springer Position: [facility] Associate Professional Member Role: Lifetime Consulting Provider Address: [address] [facility] [address] [facility] [place] [address]- [place] Telecom: Name: Al Suazo MD Position: [facility] Renal MD Member Role: Lifetime Consulting Physician Address: [address] [place] [address] [address] [place] [address]- [place] Telecom: Name: Sydnie Rubi RN Position: [facility] RN Member Role: Primary Care Nurse Name: Anupam Vernon RN Position: [facility] RN Member Role: Primary Care Nurse Name: Ana Manzano RN Position: [facility] RN Member Role: Primary Care Nurse Name: Chery Lazo RN Position: [facility] RN Member Role: Primary Care Nurse Name: Whitney Reid RN Position: [facility] RN Member Role: Primary Care Nurse Name: Anthony Feliciano RN Position: [facility] RN Member Role: Primary Care Nurse Name: Kelli Corado RN Position: [facility] SN RN Member Role: Primary Care Nurse Name: Dale Baraajs RN Position: [facility] RN Member Role: Primary Care Nurse Name: Teresa Guerra Position: [facility] Outreach Member Role: Lifetime Consulting Physician Name: Ronak Yates RN Position: [facility] RN Member Role: Primary Care Nurse Name: Baldemar Romero RN Position: [facility] RN Member Role: Primary Care Nurse Name: Sunitha Murillo RN Position: [facility] RN Member Role: Primary Care Nurse Name: Dc Blackwood III, RN Position: [facility] RN Member Role: Primary Care Nurse Name: Dede Jordan RN Position: [facility] RN Member Role: Primary Care Nurse Name: Charissa Dominguez RN Position: [facility] RN Member Role: Primary Care Nurse Name: Vicenta Simms RN Position: [facility] RN Member Role: Primary Care Nurse Name: Danyell Frost RN Position: [facility] RN Member Role: Primary Care Nurse Name: Pooja Starkey RN Position: [facility] OB RN Member Role: Primary Care Nurse Name: Jesus Patel MD Position: [facility] Renal MD Member Role: Lifetime Consulting Physician Address: [address] [facility] [address] [facility] [place] [address]- Telecom: Name: Maria Del Rosario Mejia RN Position: S RN Member Role: Primary Care Nurse Name: Patricia Oshea RN Position: [facility] RN Member Role: Primary Care Nurse Name: Kuldeep Paris RN Position: [facility] RN Member Role: Primary Care Nurse Name: Yola Choi MD Position: [facility] RN FLOAT MD Member Role: Lifetime RN FLOAT Physician Address: [address] [facility] [place] [address]- Telecom: Name: Giovana Osei RN Position: S RN Member Role: Primary Care Nurse Name: Ellen Feldman RN Position: [facility] RN Member Role: Primary Care Nurse Name: Alesha Montes RN Position: [facility] RN Member Role: Primary Care Nurse Name: Elizabeth Peralta RN Position: [facility] RN Member Role: Primary Care Nurse Name: Mayra Diaz RN Position: [facility] RN Member Role: Primary Care Nurse Care Team Related Persons Name: KAREEM, KATIE Name: ISAURA GREENE Name: NIC GREENE Name: TRACI ALBERT Insurance Providers Guarantor name: CARLEEN GREENE Health Plan Information #: 1 Payer: [facility] Member Number: [id number] Policy Number: NA Group Number: NA Health Plan Information #: 2 Payer: [facility] CARE ALLIANCE/ONE CARE Member Number: NA Policy Number: NA Group Number: NA
--- OUTSIDE RECORDS SUMMARY | 2024-07-26 15:56 | XMS_ITS | Continuity of Care Document ---
Author Organization [facility] Address [address] [place] [address], [address] [place] [address]- Care Team Providers Care Asparagus Cutter Name Role Phone Jason Salmon MD Primary Care Physician [id number] Date[facility]s): 06/12/24 - 07/12/24 [facility] [address] [facility], [address] [place] [address]- Encounter Type: Triage Allergies, Adverse Reactions, Alerts [...] Unit: each Repeat number: 1 Dexcom G7 Professor Of Industrial Technology Dexcom G7 Professor Of Industrial Technology, See Instructions, # 1 each, Refills 0, [...] 0 Refills, Maintenance, 06/14/24 8:01:00 AM EST, [facility], Partial fill upon patient request if the prescription is for a schedule II opioid drug., 162.5, cm, 06/14/24 7:57:00 EST, Height, 95, kg, 06/04/24 23:11:00 EST, Dry Weight Start Date: 06/14/24 Status: Ordered Quantity: 14.0 Unit: tablet Repeat number: 1 ergocalciferol 36212 iu oral capsule 3 each, 0 Refill(s), [...] 12:48:00 PM EST, Route to Pharmacy Electronically, [facility], Partial fill upon patient request [...] Maintenance, 10/05/17 11:44:04 AM EDT, Tablet, [id number] Start Date: 10/05/17 Status: Ordered Quantity: 30.0 [...] 1.0 Unit: each Repeat number: 1 Pen [place], 32 G x 4 mm BD Ultra [...] day with meals, Refill per PCP or Tobacco Curer, # 180 tablet, 0 Refills, Maintenance, 01/30/24 1:52:00 PM EDT, Tablet, [facility], Partial fill upon patient request if the prescription is for a schedule II opioid drug., 163, cm, 01/30/24 11:32:00 EDT, Height, 106.9, kg, 01/26/24 21:23:00 EDT, Dry Weight Start Date: 01/30/24 Status: Ordered Quantity: 180.0 Unit: tablet Repeat number: 1 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 agent 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 agent, See Instructions, # 1 each, Refills 0, [...] goal < 8% Confirmed Active [facility] [place] [facility] [address], [place] [address] 2M,W,F 11am-3:30pm [phone] Social History Social History Type Response Smoking Status Never smoker entered on: 09/15/17 Sex Sex Representation Female (finding) Patient Care team information Care Team Personnel Name: Blas Doty Position: [facility] Associate Professional Member Role: Lifetime Consulting Provider Address: [address] [facility] [address] Telecom: Name: Jason Salmon MD Position: Reference Physician Member Role: PCP Address: [address] [place] [address] [address] [place], [place] [address] Telecom: Name: Christina Gan RN Position: [facility] RN Member Role: Primary Care Nurse Name: Tiffanie Santos RN Position: [facility] RN Member Role: Primary Care Nurse Name: Bianka Mendes RN Position: [facility] RN Member Role: Primary Care Nurse Name: Yolanda Butler Position: [facility] Outreach Member Role: Lifetime Consulting Physician Name: Joy Springer Position: [facility] Associate Professional Member Role: Lifetime Consulting Provider Address: [address] [facility] [address] Telecom: Name: Al Suazo MD Position: [facility] Renal MD Member Role: Lifetime Consulting Physician Address: [address] [place] [address] [address] [facility] [place], [place] [address] Telecom: Name: Sydnie Rubi RN Position: [facility] RN Member Role: Primary Care Nurse Name: Anupam Vernon RN Position: [facility] RN Member Role: Primary Care Nurse Name: Ana Manzano RN Position: [facility] RN Member Role: Primary Care Nurse Name: Chery Lazo RN Position: [facility] RN Member Role: Primary Care Nurse Name: Whitney Reid RN Position: [facility] RN Member Role: Primary Care Nurse Name: Anthony Feliciano RN Position: [facility] RN Member Role: Primary Care Nurse Name: Kelli Corado RN Position: [facility] SN RN Member Role: Primary Care Nurse Name: Dale Barajas RN Position: [facility] RN Member Role: Primary Care Nurse Name: Charlie Teresa Position: [facility] Outreach Member Role: Lifetime Consulting Physician Name: Ronak Yates RN Position: [facility] RN Member Role: Primary Care Nurse Name: Baldemar Romero RN Position: [facility] RN Member Role: Primary Care Nurse Name: Sunitha Murillo RN Position: [facility] RN Member Role: Primary Care Nurse Name: Dc Blackwood III, RN Position: [facility] RN Member Role: Primary Care Nurse Name: Dede Jordan RN Position: [facility] RN Member Role: Primary Care Nurse Name: Charissa Dominguez RN Position: [facility] RN Member Role: Primary Care Nurse Name: Vicenta Simms RN Position: [facility] RN Member Role: Primary Care Nurse Name: Danyell Frost RN Position: [facility] RN Member Role: Primary Care Nurse Name: Pooja Starkey RN Position: [facility] OB RN Member Role: Primary Care Nurse Name: Jesus Patel MD Position: [facility] Renal MD Member Role: Lifetime Consulting Physician Address: [address] [facility] [address] [facility] [address] Telecom: Name: Maria Del Rosario Mejia RN Position: [facility] RN Member Role: Primary Care Nurse Name: Patricia Oshea RN Position: [facility] RN Member Role: Primary Care Nurse Name: Kuldeep Paris RN Position: [facility] RN Member Role: Primary Care Nurse Name: Yola Cohi MD Position: [facility] MALTHOUSE LABORER MD Member Role: Lifetime MALTHOUSE LABORER Physician Address: [address] [facility] MALTHOUSE LABORER [place], [place] [address] Telecom: Name: Giovana Osei RN Position: [facility] RN Member Role: Primary Care Nurse Name: Ellen Feldman RN Position: [facility] RN Member Role: Primary Care Nurse Name: Alesha Montes RN Position: [facility] RN Member Role: Primary Care Nurse Name: Elizabeth Peralta RN Position: [facility] RN Member Role: Primary Care Nurse Name: Mayra Diaz RN Position: [facility] RN Member Role: Primary Care Nurse Care Team Related Persons Name: KATIE SERNA Name: ISAURA GREENE Name: NIC GREENE Name: TRACI ALBERT Insurance Providers Guarantor name: CARLEEN GREENE Health Plan Information #: 1 Payer: [facility] CARE ALLIANCE/[facility] CARE Member Number: NA Policy Number: NA Group Number: NA
--- OUTSIDE RECORDS SUMMARY | 2024-07-26 15:56 | XMS_ITS | Continuity of Care Document ---
Author Organization [facility] Address [address] [place] [address]- Care Team Providers Care Greens Laborer Name Role Phone Luis Antonio NAIDU, Jason Martinez Primary Care Physician Encounter [facility] Date(s): 06/21/24 - 07/21/24 [facility] [address] [place] [address] Attending Physician: Admtr, Ar8 Admitting Physician: Admtr Ar8 Referring Physician: Admtr, Ar8 Encounter Type: Triage Allergies, Adverse Reactions, Alerts [...] Unit: each Repeat number: 1 Dexcom G7 Therapist Respiratory Dexcom G7 Therapist Respiratory, See Instructions, # 1 each, Refills 0, [...] 0 Refills, Maintenance, 06/14/24 8:01:00 AM EST, [facility], Partial fill upon patient request if the prescription is for a schedule II opioid drug., 162.5, cm, 06/14/24 7:57:00 EST, Height, 95, kg, 06/04/24 23:11:00 EST, Dry Weight Start Date: 06/14/24 Status: Ordered Quantity: 14.0 Unit: tablet Repeat number: 1 ergocalciferol 67596 iu oral capsule 3 each, 0 Refill(s), [...] 12:48:00 PM EST, Route to Pharmacy Electronically, [facility], Partial fill upon patient request [...] Refills, Maintenance, 10/05/17 11:44:04 AM EDT, Tablet, [facility]/pharmacy #[id number] Start Date: 10/05/17 Status: Ordered Quantity: 30.0 [...] 1.0 Unit: each Repeat number: 1 Pen [employer], 32 G x 4 mm BD Ultra [...] day with meals, Refill per PCP or Tax Preparer, # 180 tablet, 0 Refills, Maintenance, 01/30/24 1:52:00 PM EDT, Tablet, [facility], Partial fill upon patient request if the prescription is for a schedule II opioid drug., 163, cm, 01/30/24 11:32:00 EDT, Height, 106.9, kg, 01/26/24 21:23:00 EDT, Dry Weight Start Date: 01/30/24 Status: Ordered Quantity: 180.0 Unit: tablet Repeat number: 1 stump medicare biller stump medicare biller, See Instructions, # 1 each, Refills 0, [...] goal < 8% Confirmed Active [facility] [place] MWF [address], [place], [place] 2M,W,F 11am-3:30pm [phone] Social History Social History Type Response Smoking Status Never smoker entered on: 09/15/17 Sex Sex Representation Female (finding) Patient Care team information Care Team Personnel Name: Blas Doty Position: [facility] Associate Professional Member Role: Lifetime Consulting Provider Address: [address] [facility] [place], [place] [address] Telecom: Name: Jason Salmon MD Position: Reference Physician Member Role: PCP Address: [address] [place] [address] Drive [address] [place], [place] [facility] Telecom: Name: Christina Gan RN Position: [facility] RN Member Role: Primary Care Nurse Name: Tiffanie Santos RN Position: [facility] RN Member Role: Primary Care Nurse Name: Bianka Mendes RN Position: [facility] RN Member Role: Primary Care Nurse Name: Yolanda Butler Position: [facility] Outreach Member Role: Lifetime Consulting Physician Name: Joy Springer Position: [facility] Associate Professional Member Role: Lifetime Consulting Provider Address: [address] [facility] [address] [facility] [place], [place] [address] Telecom: Name: Al Suazo MD Position: [facility] Renal MD Member Role: Lifetime Consulting Physician Address: [address] [place] [address] [address] [facility] [place], [place] [facility] Telecom: Name: Sydnie Rubi RN Position: [facility] RN Member Role: Primary Care Nurse Name: Anupam Vernon RN Position: S RN Member Role: Primary Care Nurse Name: Ana Manzano RN Position: [facility] RN Member Role: Primary Care Nurse Name: Chery Lazo RN Position: S RN Member Role: Primary Care Nurse Name: Whitney Reid RN Position: S RN Member Role: Primary Care Nurse Name: Anthony Feliciano RN Position: [facility] RN Member Role: Primary Care Nurse Name: Kelli Corado RN Position: [facility] SN RN Member Role: Primary Care Nurse Name: Dale Barajas RN Position: [facility] RN Member Role: Primary Care Nurse Name: Teresa Guerra Position: [facility] Outreach Member Role: Lifetime Consulting Physician Name: Ronak Yates RN Position: [facility] RN Member Role: Primary Care Nurse Name: Baldemar Romero RN Position: [facility] RN Member Role: Primary Care Nurse Name: Sunitha Murillo RN Position: [facility] RN Member Role: Primary Care Nurse Name: Dc Blackwood III, RN Position: [facility] RN Member Role: Primary Care Nurse Name: Dede Jordan RN Position: [facility] RN Member Role: Primary Care Nurse Name: Charissa Dominguez RN Position: [facility] RN Member Role: Primary Care Nurse Name: Vicenta Simms RN Position: [facility] RN Member Role: Primary Care Nurse Name: Danyell Frost RN Position: [facility] RN Member Role: Primary Care Nurse Name: Pooja Starkey RN Position: [facility] OB RN Member Role: Primary Care Nurse Name: Jesus Patel MD Position: [facility] Renal MD Member Role: Lifetime Consulting Physician Address: [address] [facility] [address] [facility] [address] Telecom: Name: Maria Del Rosario Mejia RN Position: [facility] RN Member Role: Primary Care Nurse Name: Patricia Oshea RN Position: [facility] RN Member Role: Primary Care Nurse Name: Kuldeep Paris RN Position: [facility] RN Member Role: Primary Care Nurse Name: Yola Choi MD Position: [facility] RAW STOCK DYEING MACHINE TENDER MD Member Role: Lifetime RAW STOCK DYEING MACHINE TENDER Physician Address: [address] [facility] RAW STOCK [place]ING [place] [address]- Telecom: Name: Giovana Osei RN Position: [facility] RN Member Role: Primary Care Nurse Name: Ellen Feldman RN Position: [facility] RN Member Role: Primary Care Nurse Name: Alesha Montes RN Position: [facility] RN Member Role: Primary Care Nurse Name: Elizabeth Peralta RN Position: [facility] RN Member Role: Primary Care Nurse Name: Mayra Diaz RN Position: [facility] RN Member Role: Primary Care Nurse Care Team Related Persons Name: KATIE SERNA Name: ISAURA GREENE Name: NIC GREENE Name: TRACI ALBERT Insurance Providers Guarantor name: CARLEEN GREENE Health Plan Information #: 1 Payer: [facility] CARE ALLIANCE/[facility] CARE Member Number: NA Policy Number: NA Group Number: NA
--- OUTSIDE RECORDS SUMMARY | 2024-07-26 15:56 | XMS_ITS | Continuity of Care Document ---
Author Organization [facility] Address [address] [place] [address]- Care Team Providers Care Carpenter/Labor Name Role Phone Jason Salmon MD Primary Care Physician [phone] [id number] Date(s): 07/04/24 - 07/11/24 [facility] [address] [place] [address]- Attending Physician: Lisa Wu NP Admitting Physician: Bryce ERICKSON, Lisa Croft Referring Physician: Jason Salmon MD Encounter Type: Office Visit Allergies, Adverse Reactions, Alerts No Known Allergies [...] Unit: each Repeat number: 1 Dexcom G7 Wax Pattern Coater Dexcom G7 Wax Pattern Coater, See Instructions, # 1 each, Refills 0, [...] 0 Refills, Maintenance, 06/14/24 8:01:00 AM EST, [facility], Partial fill upon patient request if the prescription is for a schedule II opioid drug., 162.5, cm, 06/14/24 7:57:00 EST, Height, 95, kg, 06/04/24 23:11:00 EST, Dry Weight Start Date: 06/14/24 Status: Ordered Quantity: 14.0 Unit: tablet Repeat number: 1 ergocalciferol 44602 iu oral capsule 3 each, 0 Refill(s), [...] 12:48:00 PM EST, Route to Pharmacy Electronically, [facility], Partial fill upon patient [...] Refills, Maintenance, 10/05/17 11:44:04 AM EDT, Tablet, [facility]/pharmacy #[id number] Start Date: 10/05/17 Status: Ordered Quantity: 30.0 [...] 1.0 Unit: each Repeat number: 1 Pen Whitmire, 32 G x 4 mm BD Ultra [...] day with meals, Refill per PCP or Harness Preparer, # 180 tablet, 0 Refills, Maintenance, 01/30/24 1:52:00 PM EDT, Tablet, [facility], Partial fill upon patient request if the prescription is for a schedule II opioid drug., 163, cm, 01/30/24 11:32:00 EDT, Height, 106.9, kg, 01/26/24 21:23:00 EDT, Dry Weight Start Date: 01/30/24 Status: Ordered Quantity: 180.0 Unit: tablet Repeat number: 1 [facility] family practice doctor [facility] practice doctor, See Instructions, # 1 each, Refills 0, [...] goal < 8% Confirmed Active [facility] [place] MWF [address], [place] [address] 2M,W,F 11am-3:30pm [phone] Vital Signs Most recent to oldest [Reference Range]: 1 Height 162.5 cm (07/04/24 8:14 AM) Weight 94.3 kg (07/04/24 8:14 AM) Oxygen Saturation [94-100 %] 98 % (07/04/24 8:14 AM) Pulse Rate [55-90 bpm] 98 bpm *H* (07/04/24 8:14 AM) Body Mass Index [18.5-24.99 kg/m2] 35.71 kg/m2 *>HHI* (07/04/24 8:14 AM) Blood Pressure [90-138/55-84 mm Hg] 140/ 80mm Hg *H* (07/04/24 8:14 AM) Mode of Delivery (Oxygen) Room air (07/04/24 8:14 AM) Blood pressure sites Arm, right (07/04/24 8:14 AM) Weight Obtained Via Patient/family state d (07/04/24 8:14 AM) Social History Social History Type Response Smoking Status Never smoker entered on: 09/15/17 Sex Sex Representation Female (finding) Note * Indy Gunn: PERFORM Event Display: Patient Education/Instruction Authored Date: [id number] Ambulatory Adult Visit Summary [id number] [place] [address] Name: CARLEEN GREENE : 1985?? Visit: 07/04/2024 07:42?? Ambulatory Visit Instructions ?? Your Care Team Primary Care Provider Luis Antonio NAIDU, Jason Martinez? This Visit Provider Bryce ERICKSON , Lisa Croft Vitals Signs Pulse Rate:??98 bpm??High Height: 162.5 cm Systolic Blood Pressure:??140 mm Hg??High Weight: 94.3 kg Diastolic Blood Pressure: 80 mm Hg Body Mass Index:??35.71 kg/m2??Critical Oxygen Saturation: 98 % Body surface area: 2.06 What to do next Scheduled Follow-Up Appointments Monday 8:30 AM EST ?? With: Bryce ERICKSON, Lisa Croft Where: [facility] [address] [place] [address]- Status: Pending 2024 9:00 AM EDT ?? Where: Diabetic Teaching Status: Pending Medications The list below reflects the information in our records and provided by you today along with any changes made during this visit. Please continue your medications until treatment is completed or stopped by your provider. If this is different from the information you have or there are other questions,please contact the prescribing provider. What How Much When Why Instructions New Miscellaneous Rx (BKA prosthesis) See instructions right BKA, K3 ?? Printed Prescription New Miscellaneous Rx (physical therapy) See instructions Dx: right BKA, gait and prosthetic training ?? Printed Prescription New Miscellaneous Rx (stump family practice doctor) See instructions right BKA, K3 ?? Printed Prescription Unchanged Acetaminophen (Tylenol 325 mg oral tablet) 975 Milligram Oral Every 6 hours as needed for Pain , Moderate Unchanged Atorvastatin (atorvastatin 20 mg oral tablet) 90 each, 0 Refill(s), TAKE 1 TABLET BY MOUTH AT BEDTIME ?? Unchanged Cholecalciferol (Vitamin D3 2000 intl units oral tablet) 50 Microgram Oral Daily Unchanged Cinacalcet (Sensipar 30 mg oral tablet) 90 Milligram Oral Daily Unchanged Durable Medical Equipment (Alcohol Pads) See instructions use as directed for diabetes care 4 times per day. E10.9 ?? Unchanged Durable Medical Equipment (Dexcom G7 Wax Pattern Coater) See instructions Use as directed for type 1 diabetes control. 90 day supply ?? Unchanged Durable Medical Equipment (Dexcom G7 Sensor) See instructions Use as directed for diabetes control. 90 day supply ?? Unchanged Durable Medical Equipment (Dexcom G7 sensors) See instructions Use sensor to monitor glucose. New sensor to be placed every 10 days. E10.65 ?? Unchanged Durable Medical Equipment (Freestyle Lancets) See instructions Type 1 diabetes Duration: 30 Days test blood sugar 7-8x day DX E10.9 ?? Unchanged Durable Medical Equipment (Freestyle Lancets) See instructions use as directed for diabetes care 4 times per day. E10.9 ?? Unchanged Durable Medical Equipment (Freestyle Lite Monitor) See instructions Type 1 diabetes mellitus Use to check blood sugar 5 times daily. E10.65. ?? Unchanged Durable Medical Equipment (Freestyle Lite Monitor) See instructions use as directed for diabetes care 4 times per day. E10.9. Patient had lost her old meter. ?? Unchanged Durable Medical Equipment (Freestyle Lite Test Strips) See instructions Use to check blood sugar 5 times daily. E10.65. ?? Unchanged Durable Medical Equipment (Freestyle Lite Test Strips) See instructions use as directed for diabetes care 4 times per day. E10.9 ?? Unchanged Durable Medical Equipment (Glucagon Emergency Kit) See instructions Type 1 diabetes Duration: 30 Days for use if BG <40, unconscious, or difficulty swallowing.1mo., As needed for Blood Glucose ?? Unchanged Durable Medical Equipment (Ketostix) See instructions Type 1 diabetes Duration: 30 Days use as directed for Type 1 Diabetes Mellitus. sugar 350 mg/ dL or ill. ?? Unchanged Durable Medical Equipment (Ketostix) See instructions Duration: 90 Days Use twice daily if glucose is over 400 or is consistently over 200. ?? Unchanged Durable Medical Equipment (Pen Whitmire, 32 G x 4 mm BD Ultra Fine III) See instructions Type 2 diabetes mellitus Duration: 30 Days 5 daily inejctions. for T1DM E10.9 ?? Unchanged Durable Medical Equipment (Please measure left forefoot offloading shoe) See instructions Please measure patient for a left forefoot offloading shoe she has a wound to her left forefoot status post ray amputation left fifth toe ?? Unchanged Durable Medical Equipment (Rolling Walker.) See instructions Rolling Walker ?? Unchanged Ergocalciferol (ergocalciferol 83101 iu oral capsule) 3 each, 0 Refill(s), TAKE 1 CAPSULE BY MOUTH WEEKLY FOR 8 WEEKS THEN 1 CAP MONTHLY THEREAFTER ?? Unchanged ferric citrate (Auryxia 210 mg oral tablet) 2 tab(s) Oral 3 times a day with meals Unchanged Ferrous Sulfate (ferrous sulfate 325 mg oral enteric coated tablet) 1 tab(s) Oral Daily Unchanged Fluticasone Nasal (fluticasone 50 mcg/ inh nasal spray) 32 Gm, 0 Refill(s), SPRAY 1 SPRAY INTO NOSTRILS EVERY DAY ?? Unchanged Gabapentin (gabapentin 100 mg oral capsule) 1 capsule Oral 3 times a day Unchanged Gabapentin (gabapentin 100 mg oral capsule) 1 capsule Oral Twice a day as needed for Other Unchanged Hydromorphone (Dilaudid 2 mg oral tablet) See instructions 1 tablet By Mouth ??at bedtime ?? Unchanged Insulin Glargine (Lantus Inj) 50 unit(s) Subcutaneous Injection Daily in the morning Unchanged Insulin Lispro (insulin lispro 100 u/ ml subcutaneous injection) 25-55 units Subcutaneous Injection 3 times a day with meals Starting at 135 for BS ?? Unchanged Ketotifen Ophthalmic (ketotifen 0.025% ophthalmic solution) 5 mL, 0 Refill(s), INSTILL 1 DROP INTO BOTH EYES TWICE A DAY NEEDED ?? Unchanged Latanoprost Ophthalmic (latanoprost 0.005% ophthalmic solution) 1 Drops Left eye Daily at Bedtime Unchanged Levothyroxine (levothyroxine 175 mcg (0.175 mg) oral tablet) 1 tab(s) Oral Daily Unchanged Loratadine (loratadine 10 mg oral tablet) 15 each, 0 Refill(s), TAKE 1 TABLET BY MOUTH EVERY OTHER DAY NEEDED FOR ITCHING ?? Unchanged Melatonin (melatonin 3 mg oral tablet) 3 Milligram Oral Daily at Bedtime as needed for Insomnia Unchanged Miscellaneous Rx (offloading shoe for right foot) See instructions Dx: diabetic foot wound, s/ p R2 toe amp and right lateral plantar foot wound over R5 MT head ?? Unchanged Multivitamin (Nephrocap Capsule) 1 capsule Oral Daily Unchanged Sevelamer (sevelamer carbonate 800 mg oral tablet) 1,600 Milligram Oral 3 times a day with meals Refill per PCP or Harness Preparer ?? Unchanged Timolol Ophthalmic (timolol maleate 0.5% ophthalmic solution) 15 mL, 0 Refill(s), INSTILL 1 DROP INTO BOTH EYES TWICE A DAY ?? Unchanged torsemide (torsemide 100 mg oral tablet) 1 tab(s) Oral Twice a day Medications and Immunizations Administered Medications Given During Visit No medications given during this visit.?? Allergies (NKA means No Known Allergies) NKA Common Emergency Awareness Tips IS IT A STROKE? Act FAST and Check for these signs: FACE Does the face look uneven? ARM Does one arm drift down? SPEECH Does their speech sound strange? TIME Call at any sign of stroke ?? Heart Attack Signs Chest discomfort: Most heart attacks involve discomfort in the center of the chest and lasts more than a few minutes, or goes away and comes back. It can feel like uncomfortable pressure, squeezing, fullness or pain. Discomfort in upper body: Symptoms can include pain or discomfort in one or both arms, back, neck, jaw or stomach. Shortness of breath: With or without discomfort. Other signs: Breaking out in a cold sweat, nausea, or lightheaded. Remember, MINUTES DO MATTER. If you experience any of these heart attack warning signs, call to get immediate medical attention! ?? Smoking can increase your chances of developing chronic health problems and can cause harmful effects to other family members in your house. If you smoke, you are strongly encouraged to quit. Please call [facility] at [phone] or [phone] ([phone]) or log in to [email or web address] for referrals to smoking cessation programs. ?? The National Suicide Prevention Hotline is available 26/12 if you or someone you know needs to find a reason to keep living. By calling 6-561-708-Telerivet (2849) you'll be connected to a skilled, trained counselor at a crisis center in your area. [facility] You can view and manage your care through the patient portal or by using a health care ariadne of your choosing. Search123 is a website that allows you to securely view your medical information including your hospital discharge summary, office visit summaries, medications and follow-up visits. You can also request appointments, renew medications, and request access to your medical information using a health care ariadne of your choosing, or just ask a question. You can enroll at [email or web address] or register during your next office visit. [facility], in keeping with [facility] guidance, no longer requires face masks for staff, patientsor visitors in most situations. Similiar to time spent indoors at other locations, there is the chance that you were exposed to repiratory viruses during your time with us (such as flu or COVID-19). If you develop symptoms concerning for a viral respiratory infection, please seek testing (and treatment if indicated) from your medical provider or home test kit. ?? Disclaimer: The information provided is of a general nature and is intended to be used in conjunction with the recommendations and advice of your health care practitioner. Every effort has been made to ensure that the information provided is accurate and complete at the time it is provided to you however, as your needs change, or, as new information becomes available, different or additional instructions may be required. ?? If you have questions, please consult with your primary care provider or pharmacist, as appropriate. This information is not intended to serve as substitution for assessment and evaluation by a qualified health care provider. If you do not have a primary care provider, you may find a [facility] provider by calling [facility] at [phone]. Patient Care team information Care Team Personnel Name: Blas Doty Position: [facility] Associate Professional Member Role: Lifetime Consulting Provider Address: [address] [facility] [place] [address]- Telecom: Name: Jason Salmon MD Position: Reference Physician Member Role: PCP Address: [address] [place] [address] [address] [place] [place] [facility] Tele[facility]: Name: Christina Gan RN Position: [facility] RN Member Role: Primary Care Nurse Name: Tiffanie Santos RN Position: S RN Member Role: Primary Care Nurse Name: Bianka Mendes RN Position: [facility] RN Member Role: Primary Care Nurse Name: Yolanda Butler Position: [facility] Outreach Member Role: Lifetime Consulting Physician Name: Joy Springer Position: [facility] Associate Professional Member Role: Lifetime Consulting Provider Address: [address] [facility] [place] [address]- [place] Telecom: Name: Al Suazo MD Position: [facility] Renal MD Member Role: Lifetime Consulting Physician Address: [address] [place] [address] [address] [facility] [place], [place] - [place] Telecom: Name: Sydnie Rubi RN Position: S RN Member Role: Primary Care Nurse Name: Anupam Vernon RN Position: S RN Member Role: Primary Care Nurse Name: Ana Manzano RN Position: S RN Member Role: Primary Care Nurse Name: Chery Lazo RN Position: S RN Member Role: Primary Care Nurse Name: Whitney Reid RN Position: S RN Member Role: Primary Care Nurse Name: Anthony Feliciano RN Position: [facility] RN Member Role: Primary Care Nurse Name: Kelli Corado RN Position: [facility] SN RN Member Role: Primary Care Nurse Name: Dale Barajas RN Position: [facility] RN Member Role: Primary Care Nurse Name: Teresa Guerra Position: [facility] Outreach Member Role: Lifetime Consulting Physician Name: Ronak Yates RN Position: [facility] RN Member Role: Primary Care Nurse Name: Baldemar Romero RN Position: [facility] RN Member Role: Primary Care Nurse Name: Sunitha Murillo RN Position: [facility] RN Member Role: Primary Care Nurse Name: Dc Blackwood III, RN Position: [facility] RN Member Role: Primary Care Nurse Name: Dede Jordan RN Position: [facility] RN Member Role: Primary Care Nurse Name: Charissa Dominguez RN Position: [facility] RN Member Role: Primary Care Nurse Name: Vicenta Simms RN Position: [facility] RN Member Role: Primary Care Nurse Name: Danyell Frost RN Position: [facility] RN Member Role: Primary Care Nurse Name: Pooja Starkey RN Position: [facility] OB RN Member Role: Primary Care Nurse Name: Jesus Patel MD Position: [facility] Renal MD Member Role: Lifetime Consulting Physician Address: [address] [facility] [address] Telecom: Name: Maria Del Rosario Mejia RN Position: [facility] RN Member Role: Primary Care Nurse Name: Patricia Oshea RN Position: [facility] RN Member Role: Primary Care Nurse Name: Kuldeep Paris RN Position: [facility] RN Member Role: Primary Care Nurse Name: Yola Choi MD Position: [facility] TICKET TAKER FERRYBOAT MD Member Role: Lifetime TICKET TAKER FERRYBOAT Physician Address: [address] [facility] [place] [address]- Telecom: Name: Giovana Osei RN Position: [facility] RN Member Role: Primary Care Nurse Name: Ellen Feldman RN Position: [facility] RN Member Role: Primary Care Nurse Name: Alesha Montes RN Position: [facility] RN Member Role: Primary Care Nurse Name: Elizabeth Peralta RN Position: [facility] RN Member Role: Primary Care Nurse Name: Mayra Diaz RN Position: S RN Member Role: Primary Care Nurse Care Team Related Persons Name: KATIE SERNA Name: ISAURA GREENE Name: NIC GREENE Name: TRACI ALBERT Insurance Providers Guarantor name: CARLEEN GREENE [facility] Information #: 1 Payer[facility] Member Number: [id number] Policy Number: NA Group Number: [facility] Information #: 2 Payer: [facility] [employer] Member Number: [id number] Policy Number: NA Group Number: NA
--- OUTSIDE RECORDS SUMMARY | 2024-07-26 15:56 | XMS_ITS ---
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) ACTIVE 03/20/2024 TYPE 1 DIABETES MELLITUS WIT H OTHER SKIN COMPLICATIONS (E10.628 - ICD-10-CM) ACTIVE 03/20/2024 TYPE 1 DIABETES MELLITUS WIT H DIABETIC NEUROPATHY, UNSPECIFIED (E10.40 - ICD-10-CM) ACTIVE 03/20/2024 LOCAL INFECTION OF THE SKIN AND SUBCUTANEOUS TISSUE, UNSPECIFIED (L08.9 - ICD-10-CM) ACTIVE 03/20/2024 CARRIER OF CARBAPENEM-RESIST ANT ENTEROBACTERALES (Z22.350 - ICD-10-CM) ACTIVE 03/20/2024 PERIPHERAL VASCULAR DISEASE, UNSPECIFIED (I73.9 - ICD-10-CM) ACTIVE 03/20/2024 END STAGE RENAL DISEASE (N18.6 - ICD-10-CM) ACTIVE 03/20/2024 DEPENDENCE ON RENAL DIALYSIS (Z99.2 - ICD-10-CM) ACTIV E 03/20/2024 HYPOTHYROIDISM, UNSPECIFIED (E03.9 - ICD-10-CM) ACTIVE 03/20/2024 ESSENTIAL (PRIMARY) HYPERTENSION (I10 - ICD-10-CM) ACT JUD 03/20/2024 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) A CTIVE 03/20/2024 Encounters Encounter Performer Performer Role Encounter Diagnoses Location Date Discharge - Discharged / Transferred to another hospital - [facility]) - [facility] 03/20/2024 04:05 pm EDT - 04/10/2024 02:04 pm EST Reason For Referral Vascular MD transferred during f/u appt Immunizations Vaccine Date Influenza SARS-COV-2 (COVID-19) 08/26/2020 12:00 a m EDT SARS-COV-2 (COVID-19) 07/15/2020 12:00 a m EST Prevnar 20 Pneumococcal conjugate (PCV20 ) SARS-COV-2 (COVID-19 BOOSTER) SARS-COV-2 (COVID-19 BOOSTER) 05/24/2023 12:00 am EST SARS-COV-2 (COVID-19 BOOSTER) 05/18/2021 12:00 am EST RSV, bivalent, protein subunit RSVpreF, diluent rec influenza, unspecified formulation 03/07 12:00 am EDT Social History
--- OUTSIDE RECORDS SUMMARY | 2024-07-26 15:56 | XMS_ITS | Continuity of Care Document ---
Author Organization [facility] [employer] Address [address] [place] [address], [address] [place] [address]- Care Team Providers Care Airplane Charter Clerk Name Role Phone Jason Salmon MD Primary Care Physician [phone] Encounter [facility] [place] [id number] Date(s): 06/04/24 - 07/04/24 [facility] Putneyreva LarsenMisfit Wearabless [facility] [address] [facility] [facility], [address] [place], [place] [address] Attending Physician: AdmRosana campos Admitting Physician: AdmRosana campos Referring Physician: Admtr ArAxel Encounter Type: Triage Allergies, Adverse Reactions, Alerts [...] Unit: each Repeat number: 1 Dexcom G7 Advanced Practice Rn Dexcom G7 Advanced Practice Rn, See Instructions, # 1 each, Refills 0, [...] 0 Refills, Maintenance, 06/14/24 8:01:00 AM EST, [facility], Partial fill upon patient request if the prescription is for a schedule II opioid drug., 162.5, cm, 06/14/24 7:57:00 EST, Height, 95, kg, 06/04/24 23:11:00 EST, Dry Weight Start Date: 06/14/24 Status: Ordered Quantity: 14.0 Unit: tablet Repeat number: 1 ergocalciferol 05321 iu oral capsule 3 each, 0 Refill(s), [...] 12:48:00 PM EST, Route to Pharmacy Electronically, [facility], Partial fill upon [...] Refills, Maintenance, 10/05/17 11:44:04 AM EDT, Tablet, [facility]/pharmacy #[id number] Start Date: 10/05/17 Status: Ordered Quantity: 30.0 [...] 1.0 Unit: each Repeat number: 1 Pen [place], 32 G x 4 mm BD Ultra [...] day with meals, Refill per PCP or Classified Advertising Supervisor, # 180 tablet, 0 Refills, Maintenance, 01/30/24 1:52:00 PM EDT, Tablet, [facility] 3, Partial fill upon patient request if the prescription is for a schedule II opioid drug., 163, cm, 01/30/24 11:32:00 EDT, Height, 106.9, kg, 01/26/24 21:23:00 EDT, Dry Weight Start Date: 01/30/24 Status: Ordered Quantity: 180.0 Unit: tablet Repeat number: 1 stump job placement specialist stump job placement specialist, See Instructions, # 1 each, Refills 0, [...] goal < 8% Confirmed Active [facility] MWF [address], [place] [address] 2M,W,F 11am-3:30pm [phone] Social History Social History Type Response Smoking Status Never smoker entered on: 09/15/17 Sex Sex Representation Female (finding) Patient Care team information Care Team Personnel Name: Blas Doty Position: [facility] Associate Professional Member Role: Lifetime Consulting Provider Address: [address] [facility] [address] [facility] [place] [address]- Telecom: Name: Jason Salmon MD Position: Reference Physician Member Role: PCP Address: [address] [place] [address] Drive [address] [place], [place] [facility] Telecom: Name: Christina Gan RN Position: S RN Member Role: Primary Care Nurse Name: Tiffanie Santos RN Position: [facility] RN Member Role: Primary Care Nurse Name: Bianka Mendes RN Position: [facility] RN Member Role: Primary Care Nurse Name: Yolanda Butler Position: S Outreach Member Role: Lifetime Consulting Physician Name: Joy Springer Position: [facility] Associate Professional Member Role: Lifetime Consulting Provider Address: [address] [facility] [address] [facility] [place] [address]- Telecom: Name: Al Suazo MD Position: [facility] Renal MD Member Role: Lifetime Consulting Physician Address: [address] [place] [address] [address] [facility] [place], [place] [facility] Telecom: Name: Sydnie Rubi RN Position: S [...] Care Nurse Name: Anthony Feliciano RN Position: [facility] RN Member Role: Primary Care Nurse Name: Kelli Corado RN Position: [facility] SN RN Member Role: Primary Care Nurse Name: Dale Barajas RN Position: [facility] RN Member Role: Primary Care Nurse Name: Teresa Guerra Position: [facility] Outreach Member Role: Lifetime Consulting Physician Name: Ronak Yates RN Position: [facility] RN Member Role: Primary Care Nurse Name: Baldemar Romero RN Position: [facility] RN Member Role: Primary Care Nurse Name: Sunitha Murillo RN Position: [facility] RN Member Role: Primary Care Nurse Name: Dc Blackwood III, RN Position: [facility] RN Member Role: Primary Care Nurse Name: Dede Jordan RN Position: [facility] RN Member Role: Primary Care Nurse Name: Charissa Dominguez RN Position: [facility] RN Member Role: Primary Care Nurse Name: Vicenta Simms RN Position: [facility] RN Member Role: Primary Care Nurse Name: Danyell Frost RN Position: [facility] RN Member Role: Primary Care Nurse Name: Pooja Starkey RN Position: [facility] OB RN Member Role: Primary Care Nurse Name: Jesus Patel MD Position: [facility] Renal MD Member Role: Lifetime Consulting Physician Address: [address] [facility] [address] [facility] [address] Telecom: Name: Maria Del Rosario Mejia RN Position: [facility] RN Member Role: Primary Care Nurse Name: Patricia Oshea RN Position: [facility] RN Member Role: Primary Care Nurse Name: Kuldeep Paris RN Position: [facility] RN Member Role: Primary Care Nurse Name: Yola Choi MD Position: [facility] FLOW MACHINE OPERATOR MD Member Role: Lifetime FLOW MACHINE OPERATOR Physician Address: [address] [facility] [place] [address]- Telecom: Name: Giovana Osei RN Position: [facility] RN Member Role: Primary Care Nurse Name: Ellen Feldman RN Position: [facility] RN Member Role: Primary Care Nurse Name: Alesha Montes RN Position: [facility] RN Member Role: Primary Care Nurse Name: Elizabeth Peralta RN Position: [facility] RN Member Role: Primary Care Nurse Name: Mayra Diaz RN Position: S RN Member Role: Primary Care Nurse Care Team Related Persons Name: KATIE SERNA Name: ISAURA GREENE Name: NIC GREENE Name: TRACI ALBERT Insurance Providers Guarantor name: CARLEEN GREENE Health Plan Information #: 1 Payer: [facility] Member Number: NA Policy Number: NA Group Number: NA
--- OUTSIDE RECORDS SUMMARY | 2024-07-26 15:56 | XMS_ITS | Continuity of Care Document ---
Author Organization [facility] [employer] Address [address] [place] [address], [address] [place] [address]- Care Team Providers Care Dual Hose Cementer Name Role Phone Jason Salmon MD Primary [id number]s): [facility]/03[facility] - 07/03/24 [facility] Nianguareva LarsenConvergent Radiotherapys [facility] [address] [facility], [address] [place] [id number]- Encounter Type: Triage Allergies, Adverse Reactions, Alerts [...] Unit: each Repeat number: 1 Dexcom G7 Rivet Maker Dexcom G7 Rivet Maker, See Instructions, # 1 each, Refills 0, [...] 0 Refills, Maintenance, 06/14/24 8:01:00 AM EST, [facility], Partial fill upon patient request if the prescription is for a schedule II opioid drug., 162.5, cm, 06/14/24 7:57:00 EST, Height, 95, kg, 06/04/24 23:11:00 EST, Dry Weight Start Date: 06/14/24 Status: Ordered Quantity: 14.0 Unit: tablet Repeat number: 1 ergocalciferol 29634 iu oral capsule 3 each, 0 Refill(s), [...] 12:48:00 PM EST, Route to Pharmacy Electronically, [facility], Partial fill upon patient [...] AM EDT, Tablet, [facility]/pharmacy #[id number] Start Date: 10/05/17 Status: Ordered Quantity: 30.0 [...] 1.0 Unit: each Repeat number: 1 Pen [place], 32 G x 4 mm BD Ultra [...] day with meals, Refill per PCP or Electric Distribution Engineer, # 180 tablet, 0 Refills, Maintenance, 01/30/24 1:52:00 PM EDT, Tablet, [facility], Partial fill upon patient request if [...] goal < 8% Confirmed Active [facility] [place] [facility] [address], [place] [address] 2M,W,F 11am-3:30pm [phone] Social History Social History Type Response Smoking Status Never smoker entered on: 09/15/17 Sex Sex Representation Female (finding) Patient Care team information Care Team Personnel Name: Blas Doty Position: [facility] Associate Professional Member Role: Lifetime Consulting Provider Address: [address] [place] [address] [address] [facility] [place] [address]- Telecom: Name: Jason Salmon MD Position: Reference Physician Member Role: PCP Address: [address] [place] [address] [address] [place] [address]- Telecom: Name: Christina Gan RN Position: S RN Member Role: Primary Care Nurse Name: Tiffanie Santos RN Position: S RN Member Role: Primary Care Nurse Name: Bianka Mendes RN Position: [facility] RN Member Role: Primary Care Nurse Name: Yolanda Butler Position: [facility] Outreach Member Role: Lifetime Consulting Physician Name: Joy Springer Position: [facility] Associate Professional Member Role: Lifetime Consulting Provider Address: [address] [facility] [address] [facility] [place] [address]- [place] Telecom: Name: Al Suazo MD Position: [facility] Renal MD Member Role: Lifetime Consulting Physician Address: [address] [place] [address] [address] [place] [address]- [place] Telecom: Name: Sydnie Rubi RN Position: [facility] RN Member Role: Primary Care Nurse Name: Anupam Vernon RN Position: [facility] RN Member Role: Primary Care Nurse Name: Ana Manzano RN Position: [facility] RN Member Role: Primary Care Nurse Name: Chery Lazo RN Position: [facility] RN Member Role: Primary Care Nurse Name: Whitney Reid RN Position: [facility] RN Member Role: Primary Care Nurse Name: Anthony Feliciano RN Position: [facility] RN Member Role: Primary Care Nurse Name: Kelli Corado RN Position: [facility] SN RN Member Role: Primary Care Nurse Name: Dale Barajas RN Position: [facility] RN Member Role: Primary Care Nurse Name: Teresa Guerra Position: [facility] Outreach Member Role: Lifetime Consulting Physician Name: Ronak Yates RN Position: [facility] RN Member Role: Primary Care Nurse Name: Baldemar Romero RN Position: [facility] RN Member Role: Primary Care Nurse Name: Sunitha Murillo RN Position: [facility] RN Member Role: Primary Care Nurse Name: Dc Blackwood III, RN Position: [facility] RN Member Role: Primary Care Nurse Name: Dede Jordan RN Position: [facility] RN Member Role: Primary Care Nurse Name: Charissa Dominguez RN Position: [facility] RN Member Role: Primary Care Nurse Name: Vicenta Simms RN Position: [facility] RN Member Role: Primary Care Nurse Name: Danyell Frost RN Position: [facility] RN Member Role: Primary Care Nurse Name: Pooja Starkey RN Position: [facility] OB RN Member Role: Primary Care Nurse Name: Jesus Patel MD Position: [facility] Renal MD Member Role: Lifetime Consulting Physician Address: [address] [facility] [address] [facility] [place] [address]- [place] Telecom: Name: Maria Del Rosario Mejia RN Position: S RN Member Role: Primary Care Nurse Name: Patricia Oshea RN Position: S RN Member Role: Primary Care Nurse Name: Kuldeep Paris RN Position: [facility] RN Member Role: Primary Care Nurse Name: Yola Choi MD Position: [facility] CUPOLA WORKER MD Member Role: Lifetime CUPOLA WORKER Physician Address: [address] [facility] [place] [address]- Telecom: Name: Giovana Osei RN Position: S RN Member Role: Primary Care Nurse Name: Ellen Feldman RN Position: [facility] RN Member Role: Primary Care Nurse Name: Alesha Montes RN Position: [facility] RN Member Role: Primary Care Nurse Name: Elizabeth Peralta RN Position: [facility] RN Member Role: Primary Care Nurse Name: Mayra Diaz RN Position: [facility] RN Member Role: Primary Care Nurse Care Team Related Persons Name: KATIE SERNA Name: ISAURA GREENE Name: NIC GREENE Name: TRACI ALBERT Insurance Providers Guarantor name: CARLEEN GREENE Health Plan Information #: 1 Payer: [facility] [employer] [employer] Member Number: NA Policy Number: NA Group Number: NA
--- OUTSIDE RECORDS SUMMARY | 2024-07-26 15:56 | XMS_ITS | Clinical Summary ---
Author Organization [facility].. Address [address] [address] Phone Care Team Providers Care Belt Polisher Name Role Phone April Sharma MD Primary Care Provider [phone] Medications sevelamer carbonate (RENVELA) 800 MG tablet TAKE 3 TABLET BY MOUTH THREE TIMES A DAY WITH MEALS 279 tablet 11 1 Active cholecalciferol (VITAMIN D-3) 50 MCG (1999 UT) capsule TAKE 2 CAPSULE BY MOUTH ONCE A DAY SUPPLEMENT 60 capsule 11 2 Active torsemide (DEMADEX) 100 MG tablet TAKE 1 TABLET BY MOUTH ONCE A DAY DIRECTED TREAT FLUID OVERLOAD 30 tablet 11 2 Active atorvastatin (LIPITOR) 10 MG tablet TAKE 1 TABLET BY MOUTH EVERY DAY 30 tablet 12 3 Active NIFEdipine CC (ADALAT CC) 90 MG 24 hr tablet TAKE 1 TABLET BY MOUTH EVERY DAY 30 tablet 11 3 Active gabapentin (NEURONTIN) 100 MG capsule Take 1 capsule (100 mg total) by mouth in the morning and 1 capsule (100 mg total) in the evening. 30 capsule 2 4 Active ergocalciferol 1.25 MG (55343 UT) capsule TAKE 1 CAPSULE BY MOUTH WEEKLY FOR 8 WEEKS THEN 1 CAP MONTHLY THEREAFTER 8 capsule 2 4 Active metOLazone (ZAROXOLYN) 10 MG tablet TAKE 1 TABLET BY MOUTH ONCE WEEKLY 12 tablet 4 4 Active Auryxia 1 GM 210 MG(Fe) tablet TAKE 2 TABLETS BY MOUTH 3 TIMES A DAY WITH MEALS 180 tablet 1 01/02/202 5 Active Active Problems Problem Noted Date Diagnosed Date Dependence on renal dialysis 01/03/2019 Encounters Date Type Department Care Team Description 07/17/2024 Treatment [facility] [address] [phone] Jesus Patel MD 07/15/2024 Treatment [facility] [address] Christal [phone] Jesus Patel MD 07/05/2024 Treatment [facility] [address] [place]al [phone] Jesus Patel MD 06/28/2024 Treatment [facility] [address] [phone] Jesus Patel MD 06/26/2024 Treatment [facility] [address] [phone] Jesus Patel MD 06/07/2024 Treatment [facility] [address] [phone] Malone [phone] Jesus Patel MD 06/06/2024 Refill [facility] [address] [phone] Jesus Patel MD 05/20/2024 Treatment [facility] [address] [phone] Jesus Patel MD 05/06/2024 Treatment [facility] [address] [phone] Jesus Patel MD 05/04/2024 Refill [facility] [address] [phone] Jesus Patel MD 05/03/2024 Treatment [facility] [address] [facility] [address] [place] [phone] Jesus Patel MD 04/27/2024 Treatment [facility] [address] [facility] [address] [place] [phone] Jasbir Trammell MD from Last 3 Months Family History Medical History Relation Comments Diabetes Father Hypertension Father Kidney disease Father cyst on kidney Relation Status Comments Father Alive Mother Alive Social History Tobacco Use Types Packs/Day Years Used Date Smoking Tobacco: Never Alcohol Use Standard Drinks/Week Comments Yes 0 (1 standard drink = 0.6 oz pure alcohol) Alcoholic Drinks/day: Occasional social drink Comments Unknown Sex and Gender Information Value Date Recorded Sex Assigned at Not on file Legal Sex Female 4:59 PM EST Gender Identity Not on file Sexual Orientation Not on file Last Filed Vital Signs Vital Sign Reading Time Taken Comments Blood Pressure 190/100 12/31/2018 12:00 PM EDT Pulse 80 12/19/2018 12:00 PM EDT Temperature - - Respiratory Rate - - Oxygen Saturation 99% 09/25/2018 12:00 PM EDT Inhaled Oxygen Concentration - - Weight 128 kg (282 lb 12.8 oz) 12/19/2018 12:00 PM EDT Height 165.1 cm (5' 5 ) 12/31/2018 12:00 PM EDT Body Mass Index 47.06 12/19/2018 12:00 PM EDT Plan of Treatment Health Maintenance Due Date Last Done Comments Pneumococcal Vaccine: Pediat rics (0 to 5 Years) and At-Risk Patients (6 to 64 Years) (1 of 2 - PCV) 1990 Hepatitis B Vaccine (1 of 5 - Risk Dialysis 4-dose series) 2004 10/14/2022 Diabetes: Ophthalmology Exam 07/06/2020 Diabetes: Pedal Pulse Checked 07/06/2020 Diabetes: Sensory Foot Exam 07/06/2020 Diabetes: Visual Foot Exam 07/06/2020 Diabetes: Hemoglobin A1C 09/10/2024 025, 07/14/2021, 07/15/2020, Additional history exists Influenza Vaccine Completed 03/07/2024, , 03/19/2018 Procedures Procedure Name Priority Date/Time Associated Diagnosis Comments HEPATITIS B SURFACE ANTIGEN W/REFL CONFIRM Routine 07/10/2024 3:00 AM EST PROTEIN, TOTAL, SERUM Routine 07/10/2024 3:00 AM EST TRANSFERRIN SATURATION Routine 3:00 AM EST ELECTROLYTE PANEL Routine 07/10/2024 3:0 0 AM EST MAGNESIUM Routine 07/10/2024 3:00 AM EST LIH (HC) Routine 07/10/2024 3:00 AM EST LACTATE DEHYDROGENASE Routine 07/10/2024 3:00 AM EST CREATININE, SERUM Routine 07/10/2024 3:0 0 AM EST GLUCOSE, RANDOM Routine 07/10/2024 3:00 AM EST BILIRUBIN, TOTAL Routine 07/10/2024 3:00 AM EST ALT Routine 07/10/2024 3:00 AM EST AST Routine 07/10/2024 3:00 AM EST ALKALINE PHOSPHATASE Routine 07/10/2024 3:00 AM EST CALCIUM PHOSPHORUS PRODUCT, ADJUSTED (HC) Routine 07/10/2024 3:00 AM EST FERRITIN Routine 07/10/2024 3:00 AM EST PTH, INTACT Routine 07/10/2024 3:00 AM EST CBC AND DIFFERENTIAL Routine 07/10/2024 3:00 AM EST KT/V NATURAL LOG, URR (HC) Routine 07/10/2024 3:00 AM EST PHOSPHATE ( PHOSPHORUS) Routine 06/26/2024 3:00 AM EST LIH (HC) Routine 06/26/2024 3:00 AM EST LIH (HC) Routine 06/19/2024 3:00 AM EST POTASSIUM Routine 06/19/2024 3:00 AM EST ALUMINUM LEVEL Routine 06/12/2024 3:00 AM EST HEMOGLOBIN A1C Routine 06/12/2024 3:00 AM EST HEPATITIS C ABS W/REFLEX RNA DETECTR Routine 06/12/2024 3:00 AM EST CONFIRMATION TEST HCV Routine 06/12/2024 3:00 AM EST HEPATITIS B SURFACE ANTIGEN W/REFL CONFIRM Routine 06/12/2024 3:00 AM EST URIC ACID Routine 06/12/2024 3:00 AM EST TRANSFERRIN SATURATION Routine 3:00 AM EST PROTEIN, TOTAL, SERUM Routine 06/12/2024 3:00 AM EST MAGNESIUM Routine 06/12/2024 3:00 AM EST ELECTROLYTE PANEL Routine 06/12/2024 3:0 0 AM EST LIPID PANEL Routine 06/12/2024 3:00 AM EST LIH (HC) Routine 06/12/2024 3:00 AM EST LACTATE DEHYDROGENASE Routine 06/12/2024 3:00 AM EST GLUCOSE, RANDOM Routine 06/12/2024 3:00 AM EST CREATININE, SERUM Routine 06/12/2024 3:0 0 AM EST BILIRUBIN, TOTAL Routine 06/12/2024 3:00 AM EST ALT Routine 06/12/2024 3:00 AM EST AST Routine 06/12/2024 3:00 AM EST ALKALINE PHOSPHATASE Routine 06/12/2024 3:00 AM EST CALCIUM PHOSPHORUS PRODUCT, ADJUSTED (HC) Routine 06/12/2024 3:00 AM EST VITAMIN D 25 HYDROXY Routine 06/12/2024 3:00 AM EST PTH, INTACT Routine 06/12/2024 3:00 AM EST FERRITIN Routine 06/12/2024 3:00 AM EST HEPATITIS B SURFACE ANTIBODY QUANT Routine 06/12/2024 3:00 AM EST KT/V NATURAL LOG, URR (HC) Routine 06/12/2024 3:00 AM EST CBC AND DIFFERENTIAL Routine 06/12/2024 3:00 AM EST LIH (HC) Routine 06/02/2024 3:00 AM EST POTASSIUM Routine 06/02/2024 3:00 AM EST CALCIUM PHOSPHORUS PRODUCT, ADJUSTED (HC) Routine 06/02/2024 3:00 AM EST POTASSIUM Routine 05/26/2024 3:00 AM EST LIH (HC) Routine 05/26/2024 3:00 AM EST HEMOGLOBIN Routine 05/26/2024 3:00 AM EST LIH (HC) Routine 05/22/2024 3:00 AM EST POTASSIUM Routine 05/22/2024 3:00 AM EST CALCIUM, ADJUSTED W ALBUMIN Routine 05/22/2024 3:00 AM EST HEMOGLOBIN AND HEMATOCRIT, BLOOD Routine 05/22/2024 3:00 AM EST HEPATITIS B SURFACE ANTIGEN W/REFL CONFIRM Routine 05/17/2024 3:00 AM EST TRANSFERRIN SATURATION Routine 3:00 AM EST PROTEIN, TOTAL, SERUM Routine 05/17/2024 3:00 AM EST MAGNESIUM Routine 05/17/2024 3:00 AM EST ELECTROLYTE PANEL Routine 05/17/2024 3:0 0 AM EST LIH (HC) Routine 05/17/2024 3:00 AM EST GLUCOSE, RANDOM Routine 05/17/2024 3:00 AM EST LACTATE DEHYDROGENASE Routine 05/17/2024 3:00 AM EST BILIRUBIN, TOTAL Routine 05/17/2024 3:00 AM EST CREATININE, SERUM Routine 05/17/2024 3:0 0 AM EST ALT Routine 05/17/2024 3:00 AM EST AST Routine 05/17/2024 3:00 AM EST CALCIUM PHOSPHORUS PRODUCT, ADJUSTED (HC) Routine 05/17/2024 3:00 AM EST ALKALINE PHOSPHATASE Routine 05/17/2024 3:00 AM EST HEPATITIS B SURFACE ANTIBODY QUANT Routine 05/17/2024 3:00 AM EST KT/V NATURAL LOG, URR (HC) Routine 05/17/2024 3:00 AM EST CBC AND DIFFERENTIAL Routine 05/17/2024 3:00 AM EST LIH (HC) Routine 04/28/2024 3:00 AM EST POTASSIUM Routine 04/28/2024 3:00 AM EST HEMOGLOBIN AND HEMATOCRIT, BLOOD Routine 04/26/2024 3:00 AM EST LIH (HC) Routine 04/26/2024 3:00 AM EST POTASSIUM Routine 04/26/2024 3:00 AM EST from Last 3 Months Results * LIH (07/10/2024 3:00 AM EST) Only the most recent of10 resultswithin the time period is included. Lipemia Normal Normal [facility] Icterus Normal Normal [facility] Hemolysis Normal Normal [facility] 07/10/2024 3:00 AM EST 07/11/2024 12:32 PM EST us Jesus Patel MD LAB [id number] SOLICITED RESULTS Final Result [facility] [address] [place] [address] * (ABNORMAL) Kt/V Natural Log, URR (07/10/2024 3:00 AM EST) Only the most recent of3 resultswithin the time period is included. Treatment Time 248 min [facility] Pre-Weight, lb 107.9 kg [facility] Post-Weight, lb 104.2 kg [facility] Ultrafiltration Rate 9 <=13 mL/kg/hr [facility] Comment: Recommend achieving Ultrafiltration Rate (UFR) <=10 mL/kg/hr References: Rob NELSON et al. Kidney Int. 2010; 79(2):250-257 BUN 50(H) 7 - 25 mg/dL [facility] BUN Post Dialysis 17 7 - 25 mg/dL [facility] UREA REDUCTION RATIO (%) 66 >=65 % [facility] Kt/V Natural Log 1.28 >=1.2 [facility] 07/10/2024 3:00 AM EST 07/11/2024 12:32 PM EST Jesus Patel MD LAB [id number] SOLICITED RESULTS Final Result [facility] [address] [place] [address] * Calcium Phosphorus Product, Adjusted (07/10/2024 3:00 AM EST) Only the most recent of4 resultswithin the time period is included. Albumin 4.0 3.6 - 5.4 g/dL [facility] Calcium 10.0 8.6 - 10.3 mg/dL [facility] Phosphorus, Serum 5.0 2.5 - 5.0 mg/dL [facility] Ca*PO4 50.0 <55.0 mg2/dL2 [facility] Calcium, Adjusted Total 10.0 8.6 - 10.3 mg/dL [facility] CA*PO4 CORRCTD 50.0 <55.0 mg2/dL2 [facility] 07/10/2024 3:00 AM EST 07/11/2024 12:32 PM EST Jesus Patel MD LAB [id number] SOLICITED RESULTS Final Result [facility] [address] [place] [address] * Hepatitis B Surface Ag w/Reflex Confirmation (07/10/2024 3:00 AM EST) Only the most recent of3 resultswithin the time period is included. Hep B Surface Antigen Negative Negative [facility] 07/10/2024 3:00 AM EST 07/11/2024 12:32 PM EST Jesus Patel MD LAB BLOOD ORDERABLES Final Re sult Performing Organization Address [facility] Co de Phone Number [facility] [address] [place] [address] * (ABNORMAL) TSAT (07/10/2024 3:00 AM EST) Only the most recent of3 resultswithin the time period is included. [facility] Iron 78 50 - 170 ug/dL [facility] Transferrin 132(L) 250 - 380 mg/dL [facility] TIBC 185(L) 211 - 406 ug/dL [facility] Iron Saturation (TSat) 42 22 - 52 % [facility] 07/10/2024 3:00 AM EST 07/11/2024 12:32 PM EST Jesus Patel MD LAB BLOOD ORDERABLES Final Re [facility] Performing Organization Address [facility] Co de Phone Number [facility] [address] [place] [address] * (ABNORMAL) CBC and Differential (07/10/2024 3:00 AM EST) Only the most recent of3 resultswithin the time period is included. [facility] DIFFERENTIAL MANUAL, 2 Not Indicated [facility] White Blood Cells 12.0(H) 4.0 - 10.0 K/uL [facility] RBC 4.25 3.93 - 5.22 M/uL [facility] Hgb 11.5 11.2 - 15.7 g/dL [facility] Hemoglobin x 3 34.5 33.6 - 47.1 g/dL [facility] Hematocrit 36.7 34.1 - 44.9 % [facility] MCV 86.4 79.4 - 94.8 fL [facility] MCH 27.1 25.6 - 32.2 pg [facility] MCHC 31.3(L) 32.2 - 35.5 g/dL [facility] Platelets 401(H) 182 - 369 K/uL [facility] RDW 14.3 11.7 - 14.4 % [facility] Neutrophils Relative 71.9(H) 34.0 - 71.1 % [facility] Lymphocytes Relative 17.5(L) 19.3 - 51.7 % [facility] Monocytes 6.6 4.7 - 12.5 % [facility] Eosinophils Relative 2.2 0.7 - 5.8 % [facility] Basophils Relative 1.2 0.1 - 1.2 % [facility] Immature Granulocytes 0.6 0.0 - 1.0 % [facility] 07/10/2024 3:00 AM EST 07/11/2024 1:22 PM EST Jesus Patel MD LAB BLOOD ORDERABLES Final Re sult Performing Organization Address [facility] Co de Phone Number [facility] [address] [place] [address] * (ABNORMAL) ALT (07/10/2024 3:00 AM EST) Only the most recent of3 resultswithin the time period is included. ALT (SGPT) 7(L) 10 - 49 U/L [facility] 07/10/2024 3:00 AM EST 07/11/2024 12:32 PM EST Jesus Patel MD LAB BLOOD ORDERABLES Final Re sult Performing Organization Address [facility] de Phone Number [facility] [address] [place] [address] * AST (07/10/2024 3:00 AM EST) Only the most recent of3 resultswithin the time period is included. AST (SGOT) 11 <34 U/L [facility] 07/10/2024 3:00 AM EST 07/11/2024 12:32 PM EST Jesus Patel MD LAB BLOOD ORDERABLES Final Re sult Performing Organization Address [facility] de Phone Number [facility] [address] [place] [address] * Protein, total (07/10/2024 3:00 AM EST) Only the most recent of3 resultswithin the time period is included. Total Protein 7.3 6.4 - 8.9 g/dL [facility] 07/10/2024 3:00 AM EST 07/11/2024 12:32 PM EST Jesus Patel MD LAB BLOOD ORDERABLES Final Re sult Performing Organization Address [facility] de Phone Number [facility] [address] [place] [address] * (ABNORMAL) Alkaline phosphatase (07/10/2024 3:00 AM EST) Only the most recent of3 resultswithin the time period is included. Alkaline Phosphatase 118(H) 46 - 116 U/L [facility] 07/10/2024 3:00 AM EST 07/11/2024 12:32 PM EST Jesus Patel MD LAB BLOOD ORDERABLES Final Re sult Performing Organization Address [facility] de Phone Number [facility] [address] [place] [address] * (ABNORMAL) PTH, Intact (07/10/2024 3:00 AM EST) Only the most recent of2 resultswithin the time period is included. PTH, Intact 1,081(H) 160 - 721 pg/mL [facility] Comment: Suggested (KDIGO) ESRD maintenance range is two to nine times the upper normal limit (80.1 pg/mL) for the laboratory. 07/10/2024 3:00 AM EST 07/11/2024 12:32 PM EST Jesus Patel MD LAB BLOOD ORDERABLES Final Re sult Performing Organization Address [facility] de Phone Number [facility] [address] [place] [address] * Magnesium (07/10/2024 3:00 AM EST) Only the most recent of3 resultswithin the time period is included. Magnesium 2.5 1.9 - 2.7 mg/dL [facility] 07/10/2024 3:00 AM EST 07/11/2024 12:32 PM EST us Jesus Patel MD LAB BLOOD ORDERABLES Final Re sult Performing Organization Address [facility] Co de Phone Number [facility] [address] [place] [address] * Lactate dehydrogenase (07/10/2024 3:00 AM EST) Only the most recent of3 resultswithin the time period is included. LDH 236 120 - 246 U/L [facility] 07/10/2024 3:00 AM EST 07/11/2024 12:32 PM EST us Jesus Patel MD LAB BLOOD ORDERABLES Final Re sult Performing Organization Address [facility] de Phone Number [facility] [address] [place] [address] * (ABNORMAL) Glucose, random (07/10/2024 3:00 AM EST) Only the most recent of3 resultswithin the time period is included. Glucose 144(H) 74 - 109 mg/dL [facility] 07/10/2024 3:00 AM EST 07/11/2024 12:32 PM EST us Jesus Patel MD LAB BLOOD ORDERABLES Final Re sult Performing Organization Address [facility] de Phone Number [facility] [address] [place] [address] * (ABNORMAL) Ferritin (07/10/2024 3:00 AM EST) Only the most recent of2 resultswithin the time period is included. Ferritin 1,207(H) 10 - 291 ng/mL [facility] 07/10/2024 3:00 AM EST 07/11/2024 12:32 PM EST us Jesus Patel MD LAB BLOOD ORDERABLES Final Re sult Performing Organization Address [facility] Co de Phone Number [facility] [address] [place] [address] * (ABNORMAL) Creatinine, serum (07/10/2024 3:00 AM EST) Only the most recent of3 resultswithin the time period is included. Creatinine 8.62(H) 0.55 - 1.02 mg/dL [facility] 07/10/2024 3:00 AM EST 07/11/2024 12:32 PM EST us Jesus Patel MD LAB BLOOD ORDERABLES Final Re sult Performing Organization Address [facility] de Phone Number [facility] [address] [place] [address] * (ABNORMAL) Bilirubin, total (07/10/2024 3:00 AM EST) Only the most recent of3 resultswithin the time period is included. Total Bilirubin <0.2(L) 0.3 - 1.2 mg/dL [facility] 07/10/2024 3:00 AM EST 07/11/2024 12:32 PM EST us Jesus Patel MD LAB BLOOD ORDERABLES Final Re sult Performing Organization Address [facility] de Phone Number [facility] [address] [place] [address] * (ABNORMAL) Electrolyte panel (07/10/2024 3:00 AM EST) Only the most recent of3 resultswithin the time period is included. Sodium 140 136 - 145 mEq/L [facility] Potassium 4.2 3.4 - 5.0 mEq/L [facility] Chloride 99 98 - 107 mEq/L [facility] Bicarbonate (CO2) 26 21 - 31 mEq/L [facility] Anion Gap 15(H) 3 - 14 mEq/L [facility] 07/10/2024 3:00 AM EST 07/11/2024 12:32 PM EST us Jesus Patel MD LAB BLOOD ORDERABLES Final Re sult Performing Organization Address [facility] Co de Phone Number [facility] [address] [place] [address] * (ABNORMAL) Phosphorus (06/26/2024 3:00 AM EST) [facility] Phosphorus, Serum 9.9(H) 2.5 - 5.0 mg/dL [facility] 06/26/2024 3:00 AM EST 06/27/2024 12:56 PM EST Jesus Patel MD LAB BLOOD ORDERABLES Final Re sult Performing Organization Address [facility] de Phone Number [facility] [address] [place] [address] * Potassium (06/19/2024 3:00 AM EST) Only the most recent of6 resultswithin the time period is included. [facility] Potassium 4.3 3.4 - 5.0 mEq/L [facility] 06/19/2024 3:00 AM EST 06/20/2024 1:34 PM EST Jesus Patel MD LAB BLOOD ORDERABLES Final Re sult Performing Organization Address [facility] de Phone Number [facility] [address] [place] [address] * Confirmation Test HCV (06/12/2024 3:00 AM EST) [facility] Hep C Ab Confirmation Not needed [facility] 06/12/2024 3:00 AM EST 06/13/2024 12:53 PM EST Jesus Patel MD LAB BLOOD ORDERABLES Final Re sult Performing Organization Address [facility] de Phone Number [facility] [address] [place] [address] * HEPATITIS C ABS W/REFLEX RNA DETECTR (06/12/2024 3:00 AM EST) Hep C Virus Ab Non-Reacti ve Non-Reacti ve [facility] 06/12/2024 3:00 AM EST 06/13/2024 12:55 PM EST us Jesus Patel MD LAB [id number] SOLICITED RESULTS Final Result Performing Organization Address [facility] de Phone Number [facility] [address] [place] [address] * Aluminum level (06/12/2024 3:00 AM EST) Aluminum 2 1 - 20 ug/L [facility] 06/12/2024 3:00 AM EST 06/13/2024 1:04 PM EST us Jesus Patel MD LAB BLOOD ORDERABLES Final Re sult Performing Organization Address [facility] de Phone Number [facility] [address] [place] [address] * Vitamin D 25 Hydroxy (06/12/2024 3:00 AM EST) Vitamin D, 25-Hydroxy 40 30 - 100 ng/mL [facility] Comment: Status ? Adult ?? Pediatric Deficient: ? <20 ? <15 Insufficient: ??20-29 ?? 15-19 Sufficient: ?30-100 ??20-100 06/12/2024 3:00 AM EST 06/13/2024 12:55 PM EST us Jesus Patel MD LAB BLOOD ORDERABLES Final Re sult Performing Organization Address [facility] de Phone Number [facility] [address] [place] [address] * Hepatitis B Surface Antibody (06/12/2024 3:00 AM EST) Only the most recent of2 resultswithin the time period is included. Hep B Surface Antibody 45 mIU/mL [facility] Comment: Interpretation: <10: No Immunity >=10: Probable Immunity 06/12/2024 3:00 AM EST 06/13/2024 12:55 PM EST Jesus Patel MD LAB BLOOD ORDERABLES Final Re sult Performing Organization Address [facility] Phone Number [facility] [address] [place] [address] * Uric Acid (06/12/2024 3:00 AM EST) Uric Acid 5.8 2.3 - 6.6 mg/dL [facility] 06/12/2024 3:00 AM EST 06/13/2024 12:55 PM EST Jesus Patel MD LAB BLOOD ORDERABLES Final Re sult Performing Organization Address [facility] Phone Number [facility] [address] [place] [address] * (ABNORMAL) Hemoglobin A1c (06/12/2024 3:00 AM EST) Hemoglobin A1C 6.9(H) <5.7 % [facility] Comment: Methodology: Enzymatic HbA1c (NGSP %) ?Suggested Diagnosis >6.4% ? Diabetic 5.7-6.4% ?Pre-Diabetic <5.7% ? Non-Diabetic Diabetic Glucose Control Evaluation: Therapeutic action suggested at >8.0% ADA recommends a glycemic goal of <7.0% 06/12/2024 3:00 AM EST 06/13/2024 12:53 PM EST Jesus Patel MD LAB BLOOD ORDERABLES Final Re sult Performing Organization Address [facility] de Phone Number [facility] [address] [place] [address] * (ABNORMAL) Lipid panel (06/12/2024 3:00 AM EST) Cholesterol 221(H) <200 mg/dL [facility] Comment: Optimal: ?<200 Borderline: ? 200-239 Higher Risk: ?>239 Triglycerides 156(A) <150 mg/dL [facility] Comment: Optimal: ?<150 Borderline High: ??150-199 High: ? 200-499 Very High: ?>499 HDL 38(A) >59 mg/dL [facility] Comment: Desirable: ?>59 Higher Risk: ?<40 LDL-Calc 152(A) <100 mg/dL [facility] Comment: Optimal: ?<100 Above Optimal: ?100-129 Borderline High: ??130-159 High: ? 160-189 Very High: ?>189 VLDL Cholesterol Arturo 31(A) <30 mg/dL [facility] Comment: Optimal: ?<30 Borderline High: ??30-39 High: ? 40-99 Very High: ?>99 Chol/HDL Ratio 5.8(A) <3.3 [facility] Comment: Optimal: ?<3.3 Higher Risk: ?>6.2 06/12/2024 3:00 AM EST 06/13/2024 12:55 PM EST us Jesus Patel MD LAB BLOOD ORDERABLES Final Re sult [facility] [address] [place] [address] * (ABNORMAL) Hemoglobin (05/26/2024 3:00 AM EST) Hgb 10.8(L) 11.2 - 15.7 g/dL [facility] Hemoglobin x 3 32.4(L) 33.6 - 47.1 g/dL [facility] 05/26/2024 3:00 AM EST 05/28/2024 12:34 PM EST Jesus Patel MD LAB BLOOD ORDERABLES Final Re sult Performing Organization Address [facility] Co de Phone Number [facility] [address] [place] [address] * Calcium, Adjusted w Albumin (05/22/2024 3:00 AM EST) Calcium 9.8 8.6 - 10.3 mg/dL [facility] Albumin 4.0 3.6 - 5.4 g/dL [facility] Calcium, Adjusted Total 9.8 8.6 - 10.3 mg/dL [facility] 05/22/2024 3:00 AM EST 05/23/2024 12:57 PM EST Jesus Patel MD LAB BLOOD ORDERABLES Final Re sult Performing Organization Address [facility] de Phone Number [facility] [address] [place] [address] * Hemoglobin and hematocrit (05/22/2024 3:00 AM EST) Only the most recent of2 resultswithin the time period is included. Hgb 11.4 11.2 - 15.7 g/dL [facility] Hematocrit 35.4 34.1 - 44.9 % [facility] Hemoglobin x 3 34.2 33.6 - 47.1 g/dL [facility] 05/22/2024 3:00 AM EST 05/23/2024 12:55 PM EST Jesus Patel MD LAB BLOOD ORDERABLES Final Re sult Performing Organization Address [facility] Co de Phone Number [facility] [address] [place] [address] from Last 3 Months Insurance [facility] ([id number]) [facility] ([id number]) Care Teams Belt Polisher Relationship Specialty Start Date End Date April Sharma MD [address] [place] [address] PCP - General 06/15/20
--- OUTSIDE RECORDS SUMMARY | 2024-07-26 15:56 | XMS_ITS | Encounter Summary ---
Author Organization [facility] Address [address] [place] [address] Phone Care Team Providers Care Enrollment Management Manager Name Role Phone April Sharma MD Primary Care Provider [phone] Reason for Visit * Reason Comments Med Refill Encounter Details Date Type Department Care Team (Late st Contact Info) Description 09/23/2020 Refill [facility] [address] [facility] [address] [place] [address] Seamus Ramsey MD [address] [place] [phone] Social History Tobacco Use Types Packs/Day Years [...] on file documented as of this encounter Plan of Treatment Not on file documented as of this encounter Visit Diagnoses Not on filedocumented in this encounter Care Teams Enrollment Management Manager Relationship Specialty Start Date End Date April Sharma MD [address] [place] [address] PCP - General 06/15/20 documented as of this encounter
--- OUTSIDE RECORDS SUMMARY | 2024-07-26 15:56 | XMS_ITS | Patient Health Record ---
Author [facility] Address [address] [facility] [place] [address] Care Team Providers Care Gift Packer Name Role Phone Luis Antonio NAIDU Wins[place] Primary Care Provider Cristóbal Galindo Unavailable [phone] Reason For Referral No Information Medications Medication SIG (Take, Route, Frequency, Duration) Notes Start Date End Date Status Levothyroxine Sodium 175 MCG 1 capsule in the morning on an empty stomach Orally Once a day for 30 day(s) Active Lisinopril 40 MG Orally Act kraen NIFEdipine 90 mg Act karen NovoLOG Active Ciclopirox 0.77 % 1 application to affected area Externally Twice a day to effected nails for 30 Active Sevelamer Carbonate 800 MG Orally Active Torsemide 100 MG Orally Act karen Extra Depth Orthopedic Shoes (1 Pair) with Customized Heat Molded Multidensity Innersoles (3 Pair) as directed Dx: NIDDM (E11.9), Hammertoe Foot Deformity (M20.41,M20.42), Preulcerative Skin Lesion(s) (L85.1) Active Atorvastatin Calcium 20 MG Orally Active Vitamin D3 2000 units Active Basaglar KwikPen Act karen Citalopram Hydrobromide 10 MG 1 tablet Orally Once a day for 30 day(s) Active cloNIDine HCl patch Active HumaLOG Not-Taking Ferrous Sulfate 325 (65 Fe) MG 1 tablet Orally Once a day for 30 day(s) Active Lantus 50 Units Not- Taking Immunizations Vaccine Route Administration Date Status Comme nts Influenza Unknown 03/18/2019 Administered Social History Tobacco Use: Social History Observation Description Date Details (start date - stop date) Never Smoker NA - NA Tobacco Use/Smoking Question Answer Notes Are you a: nonsmoker Additional Findings: Tobacco Non-User Current no n-smoker Alcohol Screen Question Answer Notes Did you have a drink containing alcohol in the p ast year? Yes Points 0 Interpretation Negative Tobacco use other than smoking: Question Answer Notes Are you an other tobacco user? No Problems Problem Type SNOMED Code ICD Code Onset Dates Problem Status W/U Status Risk Notes Problem Type I diabetes mellitus without complication (291749145) Type 1 diabetes mellitus without complications (E10.9) Active confirmed Plan Of Treatment Pending Test Test Name Order Date [id number] NAIL, 6 OR MORE 10/17/2019 [id number] NAIL, 6 OR MORE 02/06/2020 Insurance Providers Payer Name Payer Address Payer Phone Subscriber Number Group Number Insured Name Patient Relationship to Insured Coverage Start Date Coverage End Date Medicare National Govt Svcs Inc [address] [place] [address] [id number] Verona Holland Self - patient is the insured Medical (General) History Medical History History ICD Code Anemia Anxiety Diabetic High blood pressure Kidney disease thyroid Chicken pox Transfusions Surgical History Surgery Date(Month/Year) fistula left arm 05/13/19
== END 2024-07-26 16:47 | disposition home or self-care (01) ==
PROVIDERS: PCP Internal Medicine; Visit Provider Internal Medicine
DX: E10.3593 Type 1 diabetes mellitus with proliferative diabetic retinopathy without macular edema, bilateral (principal); I12.0 Hypertensive chronic kidney disease with stage 5 chronic kidney disease or end stage renal disease; E78.00 Pure hypercholesterolemia, unspecified; N18.6 End stage renal disease; Z99.2 Dependence on renal dialysis; D63.1 Anemia in chronic kidney disease; E03.9 Hypothyroidism, unspecified; G62.9 Polyneuropathy, unspecified; I73.9 Peripheral vascular disease, unspecified; E55.9 Vitamin D deficiency, unspecified; E53.8 Deficiency of other specified B group vitamins; F33.0 Major depressive disorder, recurrent, mild; G47.00 Insomnia, unspecified; E66.9 Obesity, unspecified

== ENCOUNTER → 2024-07-26 15:53 | Outpatient (BNVA) | payer OTHER, SELFPAY | PROVIDERS: PCP Internal Medicine; Visit Provider Internal Medicine | DX: E10.3593 Type 1 diabetes mellitus with proliferative diabetic retinopathy without macular edema, bilateral (principal); I10 Essential (primary) hypertension; E78.00 Pure hypercholesterolemia, unspecified; N18.6 End stage renal disease; Z99.2 Dependence on renal dialysis; E03.9 Hypothyroidism, unspecified; G62.9 Polyneuropathy, unspecified; I73.9 Peripheral vascular disease, unspecified; E53.8 Deficiency of other specified B group vitamins; F33.0 Major depressive disorder, recurrent, mild; G47.00 Insomnia, unspecified | CPT/HCPCS: 96127; 99212 ==

== ENCOUNTER → 2024-10-08 09:50 | Outpatient (REF) | payer OTHER, SELFPAY ==
--- NOTE | 2024-10-08 10:08 | ECG_ITS ---
Test Reason : I51.7 - Cardiomegaly Blood Pressure : */* mmHG Vent. Rate : 89 BPM Atrial Rate : 89 BPM P-R Int : 142 ms QRS Dur : 76 ms QT Int : 408 ms P-R-T Axes : 59 34 59 degrees QTcB Int : 496 ms Normal sinus rhythm Prolonged QT Abnormal ECG When compared with ECG of 16-May-2023 07:49, No significant change was found Referred By: Jason Salmon Electronically Signed By: JJ REEVES
--- OUTSIDE RECORDS SUMMARY | 2024-10-08 10:59 | XMS_ITS | Encounter Summary ---
Author Organization [facility] Address [address] [facility] [address] [place] [address] Phone Care Team Providers Care Associate Relations Specialist Name Role Phone April Sharma MD Primary Care Provider [phone] Reason for Visit * Reason Comments Med Refill Encounter Details Date Type Department Care Team (Late st Contact Info) Description 10/18/2020 Refill [facility] [address] [facility] [address] [place] [phone] Seamus Ramsey MD [address] [facility] [address] [place] [phone] Social History Tobacco Use Types Packs/Day Years [...] on filedocumented in this encounter Care Teams Associate Relations Specialist Relationship Specialty Start Date End Date April Sharma MD [address] [place] PCP - General 06/15/20 documented as of this encounter
--- OUTSIDE RECORDS SUMMARY | 2024-10-08 11:00 | XMS_ITS | Patient Health Record ---
Author Organization [facility] Address [address] [facility] [place] [address] Care Team Providers Care Music Arranger Name Role Phone Luis Antonio NAIDU [place] Primary Care Provider Cristóbal Galindo Unavailable [phone] Reason For Referral No Information Medications Medication SIG (Take, Route, Frequency, Duration) Notes Start Date End Date Status Levothyroxine Sodium 175 MCG 1 capsule in the morning on an empty stomach Orally Once a day for 30 day(s) Active Lisinopril 40 MG Orally Act karen NIFEdipine 90 mg Act karen NovoLOG Active [...] Problem Type I diabetes mellitus without complication (092323011) Type 1 diabetes mellitus without complications (E10.9) Active confirmed Plan Of Treatment Pending Test Test Name Order Date [id number] NAIL, 6 OR MORE 10/17/2019 [id number] NAIL, 6 OR MORE 02/06/2020 Insurance Providers Payer Name Payer Address Payer Phone Subscriber Number Group Number Insured Name Patient Relationship to Insured Coverage Start Date Coverage End Date Medicare National Govt Svcs Inc [address] [place] [address] [id number] Verona Holland Self - patient is the insured Medical (General) History Medical History History ICD Code Anemia Anxiety Diabetic High blood pressure Kidney disease thyroid Chicken pox Transfusions Surgical History Surgery Date(Month/Year) fistula left arm 05/13/19
--- OUTSIDE RECORDS SUMMARY | 2024-10-08 11:00 | XMS_ITS | Encounter Summary ---
Author Organization [facility] Address [address] [address] Phone Care Team Providers Care Coal Carrier Name Role Phone April Sharma MD Primary Care Provider [phone] Encounter Details Date Type Department Care Team (Late st Contact Info) Description 09/30/2024 Treatment [facility] P. [address] [address] Cade Spencer MD [address] [address] End stage renal disease; Dependence on renal dialysis Social History Tobacco Use Types Packs/Day Years [...] Dialysis Note - Cade Spencer MD - 09/30/2024 12:00 AM EDT BASIC NOTE Patient: Verona Dill Skyler : 1985 Note Author: CADE SPENCER MD Service Date: 09/30/2024 This patient was personally seen for a basic visit as part of routine monthly dialysis care for end stage renal disease. Attending Extension Service Specialist In Charge: CADE SPENCER MD Dialysis Location: [facility] Schedule: Shift: 2 ADEQUACY ASSESSMENT Kt/V, Natural Log 1.47 (09/11/24) 1.39 (08/07/24) 1.28 (07/10/24) UREA REDUCTION RATIO (%) 71 (09/11/24) 68 (08/07/24) 66 (07/10/24) BUN 79 (09/11/24) 78 (09/06/24) 53 (08/07/24) BUN Post Dialysis 23 (09/11/24) Test Canceled (09/06/24) 17 (08/07/24) Creatinine 12.53 (09/06/24) 8.75 (08/07/24) 8.62 (07/10/24) Bicarbonate (CO2) 18 (09/06/24) 26 (08/07/24) 26 (07/10/24) Sodium 140 (09/06/24) 139 (08/07/24) 140 (07/10/24) ANEMIA ASSESSMENT Hgb 10.9 (09/23/24) 11.8 (09/18/24) 10.5 (09/06/24) Iron Saturation (TSat) 66 (09/06/24) 63 (08/07/24) 42 (07/10/24) Ferritin 1,304 (09/06/24) 1,487 (08/07/24) 1,207 (07/10/24) Iron 96 (09/06/24) 109 (08/07/24) 78 (07/10/24) TIBC 146 (09/06/24) 172 (08/07/24) 185 (07/10/24) MCV 88.4 (09/06/24) 85.7 (08/07/24) 86.4 (07/10/24) Platelets 380 (09/06/24) 484 (08/07/24) 401 (07/10/24) BMM ASSESSMENT Calcium, Adjusted Total 8.9 09/06/24 8.9 08/07/24 10.0 07/10/24 Calcium 8.9 09/06/24 8.9 08/07/24 10.0 07/10/24 Phosphorus, Serum 11.5 09/06/24 8.8 08/19/24 7.5 08/07/24 Ca*PO4 102.4 09/06/24 66.8 08/07/24 50.0 07/10/24 PTH, Intact 1,359 09/06/24 672 08/07/24 1,081 07/10/24 Vitamin D, 25-Hydroxy 40 06/12/24 Magnesium 2.4 09/06/24 2.5 08/07/24 2.5 07/10/24 Alkaline Phosphatase 113 09/06/24 128 08/07/24 118 07/10/24 Aluminum 2 06/12/24 NUTRITION ASSESSMENT Albumin 4.1 09/06/24 4.3 08/07/24 4.0 07/10/24 Potassium 4.2 09/06/24 5.1 08/07/24 4.2 07/10/24 Hemoglobin A1C 6.0 09/06/24 6.9 06/12/24 ADDITIONAL LABS White Blood Cells 11.6 (09/06/24) 12.8 (08/07/24) 12.0 (07/10/24) Cholesterol 216 (09/06/24) 221 (06/12/24) HDL 32 (09/06/24) 38 (06/12/24) LDL-Calc 143 (09/06/24) 152 (06/12/24) Triglycerides 206 (09/06/24) 156 (06/12/24) Hep B Surface Antibody 45 (06/12/24) 14 (05/17/24) Uric Acid 5.8 (06/12/24) ADDITIONAL COMMENT COMMENTS: 09/30/24 stable 07/15/24 stable 07/17/24 cont f/u re prosthesis 08/02/24 doing ok 08/07/24 stable 08/19/24 doing ok, getting prosthesis 08/26/24 stable 09/06/24 stable 02/07/24 stable 02/12/24 no new issues 02/19/24 stable 02/26/24 doing ok, has appt for xplant eval in [place] 03/27/24 [facility], cont f/u vasc and wound care 04/15/24 stable, cont Abx 05/03/24 doing ok 05/06/24 cont f/u ortho re osteo foot 05/20/24 same issues 06/07/24 cont rehab 06/26/24 stable, still not ready for prosthesis 07/05/24 stable Signed by: CADE SPENCER MD on 10/03/2024 at 01:18:31 AM Transcribed by: CADE SPENCER MD on 10/03/2024 at 01:18:31 AM documented in this encounter Plan of Treatment Not on file documented as of this encounter Visit Diagnoses Diagnosis End stage renal disease Dependence on renal dialysis documented in this encounter Care Teams Coal Carrier Relationship Specialty Start Date End Date April Sharma MD [address] [place], [place] PCP - General 06/15/20 documented as of this encounter
--- OUTSIDE RECORDS SUMMARY | 2024-10-08 11:00 | XMS_ITS | Encounter Summary ---
Author Organization [facility] Address [address] [place] [address] Phone Care Team Providers Care Egg Gatherer Name Role Phone April Sharma MD Primary Care Provider [phone] Reason for Visit * Reason Comments Med Refill Encounter Details Date Type Department Care Team (Late st Contact Info) Description 09/23/2020 Refill [facility] [address] [place] [address] Seamus Ramsey MD [address] [place] [phone] Social History Tobacco Use Types Packs/Day Years [...] on filedocumented in this encounter Care Teams Egg Gatherer Relationship Specialty Start Date End Date April Sharma MD [address] [place] [address] PCP - General 06/15/20 documented as of this encounter
--- OUTSIDE RECORDS SUMMARY | 2024-10-08 11:00 | XMS_ITS | Encounter Summary ---
Author Organization [facility] Address [address] [address] Phone Care Team Providers Care Teacher Tutor Name Role Phone April Sharma MD Primary Care Provider [phone] Encounter Details Date Type Department Care Team (Late st Contact Info) Description 09/13/2024 Treatment [facility] P. [address] [address] Cade Spencer MD [address] [address] End stage renal disease; Dependence [...] Dialysis Note - Cade Spencer MD - 09/13/2024 12:00 AM EDT BASIC NOTE Patient: Verona Dill Skyler : 1985 Note Author: CADE SPENCER MD Service Date: 09/13/2024 Telehealth encounter using audiovisual technology, performed according to state requirements. Appropriate patient consent obtained. This patient was personally seen for a basic visit as part of routine monthly dialysis care for end stage renal disease. Attending Strip Tank Tender: CADE SPENCER MD Dialysis Location: [facility] Schedule: Shift: ADEQUACY ASSESSMENT Kt/V, Natural Log 1.47 (09/11/24) [...] Uric Acid 5.8 (06/12/24) ADDITIONAL COMMENT COMMENTS: 09/13/24 same 09/20/24 stable 09/30/24 stable 07/15/24 stable 07/17/24 cont f/u re prosthesis 08/02/24 doing ok 08/07/24 stable 08/19/24 doing ok, getting prosthesis 08/26/24 stable 09/06/24 stable 02/07/24 stable 02/12/24 no new issues 02/19/24 stable 02/26/24 doing ok, has appt for xplant eval in [place] 03/27/24 [facility], cont f/u vasc and wound care 04/15/24 stable, cont Abx 05/03/24 doing ok 05/06/24 cont f/u ortho re osteo foot 05/20/24 same issues 06/07/24 cont rehab 06/26/24 stable, still not ready for prosthesis 07/05/24 stable Signed by: CADE SPENCER MD on 10/03/2024 at 01:19:07 AM Transcribed by: CADE SPENCER MD on 10/03/2024 at 01:19:07 AM documented in this encounter Plan of Treatment Not on file documented as of this encounter Visit Diagnoses Diagnosis End stage renal disease Dependence on renal dialysis documented in this encounter Care Teams Teacher Tutor Relationship Specialty Start Date End Date April Sharma MD [address] [place], [place] PCP - General 06/15/20 documented as of this encounter
--- OUTSIDE RECORDS SUMMARY | 2024-10-08 11:00 | XMS_ITS | Encounter Summary ---
Author Organization [facility] Address [address] [address] Phone Care Team Providers Care Fire Department Marine Engineer Name Role Phone April Sharma MD Primary Care Provider [phone] Encounter Details Date Type Department Care Team (Late st Contact Info) Description 09/20/2024 Treatment [facility] P. [address] [address] Cade Spencer MD [address] [address] End stage renal disease; Dependence [...] Dialysis Note - Cade Spencer MD - 09/20/2024 12:00 AM EDT BASIC NOTE Patient: Verona Dill Skyler : 1985 Note Author: CADE SPENCER MD Service Date: 09/20/2024 Telehealth encounter using audiovisual technology, performed according to state requirements. Appropriate patient consent obtained. This patient was personally seen for a basic visit as part of routine monthly dialysis care for end stage renal disease. Attending Stone Setter Apprentice: CADE SPENCER MD Dialysis Location: [facility] Schedule: Shift: ADEQUACY ASSESSMENT Kt/V, Natural [...] ok, has appt for xplant eval in [place] 03/27/24 [facility], cont f/u vasc and wound care 04/15/24 stable, cont Abx 05/03/24 doing ok 05/06/24 cont f/u ortho re osteo foot 05/20/24 same issues 06/07/24 cont rehab 06/26/24 stable, still not ready for prosthesis 07/05/24 stable Signed by: CADE SPENCER MD on 10/03/2024 at 01:19:27 AM Transcribed by: CADE SPENCER MD on 10/03/2024 at 01:19:27 AM documented in this encounter Plan of Treatment Not on file documented as of this encounter Visit Diagnoses Diagnosis End stage renal disease Dependence on renal dialysis documented in this encounter Care Teams Fire Department Marine Engineer Relationship Specialty Start Date End Date April Sharma MD [address] [place], [place] PCP - General 06/15/20 documented as of this encounter
--- OUTSIDE RECORDS SUMMARY | 2024-10-08 11:00 | XMS_ITS | Clinical Summary ---
Author Organization [facility] Address [address] [address] Phone Care Team Providers Care Audiology Doctor Name Role Phone April Sharma MD Primary Care Provider [phone] Medications sevelamer carbonate (RENVELA) 800 MG tablet [...] capsule 2 4 Active ergocalciferol 1.25 MG (06969 UT) capsule TAKE 1 CAPSULE BY MOUTH [...] Encounters Date Type Department Care Team Description 09/30/2024 Treatment [facility] [address] [phone] Jesus Patel MD End stage renal disease; Dependence on renal dialysis 09/20/2024 Treatment [facility] [address] [phone] Jesus Patel MD End stage renal disease; Dependence on renal dialysis 09/13/2024 Treatment [facility] [address] [phone] Jesus Patel MD End stage renal disease; Dependence on renal dialysis 09/06/2024 Orders Only [facility] [address] [phone] Jesus Patel MD 09/06/2024 Treatment [facility] [address] [phone] Jesus Patel MD End stage renal disease; Dependence on renal dialysis 08/26/2024 Treatment [facility] [address] [phone] Jesus Patel MD End stage renal disease; Dependence on renal dialysis 08/22/2024 Treatment [facility] [address] [phone] Jasbir Trammell MD End stage renal disease; Dependence on renal dialysis 08/19/2024 Treatment [facility] [address] [phone] Jesus Patel MD End stage renal disease; Dependence on renal dialysis 08/10/2024 Treatment [facility] [address] [phone] Jasbir Trammell MD End stage renal disease; Dependence on renal dialysis 08/07/2024 Treatment [facility] [address] [phone] Jesus Patel MD End stage renal disease; Dependence on renal dialysis 08/02/2024 Treatment [facility] [address] [phone] Jesus Patel MD End stage renal disease; Dependence on renal dialysis 07/27/2024 Treatment [facility] [address] [phone] Jasbir Trammell MD 07/17/2024 Treatment [facility] [address] [phone] Jesus Patel MD 07/15/2024 Treatment [facility] [address] [phone] Jesus Patel MD from Last 3 Months Family History [...] Due Date Last Done Comments Pneumococcal Vaccine: Peds ( 0 to 5 Years) and At-Risk Patients (6 to 49 Years) (1 of 2 - PCV) 2003 Hepatitis B Vaccine (1 of 5 - Risk Dialysis 4-dose series) 2004 10/14/2022 Diabetes: Ophthalmology Exam 07/06/2020 Diabetes: Pedal Pulse Checked 07/06/2020 Diabetes: Sensory Foot Exam 07/06/2020 Diabetes: Visual Foot Exam 07/06/2020 Diabetes: Hemoglobin A1C 12/06/2024 025, 06/12/2024, 07/14/2021, Additional history exists Influenza Vaccine Completed 03/07/2024, , 03/19/2018 Procedures Procedure Name Priority Date/Time Associated Diagnosis Comments HEMOGLOBIN Routine 09/23/2024 3:00 AM EDT HEMOGLOBIN AND HEMATOCRIT, BLOOD Routine 09/18/2024 3:00 AM EDT LIH (HC) Routine 09/11/2024 3:00 AM EDT KT/V NATURAL LOG, URR (HC) Routine 09/11/2024 3:00 AM EDT UNSPUN TUBE (HC) Routine 09/06/2024 3:00 AM EDT HEPATITIS B SURFACE ANTIGEN W/REFL CONFIRM Routine 09/06/2024 3:00 AM EDT PTH, INTACT Routine 09/06/2024 3:00 AM EDT FERRITIN Routine 09/06/2024 3:00 AM EDT PROTEIN, TOTAL, SERUM Routine 09/06/2024 3:00 AM EDT TRANSFERRIN SATURATION Routine 3:00 AM EDT MAGNESIUM Routine 09/06/2024 3:00 AM EDT ELECTROLYTE PANEL Routine 09/06/2024 3:0 0 AM EDT LIH (HC) Routine 09/06/2024 3:00 AM EDT LIPID PANEL Routine 09/06/2024 3:00 AM EDT LACTATE DEHYDROGENASE Routine 09/06/2024 3:00 AM EDT CREATININE, SERUM Routine 09/06/2024 3:0 0 AM EDT GLUCOSE, RANDOM Routine 09/06/2024 3:00 AM EDT BILIRUBIN, TOTAL Routine 09/06/2024 3:00 AM EDT AST Routine 09/06/2024 3:00 AM EDT ALT Routine 09/06/2024 3:00 AM EDT CALCIUM PHOSPHORUS PRODUCT, ADJUSTED (HC) Routine 09/06/2024 3:00 AM EDT ALKALINE PHOSPHATASE Routine 09/06/2024 3:00 AM EDT HEMOGLOBIN A1C Routine 09/06/2024 3:00 AM EDT CBC AND DIFFERENTIAL Routine 09/06/2024 3:00 AM EDT KT/V NATURAL LOG, URR (HC) Routine 09/06/2024 3:00 AM EDT HEMOGLOBIN AND HEMATOCRIT, BLOOD Routine 08/26/2024 3:00 AM EDT PHOSPHATE ( PHOSPHORUS) Routine 08/19/2024 3:00 AM EDT LIH (HC) Routine 08/19/2024 3:00 AM EDT FERRITIN Routine 08/07/2024 3:00 AM EST HEPATITIS B SURFACE ANTIGEN W/REFL CONFIRM Routine 08/07/2024 3:00 AM EST TRANSFERRIN SATURATION Routine 3:00 AM EST PROTEIN, TOTAL, SERUM Routine 08/07/2024 3:00 AM EST MAGNESIUM Routine 08/07/2024 3:00 AM EST LIH (HC) Routine 08/07/2024 3:00 AM EST LACTATE DEHYDROGENASE Routine 08/07/2024 3:00 AM EST ELECTROLYTE PANEL Routine 08/07/2024 3:0 0 AM EST GLUCOSE, RANDOM Routine 08/07/2024 3:00 AM EST CREATININE, SERUM Routine 08/07/2024 3:0 0 AM EST BILIRUBIN, TOTAL Routine 08/07/2024 3:0 0 AM EST AST Routine 08/07/2024 3:00 AM EST ALKALINE PHOSPHATASE Routine 08/07/2024 3:00 AM EST ALT Routine 08/07/2024 3:00 AM EST CALCIUM PHOSPHORUS PRODUCT, ADJUSTED (HC) Routine 08/07/2024 3:00 AM EST PTH, INTACT Routine 08/07/2024 3:00 AM EST CBC AND DIFFERENTIAL Routine 08/07/2024 3:00 AM EST KT/V NATURAL LOG, URR (HC) Routine 08/07/2024 3:00 AM EST HEMOGLOBIN AND HEMATOCRIT, BLOOD Routine 07/26/2024 3:00 AM EST from Last 3 Months Results * (ABNORMAL) Hemoglobin (09/23/2024 3:00 AM EDT) Hgb 10.9(L) 11.2 - 15.7 g/dL [facility] Hemoglobin x 3 32.7(L) 33.6 - 47.1 g/dL [facility] 09/23/2024 3:00 AM EDT 09/24/2024 12:54 PM EDT Jesus Patel MD LAB BLOOD ORDERABLES Final Re sult Performing Organization Address [facility] Co de Phone Number [facility] [address] [place] [address] * Hemoglobin and hematocrit (09/18/2024 3:00 AM EDT) Only the most recent of3 resultswithin the time period is included. Hgb 11.8 11.2 - 15.7 g/dL [facility] Hematocrit 37.7 34.1 - 44.9 % [facility] Hemoglobin x 3 35.4 33.6 - 47.1 g/dL [facility] 09/18/2024 3:00 AM EDT 09/19/2024 1:58 PM EDT Jesus Patel MD LAB BLOOD ORDERABLES Final Re sult Performing Organization Address [facility]/ZIP Co de Phone Number [facility] [address] [place] [address] * LIH (09/11/2024 3:00 AM EDT) Only the most recent of4 resultswithin the time period is included. Lipemia Normal Normal [facility] Icterus Normal Normal [facility] Hemolysis Normal Normal [facility] 09/11/2024 3:00 AM EDT 09/12/2024 12:55 PM EDT Jesus Patel MD LAB [id number] SOLICITED RESULTS Final Result Performing Organization Address City/[facility]/ZIP Co de Phone Number [facility] [address] [place] [address] * (ABNORMAL) Kt/V Natural Log, URR (09/11/2024 3:00 AM EDT) Only the most recent of3 resultswithin the time period is included. Treatment Time 259 min [facility] Pre-Weight, lb 114.6 kg [facility] Post-Weight, lb 110.6 kg [facility] Ultrafiltration Rate 8 <=13 mL/kg/hr [facility] Comment: Recommend achieving Ultrafiltration Rate (UFR) <=10 mL/kg/hr References: Rob NELSON et al. Kidney Int. 2010; 79(2):250-257 BUN Post Dialysis 23 7 - 25 mg/dL [facility] BUN 79(H) 7 - 25 mg/dL [facility] UREA REDUCTION RATIO (%) 71 >=65 % [facility] Kt/V Natural Log 1.47 >=1.2 [facility] 09/11/2024 3:00 AM EDT 09/12/2024 12:55 PM EDT Jesus Patel MD LAB [id number] SOLICITED RESULTS Final Result Performing Organization Address [facility] de Phone Number [facility] [address] [place] [address] * Unspun Tube (09/06/2024 3:00 AM EDT) Unspun Tube Post Gold/Whit e [facility] Comment:Received uncentrifug ed specimen. Unable to perform testing. 09/06/2024 3:00 AM EDT Jesus Patel MD LAB [id number] SOLICITED RESULTS Final Result Performing Organization Address [facility] Co de Phone Number [facility] [address] [place] [address] * (ABNORMAL) Calcium Phosphorus Product, Adjusted (09/06/2024 3:00 AM EDT) Only the most recent of2 resultswithin the time period is included. Albumin 4.1 3.6 - 5.4 g/dL [facility] Calcium 8.9 8.6 - 10.3 mg/dL [facility] Phosphorus, Serum 11.5(H) 2.5 - 5.0 mg/dL [facility] Ca*PO4 102.4(A) <55.0 mg2/dL2 [facility] Calcium, Adjusted Total 8.9 8.6 - 10.3 mg/dL [facility] CA*PO4 CORRCTD 102.4(A) <55.0 mg2/dL2 [facility] 09/06/2024 3:00 AM EDT 09/07/2024 1:48 PM EDT Jesus Patel MD LAB [id number] SOLICITED RESULTS Final Result Performing Organization Address City/[facility]/ZIP Co de Phone Number [facility] [address] [place] [address] * Hepatitis B Surface Ag w/Reflex Confirmation (09/06/2024 3:00 AM EDT) Only the most recent of2 resultswithin the time period is included. Pathologist [facility] Hep B Surface Antigen Negative Negative [facility] 09/06/2024 3:00 AM EDT 09/07/2024 1:48 PM EDT Jesus Patel MD LAB BLOOD ORDERABLES Final Re sult Performing Organization Address City/[facility]/ZIP Co de Phone Number [facility] [address] [place] [address] * (ABNORMAL) TSAT (09/06/2024 3:00 AM EDT) Only the most recent of2 resultswithin the time period is included. Pathologist [facility] Iron 96 50 - 170 ug/dL [facility] Transferrin 104(L) 250 - 380 mg/dL [facility] TIBC 146(L) 211 - 406 ug/dL [facility] Iron Saturation (TSat) 66(H) 22 - 52 % [facility] 09/06/2024 3:00 AM EDT 09/07/2024 1:48 PM EDT Jesus Patel MD LAB BLOOD ORDERABLES Final Re sult Performing Organization Address City/[facility] Co de Phone Number [facility] [address] [place] [address] * (ABNORMAL) CBC and Differential (09/06/2024 3:00 AM EDT) Only the most recent of2 resultswithin the time period is included. DIFFERENTIAL MANUAL, 2 Not Indicated [facility] White Blood Cells 11.6(H) 4.0 - 10.0 K/uL [facility] RBC 3.78(L) 3.93 - 5.22 M/uL [facility] Hgb 10.5(L) 11.2 - 15.7 g/dL [facility] Hemoglobin x 3 31.5(L) 33.6 - 47.1 g/dL [facility] Hematocrit 33.4(L) 34.1 - 44.9 % [facility] MCV 88.4 79.4 - 94.8 fL [facility] MCH 27.8 25.6 - 32.2 pg [facility] MCHC 31.4(L) 32.2 - 35.5 g/dL [facility] Platelets 380(H) 182 - 369 K/uL [facility] RDW 14.7(H) 11.7 - 14.4 % [facility] Neutrophils Relative 73.3(H) 34.0 - 71.1 % [facility] Lymphocytes Relative 16.8(L) 19.3 - 51.7 % [facility] Monocytes 6.1 4.7 - 12.5 % [facility] Eosinophils Relative 2.1 0.7 - 5.8 % [facility] Basophils Relative 0.9 0.1 - 1.2 % [facility] Immature Granulocytes 0.8 0.0 - 1.0 % [facility] 09/06/2024 3:00 AM EDT 09/07/2024 1:34 PM EDT Jesus Patel MD LAB BLOOD ORDERABLES Final Re sult Performing Organization Address City/[facility]/ZIP Co de Phone Number [facility] [address] [place] [address] * (ABNORMAL) ALT (09/06/2024 3:00 AM EDT) Only the most recent of2 resultswithin the time period is included. ALT (SGPT) <7(L) 10 - 49 U/L [facility] 09/06/2024 3:00 AM EDT 09/07/2024 1:48 PM EDT Jesus Patel MD LAB BLOOD ORDERABLES Final Re sult Performing Organization Address [facility] Co de Phone Number [facility] [address] [place] [address] * AST (09/06/2024 3:00 AM EDT) Only the most recent of2 resultswithin the time period is included. AST (SGOT) 11 <34 U/L [facility] 09/06/2024 3:00 AM EDT 09/07/2024 1:48 PM EDT Jesus Patel MD LAB BLOOD ORDERABLES Final Re sult Performing Organization Address [facility] Co de Phone Number [facility] [address] [place] [phone] * Protein, total (09/06/2024 3:00 AM EDT) Only the most recent of2 resultswithin the time period is included. Total Protein 6.9 6.4 - 8.9 g/dL [facility] 09/06/2024 3:00 AM EDT 09/07/2024 1:48 PM EDT us Jesus Patel MD LAB BLOOD ORDERABLES Final Re sult Performing Organization Address [facility] Co de Phone Number [facility] [address] [place] [address] * Alkaline phosphatase (09/06/2024 3:00 AM EDT) Only the most recent of2 resultswithin the time period is included. Alkaline Phosphatase 113 46 - 116 U/L [facility] 09/06/2024 3:00 AM EDT 09/07/2024 1:48 PM EDT Jesus Patel MD LAB BLOOD ORDERABLES Final Re sult Performing Organization Address [facility] Co de Phone Number [facility] [address] [place] [address] * (ABNORMAL) PTH, Intact (09/06/2024 3:00 AM EDT) Only the most recent of2 resultswithin the time period is included. PTH, Intact 1,359(H) 160 - 721 pg/mL [facility] Comment: Suggested (KDIGO) ESRD maintenance range is two to nine times the upper normal limit (80.1 pg/mL) for the laboratory. 09/06/2024 3:00 AM EDT 09/07/2024 1:48 PM EDT Jesus Patel MD LAB BLOOD ORDERABLES Final Re sult Performing Organization Address [facility] de Phone Number [facility] [address] [place] [address] * Magnesium (09/06/2024 3:00 AM EDT) Only the most recent of2 resultswithin the time period is included. Magnesium 2.4 1.9 - 2.7 mg/dL [facility] 09/06/2024 3:00 AM EDT 09/07/2024 1:48 PM EDT Jesus Patel MD LAB BLOOD ORDERABLES Final Re sult Performing Organization Address [facility] Co de Phone Number [facility] [address] [place] [address] * (ABNORMAL) Lactate dehydrogenase (09/06/2024 3:00 AM EDT) Only the most recent of2 resultswithin the time period is included. LDH 397(H) 120 - 246 U/L [facility] 09/06/2024 3:00 AM EDT 09/07/2024 1:48 PM EDT Jesus Patel MD LAB BLOOD ORDERABLES Final Re sult Performing Organization Address [facility] de Phone Number [facility] [address] [place] [address] * (ABNORMAL) Hemoglobin A1c (09/06/2024 3:00 AM EDT) Hemoglobin A1C 6.0(H) <5.7 % [facility] Comment: Methodology: Enzymatic HbA1c (NGSP %) ?Suggested Diagnosis >6.4% ? Diabetic 5.7-6.4% ?Pre-Diabetic <5.7% ? Non-Diabetic Diabetic Glucose Control Evaluation: Therapeutic action suggested at >8.0% ADA recommends a glycemic goal of <7.0% 09/06/2024 3:00 AM EDT 09/07/2024 1:34 PM EDT Jesus Patel MD LAB BLOOD ORDERABLES Final Re sult Performing Organization Address [facility] de Phone Number [facility] [address] [place] [address] * (ABNORMAL) Glucose, random (09/06/2024 3:00 AM EDT) Only the most recent of2 resultswithin the time period is included. Glucose 167(H) 74 - 109 mg/dL [facility] 09/06/2024 3:00 AM EDT 09/07/2024 1:48 PM EDT Jesus Patel MD LAB BLOOD ORDERABLES Final Re sult Performing Organization Address [facility] de Phone Number [facility] [address] [place] [address] * (ABNORMAL) Ferritin (09/06/2024 3:00 AM EDT) Only the most recent of2 resultswithin the time period is included. Ferritin 1,304(H) 10 - 291 ng/mL [facility] 09/06/2024 3:00 AM EDT 09/07/2024 1:48 PM EDT Jesus Patel MD LAB BLOOD ORDERABLES Final Re sult Performing Organization Address City/[facility]/ZIP Co de Phone Number [facility] [address] [place] [address] * (ABNORMAL) Creatinine, serum (09/06/2024 3:00 AM EDT) Only the most recent of2 resultswithin the time period is included. Creatinine 12.53(H) 0.55 - 1.02 mg/dL [facility] 09/06/2024 3:00 AM EDT 09/07/2024 1:48 PM EDT Jesus Patel MD LAB BLOOD ORDERABLES Final Re sult Performing Organization Address [facility] de Phone Number [facility] [address] [place] [address] * (ABNORMAL) Bilirubin, total (09/06/2024 3:00 AM EDT) Only the most recent of2 resultswithin the time period is included. Total Bilirubin <0.2(L) 0.3 - 1.2 mg/dL [facility] 09/06/2024 3:00 AM EDT 09/07/2024 1:48 PM EDT Jesus Patel MD LAB BLOOD ORDERABLES Final Re sult Performing Organization Address [facility] Co de Phone Number [facility] [address] [place] [address] * (ABNORMAL) Lipid panel (09/06/2024 3:00 AM EDT) Cholesterol 216(H) <200 mg/dL [facility] Comment: Optimal: ?<200 Borderline: ? 200-239 Higher Risk: ?>239 Triglycerides 206(A) <150 mg/dL [facility] Comment: Optimal: ?<150 Borderline High: ??150-199 High: ? 200-499 Very High: ?>499 HDL 32(A) >59 mg/dL [facility] Comment: Desirable: ?>59 Higher Risk: ?<40 LDL-Calc 143(A) <100 mg/dL [facility] Comment: Optimal: ?<100 Above Optimal: ?100-129 Borderline High: ??130-159 High: ? 160-189 Very High: ?>189 VLDL Cholesterol Arturo 41(A) <30 mg/dL [facility] Comment: Optimal: ?<30 Borderline High: ??30-39 High: ? 40-99 Very High: ?>99 Chol/HDL Ratio 6.8(A) <3.3 [facility] Comment: Optimal: ?<3.3 Higher Risk: ?>6.2 09/06/2024 3:00 AM EDT 09/07/2024 1:48 PM EDT us Jesus Patel MD LAB BLOOD ORDERABLES Final Re sult [facility] [address] [place] [address] * (ABNORMAL) Electrolyte panel (09/06/2024 3:00 AM EDT) Only the most recent of2 resultswithin the time period is included. Sodium 140 136 - 145 mEq/L [facility] Potassium 4.2 3.4 - 5.0 mEq/L [facility] Chloride 103 98 - 107 mEq/L [facility] Bicarbonate (CO2) 18(L) 21 - 31 mEq/L [facility] Anion Gap 19(H) 3 - 14 mEq/L [facility] 09/06/2024 3:00 AM EDT 09/07/2024 1:48 PM EDT Jesus Patel MD LAB BLOOD ORDERABLES Final Re sult Performing Organization Address [facility] Co de Phone Number [facility] [address] [place] [address] * (ABNORMAL) Phosphorus (08/19/2024 3:00 AM EDT) Phosphorus, Serum 8.8(H) 2.5 - 5.0 mg/dL [facility] 08/19/2024 3:00 AM EDT 08/20/2024 12:20 PM EDT Jesus Patel MD LAB BLOOD ORDERABLES Final Re sult Performing Organization Address [facility] de Phone Number [facility] [address] [place] [address] from Last 3 Months Insurance [facility] ([id number]) MARLA CHEN [phone] [facility] ([id number]) MARLA CHEN [phone] Care Teams Audiology Doctor Relationship Specialty Start Date End Date April Sharma MD [facility] [id number] [place], [place] PCP - General 06/15/20
== END ==
LOC: HO.CARD 09:50
PROVIDERS: PCP Internal Medicine; Visit Provider Internal Medicine
DX: I51.7 Cardiomegaly (principal)
CPT/HCPCS: 93005

== ENCOUNTER → 2024-10-08 10:08 | Outpatient (BNV) | payer OTHER, SELFPAY | PROVIDERS: PCP Internal Medicine; Visit Provider Internal Medicine | DX: R94.31 Abnormal electrocardiogram [ECG] [EKG] (principal); I51.7 Cardiomegaly | CPT/HCPCS: 93010 ==

== ENCOUNTER 2024-10-15 14:07 | Outpatient (AMB) | payer OTHER, SELFPAY ==
--- NOTE | 2024-10-15 14:10 | A.OFFPC_ITS ---
Vital Signs 10/15/24 14:11 Height 5 ft 4 in BP 126/72 Blood Pressure Location Lt brachial Position Sitting Pulse 88 Pulse Source Pulse Oximeter Pulse Oximetry (%) 98 Oxygen Delivery Method Room Air Intake Visit Reasons: Follow Up Application Manager Required: No Accompanied by: Self / Same As Patient Allergies No Known Allergies Allergy (Mild, Verified 10/15/24 14:11) NONE Tobacco use date assessed: 10/15/24 Dental Screening Dental Screen Date: 10/15/24 Did you have a dental visit in the last 12 months?: Yes Did you have a dental problem in the last 6 months where you did not have access to dental care?: No Was dental information given to patient?: Patient has dentist [facility] Medical History (Updated 07/27/24 @ 05:12 by Jason Salmon MD) Peripheral artery disease Amputation of toe of right foot Morbid obesity Peripheral neuropathy Diabetic retinopathy Obesity (BMI 30-39.9) Acquired hypothyroidism Chronic kidney disease with end stage renal failure on dialysis Pure hypercholesterolemia Benign essential hypertension Type 1 diabetes mellitus Anemia Surgical History History of amputation of right second toe Hx of right BKA History of amputation of lesser toe of left foot S/P arteriovenous (AV) fistula creation (~07/09/18) S/P dilatation and curettage (~02/2018) History of cataract surgery (~08/2017) History of eye surgery (~03/2017) History of detached retina repair (~08/15/16) S/P gastric sleeve procedure (~07/2020) Family History Father No problems noted. Mother No problems noted. Social History Housing: House Alcohol intake: never Patient Tobacco Use Status: Never used Tobacco e-Cigarette/Vaping Use: Never Used Second Hand Smoke Exposure: No service: No Current occupational status: employed Cognitive needs: No Hearing needs: No Vision needs: Yes Questionnaire PHQ-9 Over the last 2 weeks, how often have you been bothered by any of the following problems? 1. Little interest or pleasure in doing things: not at all 2. Feeling down, depressed, or hopeless: not at all 3. Trouble falling or staying asleep, or sleeping too much: several days 4. Feeling tired or having little energy: several days 5. Poor appetite or overeating: not at all 6. Feeling bad about yourself - or that you are a failure or have let yourself or your family down: several days 7. Trouble concentrating on things, such as reading the newspaper or watching television: not at all 8. Moving or speaking so slowly that other people could have noticed. Or the opposite - being so fidgety or restless that you have been moving around a lot more than usual: not at all 9. Thoughts that you would be better off or of hurting yourself in some way: not at all Total score: 3 Source: Developed by Drs. Dc Fall, Isaura Cotton, Antoine Rankin and colleagues, with an educational itz from [employer]. Thrive Questionnaire Date Thrive assessed: 10/15/24 I am a: Patient What is your living situation today?: I have a steady place to live Within the past 12 months, did the food you bought not last and you didn't have the money to get more?: Never true Within the past 12 months, did you worry whether your food would run out before you got money to buy more?: Never true Do you have trouble paying for medicines?: No Do you have trouble getting transportation to medical appointments?: No Do you have trouble paying your heating and electricity bill?: No Do you have trouble taking care of your child, family member or friend?: No Do you have trouble with day-to-day activities such as bathing, preparing meals, shopping, managing finances, etc.?: Yes Are you currently unemployed and looking for a job?: No Are you interested in more education?: Yes Please select the resources that you would like help with: None Currently or been in a relationship where the following occur: I choose not to answer THRIVE Score: 0 AUDIT C Alcohol Use Questionnaire (AUDIT-C) 1. How often do you have a drink containing alcohol?: Monthly or less 2. How many drinks containing alcohol do you have on a typical day when you are drinking?: 1 or 2 3. How often do you have six or more drinks on one occasion?: Never Total Score: 1 LEÓN-7 AMB Questionnaire LEÓN-7 Date LEÓN - 7 assessed: 10/15/24 Feeling nervous, anxious, or on edge: 0 = Not at all Not being able to stop or control worryin = Not at all Worrying too much about different things: 0 = Not at all Trouble relaxin = Not at all Being so restless that it is hard to sit still: 0 = Not at all Becoming easily annoyed or irritable: 0 = Not at all Feeling afraid as if something awful might happen: 0 = Not at all Total LEÓN-7 score (0-4 normal; 5-9 mild; 10-14 moderate; 15-21 severe): 0 Source: Developed by Drs. Dc Fall, Isaura Cotton, Antoine Rankin and colleagues, with an educational itz from [employer]. Physical exam (Primary Care) Vital Signs: Last Vital Signs Pulse 88 10/15/24 14:11 BP 126/72 10/15/24 14:11 Pulse Ox 98 10/15/24 14:11 Oxygen Delivery Method Room Air 10/15/24 14:11 Tobacco/Smoking Status: Tobacco use Status Tobacco use date assessed 10/15/24 10/15/24 14:12 Patient Tobacco Use Status Never used Tobacco 10/15/24 14:12 e-Cigarette/Vaping Use Never Used 10/15/24 14:12 PHQ-9: PHQ-9 Score PHQ-9: Total score 3 10/15/24 14:35 Thrive Assessment: Date of Thrive Assessment Date Thrive assessed 10/15/24 10/15/24 14:12 Currently or been in a relationship where the following occur: I choose not to answer Results AMB Hemoglobin A1c AMB Hemoglobin A1c 5.9 % Last Edit by FRANSISCO Malagon on 10/15/24 14 :36 Results Reviewed Results Reviewed: Laboratory Last Values Hgb A1c (Clinic) 5.9 % (4.0-6.0) 10/15/24 14:34 Coding Assessment & Plan Assessment & Plan Orders: Orders Vitamin D 25-OH Total Today E55.9 - Vitamin D deficiency, unspecified AMB Hemoglobin A1c Today Z13.9 - Encounter for screening, unspecified Complete Blood Count Auto Diff Today D64.9 - Anemia, unspecified Lipid Panel Today E78.00 - Pure hypercholesterolemia, unspecified Comprehensive [place]. Panel Fast Today E78.00 - Pure hypercholesterolemia, unspecified Thyroid Stimulating Hormone Today E03.9 - Hypothyroidism, unspecified Free T4 (Free Thyroxine) Today E03.9 - Hypothyroidism, unspecified Vitamin B12 and Folate Today E53.8 - Deficiency of other specified B group vitamins
[2024-10-15 14:11] VITALS: BP 126/72; PULSE 88; O2SAT 98
--- OUTSIDE RECORDS SUMMARY | 2024-10-15 15:19 | XMS_ITS | Encounter Summary ---
Author Organization [facility] Address [address] [place] [address] Phone Care Team Providers Care Enologist Name Role Phone April Sharma MD Primary Care Provider [phone] Reason for Visit * Reason Comments Med Refill Encounter Details Date Type Department Care Team (Late st Contact Info) Description 09/23/2020 Refill [facility] [address] [place] [address] Seamus Ramsey MD [address] [place] [id number] Social History Tobacco Use Types Packs/Day Years [...] on filedocumented in this encounter Care Teams Enologist Relationship Specialty Start Date End Date April Sharma MD [address] [place] [address] PCP - General 06/15/20 documented as of this encounter
--- OUTSIDE RECORDS SUMMARY | 2024-10-15 15:19 | XMS_ITS | Patient Health Record ---
[facility] Address [address] [place] [address] Care Team Providers Care Gynecological Assistant Name Role Phone Luis Antonio NAIDU [place] Primary Care Provider Cristóbal Galindo Unavailable [phone] Reason For Referral No Information Medications Medication [...] Problem Type I diabetes mellitus without complication ([id number]) Type 1 diabetes mellitus without complications (E10.9) Active confirmed Plan Of Treatment Pending Test Test Name Order Date [id number] NAIL, 6 OR MORE 10/17/2019 [id number] NAIL, 6 OR MORE 02/06/2020 Insurance Providers Payer Name Payer Address Payer Phone Subscriber Number Group Number Insured Name Patient Relationship to Insured Coverage Start Date Coverage End Date Medicare [employer] [address] [place] [address] [id number] Verona Holland Self - patient is the insured Medical (General) History Medical History History ICD Code Anemia Anxiety Diabetic High blood pressure Kidney disease thyroid Chicken pox Transfusions Surgical History Surgery Date(Month/Year) fistula left arm 05/13/19
--- OUTSIDE RECORDS SUMMARY | 2024-10-15 15:19 | XMS_ITS | Clinical Summary ---
Author Organization [facility] Address [address] [address] Phone Care Team Providers Care Patternmaker Apprentice Metal Name Role Phone April Sharma MD Primary Care Provider [phone] Medications sevelamer carbonate (RENVELA) 800 MG tablet [...] capsule 2 4 Active ergocalciferol 1.25 MG (94954 UT) capsule TAKE 1 CAPSULE BY MOUTH [...] Encounters Date Type Department Care Team Description 10/09/2024 Treatment [facility] [address] [phone] Jesus Patel MD End stage renal disease; Dependence on renal dialysis 09/30/2024 Treatment [facility] [address] [phone] Jesus Patel MD End stage renal disease; Dependence on renal dialysis 09/20/2024 Treatment [facility] [address] [phone] Jesus Patel MD End stage renal disease; Dependence on renal dialysis 09/13/2024 Treatment [facility] [address] [phone] Jesus Patel MD End stage renal disease; Dependence on renal dialysis 09/06/2024 Orders Only [facility] [address] [phone] Jesus Patel MD 09/06/2024 Treatment [facility] [address] [phone] Jesus Patel MD End stage renal disease; Dependence on renal dialysis 08/26/2024 Treatment [facility] [address] [phone] Jesus Patel MD End stage renal disease; Dependence on renal dialysis 08/22/2024 Treatment [facility] [address] [phone] Jasbir Trammell MD End stage renal disease; Dependence on renal dialysis 08/19/2024 Treatment [facility] [address] [phone] Jesus Patel MD End stage renal disease; Dependence on renal dialysis 08/10/2024 Treatment [facility] [address] [phone] Jasbir Trammell MD End stage renal disease; Dependence on renal dialysis 08/07/2024 Treatment [facility] [address] [phone] Jesus Patel MD End stage renal disease; Dependence on renal dialysis 08/02/2024 Treatment [facility] [address] [phone] Jesus Patel MD End stage renal disease; Dependence on renal dialysis 07/27/2024 Treatment [facility] [address] [phone] Jasbir Trammell MD from Last 3 Months [...] Visual Foot Exam 07/06/2020 Diabetes: Hemoglobin A1C 12/06/202409/06/ 025, 06/12/2024, 07/14/2021, Additional history exists Influenza Vaccine Completed 03/07/2024, , 03/19/2018 Procedures Procedure Name Priority Date/Time Associated Diagnosis Comments HEPATITIS B SURFACE ANTIGEN W/REFL CONFIRM Routine 10/09/2024 3:00 AM EDT PROTEIN, TOTAL, SERUM Routine 10/09/2024 3:00 AM EDT TRANSFERRIN SATURATION Routine 3:00 AM EDT ELECTROLYTE PANEL Routine 10/09/2024 3:0 0 AM EDT LIH (HC) Routine 10/09/2024 3:00 AM EDT MAGNESIUM Routine 10/09/2024 3:00 AM EDT LACTATE DEHYDROGENASE Routine 10/09/2024 3:00 AM EDT GLUCOSE, RANDOM Routine 10/09/2024 3:00 AM EDT BUN/CREATININE RATIO Routine 10/09/2024 3:00 AM EDT ALT Routine 10/09/2024 3:00 AM EDT CREATININE, SERUM Routine 10/09/2024 3:0 0 AM EDT AST Routine 10/09/2024 3:00 AM EDT BILIRUBIN, TOTAL Routine 10/09/2024 3:00 AM EDT ALKALINE PHOSPHATASE Routine 10/09/2024 3:00 AM EDT CALCIUM PHOSPHORUS PRODUCT, ADJUSTED (HC) Routine 10/09/2024 3:00 AM EDT KT/V NATURAL LOG, URR (HC) Routine 10/09/2024 3:00 AM EDT CBC AND DIFFERENTIAL Routine 10/09/2024 3:00 AM EDT HEMOGLOBIN Routine 09/23/2024 3:00 AM EDT HEMOGLOBIN [...] 0 AM EST BILIRUBIN, TOTAL Routine 08/07/2024 3:00 AM EST AST Routine 08/07/2024 3:00 AM [...] from Last 3 Months Results * LIH (10/09/2024 3:00 AM EDT) Only the most recent of5 resultswithin the time period is included. Lipemia Normal Normal [facility] Icterus Normal Normal [facility] Hemolysis Normal Normal [facility] 10/09/2024 3:00 AM EDT 10/10/2024 1:55 PM EDT Jesus Patel MD LAB [id number] SOLICITED RESULTS Final Result Performing Organization Address [facility] Co de Phone Number APS [facility] [address] [place] [address] * (ABNORMAL) Kt/V Natural Log, URR (10/09/2024 3:00 AM EDT) Only the most recent of4 resultswithin the time period is included. Pathologist [facility] Treatment Time 239 min [facility] Pre-Weight, lb 114.0 kg [facility] Post-Weight, lb 110.5 kg [facility] Ultrafiltration Rate 8 <=13 mL/kg/hr [facility] Comment: Recommend achieving Ultrafiltration Rate (UFR) <=10 mL/kg/hr References: Rob NELSON et al. Kidney Int. 2010; 79(2):250-257 BUN 52(H) 7 - 25 mg/dL [facility] BUN Post Dialysis 18 7 - 25 mg/dL [facility] UREA REDUCTION RATIO (%) 65 >=65 % [facility] Kt/V Natural Log 1.25 >=1.2 [facility] 10/09/2024 3:00 AM EDT 10/10/2024 1:44 PM EDT Jesus Patel MD LAB [id number] SOLICITED RESULTS Final Result Performing Organization Address [facility] Co de Phone Number [facility] [address] [place] [address] * (ABNORMAL) Calcium Phosphorus Product, Adjusted (10/09/2024 3:00 AM EDT) Only the most recent of3 resultswithin the time period is included. Albumin 4.4 3.6 - 5.4 g/dL [facility] Calcium 9.5 8.6 - 10.3 mg/dL [facility] Phosphorus, Serum 10.0(H) 2.5 - 5.0 mg/dL [facility] Ca*PO4 95.0(A) <55.0 mg2/dL2 [facility] Calcium, Adjusted Total 9.5 8.6 - 10.3 mg/dL [facility] CA*PO4 CORRCTD 95.0(A) <55.0 mg2/dL2 [facility] 10/09/2024 3:00 AM EDT 10/10/2024 1:55 PM EDT Jesus Patel MD LAB [id number] SOLICITED RESULTS Final Result Performing Organization Address [facility] de Phone Number [facility] [address] [place] [address] * Hepatitis B Surface Ag w/Reflex Confirmation (10/09/2024 3:00 AM EDT) Only the most recent of3 resultswithin the time period is included. Hep B Surface Antigen Negative Negative [facility] 10/09/2024 3:00 AM EDT 10/10/2024 1:55 PM EDT Jesus Patel MD LAB BLOOD ORDERABLES Final Re sult Performing Organization Address [facility] de Phone Number [facility] [address] [place] [address] * BUN/CREATININE RATIO (10/09/2024 3:00 AM EDT) BUN/Creatinine Ratio 4.9 <=23.0 [facility] 10/09/2024 3:00 AM EDT 10/10/2024 1:55 PM EDT Jesus Patel MD LAB [id number] SOLICITED RESULTS Final Result Performing Organization Address [facility] de Phone Number [facility] [address] [place] [address] * (ABNORMAL) TSAT (10/09/2024 3:00 AM EDT) Only the most recent of3 resultswithin the time period is included. [facility] Iron 62 50 - 170 ug/dL [facility] Transferrin 112(L) 250 - 380 mg/dL [facility] TIBC 157(L) 211 - 406 ug/dL [facility] Iron Saturation (TSat) 40 22 - 52 % [facility] 10/09/2024 3:00 AM EDT 10/10/2024 1:55 PM EDT us Jesus Patel MD LAB BLOOD ORDERABLES Final Re sult [facility] [address] [place] [address] * (ABNORMAL) CBC and Differential (10/09/2024 3:00 AM EDT) Only the most recent of3 resultswithin the time period is included. [facility] DIFFERENTIAL MANUAL, 2 Not Indicated [facility] White Blood Cells 12.1(H) 4.0 - 10.0 K/uL [facility] RBC 4.29 3.93 - 5.22 M/uL [facility] Hgb 12.2 11.2 - 15.7 g/dL [facility] Hemoglobin x 3 36.6 33.6 - 47.1 g/dL [facility] Hematocrit 39.1 34.1 - 44.9 % [facility] MCV 91.1 79.4 - 94.8 fL [facility] MCH 28.4 25.6 - 32.2 pg [facility] MCHC 31.2(L) 32.2 - 35.5 g/dL [facility] Platelets 466(H) 182 - 369 K/uL [facility] RDW 13.6 11.7 - 14.4 % [facility] Neutrophils Relative 71.5(H) 34.0 - 71.1 % [facility] Lymphocytes Relative 18.6(L) 19.3 - 51.7 % [facility] Monocytes 6.2 4.7 - 12.5 % [facility] Eosinophils Relative 2.0 0.7 - 5.8 % [facility] Basophils Relative 1.1 0.1 - 1.2 % [facility] Immature Granulocytes 0.6 0.0 - 1.0 % [facility] 10/09/2024 3:00 AM EDT 10/10/2024 1:24 PM EDT Jesus Patel MD LAB BLOOD ORDERABLES Final Re sult Performing Organization Address [facility] de Phone Number [facility] [address] [place] [address] * (ABNORMAL) ALT (10/09/2024 3:00 AM EDT) Only the most recent of3 resultswithin the time period is included. ALT (SGPT) 8(L) 10 - 49 U/L [facility] 10/09/2024 3:00 AM EDT 10/10/2024 1:55 PM EDT Jesus Patel MD LAB BLOOD ORDERABLES Final Re sult Performing Organization Address [facility] de Phone Number [facility] [address] [place] [address] * AST (10/09/2024 3:00 AM EDT) Only the most recent of3 resultswithin the time period is included. AST (SGOT) 11 <34 U/L [facility] 10/09/2024 3:00 AM EDT 10/10/2024 1:55 PM EDT Jesus Patel MD LAB BLOOD ORDERABLES Final Re sult Performing Organization Address [facility] de Phone Number [facility] [address] [place] [address] * Protein, total (10/09/2024 3:00 AM EDT) Only the most recent of3 resultswithin the time period is included. Total Protein 7.4 6.4 - 8.9 g/dL [facility] 10/09/2024 3:00 AM EDT 10/10/2024 1:55 PM EDT Jesus Patel MD LAB BLOOD ORDERABLES Final Re sult Performing Organization Address [facility] Co de Phone Number [facility] [address] [place] [address] * (ABNORMAL) Alkaline phosphatase (10/09/2024 3:00 AM EDT) Only the most recent of3 resultswithin the time period is included. Alkaline Phosphatase 132(H) 46 - 116 U/L [facility] 10/09/2024 3:00 AM EDT 10/10/2024 1:55 PM EDT Jesus Patel MD LAB BLOOD ORDERABLES Final Re sult Performing Organization Address [facility] de Phone Number [facility] [address] [place] [address] * Magnesium (10/09/2024 3:00 AM EDT) Only the most recent of3 resultswithin the time period is included. Magnesium 2.4 1.9 - 2.7 mg/dL [facility] 10/09/2024 3:00 AM EDT 10/10/2024 1:55 PM EDT Jesus Patel MD LAB BLOOD ORDERABLES Final Re sult Performing Organization Address [facility] de Phone Number [facility] [address] [place] [address] * (ABNORMAL) Lactate dehydrogenase (10/09/2024 3:00 AM EDT) Only the most recent of3 resultswithin the time period is included. LDH 304(H) 120 - 246 U/L [facility] 10/09/2024 3:00 AM EDT 10/10/2024 1:55 PM EDT Jesus Patel MD LAB BLOOD ORDERABLES Final Re sult Performing Organization Address [facility] Co de Phone Number [facility] [address] [place] [address] * (ABNORMAL) Glucose, random (10/09/2024 3:00 AM EDT) Only the most recent of3 resultswithin the time period is included. Glucose 132(H) 70 - 99 mg/dL [facility] Comment: ADA guidelines outline the following fasting glucose ranges: Normal: ? <100 Prediabetes: 100-125 Diabetes: ? >125 10/09/2024 3:00 AM EDT 10/10/2024 1:55 PM EDT Jesus Patel MD LAB BLOOD ORDERABLES Final Re sult Performing Organization Address [facility] de Phone Number [facility] [address] [place] [phone] * (ABNORMAL) Creatinine, serum (10/09/2024 3:00 AM EDT) Only the most recent of3 resultswithin the time period is included. Creatinine 10.58(H) 0.55 - 1.02 mg/dL [facility] 10/09/2024 3:00 AM EDT 10/10/2024 1:55 PM EDT Jesus Patel MD LAB BLOOD ORDERABLES Final Re sult Performing Organization Address [facility] de Phone Number [facility] [address] [place] [phone] * (ABNORMAL) Bilirubin, total (10/09/2024 3:00 AM EDT) Only the most recent of3 resultswithin the time period is included. Total Bilirubin <0.2(L) 0.3 - 1.2 mg/dL [facility] 10/09/2024 3:00 AM EDT 10/10/2024 1:55 PM EDT Jesus Patel MD LAB BLOOD ORDERABLES Final Re sult Performing Organization Address [facility] de Phone Number [facility] [address] [place] [address] * (ABNORMAL) Electrolyte panel (10/09/2024 3:00 AM EDT) Only the most recent of3 resultswithin the time period is included. Sodium 137 136 - 145 mEq/L [facility] Potassium 4.0 3.4 - 5.0 mEq/L [facility] Chloride 98 98 - 107 mEq/L [facility] Bicarbonate (CO2) 24 21 - 31 mEq/L [facility] Anion Gap 15(H) 3 - 14 mEq/L [facility] 10/09/2024 3:00 AM EDT 10/10/2024 1:55 PM EDT us Jesus Patel MD LAB BLOOD ORDERABLES Final Re sult Performing Organization Address [facility]/ZIP Co de Phone Number [facility] [address] [place] [address] * (ABNORMAL) Hemoglobin (09/23/2024 3:00 AM EDT) Hgb 10.9(L) 11.2 - 15.7 g/dL [facility] Hemoglobin x 3 32.7(L) 33.6 - 47.1 g/dL [facility] 09/23/2024 3:00 AM EDT 09/24/2024 12:54 PM EDT Jesus Patel MD LAB BLOOD ORDERABLES Final Re sult Performing Organization Address [facility]/ZIP Co de Phone Number [facility] [address] [place] [address] * Hemoglobin and hematocrit (09/18/2024 3:00 AM EDT) Only the most recent of3 resultswithin the time period is included. Hgb 11.8 11.2 - 15.7 g/dL [facility] Hematocrit 37.7 34.1 - 44.9 % [facility] Hemoglobin x 3 35.4 33.6 - 47.1 g/dL [facility] 09/18/2024 3:00 AM EDT 09/19/2024 1:58 PM EDT Jesus Patel MD LAB BLOOD ORDERABLES Final Re sult Performing Organization Address [facility] Co de Phone Number [facility] [address] [place] [address] * Unspun Tube (09/06/2024 3:00 AM EDT) Unspun Tube Post Gold/Whit e [facility] Comment:Received uncentrifug ed specimen. Unable to perform testing. 09/06/2024 3:00 AM EDT Jesus Patel MD LAB [id number] SOLICITED RESULTS Final Result Performing Organization Address [facility] de Phone Number [facility] [address] [place] [address] * (ABNORMAL) PTH, Intact (09/06/2024 3:00 AM [...] ORDERABLES Final Re sult Performing Organization Address [facility] de Phone Number [facility] [address] [place] [address] * (ABNORMAL) Hemoglobin A1c (09/06/2024 3:00 AM [...] ORDERABLES Final Re sult Performing Organization Address [facility] de Phone Number [facility] [address] [place] [address] * (ABNORMAL) Ferritin (09/06/2024 3:00 AM EDT) Only the most recent of2 resultswithin the time period is included. Ferritin 1,304(H) 10 - 291 ng/mL [facility] 09/06/2024 3:00 AM EDT 09/07/2024 1:48 PM EDT Jesus Patel MD LAB BLOOD ORDERABLES Final Re sult Performing Organization Address [facility] de Phone Number [facility] [address] [place] [address] * (ABNORMAL) Lipid panel (09/06/2024 3:00 AM [...] ORDERABLES Final Re sult Performing Organization Address [facility] de Phone Number [facility] [address] [place] [address] * (ABNORMAL) Phosphorus (08/19/2024 3:00 AM EDT) Phosphorus, Serum 8.8(H) 2.5 - 5.0 mg/dL [facility] 08/19/2024 3:00 AM EDT 08/20/2024 12:20 PM EDT Jesus Patel MD LAB BLOOD ORDERABLES Final Re sult Performing Organization Address [facility] de Phone Number [facility] [address] [place] [address] from Last 3 Months Insurance [facility] ([id number]) [facility] ([id number]) Care Teams Patternmaker Apprentice Metal Relationship Specialty Start Date End Date April Sharma MD [facility] [id number] [place], [place] PCP - General 06/15/20
--- OUTSIDE RECORDS SUMMARY | 2024-10-15 15:19 | XMS_ITS | Encounter Summary ---
Author Organization [facility] Address [address] [phone] Phone Care Team Providers Care Community Arts Officer Name Role Phone April Sharma MD Primary Care Provider [phone] Encounter Details Date Type Department Care Team (Late st Contact Info) Description 10/09/2024 Treatment [facility] [address] [phone] Cade Spencer MD [address] [phone] End stage renal disease; Dependence [...] Dialysis Note - Cade Spencer MD - 10/09/2024 12:00 AM EDT Patient: Verona Holland : 1985 Note Type: Dialysis Rounds-Comp Service Date: 10/09/2024 This patient was personally seen for a complete visit as part of routine monthly dialysis care for end stage renal disease. Attending Centrifugal Casting Machine Operator: CADE SPENCER Dialysis Location: [facility] Schedule: Shift: 2 ADEQUACY ASSESSMENT Kt/V, Natural Log 1.25 (10/09/24) 1.47 (09/11/24) 1.39 (08/07/24) UREA REDUCTION RATIO (%) 65 (10/09/24) 71 (09/11/24) 68 (08/07/24) BUN 52 (10/09/24) 79 (09/11/24) 78 (09/06/24) BUN Post Dialysis 18 (10/09/24) 23 (09/11/24) Test Canceled (09/06/24) Creatinine 10.58 (10/09/24) 12.53 (09/06/24) 8.75 (08/07/24) Bicarbonate (CO2) 24 (10/09/24) 18 (09/06/24) 26 (08/07/24) Sodium 137 (10/09/24) 140 (09/06/24) 139 (08/07/24) ANEMIA ASSESSMENT Hgb 12.2 (10/09/24) 10.9 (09/23/24) 11.8 (09/18/24) Iron Saturation (TSat) 40 (10/09/24) 66 (09/06/24) 63 (08/07/24) Ferritin 1,304 (09/06/24) 1,487 (08/07/24) 1,207 (07/10/24) Iron 62 (10/09/24) 96 (09/06/24) 109 (08/07/24) TIBC 157 (10/09/24) 146 (09/06/24) 172 (08/07/24) MCV 91.1 (10/09/24) 88.4 (09/06/24) 85.7 (08/07/24) Platelets 466 (10/09/24) 380 (09/06/24) 484 (08/07/24) BMM ASSESSMENT Calcium, Adjusted Total 9.5 10/09/24 8.9 09/06/24 8.9 08/07/24 Calcium 9.5 10/09/24 8.9 09/06/24 8.9 08/07/24 Phosphorus, Serum 10.0 10/09/24 11.5 09/06/24 8.8 08/19/24 Ca*PO4 95.0 10/09/24 102.4 09/06/24 66.8 08/07/24 PTH, Intact 1,359 09/06/24 672 08/07/24 1,081 07/10/24 Vitamin D, 25-Hydroxy 40 06/12/24 Magnesium 2.4 10/09/24 2.4 09/06/24 2.5 08/07/24 Alkaline Phosphatase 132 10/09/24 113 09/06/24 128 08/07/24 Aluminum 2 06/12/24 NUTRITION ASSESSMENT Albumin 4.4 10/09/24 4.1 09/06/24 4.3 08/07/24 Potassium 4.0 10/09/24 4.2 09/06/24 5.1 08/07/24 Hemoglobin A1C 6.0 09/06/24 6.9 06/12/24 ADDITIONAL LABS White Blood Cells 12.1 (10/09/24) 11.6 (09/06/24) 12.8 (08/07/24) Cholesterol 216 (09/06/24) 221 (06/12/24) HDL 32 (09/06/24) 38 (06/12/24) LDL-Calc 143 (09/06/24) 152 (06/12/24) Triglycerides 206 (09/06/24) 156 (06/12/24) Hep B Surface Antibody 45 (06/12/24) 14 (05/17/24) Uric Acid 5.8 (06/12/24) ADDITIONAL COMMENT COMMENTS: 09/30/24 stable 07/15/24 stable 07/17/24 cont f/u re prosthesis 08/02/24 doing ok 08/07/24 stable 08/19/24 doing ok, getting prosthesis 08/26/24 stable 09/06/24 stable 10/09/24 stable 02/07/24 stable 02/12/24 no new issues 02/19/24 stable 02/26/24 doing ok, has appt for xplant eval in [place] 03/27/24 recent [facility] s/p tma, cont f/u vasc and wound care 04/15/24 stable, cont Abx 05/03/24 doing ok 05/06/24 cont f/u ortho re osteo foot 05/20/24 same issues 06/07/24 cont rehab 06/26/24 stable, still not ready for prosthesis 07/05/24 stable Signed by: CADE SPENCER MD on 10/13/2024 at 08:54:56 PM Transcribed by: CADE SPENCER MD on 10/13/2024 at 08:54:56 PM documented in this encounter Plan of Treatment Not on file documented as of this encounter Visit Diagnoses Diagnosis End stage renal disease Dependence on renal dialysis documented in this encounter Care Teams Community Arts Officer Relationship Specialty Start Date End Date April Sharma MD [facility] [place] [address] [place] PCP - General 06/15/20 documented as of this encounter
--- OUTSIDE RECORDS SUMMARY | 2024-10-15 15:19 | XMS_ITS | Continuity of Care Document ---
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 Refills 0, Maintenance, Use as directed for type 1 diabetes control. 90 day supply, 12/11/23 1:31:00 PM EDT, Supply, 164.3, cm, 10/27/23 14:32:00 EDT, Height, 109.8, kg, 01/19/23 8:11:00 EDT, Dry Weight Start Date: 12/11/23 Status: Ordered Quantity: 1.0 Unit: each Repeat number: 1 Dexcom G7 sensors Dexcom G7 sensors, See Instructions, # 3 each, Refills 11, Tot. Refills 11, Maintenance, Use sensorto monitor glucose. New sensor to be placed every 10 days. E10.65, 08/29/24 12:39:00 PM EDT, please include skin tac wipes, Supply, 162.5, cm, 08/29/24 11:44:00 EDT, Height, 94.3, kg, 06/21/24 10:07:00 EST, Dry Weight Start Date: 08/29/24 Status: Ordered Quantity: 3.0 Unit: each Repeat number: 12 Dilaudid 2 mg oral tablet See Instructions, 1 tablet By Mouth at bedtime, # 14 tablet, 0 Refills, Maintenance, 06/14/24 8:01:00 AM EST, [facility], Partial fill upon patient request if the prescription is for a schedule II opioid drug., 162.5, cm, 06/14/24 7:57:00 EST, Height, 95, kg, 06/04/24 23:11:00 EST, Dry Weight Start Date: 06/14/24 Status: Ordered Quantity: 14.0 Unit: tablet Repeat number: 1 ergocalciferol [id number] iu oral capsule 3 each, 0 Refill(s), [...] Unit: each Repeat number: 12 Freestyle Lite Lancets See Instructions, # 200 each, Refills 3, Tot. Refills 3, Maintenance, Use as instructed to test blood sugar up to 6x daily in case of Dexcom CGM failure. E10.65, 09/10/24 5:06:00 PM EDT, Supply, 162.5,cm, 08/29/24 11:44:00 EDT, Height, 94.3, kg, 06/21/24 10:07:00 EST, Dry Weight Start Date: 09/10/24 Status: Ordered Quantity: 200.0 Unit: each Repeat number: 4 Freestyle Lite Monitor See Instructions, # 1 [...] 1 diabetes mellitus without complications Freestyle Lite Monitor See Instructions, # 1 each, Refills 0, Tot. Refills 0, Maintenance, Use as instructed to check blood sugar up to 6x daily in case of Dexcom CGM failure. E10.65, 09/10/24 5:06:00 PM EDT, Supply, 162.5, cm, 08/29/24 11:44:00 EDT, Height, 94.3, kg, 06/21/24 10:07:00 EST, Dry Weight Start Date: 09/10/24 Status: Ordered Quantity: 1.0 Unit: each Repeat number: 1 Freestyle Lite Test Strips See Instructions, # [...] Strips See Instructions, # 200 each, Refills 3, Tot. Refills 3, Maintenance, Use as instrcuted to test blood sugar up to 6x daily in case of Dexcom CGM failure. E10.65, 09/10/24 5:06:00 PM EDT, Supply, 162.5,cm, 08/29/24 11:44:00 EDT, Height, 94.3, kg, 06/21/24 10:07:00 EST, Dry Weight Start Date: 09/10/24 Status: Ordered Quantity: 200.0 Unit: each Repeat number: 4 Freestyle Lite Test Strips See Instructions, # [...] 12:48:00 PM EST, Route to Pharmacy Electronically, [facility], Partial fill upon patient request if [...] Indication: Type 1 diabetes mellitus without complications Gvoke HypoPen Two Pack 1 mg/0.2 mL subcutaneous solution See Instructions, Administer as prescribed to treat severe hypoglycemia. If used call 911., # 1 each, 1 Refills, Soft Stop, 08/15/24 2:18:00 PM EDT, [facility]/pharmacy #[id number], E10.64, 162.5, cm, 08/06/24 8:32:00 EST, Height, 94.3, kg, 06/21/24 10:07:00 EST, Dry Weight Start Date: 08/15/24 Status: Ordered Quantity: 1.0 Unit: each Repeat number: 2 Insulin Lispro KwikPen 100 units/mL injectable solution See Instructions, Inject 20-40 units, 3 times a day before meals per sliding scale. E10.9 90-day supply. Max daily dose: 120 units., # 105 mL, 3 Refills, Maintenance, 08/29/24 12:45:00 PM EDT, [facility]/pharmacy #[id number], Partial fill upon patient request if the prescription is for a schedule II opioid drug., 162.5, cm, 08/29/24 11:44:00 EDT, Height, 94.3, kg, 06/21/24 10:07:00 EST, Dry Weight Start Date: 08/29/24 Status: Ordered Quantity: 105.0 Unit: mL Repeat number: 4 Ketostix See Instructions, # 1 pack/packet, Refills [...] 03/05/24 Status: Ordered Repeat number: 1 Lantus Solostar Pen 100 units/mL subcutaneous solution See Instructions, Inject 16 units twice daily Rotate injection sites E10.9 90 day supply, # 30 mL, 3 Refills, Maintenance, 08/29/24 12:43:00 PM EDT, [facility]/pharmacy #[id number], can switch to other brand of long acting insulin pen if this one is not cover by insurance, 162.5, cm, 08/29/24 11:44:00 EDT, Height, 94.3, kg, 06/21/24 10:07:00 EST, Dry Weight Start Date: 08/29/24 Status: Ordered Quantity: 30.0 Unit: mL Repeat number: 4 latanoprost 0.005% ophthalmic solution 1 drops, Eye, [...] Refills, Maintenance, 10/05/17 11:44:04 AM EDT, Tablet, [facility]/pharmacy #[id number] Start Date: 10/05/17 Status: Ordered Quantity: 30.0 [...] Date: 03/20/24 Status: Ordered Repeat number: 1 Mounjaro 2.5 mg/0.5 mL subcutaneous solution = 2.5 mg, Subcutaneous Injection, Every week, rotate injection sites, # 2 mL, 3 Refills, Maintenance, 09/26/24 1:24:00 PM EDT, Solution, [facility], Partial fill upon patient request if the prescription is for a schedule II opioid drug., 162.5, cm, 09/24/24 16:34:00 EDT, Height, 94.3, kg, 06/21/24 10:07:00 EST, Dry Weight Start Date: 09/26/24 Status: Ordered Quantity: 2.0 Unit: mL Repeat number: 4 Nephrocap Capsule 1, capsule, By Mouth, Daily, [...] 1.0 Unit: each Repeat number: 1 Pen Vernon, 32 G x 4 mm BD Ultra Fine III See instructions, # 150 each, Refills 11, Tot. Refills 11, Maintenance, 5 daily inejctions. for T1DM E10.9, 08/29/24 12:40:00 PM EDT, Compound, 162.5, cm, 08/29/24 11:44:00 EDT, Height, 94.3, kg, 06/21/24 10:07:00 EST, Dry Weight Start Date: 08/29/24 Stop Date: 08/24/25 Status: Ordered Quantity: 150.0 Unit: each Repeat [...] day with meals, Refill per PCP or Green Chain Worker, # 180 tablet, 0 Refills, Maintenance, 01/30/24 1:52:00 PM EDT, Tablet, [facility], Partial fill upon patient request if the prescription is for a schedule II opioid drug., 163, cm, 01/30/24 11:32:00 EDT, Height, 106.9, kg, 01/26/24 21:23:00 EDT, Dry Weight Start Date: 01/30/24 Status: Ordered Quantity: 180.0 Unit: tablet Repeat number: 1 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, See Instructions, # 1 each, Refills 0, [...] goal < 8% Confirmed Active [facility] [place] [facility] [address], [place] [address] 2M,W,F 11am-3:30pm [phone] Social History Social History Type Response Smoking Status Never (less than 100 in lifetime) entered on: 08/29/24 Sex Sex Representation Female (finding) Patient Care team information Care Team Personnel Name: Blas Doty Position: [facility] Associate Professional Member Role: Lifetime Consulting Provider Address: [address] [place] [address] [address] [facility] [place] [address]- Telecom: Name: Jason Salmon MD Position: Reference Physician Member Role: PCP Address: [address] [place] [address] Drive [address] [place] [address]- Telecom: Name: Christina Gan RN Position: [facility] RN Member Role: Primary Care Nurse Name: Tiffanie Santos RN Position: S RN Member Role: Primary Care Nurse Name: Bianka Mendes RN Position: S RN Member Role: Primary Care Nurse Name: Yolanda Butler Position: [facility] Outreach Member Role: Lifetime Consulting Physician Name: Joy Springer Position: [facility] Associate Professional Member Role: Lifetime Consulting Provider Address: [address] [facility] [place] [address]- Telecom: Name: Al Suazo MD Position: [facility] Renal MD Member Role: Lifetime Consulting Physician Address: [address] [place] [address] [address] [place] [address]- Telecom: Name: Sydnie Rubi RN Position: [facility] RN Member Role: Primary Care Nurse Name: Anupam Vernon RN Position: [facility] RN Member Role: Primary Care Nurse Name: Ana Manzano RN Position: [facility] RN Member Role: Primary Care Nurse Name: Whitney Reid RN Position: [facility] RN Member Role: Primary Care Nurse Name: Anthony Feliciano RN Position: [facility] RN Member Role: Primary Care Nurse Name: Kelli Corado RN Position: [facility] SN RN Member Role: Primary Care Nurse Name: Dale Barajas RN Position: [facility] RN Member Role: Primary Care Nurse Name: Teresa Guerra Position: [facility] Outreach Member Role: Lifetime Consulting Physician Name: Ronak Yates RN Position: [facility] RN Member Role: Primary Care Nurse Name: Baldemar Romero RN Position: [facility] RN Member Role: Primary Care Nurse Name: Sunitha Murillo RN Position: [facility] RN Member Role: Primary Care Nurse Name: Dc Blackwood III, RN Position: [facility] RN Member Role: Primary Care Nurse Name: Dede Jordan RN Position: [facility] RN Member Role: Primary Care Nurse Name: Charissa Dominguez RN Position: [facility] RN Member Role: Primary Care Nurse Name: Vicenta Simms RN Position: [facility] OB RN Member Role: Primary Care Nurse Name: Danyell Frost RN Position: [facility] RN Member Role: Primary Care Nurse Name: Jesus Patel MD Position: [facility] Renal MD Member Role: Lifetime Consulting Physician Address: [address] [facility] [place] [address]- Telecom: Name: Maria Del Rosario Mejia RN Position: [facility] RN Member Role: Primary Care Nurse Name: Patricia Oshea RN Position: [facility] RN Member Role: Primary Care Nurse Name: Kuldeep Paris RN Position: S RN Member Role: Primary Care Nurse Name: Yola Choi MD Position: [facility] AD COMPOSITOR MD Member Role: Lifetime AD COMPOSITOR Physician Address: [address] [address] [facility] [place] [address]- Telecom: Name: Giovana Osei RN Position: [facility] RN Member Role: Primary Care Nurse Name: Ellen Feldman RN Position: [facility] RN Member Role: Primary Care Nurse Name: Alesha Montes RN Position: [facility] RN Member Role: Primary Care Nurse Name: Elizabeth Peralta RN Position: [facility] RN Member Role: Primary Care Nurse Name: Mayra Diaz RN Position: [facility] RN Member Role: Primary Care Nurse Care Team Related Persons Name: COLON, KATIE Name: ISAURA GREENE Name: NIC GREENE Name: TRACI ALBERT Insurance Providers Guarantor name: CARLEEN GREENE Health Plan Information #: 1 Payer: [employer] Member Number: [id number] Policy Number: NA Group Number: [facility] Health Plan Information #: 2 Payer: [employer] Member Number: [id number] Policy Number: NA Group Number: [id number]
--- OUTSIDE RECORDS SUMMARY | 2024-10-15 15:19 | XMS_ITS | Encounter Summary ---
Author Organization [facility] Address [address] [facility] [facility] [address] [place] [address] Phone Care Team Providers Care Healthcare Science Specialist Name Role Phone April Sharma MD Primary Care Provider [phone] Reason for Visit * Reason Comments Med Refill Encounter Details Date Type Department Care Team (Late st Contact Info) Description 10/18/2020 Refill [facility] [address] [facility] [address] [place] [phone] Seamus Ramsey MD [address] [facility] [address] [place] [phone] Social History Tobacco Use Types Packs/Day Years [...] on filedocumented in this encounter Care Teams Healthcare Science Specialist Relationship Specialty Start Date End Date April Sharma MD [address] [place] PCP - General 06/15/20 documented as of this encounter
== END 2024-10-15 14:47 | disposition home or self-care (01) ==
LOC: HO.HMCH 14:08
PROVIDERS: PCP Internal Medicine; Visit Provider Internal Medicine
DX: Z13.9 Encounter for screening, unspecified (principal)

== ENCOUNTER → 2024-10-15 14:07 | Outpatient (BNVA) | payer OTHER, SELFPAY | PROVIDERS: PCP Internal Medicine; Visit Provider Internal Medicine | DX: E10.3593 Type 1 diabetes mellitus with proliferative diabetic retinopathy without macular edema, bilateral (principal); E10.22 Type 1 diabetes mellitus with diabetic chronic kidney disease; I12.0 Hypertensive chronic kidney disease with stage 5 chronic kidney disease or end stage renal disease; N18.6 End stage renal disease; D63.1 Anemia in chronic kidney disease; E10.40 Type 1 diabetes mellitus with diabetic neuropathy, unspecified; E78.00 Pure hypercholesterolemia, unspecified; E03.9 Hypothyroidism, unspecified; I73.9 Peripheral vascular disease, unspecified; E55.9 Vitamin D deficiency, unspecified; E53.8 Deficiency of other specified B group vitamins; G47.00 Insomnia, unspecified; F33.0 Major depressive disorder, recurrent, mild; E66.9 Obesity, unspecified; Z79.4 Long term (current) use of insulin; Z79.899 Other long term (current) drug therapy; Z98.84 Bariatric surgery status; Z99.2 Dependence on renal dialysis | CPT/HCPCS: 83036; 96127; 99212 ==

== ENCOUNTER 2024-11-27 10:58 | Outpatient (AMB) | payer OTHER, SELFPAY ==
--- NOTE | 2024-11-27 11:02 | A.OFFPC_ITS ---
Vital Signs 11/27/24 11:04 Height 5 ft 4 in Weight 233 lb 11.04 oz BMI 40.1 BP 130/68 Blood Pressure Location Rt brachial Position Sitting Respiration 18 Pulse 86 Pulse Source Pulse Oximeter Temp 97.1 F Temp Source Temporal Artery Scan Pulse Oximetry (%) 97 Oxygen Delivery Method Room Air Intake Visit Reasons: [facility] vitrectomy on her left eye 12/25 Intake Note: Patient is here for a Pre-op for Vitrectomy scheduled with Dr Portillo ([facility]) on 12/25/24. Applications Support Specialist Required: No Commutator Presser: Not Required per policy Accompanied by: Self / Same As Patient Allergies No Known Allergies Allergy (Mild, Verified 11/27/24 11:25) NONE Medication List - Last Reconciled 11/27/24 by YUNIER Seals atorvastatin 20 mg PO BEDTIME 90 days blood sugar diagnostic (FreeStyle Lite Strips) As directed cholecalciferol (vitamin D3) 125 mcg PO DAILY cyanocobalamin (vitamin B-12) 500 mcg PO DAILY 90 days ferrous sulfate 325 mg PO DAILY 30 days fluticasone propionate 50 mcg/actuation (Flonase Allergy Relief) 1 spray intranasal DAILY 30 days folic acid 400 mcg PO DAILY 90 days gabapentin 100 mg PO TID insulin aspart U-100 (Novolog FlexPen U-100 Insulin aspart) 20 - 50 sliding scale doses subcut TIDAC insulin glargine 16 units subcut BID levothyroxine 175 mcg PO DAILY 90 days metolazone 10 mg PO DAILY nifedipine ER 90 mg PO DAILY pen needle, diabetic (BD Kiana 2nd Gen Pen Needle) As directed sevelamer carbonate 2,400 mg PO DAILY sucroferric oxyhydroxide (Velphoro) 1,000 mg PO TID torsemide 100 mg PO BID trazodone 100 mg PO BEDTIME PRN 30 days Tobacco use date assessed: 11/27/24 Dental Screening Dental Screen Date: 10/15/24 HPI [facility] vitrectomy on her left eye 12/25 HPI Details The patient is a 39-year-old female presenting for left eye vitrectomy. The patient of Dr. Salmon was last seen in office on 10/15/2024 The patient reports having scar tissue in the left eye, which causes blurriness in the center of her vision, significantly affecting her ability to see and preventing her from going outside. She is has proliferative diabetic retinopathy OU. The patient has a history of diabetes mellitus, for which she is on insulin therapy. She is also on two diuretics and has a history of chronic kidney disease requiring dialysis three times a week. Surgeon/Location: Navjot Reeves MD, at [facility] [place] and [place], [place]. Per patient, she thinks that the doctor that will be doing her procedure name is Dr. Portillo. Anesthesia: MAC. The patient reports that she had general anesthesia without any issues. Date: 12/25/24 The patient denies any post surgery hypothermia or clotting disorder and he is not on any blood thinners. Medical history significant for Acquired hypothyroidism, chronic kidney disease with end stage renal failure on dialysis, Type 1 diabetes mellitus, Anemia, Benign essential hypertension, morbid obesity, Right below knee amputee, PAD The patient is going to dialysis Monday, Monday, and Monday-her vinyl cutter comes to the center once a week at the dialysis clinic. She is managed by Dr. Patel. She is currently being managed on levothyroxine 175 mcg daily for her acquired hypothyroidism, which has been stable. Her anemia is multifactorial due to chronic diseases/iron-deficiency, particularly her end-stage renal disease-ferrous sulfate 325 mg ongoing The patient is on long-acting insulin for which she was instructed to take half of the insulin the day of the procedure. She was instructed to hold the short- acting insulin per sliding scale because she will be NPO. The patient was also instructed to only take her blood pressure and thyroid medications in addition. She was told to hold all both her diuretics the day of her surgery. The patient is planning on getting her update labs done tomorrow. A1C 5.7 in office. Recent EKG was normal sinus. Denies SOB, chest pain, heart palpitation, and dizziness. Denies abdominal pain or change in bowel habits, and she is anuric. [facility] Medical History Peripheral artery disease Amputation of toe of right foot Morbid obesity Peripheral neuropathy Diabetic retinopathy Obesity (BMI 30-39.9) Acquired hypothyroidism Chronic kidney disease with end stage renal failure on dialysis Pure hypercholesterolemia Benign essential hypertension Type 1 diabetes mellitus Anemia Surgical History History of amputation of right second toe Hx of right BKA History of amputation of lesser toe of left foot S/P arteriovenous (AV) fistula creation (~07/09/18) S/P dilatation and curettage (~02/2018) History of cataract surgery (~08/2017) History of eye surgery (~03/2017) History of detached retina repair (~08/15/16) S/P gastric sleeve procedure (~07/2020) Family History Father No problems noted. Mother No problems noted. Social History Housing: House Alcohol intake: never Patient Tobacco Use Status: Never used Tobacco e-Cigarette/Vaping Use: Never Used Second Hand Smoke Exposure: No service: No Current occupational status: employed Cognitive needs: Yes (Wheelchair, walker) Hearing needs: No Vision needs: Yes Questionnaire Thrive Questionnaire Date Thrive assessed: 10/13/24 I am a: Patient What is your living situation today?: I have a steady place to live Within the past 12 months, did the food you bought not last and you didn't have the money to get more?: Never true Within the past 12 months, did you worry whether your food would run out before you got money to buy more?: Never true Do you have trouble paying for medicines?: No Do you have trouble getting transportation to medical appointments?: No Do you have trouble paying your heating and electricity bill?: No Do you have trouble taking care of your child, family member or friend?: No Do you have trouble with day-to-day activities such as bathing, preparing meals, shopping, managing finances, etc.?: Yes Are you currently unemployed and looking for a job?: No Are you interested in more education?: Yes Please select the resources that you would like help with: None Currently or been in a relationship where the following occur: I choose not to answer THRIVE Score: 0 LEÓN-7 AMB Questionnaire LEÓN-7 Date LEÓN - 7 assessed: 10/15/24 Source: Developed by Drs. Dc Fall, Isaura Cotton, Antoine Rankin and colleagues, with an educational itz from [employer]. Review of Systems Const Denies headache(s) Eyes Reports blurry vision and Reports loss of vision (she is legally blind in left eye) ENT Denies vertigo, Denies dizziness, Denies headache(s) and Denies sore throat Card Denies chest pain, Denies leg edema and Denies lightheadedness Resp Denies cough, Denies hemoptysis and Denies wheezing GI Denies abdominal pain, Denies melena, Denies constipation, Denies diarrhea and Denies vomiting Denies urinary frequency, Denies dysuria and Denies urinary urgency Musc Reports other (Right BKA) Neuro Denies Abnormal speech present, Denies behavioral changes, Denies vertigo, Den ies dizziness, Denies headache(s), Reports loss of vision (she is legally blind in left eye) and Denies memory loss Psych Denies anxiety, Denies behavioral changes, Denies depression, Denies memory loss and Denies panic attacks Stephen/Lymph Denies easy bleeding and Denies easy bruising Aller/Immun Denies wheezing Physical exam (Primary Care) Vital Signs: Last Vital Signs Temp 97.1 F 11/27/24 11:04 BP 130/68 11/27/24 11:04 BMI result Body Mass Index 40.1 Tobacco/Smoking Status: Tobacco use Status Tobacco use date assessed 11/27/24 11/27/24 11:13 Patient Tobacco Use Status Never used Tobacco 11/27/24 11:13 e-Cigarette/Vaping Use Never Used 11/27/24 11:13 Thrive Assessment: Date of Thrive Assessment Date Thrive assessed 10/13/24 11/27/24 11:13 Currently or been in a relationship where the following occur: I choose not to answer Const General: healthy appearing, no acute distress, alert and awake Nutritional Appearance: well nourished Orientation/consciousness: oriented to person, oriented to place and oriented to time HENMT Ears: TM's normal bilaterally General nose exam: Normal nasal mucous membranes and turbinates present Eyes Conjunctivae: conjunctivae normal Sclerae: sclerae normal Pupils: Equal, round and reactive pupils present Neck Neck: Yes no lymphadenopathy and Yes no JVD Thyroid: Thyroid normal Carotids: no bruits Resp Effort & Inspection: normal respiratory effort and not tachypneic Auscultation: no crackles, no rales, no rhonchi and no wheezes Cardio Rate: regular rate Rhythm: regular rhythm Heart sounds: no murmurs and normal S1 and S2 Peripheral pulses: popliteal pulses present bilateral 2+ and dorsalis pedis present on the left 1+ GI Inspection: Yes obesity Palpation (GI): Soft to palpation, nontender, no hepatomegaly and no splenomegaly Auscultation: normal bowel sounds General: Yes no CVA tenderness, Yes deferred and Yes other (anuric-ESRD dialysis m/w/f) Back/Spine/Pelvis Back: no CVA tenderness Skin General skin exam: no rashes or lesions noted and dry skin Neuro General: oriented to person, oriented to place and oriented to time Cranial nerves: Yes Equal, round and reactive pupils present Speech: No Abnormal speech present Gait exam (Neuro): Normal gait present Motor exam (neuro): no tremor noted Extrem Right upper extremity: full ROM Left upper extremity: full ROM Right lower extremity: full ROM and lower leg Details: other (R BKA); no edema Left lower extremity: full ROM; no edema Psych Mental Status: mental status grossly normal Speech and movement: Normal speech and movement present Affect: normal affect Attitude: cooperative Thought process: Normal thought process present Coding Level of Care Code Est Pt Level 4 (17110) Diagnoses Preoperative clearance Z01.818 Benign essential hypertension I10 Cardiomegaly I51.7 Peripheral artery disease I73.9 Type 1 diabetes mellitus with proliferative retinopathy of both eyes, macular edema presence unspecified, unspecified proliferative retinopathy type E10.3593 Diabetes mellitus complication status: with ophthalmic complications Diabetes mellitus complication detail: with diabetic retinopathy Diabetic retinopathy severity: with proliferative retinopathy Proliferative retinopathy type: unspecified Diabetes mellitus macular edema: macular edema presence unspecified Laterality: bilateral Acquired hypothyroidism E03.9 Morbid obesity E66.01 Chronic kidney disease with end stage renal failure on dialysis N18.6; Z99.2 Anemia due to chronic kidney disease, on chronic dialysis N18.6; D63.1; Z99.2 Anemia type: due to chronic kidney disease Chronic kidney disease stage: on chronic dialysis Time Spent (min) 42 Assessment & Plan Assessment & Plan (1) Preoperative clearance: Code(s): Z01.818 - Encounter for other preprocedural examination Category: Medical Plan: The patient will be getting up to date labs done tomorrow and will be officially cleared after these are completed. A1c 5.7% in office, her recent EKG was sinus rhythm Regarding preop clearance, the patient is at acceptable risk for proposed surgery, unless her labs comes back concerning. Reviewed with the patient that no surgery is completely free of risk and that this examination is to assist the surgeon in reviewing informed consent. (2) Benign essential hypertension: Code(s): I10 - Essential (primary) hypertension Category: Medical Plan: BP 130/78 at goal reinforced low salt diet Continue nifedipine ER 90 mg daiy (3) Cardiomegaly: Code(s): I51.7 - Cardiomegaly Category: Medical Plan: The patient continues to be asymptomatic. She had echo on 03/30/2021 that showed normal left ventricle wall thickness, no evidence of regional wall motion abnormalities, diastolic function normal. EF of 60-65%. Stress test done on 06/21/2021 via [place] with no arrhythmia or ischemia noted (4) Peripheral artery disease: Code(s): I73.9 - Peripheral vascular disease, unspecified Category: Medical Plan: Right below-knee amputation. Positive pedal pulse in left leg and positive popliteal pulse in right leg. Skin warm to touch, +cms (5) Type 1 diabetes mellitus: Code(s): E10.9 - Type 1 diabetes mellitus without complications Category: Medical Qualifiers: Diabetes mellitus complication status: with ophthalmic complications Diabetes mellitus complication detail: with diabetic retinopathy Diabetic retinopathy severity: with proliferative retinopathy Proliferative retinopathy type: unspecified Diabetes mellitus macular edema: macular edema presence unspecified Laterality: bilateral Qualified Code(s): E10.3593 - 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, bilateral Plan: Controlled diabetes with a A1c of 5.7% in office today Reinforced low sugar/carbohydrate diet and activity as tolerated Continue same insulin regimen (insulin glargine 16 units subQ b.i.d., NovoLog FlexPen 20-50 sliding scale doses s.c before meals and at HS). However, on the day of surgery, the patient was instructed to take half of her scheduled long acting insulin and hold the short-acting because she will be npo (6) Acquired hypothyroidism: Code(s): E03.9 - Hypothyroidism, unspecified Category: Medical Plan: Continue levothyroxine 175 mcg (7) Morbid obesity: Code(s): E66.01 - Morbid (severe) obesity due to excess calories Category: Medical Plan: Healthy eating discussed. Encouraged to eat fruits/vegetables, protein- fish/baked chicken, and to avoid salty/fried foods, sweets, caffeine and carbohydrates. Encouraged to increase water intake 6-8 glasses a day (8) Chronic kidney disease with end stage renal failure on dialysis: Comment: dialysis MWF @ [id number] Slater is vinyl cutter Code(s): N18.6 - End stage renal disease; Z99.2 - Dependence on renal dialysis Category: Medical Plan: continue dialysisi m/w/f continue metolazone 10 mg daily, sevelamer carbonate 2400 mg daily, sucroferric oxyhydrooxide 1000 mg TID HOLD these medications on the day of surgery (9) Anemia: Code(s): D64.9 - Anemia, unspecified Category: Medical Qualifiers: Anemia type: due to chronic kidney disease Chronic kidney disease stage: on chronic dialysis Qualified Code(s): N18.6 - End stage renal disease; D63.1 - Anemia in chronic kidney disease; Z99.2 - Dependence on renal dialysis Plan: multifactoral: continues folic acid 400 mg daily, ferrous sulfate 325 mg daily, cyanocobalamin 500 mcg daily We will continue to monitor CBC
[2024-11-27 11:04] VITALS: BP 130/68; PULSE 86; RESP 18; TEMP 36.2; O2SAT 97; BMI 40.1
--- OUTSIDE RECORDS SUMMARY | 2024-11-27 13:01 | XMS_ITS | Encounter Summary ---
Author Organization [facility] Address [address] [facility] [address] [place] [address] Phone Care Team Providers Care Reporting Consultant Name Role Phone April Sharma MD Primary Care Provider [phone] Reason for Visit * Reason Comments Med Refill Encounter Details Date Type Department Care Team (Late st Contact Info) Description 10/18/2020 Refill [facility] [address] [facility] [address] [place] [phone] Seamus Ramsey MD [address] [facility] [address] [place] [phone] Social History Tobacco Use Types Packs/Day Years [...] on filedocumented in this encounter Care Teams Reporting Consultant Relationship Specialty Start Date End Date April Sharma MD [address] [place] PCP - General 06/15/20 documented as of this encounter
== END 2024-11-27 13:25 | disposition home or self-care (01) ==
LOC: HO.HMCH 10:59
PROVIDERS: PCP Internal Medicine
DX: I12.0 Hypertensive chronic kidney disease with stage 5 chronic kidney disease or end stage renal disease (principal); E10.3593 Type 1 diabetes mellitus with proliferative diabetic retinopathy without macular edema, bilateral; E66.01 Morbid (severe) obesity due to excess calories; N18.6 End stage renal disease; Z68.41 Body mass index [BMI] 40.0-44.9, adult; Z01.818 Encounter for other preprocedural examination; E03.9 Hypothyroidism, unspecified; I51.7 Cardiomegaly; I73.9 Peripheral vascular disease, unspecified; Z99.2 Dependence on renal dialysis; D63.1 Anemia in chronic kidney disease

== ENCOUNTER → 2024-11-27 10:58 | Outpatient (BNVA) | payer OTHER, SELFPAY | PROVIDERS: PCP Internal Medicine | DX: Z01.818 Encounter for other preprocedural examination (principal); E78.00 Pure hypercholesterolemia, unspecified; E10.22 Type 1 diabetes mellitus with diabetic chronic kidney disease; E10.51 Type 1 diabetes mellitus with diabetic peripheral angiopathy without gangrene; E10.3593 Type 1 diabetes mellitus with proliferative diabetic retinopathy without macular edema, bilateral; I12.0 Hypertensive chronic kidney disease with stage 5 chronic kidney disease or end stage renal disease; N18.6 End stage renal disease; H53.8 Other visual disturbances; E89.0 Postprocedural hypothyroidism; E66.01 Morbid (severe) obesity due to excess calories; I51.7 Cardiomegaly; D63.1 Anemia in chronic kidney disease; Z99.2 Dependence on renal dialysis; Z68.41 Body mass index [BMI] 40.0-44.9, adult; Z89.511 Acquired absence of right leg below knee | CPT/HCPCS: 99212 ==

== ENCOUNTER 2024-11-28 08:10 | Outpatient (REF) | payer OTHER, SELFPAY ==
--- OUTSIDE RECORDS SUMMARY | 2024-11-28 08:20 | XMS_ITS | Encounter Summary ---
Author Organization [facility] Address [address] [facility] [address] [place] [address] Phone Care Team Providers Care Global Engineering Manager Name Role Phone April Sharma MD Primary Care Provider [phone] Reason for Visit * Reason Comments Med Refill Encounter Details Date Type Department Care Team (Late st Contact Info) Description 10/18/2020 Refill [facility] [address] [facility] [address] [place] [phone] Seamus Ramsey MD [address] [facility] [address] [place] [phone] Social History Tobacco Use Types Packs/Day Years [...] on filedocumented in this encounter Care Teams Global Engineering Manager Relationship Specialty Start Date End Date April Sharma MD [address] [place] PCP - General 06/15/20 documented as of this encounter
[2024-11-28 08:27] LABS: MANUAL DIFF FLAG NO
[2024-11-28 08:43] LABS: Basophils Absolute Auto 0.1 X10*3/uL (0.0-0.2); Basophils Percent Auto 0.8 % (0-2); Eosinophils Absolute Auto 0.2 X10*3/uL (0.0-0.4); Eosinophils Percent Auto 1.5 % (0-4); Hematocrit 40.2 % (37.0-47.0); Imm Gran Abs Auto 0.06 X10*3/uL (0.00-0.03); Imm Gran Pct Auto 0.5 % (0.0-0.4); Lymphocytes Absolute Auto 3.8 X10*3/uL (1.2-4.9); Lymphocytes Percent Auto 29.5 % (20-40); Mean Corpuscular HGB Conc 32.3 g/dl (31.0-35.0); Mean Corpuscular Hemoglobin 27.7 pg (27.0-33.0); Mean Corpuscular Volume 85.5 fL (80.0-98.0); Mean Platelet Volume 10.7 fL (9.4-12.3); Monocytes Absolute Auto 0.9 X10*3/uL (0.1-1.2); Monocytes Percent Auto 6.9 % (2-11); Neutrophils Absolute Auto 7.9 x10*3/uL (2.0-8.3); Neutrophils Percent Auto 60.8 % (45-73); Platelet Count 395 X10*3/uL (160-400); Red Cell Distribution Width 13.9 % (11.0-16.0); White Blood Count 12.9 X10*3/uL (4.8-10.8)
[2024-11-28 08:47] LABS: Estimated Average Glucose 123 mg/dL; Hemoglobin A1c % 5.9 % (<6.0)
[2024-11-28 09:33] LABS: Free T4 (Free Thyroxine) 0.92 ng/dL (0.71-1.85); TSH reflex Free T4 2.68 uIU/mL (0.32-4.0); Thyroid Stimulating Hormone 2.68 uIU/mL (0.32-4.0); Vitamin D 25-OH Total 42.1 ng/mL (>30)
[2024-11-28 09:34] LABS: Alanine Aminotransferase 22 U/L (0-31); Albumin Level 4.3 g/dL (3.5-5.0); Alkaline Phosphatase 239 U/L (39-117); Anion Gap 17 (12-20); Aspartate Amino Transferase 19 U/L (5-31); Bilirubin Total 0.4 mg/dL (0.0-1.0); Blood Urea Nitrogen 23 mg/dL (9-16); Calcium 8.5 mg/dL (8.4-10.2); Carbon Dioxide 33 mmol/L (22-29); Chloride 93 mmol/L (96-108); Cholesterol 265 mg/dL (<200); Estimated Glomerular Filt Rate 5; Glucose Fasting 83 mg/dL (60-99); HDL Cholesterol 37 mg/dL (>40); LDL Cholesterol Calculated 185 mg/dL (<100); Potassium 3.2 mmol/L (3.3-5.1); Sodium 140 mmol/L (135-145); Total Protein 7.7 g/dL (6.5-8.0); Triglycerides 217 mg/dL (<150)
[2024-11-28 09:43] LABS: Folate 2.3 ng/mL (> or = 4.0)
[2024-11-28 10:11] LABS: Vitamin B12 375 pg/mL (200-900)
== END 2024-11-28 08:11 | disposition home or self-care (01) ==
LOC: HO.LAB 08:10
PROVIDERS: PCP Internal Medicine; Visit Provider Internal Medicine
DX: E78.00 Pure hypercholesterolemia, unspecified (principal); D64.9 Anemia, unspecified; E03.9 Hypothyroidism, unspecified; E11.9 Type 2 diabetes mellitus without complications; E53.8 Deficiency of other specified B group vitamins; E55.9 Vitamin D deficiency, unspecified
CPT/HCPCS: 36415; 80053; 80061; 82306; 82607; 82746; 83036; 84439; 84443; 85025

== ENCOUNTER 2024-11-29 09:57 | Outpatient (REF) | payer OTHER, SELFPAY ==
--- OUTSIDE RECORDS SUMMARY | 2024-11-29 10:29 | XMS_ITS | Encounter Summary ---
Author Organization [facility] Address [address] [facility] [address] [place] [address] Phone Care Team Providers Care Manager Credit Risk Name Role Phone April Sharma MD Primary Care Provider [phone] Reason for Visit * Reason Comments Med Refill Encounter Details Date Type Department Care Team (Late st Contact Info) Description 10/18/2020 Refill [facility] [address] [facility] [address] [place] [phone] Seamus Ramsey MD [address] [facility] [address] [place] [phone] Social History Tobacco Use Types Packs/Day Years [...] filedocumented in this encounter Care Teams Manager Credit Risk Relationship Specialty Start Date End Date April Sharma MD [address] [place] PCP - General 06/15/20 documented as of this encounter
[2024-11-29 10:43] LABS: Appearance Urine Turbid; Color Urine Yellow; Glucose Urine UA 250 mg/dL (Negative); Leukocyte Esterase Urine Large (3+) (Negative); Nitrite Urine Negative (Negative); Specific Gravity - Urine 1.015 (1.005-1.025); UMIC TRIGGER UACC YES; Urine Blood Moderate (2+) (Negative); Urine Ketones Trace mg/dL (Negative); Urine Protein 300 (3+) mg/dL (Neg-Trace)
[2024-11-29 11:07] LABS: Creatinine Urine 168.13 mg/dL
[2024-11-29 11:08] LABS: Bacteria Urine 1+ (None Seen); Hyaline Casts Urine 0-2 /LPF (0-2); Squamous Epithelial Cell Urine >20 /HPF (0-2); UACC Culture Trigger YES; WBC Urine >50 /HPF (0-5)
[2024-11-29 11:20] LABS: Microalbum/Creatinine Ratio Ur 413.9 ug/mg cr (<30)
== END 2024-11-29 09:58 | disposition home or self-care (01) ==
LOC: HO.LNP 09:57
PROVIDERS: Visit Provider Internal Medicine
DX: E11.9 Type 2 diabetes mellitus without complications (principal)
CPT/HCPCS: 81001; 82043; 82570; 87086

== ENCOUNTER 2025-02-25 14:18 | Outpatient (AMB) | payer OTHER, SELFPAY ==
--- NOTE | 2025-02-25 14:27 | A.OFFPC_ITS ---
Vital Signs 02/25/25 14:29 Height 5 ft 4 in Weight 227 lb 1.218 oz BMI 39.0 BP 130/64 Blood Pressure Location Rt brachial Position Sitting Pulse 98 Pulse Source Pulse Oximeter Temp 97.1 F Temp Source Temporal Artery Scan Pulse Oximetry (%) 98 Oxygen Delivery Method Room Air Intake Visit Reasons: 4 month Intake Note: Patient is here to follow up on DM, PAD, CKD, HTN. Fringing Machine Operator Required: No Xray Tech: Not Required per policy Accompanied by: Self / Same As Patient Allergies No Known Allergies Allergy (Mild, Verified 02/25/25 15:05) NONE Medication List - Last Reconciled 02/25/25 by Jason Salmon MD atorvastatin (Lipitor) 40 mg PO BEDTIME blood sugar diagnostic (FreeStyle Lite Strips) As directed cholecalciferol (vitamin D3) 125 mcg PO DAILY cyanocobalamin (vitamin B-12) 500 mcg PO DAILY 90 days ferrous sulfate 325 mg PO DAILY 30 days fluticasone propionate 50 mcg/actuation (Flonase Allergy Relief) 1 spray intranasal DAILY 30 days folic acid 400 mcg PO DAILY 90 days gabapentin 100 mg PO TID insulin aspart U-100 (Novolog FlexPen U-100 Insulin aspart) 20 - 50 sliding scale doses subcut TIDAC insulin glargine 16 units subcut BID levothyroxine 175 mcg PO DAILY 90 days metolazone 10 mg PO DAILY nifedipine ER 90 mg PO DAILY pen needle, diabetic (BD Kiana 2nd Gen Pen Needle) As directed sevelamer carbonate 2,400 mg PO DAILY sucroferric oxyhydroxide (Velphoro) 1,000 mg PO TID torsemide 100 mg PO BID trazodone 100 mg PO BEDTIME PRN 30 days Tobacco use date assessed: 02/25/25 Dental Screening Dental Screen Date: 10/15/24 HPI 4 month HPI Details Patient comes in today for her follow up visit States that she feels okay She developed a new blister on the stump of her right lower extremity last month, which she states was from her poorly fittung prosthesis but the blister is now completely healed over and they have also since remedied the fit on her prosthesis and states that it fits her much better now She was not able to get her follow up labs done prior to coming in for her appointment today [facility] Medical History Peripheral artery disease Amputation of toe of right foot Morbid obesity Peripheral neuropathy Diabetic retinopathy Obesity (BMI 30-39.9) Acquired hypothyroidism Chronic kidney disease with end stage renal failure on dialysis Pure hypercholesterolemia Benign essential hypertension Type 1 diabetes mellitus Anemia Surgical History History of amputation of right second toe Hx of right BKA History of amputation of lesser toe of left foot S/P arteriovenous (AV) fistula creation (~07/09/18) S/P dilatation and curettage (~02/2018) History of cataract surgery (~08/2017) History of eye surgery (~03/2017) History of detached retina repair (~08/15/16) S/P gastric sleeve procedure (~07/2020) Family History Father No problems noted. Mother No problems noted. Social History Housing: House Alcohol intake: never Patient Tobacco Use Status: Never used Tobacco e-Cigarette/Vaping Use: Never Used Second Hand Smoke Exposure: No service: No Current occupational status: employed Cognitive needs: Yes (Wheelchair, walker) Hearing needs: No Vision needs: Yes Questionnaire Thrive Questionnaire Date Thrive assessed: 10/13/24 I am a: Patient What is your living situation today?: I have a steady place to live Within the past 12 months, did the food you bought not last and you didn't have the money to get more?: Never true Within the past 12 months, did you worry whether your food would run out before you got money to buy more?: Never true Do you have trouble paying for medicines?: No Do you have trouble getting transportation to medical appointments?: No Do you have trouble paying your heating and electricity bill?: No Do you have trouble taking care of your child, family member or friend?: No Do you have trouble with day-to-day activities such as bathing, preparing meals, shopping, managing finances, etc.?: Yes Are you currently unemployed and looking for a job?: No Are you interested in more education?: Yes Please select the resources that you would like help with: None Currently or been in a relationship where the following occur: I choose not to answer THRIVE Score: 0 LEÓN-7 AMB Questionnaire LEÓN-7 Date LEÓN - 7 assessed: 10/15/24 Source: Developed by Drs. Dc Fall, Isaura Cotton, Antoine Rankin and colleagues, with an educational itz from [employer]. Physical exam (Primary Care) Vital Signs: Last Vital Signs Temp 97.1 F 02/25/25 14:29 Pulse 98 02/25/25 14:29 BP 130/64 02/25/25 14:29 Pulse Ox 98 02/25/25 14:29 Oxygen Delivery Method Room Air 02/25/25 14:29 BMI result Body Mass Index 39.0 Tobacco/Smoking Status: Tobacco use Status Tobacco use date assessed 02/25/25 02/25/25 14:39 Patient Tobacco Use Status Never used Tobacco 02/25/25 14:39 e-Cigarette/Vaping Use Never Used 02/25/25 14:39 Thrive Assessment: Date of Thrive Assessment Date Thrive assessed 10/13/24 02/25/25 14:39 Currently or been in a relationship where the following occur: I choose not to answer Results AMB Hemoglobin A1c AMB Hemoglobin A1c 6.8 % Last Edit by FRANSISCO Burkett on 02/25/25 14:43 Results Reviewed Results Reviewed: Laboratory Last Values Hgb A1c (Clinic) 6.8 % (4.0-6.0) H 02/25/25 14:27 Coding Assessment & Plan Assessment & Plan Orders: Orders Complete Blood Count Auto Diff 4 Months D64.9 - Anemia, unspecified AMB Hemoglobin A1c Today E10.3593 - 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, bilateral, Z13.9 - Encounter for screening, unspecified MM tomosynthesis screening BI Today Z12.31 - Encounter for screening mammogram for malignant neoplasm of breast Comprehensive [place]. Panel Fast 4 Months E78.00 - Pure hypercholesterolemia, unspecified Lipid Panel 4 Months E78.00 - Pure hypercholesterolemia, unspecified TSH reflex Free T4 4 Months E78.00 - Pure hypercholesterolemia, unspecified Vitamin D 25-OH Total 4 Months E55.9 - Vitamin D deficiency, unspecified
[2025-02-25 14:29] VITALS: BP 130/64; PULSE 98; TEMP 36.2; O2SAT 98; BMI 39.0
--- OUTSIDE RECORDS SUMMARY | 2025-02-25 17:33 | XMS_ITS | Patient Health Record ---
[facility] Address [address] [address] Care Team Providers Care National Account Manager Name Role Phone Luis Antonio NAIDU [place] Primary Care Provider Cristóbal Galindo Unavailable [phone] Reason For Referral No Information Medications Medication SIG (Take, Route, Frequency, Duration) Notes Start Date End Date Status Levothyroxine Sodium 175 MCG 1 capsule in the morning on an empty stomach Orally Once a day; Duration: 30 day(s) Active Lisinopril 40 MG Orally Act karen NIFEdipine 90 mg Act karen NovoLOG Active Ciclopirox 0.77 % 1 application to affected area Externally Twice a day to effected nails; Duration: 30 Active Sevelamer Carbonate 800 MG Orally [...] 10 MG 1 tablet Orally Once a day; Duration: 30 day(s) Active cloNIDine HCl patch Active HumaLOG Not-Taking Ferrous Sulfate 325 (65 Fe) MG 1 tablet Orally Once a day; Duration: 30 day(s) Active Lantus 50 Units Not- [...] Problem Type I diabetes mellitus without complication (479196311) Type 1 diabetes mellitus without complications (E10.9) Active confirmed Plan Of Treatment Pending Test Test Name Order Date [id number] NAIL, 6 OR MORE 10/17/2019 [id number] NAIL, 6 OR MORE 02/06/2020 Insurance Providers Payer Name Payer Address Payer Phone Subscriber Number Group Number Insured Name Patient Relationship to Insured Coverage Start Date Coverage End Date [employer] [address] [facility] [address] [id number] [place] Holland Self - patient is the insured Medical (General) History Medical History History ICD Code Anemia Anxiety Diabetic High blood pressure Kidney disease thyroid Chicken pox Transfusions Surgical History Surgery Date(Month/Year) fistula left arm 05/13/19
--- OUTSIDE RECORDS SUMMARY | 2025-02-25 17:33 | XMS_ITS | Clinical Summary ---
Author Organization [facility] Address [address] [address] Phone Care Team Providers Care Director Oracle Name Role Phone April Sharma MD Primary Care Provider [phone] Medications sevelamer carbonate (RENVELA) 800 MG tablet [...] capsule 2 4 Active ergocalciferol 1.25 MG (21418 UT) capsule TAKE 1 CAPSULE BY MOUTH [...] Encounters Date Type Department Care Team Description 02/10/2025 Treatment [facility] [address] [phone] Jesus Patel MD End stage renal disease; Dependence on renal dialysis 02/07/2025 [facility] [address] [phone] Jesus Patel MD End stage renal disease; Dependence on renal dialysis 01/20/2025 Treatment [facility] [address] [phone] Jesus Patel MD End stage renal disease; Dependence on renal dialysis 01/13/2025 Treatment [facility] [address] [phone] Jesus Patel MD End stage renal disease; Dependence on renal dialysis 01/06/2025 [facility] [address] [phone] Jesus Patel MD End stage renal disease; Dependence on renal dialysis 01/03/2025 Treatment [facility] [address] [phone] Jesus Patel MD End stage renal disease; Dependence on renal dialysis 01/03/2025 Treatment [facility] [address] [facility] [address] [place] [address] Jesus Patel MD End stage renal disease; Dependence on renal dialysis 12/30/2024 Treatment [facility] [address] [phone] Jesus Patel MD End stage renal disease; Dependence on renal dialysis 12/23/2024 Treatment [facility] [address] [phone] Jesus Patel MD End stage renal disease; Dependence on renal dialysis 12/18/2024 Treatment [facility] [address] [phone] Jesus Patel MD End stage renal disease; Dependence on renal dialysis 12/11/2024 Orders Only [facility] [address] [phone] Jesus Patel MD 12/09/2024 Treatment [facility] [address] [phone] Jesus Patel MD End stage renal disease; Dependence on renal dialysis 12/04/2024 Treatment [facility] [address] [phone] Jesus Patel MD End stage renal disease; Dependence on renal dialysis 11/25/2024 Treatment [facility] [address] [phone] Jesus Patel MD End stage renal disease; Dependence on renal dialysis from Last 3 Months Family History Medical [...] Exam 07/06/2020 Diabetes: Visual Foot Exam 07/06/2020 Influenza Vaccine (#1) 2025 4, 03/18/2019, 03/19/2018 Diabetes: Hemoglobin A1C 03/06/2025 025, 09/06/2024, 06/12/2024, Additional history exists Procedures Procedure Name Priority Date/Time Associated Diagnosis Comments HEMOGLOBIN Routine 02/24/2025 3:00 AM EDT POTASSIUM Routine 02/19/2025 3:00 AM EDT LIH (HC) Routine 02/19/2025 3:00 AM EDT HEMOGLOBIN AND HEMATOCRIT, BLOOD Routine 02/19/2025 3:00 AM EDT LIH (HC) Routine 02/12/2025 3:00 AM EDT POTASSIUM Routine 02/12/2025 3:00 AM EDT PTH, INTACT Routine 02/10/2025 3:00 AM EDT HEPATITIS B SURFACE ANTIGEN W/REFL CONFIRM Routine 02/05/2025 3:00 AM EDT TRANSFERRIN SATURATION Routine 3:00 AM EDT PROTEIN, TOTAL, SERUM Routine 02/05/2025 3:00 AM EDT MAGNESIUM Routine 02/05/2025 3:00 AM EDT ELECTROLYTE PANEL Routine 02/05/2025 3:0 0 AM EDT LIH (HC) Routine 02/05/2025 3:00 AM EDT LACTATE DEHYDROGENASE Routine 02/05/2025 3:00 AM EDT GLUCOSE, RANDOM Routine 02/05/2025 3:00 AM EDT CREATININE, SERUM Routine 02/05/2025 3:0 0 AM EDT BUN/CREATININE RATIO Routine 02/05/2025 3:00 AM EDT BILIRUBIN, TOTAL Routine 02/05/2025 3:00 AM EDT AST Routine 02/05/2025 3:00 AM EDT ALKALINE PHOSPHATASE Routine 02/05/2025 3:00 AM EDT ALT Routine 02/05/2025 3:00 AM EDT CALCIUM PHOSPHORUS PRODUCT, ADJUSTED (HC) Routine 02/05/2025 3:00 AM EDT FERRITIN Routine 02/05/2025 3:00 AM EDT CBC AND DIFFERENTIAL Routine 02/05/2025 3:00 AM EDT KT/V NATURAL LOG, URR (HC) Routine 02/05/2025 3:00 AM EDT LIH (HC) Routine 01/29/2025 3:00 AM EDT POTASSIUM Routine 01/29/2025 3:00 AM EDT LIH (HC) Routine 01/27/2025 3:00 AM EDT PHOSPHATE ( PHOSPHORUS) Routine 01/27/2025 3:00 AM EDT HEMOGLOBIN Routine 01/27/2025 3:00 AM EDT LIH (HC) Routine 01/22/2025 3:00 AM EDT POTASSIUM Routine 01/22/2025 3:00 AM EDT HEMOGLOBIN AND HEMATOCRIT, BLOOD Routine 01/22/2025 3:00 AM EDT LIH (HC) Routine 01/15/2025 3:00 AM EDT POTASSIUM Routine 01/15/2025 3:00 AM EDT HEPATITIS B SURFACE ANTIGEN W/REFL CONFIRM Routine 01/08/2025 3:00 AM EDT TRANSFERRIN SATURATION Routine 3:00 AM EDT PROTEIN, TOTAL, SERUM Routine 01/08/2025 3:00 AM EDT MAGNESIUM Routine 01/08/2025 3:00 AM EDT ELECTROLYTE PANEL Routine 01/08/2025 3:0 0 AM EDT LIH (HC) Routine 01/08/2025 3:00 AM EDT GLUCOSE, RANDOM Routine 01/08/2025 3:00 AM EDT CREATININE, SERUM Routine 01/08/2025 3:0 0 AM EDT LACTATE DEHYDROGENASE Routine 01/08/2025 3:00 AM EDT AST Routine 01/08/2025 3:00 AM EDT BUN/CREATININE RATIO Routine 01/08/2025 3:00 AM EDT BILIRUBIN, TOTAL Routine 01/08/2025 3:00 AM EDT ALT Routine 01/08/2025 3:00 AM EDT ALKALINE PHOSPHATASE Routine 01/08/2025 3:00 AM EDT CALCIUM PHOSPHORUS PRODUCT, ADJUSTED (HC) Routine 01/08/2025 3:00 AM EDT PTH, INTACT Routine 01/08/2025 3:00 AM EDT FERRITIN Routine 01/08/2025 3:00 AM EDT CBC AND DIFFERENTIAL Routine 01/08/2025 3:00 AM EDT KT/V NATURAL LOG, URR (HC) Routine 01/08/2025 3:00 AM EDT HEPATITIS C ABS W/REFLEX RNA DETECTR Routine 12/27/2024 3:00 AM EDT CONFIRMATION TEST HCV Routine 12/27/2024 3:00 AM EDT PHOSPHATE ( PHOSPHORUS) Routine 12/27/2024 3:00 AM EDT LIH (HC) Routine 12/27/2024 3:00 AM EDT POTASSIUM Routine 12/27/2024 3:00 AM EDT UNSPUN TUBE (HC) Routine 12/23/2024 3:00 AM EDT HEMOGLOBIN AND HEMATOCRIT, BLOOD Routine 12/23/2024 3:00 AM EDT POTASSIUM Routine 12/11/2024 3:00 AM EDT LIH (HC) Routine 12/11/2024 3:00 AM EDT TRANSFERRIN SATURATION Routine 3:00 AM EDT PROTEIN, TOTAL, SERUM Routine 12/04/2024 3:00 AM EDT ELECTROLYTE PANEL Routine 12/04/2024 3:0 0 AM EDT MAGNESIUM Routine 12/04/2024 3:00 AM EDT LIH (HC) Routine 12/04/2024 3:00 AM EDT LIPID PANEL Routine 12/04/2024 3:00 AM EDT LACTATE DEHYDROGENASE Routine 12/04/2024 3:00 AM EDT GLUCOSE, RANDOM Routine 12/04/2024 3:00 AM EDT BUN/CREATININE RATIO Routine 12/04/2024 3:00 AM EDT CREATININE, SERUM Routine 12/04/2024 3:0 0 AM EDT BILIRUBIN, TOTAL Routine 12/04/2024 3:00 AM EDT ALKALINE PHOSPHATASE Routine 12/04/2024 3:00 AM EDT AST Routine 12/04/2024 3:00 AM EDT ALT Routine 12/04/2024 3:00 AM EDT CALCIUM PHOSPHORUS PRODUCT, ADJUSTED (HC) Routine 12/04/2024 3:00 AM EDT HEPATITIS B SURFACE ANTIGEN W/REFL CONFIRM Routine 12/04/2024 3:00 AM EDT HEPATITIS B SURFACE ANTIBODY QUANT Routine 12/04/2024 3:00 AM EDT FERRITIN Routine 12/04/2024 3:00 AM EDT VITAMIN D 25 HYDROXY Routine 12/04/2024 3:00 AM EDT PTH, INTACT Routine 12/04/2024 3:00 AM EDT HEMOGLOBIN A1C Routine 12/04/2024 3:00 AM EDT KT/V NATURAL LOG, URR (HC) Routine 12/04/2024 3:00 AM EDT CBC AND DIFFERENTIAL Routine 12/04/2024 3:00 AM EDT LIH (HC) Routine 11/27/2024 3:00 AM EDT POTASSIUM Routine 11/27/2024 3:00 AM EDT from Last 3 Months Results * Hemoglobin (02/24/2025 3:00 AM EDT) Only the most recent of2 resultswithin the time period is included. Hgb 12.0 11.2 - 15.7 g/dL [facility] Hemoglobin x 3 36.0 33.6 - 47.1 g/dL [facility] 02/24/2025 3:00 AM EDT 02/25/2025 12:19 PM EDT us Jesus Patel MD LAB BLOOD ORDERABLES Final Re sult [facility] [address] [place] [address] * LIH (02/19/2025 3:00 AM EDT) Only the most recent of12 resultswithin the time period is included. Lipemia Normal Normal [facility] Icterus Normal Normal [facility] Hemolysis Normal Normal [facility] 02/19/2025 3:00 AM EDT 02/20/2025 3:21 PM EDT Jesus Patel MD LAB [id number] SOLICITED RESULTS Final Result Performing Organization Address [facility] de Phone Number [facility] [address] [place] [address] * Hemoglobin and hematocrit (02/19/2025 3:00 AM EDT) Only the most recent of3 resultswithin the time period is included. Hgb 12.0 11.2 - 15.7 g/dL [facility] Hematocrit 36.8 34.1 - 44.9 % [facility] Hemoglobin x 3 36.0 33.6 - 47.1 g/dL [facility] 02/19/2025 3:00 AM EDT 02/20/2025 2:28 PM EDT Jesus Patel MD LAB BLOOD ORDERABLES Final Re sult Performing Organization Address [facility] de Phone Number [facility] [address] [place] [address] * Potassium (02/19/2025 3:00 AM EDT) Only the most recent of8 resultswithin the time period is included. Potassium 3.7 3.4 - 5.0 mEq/L [facility] 02/19/2025 3:00 AM EDT 02/20/2025 3:21 PM EDT Jesus Patel MD LAB BLOOD ORDERABLES Final Re sult Performing Organization Address [facility] de Phone Number [facility] [address] [place] [address] * (ABNORMAL) PTH, Intact (02/10/2025 3:00 AM EDT) Only the most recent of3 resultswithin the time period is included. PTH, Intact 1,690(H) 160 - 721 pg/mL [facility] Comment: Suggested (KDIGO) ESRD maintenance range is two to nine times the upper normal limit (80.1 pg/mL) for the laboratory. 02/10/2025 3:00 AM EDT 02/11/2025 12:15 PM EDT Jesus Patel MD LAB BLOOD ORDERABLES Final Re sult Performing Organization Address [facility] Co de Phone Number [facility] [address] [place] [address] * Kt/V Natural Log, URR (02/05/2025 3:00 AM EDT) Only the most recent of3 resultswithin the time period is included. Treatment Time 246 min [facility] Pre-Weight, lb 105.6 kg [facility] Post-Weight, lb 103.3 kg [facility] Ultrafiltration Rate 5 <=13 mL/kg/hr [facility] Comment: Recommend achieving Ultrafiltration Rate (UFR) <=10 mL/kg/hr References: Rob NELSON et al. Kidney Int. 2010; 79(2):250-257 BUN 22 7 - 25 mg/dL [facility] BUN Post Dialysis 7 7 - 25 mg/dL [facility] UREA REDUCTION RATIO (%) 68 >=65 % [facility] Kt/V Natural Log 1.32 >=1.2 [facility] 02/05/2025 3:00 AM EDT 02/06/2025 3:49 PM EDT Jesus Patel MD LAB [id number] SOLICITED RESULTS Final Result Performing Organization Address [facility] de Phone Number [facility] [address] [place] [address] * (ABNORMAL) Calcium Phosphorus Product, Adjusted (02/05/2025 3:00 AM EDT) Only the most recent of3 resultswithin the time period is included. Albumin 4.0 3.6 - 5.4 g/dL [facility] Calcium 9.2 8.6 - 10.3 mg/dL [facility] Phosphorus, Serum 5.4(H) 2.5 - 5.0 mg/dL [facility] Ca*PO4 49.7 <55.0 mg2/dL2 [facility] Calcium, Adjusted Total 9.2 8.6 - 10.3 mg/dL [facility] CA*PO4 CORRCTD 49.7 <55.0 mg2/dL2 [facility] 02/05/2025 3:00 AM EDT 02/06/2025 6:28 PM EDT Jesus Patel MD LAB [id number] SOLICITED RESULTS Final Result Performing Organization Address [facility] Co de Phone Number [facility] [address] [place] [address] * Hepatitis B Surface Ag w/Reflex Confirmation (02/05/2025 3:00 AM EDT) Only the most recent of3 resultswithin the time period is included. Hep B Surface Antigen Negative Negative [facility] 02/05/2025 3:00 AM EDT 02/06/2025 6:28 PM EDT Jesus Patel MD LAB BLOOD ORDERABLES Final Re sult Performing Organization Address [facility] de Phone Number [facility] [address] [place] [address] * BUN/CREATININE RATIO (02/05/2025 3:00 AM EDT) Only the most recent of3 resultswithin the time period is included. BUN/Creatinine Ratio 2.6 <=23.0 [facility] 02/05/2025 3:00 AM EDT 02/06/2025 6:28 PM EDT Jesus Patel MD LAB [id number] SOLICITED RESULTS Final Result Performing Organization Address [facility] de Phone Number [facility] [address] [place] [address] * (ABNORMAL) TSAT (02/05/2025 3:00 AM EDT) Only the most recent of3 resultswithin the time period is included. Iron 76 50 - 170 ug/dL [facility] Transferrin 133(L) 250 - 380 mg/dL [facility] TIBC 186(L) 211 - 406 ug/dL [facility] Iron Saturation (TSat) 41 22 - 52 % [facility] 02/05/2025 3:00 AM EDT 02/06/2025 6:28 PM EDT us Jesus Patel MD LAB BLOOD ORDERABLES Final Re sult [facility] [address] [place] [address] * (ABNORMAL) CBC and Differential (02/05/2025 3:00 AM EDT) Only the most recent of3 resultswithin the time period is included. DIFFERENTIAL MANUAL, 2 Not Indicated [facility] White Blood Cells 8.2 4.0 - 10.0 K/uL [facility] RBC 4.37 3.93 - 5.22 M/uL [facility] Hgb 11.9 11.2 - 15.7 g/dL [facility] Hemoglobin x 3 35.7 33.6 - 47.1 g/dL [facility] Hematocrit 37.7 34.1 - 44.9 % [facility] MCV 86.3 79.4 - 94.8 fL [facility] MCH 27.2 25.6 - 32.2 pg [facility] MCHC 31.6(L) 32.2 - 35.5 g/dL [facility] RDW 14.6(H) 11.7 - 14.4 % [facility] Platelets 384(H) 182 - 369 K/uL [facility] MPV 11.6 9.2 - 12.8 fL [facility] Neutrophils Relative 68.3 34.0 - 71.1 % [facility] Lymphocytes Relative 21.4 19.3 - 51.7 % [facility] Monocytes 7.1 4.7 - 12.5 % [facility] Eosinophils Relative 1.7 0.7 - 5.8 % [facility] Basophils Relative 0.9 0.1 - 1.2 % [facility] Immature Granulocytes 0.6 0.0 - 1.0 % [facility] 02/05/2025 3:00 AM EDT 02/06/2025 3:52 PM EDT Jesus Patel MD LAB BLOOD ORDERABLES Final Re sult Performing Organization Address [facility] Co de Phone Number [facility] [address] [place] [address] * ALT (02/05/2025 3:00 AM EDT) Only the most recent of3 resultswithin the time period is included. ALT (SGPT) 20 10 - 49 U/L [facility] 02/05/2025 3:00 AM EDT 02/06/2025 6:28 PM EDT Jesus Patel MD LAB BLOOD ORDERABLES Final Re sult Performing Organization Address [facility] de Phone Number [facility] [address] [place] [address] * AST (02/05/2025 3:00 AM EDT) Only the most recent of3 resultswithin the time period is included. AST (SGOT) 18 <34 U/L [facility] 02/05/2025 3:00 AM EDT 02/06/2025 6:28 PM EDT Jesus Patel MD LAB BLOOD ORDERABLES Final Re sult Performing Organization Address [facility] de Phone Number [facility] [address] [place] [address] * Protein, total (02/05/2025 3:00 AM EDT) Only the most recent of3 resultswithin the time period is included. Total Protein 7.3 6.4 - 8.9 g/dL [facility] 02/05/2025 3:00 AM EDT 02/06/2025 6:28 PM EDT Jesus Patel MD LAB BLOOD ORDERABLES Final Re sult Performing Organization Address [facility] Co de Phone Number [facility] [address] [place] [address] * (ABNORMAL) Alkaline phosphatase (02/05/2025 3:00 AM EDT) Only the most recent of3 resultswithin the time period is included. Alkaline Phosphatase 282(H) 46 - 116 U/L [facility] 02/05/2025 3:00 AM EDT 02/06/2025 6:28 PM EDT Jesus Patel MD LAB BLOOD ORDERABLES Final Re sult Performing Organization Address [facility] Co de Phone Number [facility] [address] [place] [address] * Magnesium (02/05/2025 3:00 AM EDT) Only the most recent of3 resultswithin the time period is included. Magnesium 2.3 1.9 - 2.7 mg/dL [facility] 02/05/2025 3:00 AM EDT 02/06/2025 6:28 PM EDT Jesus Patel MD LAB BLOOD ORDERABLES Final Re sult Performing Organization Address [facility] Co de Phone Number [facility] [address] [place] [address] * (ABNORMAL) Lactate dehydrogenase (02/05/2025 3:00 AM EDT) Only the most recent of3 resultswithin the time period is included. LDH 459(H) 120 - 246 U/L [facility] 02/05/2025 3:00 AM EDT 02/06/2025 6:28 PM EDT Jesus Patel MD LAB BLOOD ORDERABLES Final Re sult Performing Organization Address [facility] de Phone Number [facility] [address] [place] [address] * (ABNORMAL) Glucose, random (02/05/2025 3:00 AM EDT) Only the most recent of3 resultswithin the time period is included. Glucose 144(H) 70 - 99 mg/dL [facility] Comment: ADA guidelines outline the following fasting glucose ranges: Normal: <100 Prediabetes: 100-125 Diabetes: >125 02/05/2025 3:00 AM EDT 02/06/2025 6:28 PM EDT Jesus Patel MD LAB BLOOD ORDERABLES Final Re sult Performing Organization Address [facility] Co de Phone Number [facility] [address] [place] [address] * (ABNORMAL) Ferritin (02/05/2025 3:00 AM EDT) Only the most recent of3 resultswithin the time period is included. Pathologist [facility] Ferritin 998(H) 10 - 291 ng/mL [facility] 02/05/2025 3:00 AM EDT 02/06/2025 6:28 PM EDT Jesus Patel MD LAB BLOOD ORDERABLES Final Re sult Performing Organization Address [facility] de Phone Number [facility] [address] [place] [address] * (ABNORMAL) Creatinine, serum (02/05/2025 3:00 AM EDT) Only the most recent of3 resultswithin the time period is included. Pathologist [facility] Creatinine 8.51(H) 0.55 - 1.02 mg/dL [facility] 02/05/2025 3:00 AM EDT 02/06/2025 6:28 PM EDT Jesus Patel MD LAB BLOOD ORDERABLES Final Re sult Performing Organization Address [facility] de Phone Number [facility] [address] [place] [address] * (ABNORMAL) Bilirubin, total (02/05/2025 3:00 AM EDT) Only the most recent of3 resultswithin the time period is included. Total Bilirubin 0.2(L) 0.3 - 1.2 mg/dL [facility] 02/05/2025 3:00 AM EDT 02/06/2025 6:28 PM EDT Jesus Patel MD LAB BLOOD ORDERABLES Final Re sult Performing Organization Address [facility] Co de Phone Number [facility] [address] [place] [address] * (ABNORMAL) Electrolyte panel (02/05/2025 3:00 AM EDT) Only the most recent of3 resultswithin the time period is included. Pathologist [facility] Sodium 136 136 - 145 mEq/L [facility] Potassium 3.7 3.4 - 5.0 mEq/L [facility] Chloride 94(L) 98 - 107 mEq/L [facility] Bicarbonate (CO2) 24 21 - 31 mEq/L [facility] Anion Gap 18(H) 3 - 14 mEq/L [facility] 02/05/2025 3:00 AM EDT 02/06/2025 6:28 PM EDT us Jesus Patel MD LAB BLOOD ORDERABLES Final Re sult Performing Organization Address [facility] de Phone Number [facility] [address] [place] [address] * (ABNORMAL) Phosphorus (01/27/2025 3:00 AM EDT) Only the most recent of2 resultswithin the time period is included. Pathologist [facility] Phosphorus, Serum 6.4(H) 2.5 - 5.0 mg/dL [facility] 01/27/2025 3:00 AM EDT 01/28/2025 11:59 AM EDT us Jesus Patel MD LAB BLOOD ORDERABLES Final Re sult Performing Organization Address [facility] Co de Phone Number [facility] [address] [place] [address] * Confirmation Test HCV (12/27/2024 3:00 AM EDT) Pathologist [facility] Hep C Ab Confirmation Not needed [facility] 12/27/2024 3:00 AM EDT 12/28/2024 1:20 PM EDT Jesus Patel MD LAB BLOOD ORDERABLES Final Re sult Performing Organization Address [facility] de Phone Number [facility] [address] [place] [address] * HEPATITIS C ABS W/REFLEX RNA DETECTR (12/27/2024 3:00 AM EDT) Pathologist [facility] Hep C Virus Ab Non-Reacti ve Non-Reacti ve [facility] 12/27/2024 3:00 AM EDT 12/28/2024 1:18 PM EDT Jesus Patel MD LAB [id number] SOLICITED RESULTS Final Result Performing Organization Address [facility] de Phone Number [facility] [address] [place] [address] * Unspun Tube (12/23/2024 3:00 AM EDT) [facility] Unspun Tube [place] [facility] Comment:Received uncentrifug ed specimen. Unable to perform testing. 12/23/2024 3:00 AM EDT Jesus Patel MD LAB [id number] SOLICITED RESULTS Final Result Performing Organization Address [facility] de Phone Number [facility] [address] [place] [address] * Vitamin D 25 Hydroxy (12/04/2024 3:00 AM EDT) Pathologist [facility] Vitamin D, 25-Hydroxy 41 30 - 100 ng/mL [facility] Comment: Status Adult Pediatric Deficient: <20 <15 Insufficient: 20-29 15-19 Sufficient: 30-100 20-100 12/04/2024 3:00 AM EDT 12/05/2024 12:26 PM EDT Jesus Patel MD LAB BLOOD ORDERABLES Final Re sult Performing Organization Address [facility] de Phone Number [facility] [address] [place] [address] * Hepatitis B Surface Antibody (12/04/2024 3:00 AM EDT) Hep B Surface Antibody 14 mIU/mL [facility] Comment: Interpretation: <10: No Immunity >=10: Probable Immunity 12/04/2024 3:00 AM EDT 12/05/2024 12:26 PM EDT Jesus Patel MD LAB BLOOD ORDERABLES Final Re sult Performing Organization Address [facility] de Phone Number [facility] [address] [place] [address] * (ABNORMAL) Hemoglobin A1c (12/04/2024 3:00 AM EDT) Pathologist [facility] Hemoglobin A1C 6.1(H) <5.7 % [facility] Comment: Methodology: Enzymatic Normal: <5.7% Prediabetes: 5.7-6.4% Diabetes: >6.4% Diabetic Glucose Control Evaluation: Therapeutic action suggested at >8.0% ADA recommends a glycemic goal of <7.0% 12/04/2024 3:00 AM EDT 12/05/2024 12:29 PM EDT Jesus Patel MD LAB BLOOD ORDERABLES Final Re sult Performing Organization Address [facility] de Phone Number [facility] [address] [place] [address] * (ABNORMAL) Lipid panel (12/04/2024 3:00 AM EDT) Cholesterol 207(H) mg/dL [facility] Comment: Optimal: <200 Borderline: 200-239 High Risk: >239 Triglycerides 275(H) mg/dL [facility] Comment: Optimal: <150 Borderline: 150-200 High Risk: >200 HDL 37(L) mg/dL [facility] Comment: Optimal: >59 Borderline: 40-59 High Risk: <40 LDL-Calc 115(H) mg/dL [facility] Comment: Optimal: <100 Borderline: 100-159 High Risk: >159 VLDL Cholesterol Arturo 55(H) mg/dL [facility] Comment: Optimal: <30 Borderline: 30-40 High Risk: >40 Chol/HDL Ratio 5.6(H) [facility] Comment: Optimal: <3.3 High Risk: >6.2 12/04/2024 3:00 AM EDT 12/05/2024 12:26 PM EDT us Jesus Patel MD LAB BLOOD ORDERABLES Final Re sult [facility] [address] [place] [address] from Last 3 Months Insurance ([id number]) MARLA CHEN [phone] [facility] ([id number]) Care Teams Director Oracle Relationship Specialty Start Date End Date April Sharma MD [address] PCP - General 06/15/20
--- OUTSIDE RECORDS SUMMARY | 2025-02-25 17:33 | XMS_ITS | Encounter Summary ---
Author Organization [facility] Address [address] [facility] [address] [place] [address] Phone Care Team Providers Care Leather Goods Maker Name Role Phone April Sharma MD Primary Care Provider Reason for Visit * Reason Comments Med Refill Encounter Details Date Type Department Care Team (Late st Contact Info) Description 10/18/2020 Refill [facility] [address] [facility] [address] [place] [phone] Seamus Ramsey MD [address] [facility] [address] [place] [phone] Social History Tobacco Use Types Packs/Day Years [...] on filedocumented in this encounter Care Teams Leather Goods Maker Relationship Specialty Start Date End Date April Sharma MD [address] [place] PCP - General 06/15/20 documented as of this encounter
--- OUTSIDE RECORDS SUMMARY | 2025-02-25 17:33 | XMS_ITS | Encounter Summary ---
Author Organization [facility] Address [address] [address] Phone Care Team Providers Care Exercise Physiologist Certified Name Role Phone April Sharma MD Primary Care Provider [phone] Encounter Details Date Type Department Care Team (Late st Contact Info) Description 02/10/2025 Treatment [facility] [address] [address] Cade Spencer MD [address] [address] End stage renal disease; Dependence [...] Dialysis Note - Cade Spencer MD - 02/10/2025 12:00 AM EDT BASIC NOTE Patient: Verona Dill Skyler : 1985 Note Author: CADE SPENCER MD Service Date: 02/10/2025 This patient was personally seen [id number] for a basic visit as part of routine monthly dialysis care for end stage renal disease. Attending Lead Qa Analyst: CADE SPENCER Dialysis Location: [facility] Schedule: Shift: 2 HOME MEDICATIONS Current [facility] Epic Outpatient Medications atorvastatin (LIPITOR) 10 MG tablet TAKE 1 TABLET BY MOUTH EVERY DAY Start Date: 04/25/2023 Auryxia 1 GM 210 MG(Fe) tablet TAKE 2 TABLETS BY MOUTH 3 TIMES A DAY WITH MEALS Start Date: 06/06/2024 cholecalciferol (VITAMIN D-3) 50 MCG (2000 UT) capsule TAKE 2 CAPSULE BY MOUTH ONCE A DAY SUPPLEMENT Start Date: 10/01/2021 ergocalciferol 1.25 MG (21784 UT) capsule TAKE 1 CAPSULE BY MOUTH WEEKLY FOR 8 WEEKS THEN 1 CAP MONTHLY THEREAFTER Start Date: 10/02/2023 gabapentin (NEURONTIN) 100 MG capsule Take 1 capsule (100 mg total) by mouth in the morning and 1 capsule (100 mg total) in the evening. Start Date: 07/18/2023 metOLazone (ZAROXOLYN) 10 MG tablet TAKE 1 TABLET BY MOUTH ONCE WEEKLY Start Date: 05/05/2024 NIFEdipine CC (ADALAT CC) 90 MG 24 hr tablet TAKE 1 TABLET BY MOUTH EVERY DAY Start Date: 05/31/2023 sevelamer carbonate (RENVELA) 800 MG tablet TAKE 3 TABLET BY MOUTH THREE TIMES A DAY WITH MEALS Start Date: 03/01/2021 torsemide (DEMADEX) 100 MG tablet TAKE 1 TABLET BY MOUTH ONCE A DAY DIRECTED TREAT FLUID OVERLOAD Start Date: 02/25/2022 Current Rodolfo Epic Allergies Allergen: Not on File ADEQUACY ASSESSMENT Kt/V, Natural Log 1.32 (02/05/25) 1.42 (01/08/25) 1.48 (12/04/24) UREA REDUCTION RATIO (%) 68 (02/05/25) 71 (01/08/25) 72 (12/04/24) BUN 22 (02/05/25) 31 (01/08/25) 50 (12/04/24) BUN Post Dialysis 7 (02/05/25) 9 (01/08/25) 14 (12/04/24) Creatinine 8.51 (02/05/25) 10.66 (01/08/25) 10.18 (12/04/24) Bicarbonate (CO2) 24 (02/05/25) 25 (01/08/25) 22 (12/04/24) Sodium 136 (02/05/25) 138 (01/08/25) 135 (12/04/24) ANEMIA ASSESSMENT Hgb 12.0 (02/19/25) 11.9 (02/05/25) 12.2 (01/27/25) Iron Saturation (TSat) 41 (02/05/25) 43 (01/08/25) 30 (12/04/24) Ferritin 998 (02/05/25) 1,032 (01/08/25) 1,076 (12/04/24) Iron 76 (02/05/25) 91 (01/08/25) 60 (12/04/24) TIBC 186 (02/05/25) 213 (01/08/25) 203 (12/04/24) MCV 86.3 (02/05/25) 88.0 (01/08/25) 86.7 (12/04/24) Platelets 384 (02/05/25) 342 (01/08/25) 347 (12/04/24) BMM ASSESSMENT Calcium, Adjusted Total 9.2 02/05/25 9.5 01/08/25 9.2 12/04/24 Calcium 9.2 02/05/25 9.5 01/08/25 9.2 12/04/24 Phosphorus, Serum 5.4 02/05/25 6.4 01/27/25 5.7 01/08/25 Ca*PO4 49.7 02/05/25 54.2 01/08/25 69.9 12/04/24 PTH, Intact 1,690 02/10/25 1,397 01/08/25 1,191 12/04/24 Vitamin D, 25-Hydroxy 41 12/04/24 40 06/12/24 Magnesium 2.3 02/05/25 2.3 01/08/25 2.2 12/04/24 Alkaline Phosphatase 282 02/05/25 230 01/08/25 221 12/04/24 Aluminum 2 06/12/24 NUTRITION ASSESSMENT Albumin 4.0 02/05/25 4.1 01/08/25 4.0 12/04/24 Potassium 3.7 02/19/25 3.8 02/12/25 3.7 02/05/25 Hemoglobin A1C 6.1 12/04/24 6.0 09/06/24 6.9 06/12/24 ADDITIONAL LABS White Blood Cells 8.2 (02/05/25) 8.6 (01/08/25) 9.6 (12/04/24) Cholesterol 207 (12/04/24) 216 (09/06/24) 221 (06/12/24) HDL 37 (12/04/24) 32 (09/06/24) 38 (06/12/24) LDL-Calc 115 (12/04/24) 143 (09/06/24) 152 (06/12/24) Triglycerides 275 (12/04/24) 206 (09/06/24) 156 (06/12/24) Hep B Surface Antibody 14 (12/04/24) 45 (06/12/24) 14 (05/17/24) Uric Acid 5.8 (06/12/24) ADDITIONAL COMMENT COMMENTS: 09/30/24 stable 07/15/24 stable 07/17/24 cont f/u re prosthesis 08/02/24 doing ok 08/07/24 stable 08/19/24 doing ok, getting prosthesis 08/26/24 stable 09/06/24 stable 10/09/24 stable 10/21/24 doing ok 10/30/24 stable 11/01/24 doing ok 11/11/24 no new issues 02/07/24 stable 02/12/24 no new issues 02/19/24 stable 02/26/24 doing ok, has appt for xplant eval in [place] 03/27/24 recent [facility] s/p tma, cont f/u vasc and wound care 04/15/24 stable, cont Abx 05/03/24 doing ok 05/06/24 cont f/u ortho re osteo foot 05/20/24 same issues 06/07/24 cont rehab 06/26/24 stable, still not ready for prosthesis 07/05/24 stable 12/04/24 cont with rehab re: R BKA 12/09/24 doin ok 12/18/24 stable 12/30/24 doing ok 01/06/25 stable 01/13/25 issue with irritation on BKA stump site 01/20/25 doing ok 02/07/25 doing ok 02/10/25 stable 02/19/25 doing ok Signed by: CADE SPENCER MD on 02/23/2025 at 11:37:23 PM Transcribed by: CADE SPENCER MD on 02/23/2025 at 11:37:23 PM documented in this encounter Plan of Treatment Not on file documented as of this encounter Visit Diagnoses Diagnosis End stage renal disease Dependence on renal dialysis documented in this encounter Care Teams Exercise Physiologist Certified Relationship Specialty Start Date End Date Zachary, MD April [address] [place], [place] PCP - General 06/15/20 documented as of this encounter
--- OUTSIDE RECORDS SUMMARY | 2025-02-25 17:33 | XMS_ITS | Encounter Summary ---
Author Organization [facility] Address [address] [place] [address] Phone Care Team Providers Care Press Washer Name Role Phone April Sharma MD Primary Care Provider [phone] Reason for Visit * Reason Comments Med Refill Encounter Details Date Type Department Care Team (Late st Contact Info) Description 09/23/2020 Refill [facility] [address] [place] [address] Seamus Ramsey MD [address] [place] [id number] Social History Tobacco Use Types Packs/Day Years [...] on filedocumented in this encounter Care Teams Press Washer Relationship Specialty Start Date End Date April Sharma MD [address] [place] [address] PCP - General 06/15/20 documented as of this encounter
--- OUTSIDE RECORDS SUMMARY | 2025-02-25 17:33 | XMS_ITS | Encounter Summary ---
Author Organization [facility] Address [address] [place] [address] Phone Care Team Providers Care Laser Machine Operator Name Role Phone Jason Salmon MD Primary Care Provider [phone] Encounter Details Date Type Department Care Team (Late st Contact Info) Description 06/19/2024 Procedure Pass [facility], Ct Scan - [facility] [address] [place] [address] Social History Tobacco Use Types Packs/Day Years Used Date Smoking Tobacco: Never Smokeless Tobacco: Never Child or Family Care Answer Date Record ed Do you have problems with on e of the following making it difficult for you to work, study, or receive health care? No 06/06/2024 Education Answer Date Recorded Are you interested in help w ith more adult education (for example, completing high school, GED, job training, learning the [place] language, technical skills, or developing parenting skills)? No 06/06/2024 Are you concerned about learning? Not on file 06/06/2024 No 06/06/2024 Yes 06/06/2024 Food Answer Date Recorded Within the past 6 months we worried whether our food would run out before we got money to buy more. Never True 06/06/2024 Within the past 6 months the food we bought just didn't last and we didn't have enough money to get more. Never True Residential Stability Answer Date Recor ded What is your housing situation today? I am stayi ng with others 06/06/2024 How many times have you move d in the past 12 months? Zero (I did not move) 06/06/2024 Paying for Meds Answer Date Recorded Do you have trouble paying for medicines? No 06/06/2024 Paying Utility Bills Answer Date Record ed Do you have trouble paying your heating or elect ricity bill? No 06/06/2024 Transportation Answer Date Recorded Has the lack of transportati on kept you from medical appointments or from getting medications? No 06/06/2024 Unemployment Answer Date Recorded Are you currently unemployed or working on a part-time or temporary basis, and looking for work? No 06/06/2024 Digital Access Answer Date Recorded No 06/06/2024 Yes 06/06/2024 Do you have reliable internet access at home? Ye s 06/06/2024 Do you have a device (e.g., phone, tablet, computer) with a working camera? Yes 06/06/2024 Comments Unknown Sex and Gender Information Value Date Recorded Sex Assigned at Female 01/22/2024 10:27 AM EDT Legal Sex Female 10:28 PM EDT Gender Identity Female 01/22/2024 10:27 AM EDT Sexual Orientation Straight 01/22/2024 10 :27 AM EDT documented as of this encounter Plan of Treatment Not on file documented as of this encounter Visit Diagnoses Not on filedocumented in this encounter Care Teams Laser Machine Operator Relationship Specialty Start Date End Date Jason Salmon MD [address] [place] [address] [place] [address] PCP - General Internal Medicine 01/22/24 documented as of this encounter Additional Source Comments The information contained in this document represents components of the legal health record. It is not the complete legal health record.[facility]
--- OUTSIDE RECORDS SUMMARY | 2025-02-25 17:33 | XMS_ITS | Encounter Summary ---
Author Organization [facility] Address [address] [place] [address] Phone Care Team Providers Care Assembler For Puller Over Hand Name Role Phone Jason Salmon MD Primary Care Provider [phone] Encounter Details Date Type Department Care Team (Late st Contact Info) Description 06/19/2024 Procedure Pass [facility] [address] [place] [address] Social History Tobacco Use Types Packs/Day Years [...] high school, GED, job training, learning the Yoruba language, technical skills, or developing parenting skills)? [...] on filedocumented in this encounter Care Teams Assembler For Puller Over Hand Relationship Specialty Start Date End Date Jason Salmon MD [address] [place] [address] [place] [address] PCP - General Internal Medicine 01/22/24 documented as of this encounter Additional Source Comments The information contained in this document represents components of the legal health record. It is not the complete legal health record.[facility]
--- OUTSIDE RECORDS SUMMARY | 2025-02-25 17:33 | XMS_ITS | Clinical Summary ---
Author Organization [facility] Address [address] [facility] [address] [place] [address] Phone Care Team Providers Care Manager Lighting Name Role Phone Jason Salmon MD Primary Care Provider [phone] Allergies No known active allergies Medications insulin glargine 100 unit/mL (3 mL) InPn injection pen Inject 20 Units under the skin daily. Active insulin aspart U-100 (NOVOLOG) 100 unit/mL (3 mL) injection pen Inject under the skin 4 (four) times a day with meals and nightly. Sliding scale insulin dosing before meals and at HS Active metOLazone (ZAROXOLYN) 5 MG tablet Take 10 mg by mouth every 7 days. Active torsemide (DEMADEX) 100 MG tablet Take 100 mg by mouth 2 (two) times a day (once in the morning and once in the afternoon). Active atorvastatin (LIPITOR) 20 MG tablet Take 20 mg by mouth daily. Active latanoprost (XALATAN) 0.005 % ophthalmic solution Place 1 drop into the left eye daily. Active levothyroxine (SYNTHROID, LEVOTHROID) 175 MCG tablet Take 175 mcg by mouth every morning. Active ferrous sulfate 324 mg (65 mg rincon iron) TbEC Take 324 mg by mouth daily with breakfast. Active gabapentin (NEURONTIN) 100 MG capsule Take 200 mg by mouth 2 (two) times a day as needed. Active sucroferric oxyhydroxide (VELPHORO) 500 mg Chew Take 1,000 mg by mouth 3 (three) times a day before meals. Active therapeutic multivitamin tablet Take 1 tablet by mouth daily. Active ketotifen (ZADITOR) 0.025 % (0.035 %) ophthalmic solution Place 1 drop into each eye 2 (two) times a day. Active DILAUDID 2 mg tablet Take 2 mg by mouth. 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 Encounter for orthopedic aft ercare following surgical amputation 03/20/2024 End stage renal disease 03/20/2024 Essential (primary) hypertension 03/20/2024 Hypothyroidism, unspecified 03/20/2024 Local infection of the skin and subcutaneous tissue, unspecified 03/20/2024 Necrotizing fasciitis 03/20/2024 Type 1 diabetes mellitus wit h diabetic neuropathy, unspecified 03/20/2024 PAD (peripheral artery disease) 03/05/2024 Right toe amputee 03/05/2024 Dependence on renal dialysis 01/03/2019 Encounters Date Type Department Care Team Description 02/06/2025 Committee Review [facility] [address] [address] Shelby Greene RN 02/05/2025 Telephone [facility] [address] [address] Shelby Greene RN from Last 3 Months Immunizations Immunization Administration Dates Next Due Hepatitis B Adult 10/14/2022 INFLUENZA, SPLIT VIRUS, TRIVALENT PF 03/07/2024 Family History Medical History Relation Comments Hypertension Mother Cancer Paternal Grandfather prostate ca ncer Kidney disease Paternal Grandfather On dialysis before he Cancer Paternal Grandmother stomach can cer Relation Status Comments Brother Alive Father Alive Mother Alive Paternal Grandfather Paternal Grandmother Sister Alive Social History Tobacco Use Types Packs/Day Years Used Date Smoking Tobacco: Never Smokeless Tobacco: Never Tobacco Cessation:Counseling Given: No Child or Family Care Answer Date Record ed Do you have problems with on e of the following making it difficult for you to work, study, or receive health care? No 06/06/2024 Education Answer Date Recorded Are you interested in help w ith more adult education (for example, completing high school, GED, job training, learning the Portuguese language, technical skills, or developing parenting skills)? [...] Orientation Straight 01/22/2024 10 :27 AM EDT Last Filed Vital Signs Vital Sign Reading Time Taken Comments Blood Pressure 145/83 06/06/2024 11:13 AM EST Pulse 83 06/06/2024 11:13 AM EST Temperature 35.6 C (96 F) 06/06/2024 11:13 AM EST Respiratory Rate - - Oxygen Saturation 98% 06/06/2024 11: 13 AM EST Inhaled Oxygen Concentration - - Weight 100 kg (220 lb 7.4 oz) 06/07/2024 3:43 PM EST noted from 06/06/23 Height 162.6 cm (5' 4 ) 06/07/2024 3:43 PM EST noted from 06/06/23 Body Mass Index 37.84 06/07/2024 3:43 PM EST Plan of Treatment Health Maintenance Due Date Last Done Comments Adult Td,Tdap Booster 1985 TSH LEVEL 1984 DEPRESSION SCREENING 1996 PNEUMOCOCCAL VACCINES (0-49 years) (1 of 2 - PCV) 2003 PAP SMEAR 2005 MAMMOGRAM 2024 DIABETIC EYE EXAM 06/04/2024 BLOOD PRESSURE 12/04/2024 06/06/2024 INFLUENZA VACCINE (#1) 2025 , 03/06/2023, 02/28/2019, Additional history exists COVID-19 VACCINE ( - 2024- season) 2025 05/24/2023, 05/18/2021, 08/26/2020, Additional history exists HEMOGLOBIN A1C 06/06/2025 12/04/2024, 07/0 07/2024, 09/06/2024, Additional history exists POTASSIUM LEVEL 01/29/2026 01/29/2025, 01/04, 01/15/2025, Additional history exists SMOKING STATUS SCREENING (Once After 26 Yrs) Completed 03/26/2024 HIV ONE-TIME SCREENING (18-65 YEARS) Completed 06/06/2024 HEPATITIS C SCREENING Completed 12/27/2024 , 06/12/2024, 06/06/2024 HEPATITIS A VACCINES Aged Out No long er eligible based on patient's age to complete this topic HIB VACCINES Aged Out No longer eligi ble based on patient's age to complete this topic MENINGOCOCCAL VACCINES (ACWY) Aged Out No longer eligible based on patient's age to complete this topic MENINGOCOCCAL VACCINES (B) Aged Out N o longer eligible based on patient's age to complete this topic Medical Devices Not on file Procedures Procedure Name Priority Date/Time Associated Diagnosis Comments HEMOGLOBIN A1C Routine 06/06/2024 11:14 AM EST Pre-transplant evaluation for end stage renal disease HEPATITIS C ANTIBODY, QUALITATIVE Routine 06/06/2024 11:14 AM EST Need for hepatitis C screening test COMPREHENSIVE METABOLIC PANEL Routine 03/25/2024 1:08 PM EDT Peripheral vascular disease, unspecified Necrotizing fasciitis from Last 3 Months or Most Recently Relevant to Health Maintenance Results * (ABNORMAL) Comprehensive metabolic panel (03/25/2024 1:08 PM EDT) SODIUM 138 133 - 146 mmol/L [facility] POTASSIUM 4.3 3.3 - 5.1 mmol/L [facility] CHLORIDE 93(L) 96 - 108 mmol/L [facility] CO2 30 21 - 35 mmol/L [facility] BUN 32(H) 6 - 19 mg/dL [facility] CREATININE 9.90(HH) 0.5 - 1.5 mg/dL [facility] Comment: Critical value: Results called to and read back by: Yasmani Alcocer GLUCOSE 126(H) 70 - 99 mg/dL [facility] ALBUMIN 3.4(L) 3.9 - 4.8 g/dL [facility] TOTAL PROTEIN 7.6 6.5 - 8.0 g/dL [facility] CALCIUM 9.6 8.4 - 10.3 mg/dL [facility] ALKALINE PHOSPHATASE 161(H) 39 - 117 U/L [facility] TOTAL BILIRUBIN 0.3 0.0 - 1.2 mg/dL [facility] AST 7 0 - 37 U/L [facility] ALT 6 0 - 40 U/L [facility] GLOBULIN 4.2 1 - 4.8 g/dL [facility] EGFR 5(L) >59 mL/min/1.7 3m2 [facility] Comment:Estimated glomerular filtration rate calculated using the CKD-EPI refit equation. ANION GAP 19 10 - 20 mmol/L [facility] Blood 03/25/2024 1:08 PM EDT 03/25/2024 1:23 PM EDT us Joan Newberry MD LAB BLOOD ORDERABLES Final Res ult [facility] [address] [place] [address] from Last 3 Months or Most Recently Relevant to Health Maintenance Insurance MEDICARE PART A & B [facility] ONE CARE MEDICARE REPLACEMENT MARLA CHEN [id number] MEDICARE PART A & B ONE CARE MEDICARE REPLACEMENT [place] [address] MEDICARE PART A & B [facility] ONE CARE MEDICARE REPLACEMENT MEDICARE PART A & B CARE MEDICARE REPLACEMENT MEDICARE PART A & B Member Subscriber Plan / Payer (Ef fective 2019-Present) Name:Verona Holland Member ID:[id number] Relation to Subscriber:Self Name:Verona Holland Subscriber ID:[id number] Payer ID:[id number] Group ID:Not on file Type:Medicare Address: [employer] [address] [place] [address] [place] [address] ONE CARE MEDICARE REPLACEMENT MEDICARE PART A & B [facility] ONE CARE MEDICARE REPLACEMENT MARLA CHEN [id number] [facility] ONE CARE MEDICARE REPLACEMENT MEDICARE PART A & B Care Teams Manager Lighting Relationship Specialty Start Date End Date Jason Salmon MD [address] [place] [address] [place] [address] PCP - General Internal Medicine 01/22/24 Additional Source Comments The information contained in this document represents components of the legal health record. It is not the complete legal health record.[facility]
== END 2025-02-25 15:14 | disposition home or self-care (01) ==
LOC: HO.HMCH 14:18
PROVIDERS: PCP Internal Medicine; Visit Provider Internal Medicine
DX: Z13.9 Encounter for screening, unspecified (principal); E10.3593 Type 1 diabetes mellitus with proliferative diabetic retinopathy without macular edema, bilateral

== ENCOUNTER → 2025-02-25 14:18 | Outpatient (BNVA) | payer OTHER, SELFPAY | PROVIDERS: PCP Internal Medicine; Visit Provider Internal Medicine | DX: E10.22 Type 1 diabetes mellitus with diabetic chronic kidney disease (principal); E10.40 Type 1 diabetes mellitus with diabetic neuropathy, unspecified; E10.51 Type 1 diabetes mellitus with diabetic peripheral angiopathy without gangrene; E10.3593 Type 1 diabetes mellitus with proliferative diabetic retinopathy without macular edema, bilateral; I12.0 Hypertensive chronic kidney disease with stage 5 chronic kidney disease or end stage renal disease; N18.6 End stage renal disease; E78.00 Pure hypercholesterolemia, unspecified; D63.1 Anemia in chronic kidney disease; E03.9 Hypothyroidism, unspecified; E55.9 Vitamin D deficiency, unspecified; E53.8 Deficiency of other specified B group vitamins; G47.00 Insomnia, unspecified; F33.0 Major depressive disorder, recurrent, mild; E66.9 Obesity, unspecified; Z99.2 Dependence on renal dialysis; Z89.421 Acquired absence of other right toe(s); Z68.36 Body mass index [BMI] 36.0-36.9, adult | CPT/HCPCS: 83036; 99212 ==

== ENCOUNTER 2025-04-29 15:45 | Outpatient (REF) | payer OTHER, SELFPAY ==
--- NOTE | ~2025-04-29 | MM_ITS ---
EXAMINATION: MM SCREENING DIGITAL BREAST TOMOSYNTHESIS, BILATERAL CLINICAL INFORMATION: Screening. Asymptomatic. COMPARISON: None. This is a baseline study. TECHNIQUE: Digital breast tomosynthesis is performed in mediolateral oblique and craniocaudal views along with computer-aided detection (CAD). Synthesized 2D images are generated from the tomosynthesis. Patient was unable to remove the nipple piercing for today's examination, which partially limits optimal positioning. FINDINGS: BREAST COMPOSITION: There are scattered areas of fibroglandular density. RIGHT BREAST: No significant masses, suspicious calcifications or other abnormalities are seen. LEFT BREAST: Focal asymmetry in the upper outer quadrant posterior depth at approximately 13 cm from the nipple. No suspicious calcifications or other abnormalities are seen. MM/MM tomosynthesis screening BI IMPRESSION: RIGHT BREAST: Negative, no mammographic evidence of malignancy. Normal interval follow-up is recommended in 12 months. LEFT BREAST: Focal asymmetry in the upper outer quadrant posterior depth. ASSESSMENT: BI-RADS: Category 0: Incomplete - Need additional Imaging Evaluation RECOMMENDATION: 1. Additional views of the left breast. Patient should be instructed to remove the nipple piercing prior to the additional imaging. 2. Targeted ultrasound if warranted after review of the additional views. 3. Radiology department staff will contact the patient for additional imaging. FOLLOW-UP: Additional Imaging required Patient should be instructed to remove the nipple piercing prior to the additional imaging. This examination should not preclude the clinical evaluation of a suspicious palpable abnormality. This patient's information was entered into a reminder system with a target due date for their next mammogram. Electronically signed by: Zachary Vidal MD 04/30/2025 07:40 PM [facility]
--- OUTSIDE RECORDS SUMMARY | 2025-04-29 19:12 | XMS_ITS | Clinical Summary ---
Author Organization [facility] Address [address] [employer] [facility] [address] [place] [address] Phone Care Team Providers Care Visual Merchandising Assistant Name Role Phone Jason Salmon MD Primary Care Provider [phone] Allergies No known active allergies Medications insulin [...] Active ferrous sulfate 324 mg (65 mg teller iron) TbEC Take 324 mg by mouth [...] Department Care Team Description 02/06/2025 Committee Review [facility] [address] [address] Shelby Greene RN 02/05/2025 Telephone [facility] [address] [address] Shelby Greene RN from Last 3 Months [...] high school, GED, job training, learning the Kazakh language, technical skills, or developing parenting skills)? [...] HEPATITIS C SCREENING Completed 12/27/2024 , 06/12/2024, 06/06/2024, Additional history exists HEPATITIS A VACCINES Aged Out No long [...] hepatitis C screening test COMPREHENSIVE METABOLIC PANEL (CMP) Routine 03/25/2024 1:08 PM EDT Peripheral vascular disease, unspecified Necrotizing fasciitis from Last 3 Months or Most Recently Relevant to Health Maintenance Results * Hepatitis C antibody, qualitative (06/06/2024 11:14 AM EST) HCV ANTIBODY Negative Negative [facility] Comment:Antibodies to HCV no t detected. Does not exclude the possibility of exposure to HCV. 06/06/2024 11:1 4 AM EST 06/06/2024 12:45 PM EST Julian Cedillo MD LAB BLOOD BKR ORDER ENOCH Final Result [facility] [address] [place] [address] * (ABNORMAL) Hemoglobin A1c (06/06/2024 11:14 AM EST) HEMOGLOBIN A1C 7.0(H) 4.3 - 5.6 % [facility] Comment:HbA1c levels 5.7-6.4 % represent pre-diabetes, indicating impaired glucose control and an increased risk of developing diabetes compared with lower HbA1c levels. The diagnostic HbA1c level for diabetes is 6.5% or greater. CALC MEAN BLD GLUC 154 mg/dL [facility] Comment:There is no [facility] normal range for the Calculated Mean Blood Glucose (CMBG), however a HbA1c of 5.6% (upper limit of normal) represents a CMBG of 114 mg/dL. The diagnostic hemoglobin A1c level for diabetes is greater than or equal to 6.5% which represents a CMBG greater than or equal to 140 mg/dL. 06/06/2024 11:1 4 AM EST 06/06/2024 12:45 PM EST us Julian Cedillo MD LAB BLOOD BKR ORDER ENOCH Final Result [facility] [address] [place] [address] * (ABNORMAL) Comprehensive metabolic panel (03/25/2024 1:08 PM EDT) SODIUM 138 133 - 146 mmol/L [facility] POTASSIUM 4.3 3.3 - 5.1 mmol/L [facility] CHLORIDE 93(L) 96 - 108 mmol/L [facility] CO2 30 21 - 35 mmol/L [facility] BUN 32(H) 6 - 19 mg/dL [facility] CREATININE 9.90(HH) 0.5 - 1.5 mg/dL [facility] Comment: Critical value: Results called to and read back by: Yasmani Alcocerotuck GLUCOSE 126(H) 70 - 99 mg/dL [facility] ALBUMIN 3.4(L) 3.9 - 4.8 g/dL [facility] TOTAL PROTEIN 7.6 6.5 - 8.0 g/dL [facility] CALCIUM 9.6 8.4 - 10.3 mg/dL [facility] ALKALINE PHOSPHATASE 161(H) 39 - 117 U/L [facility] TOTAL BILIRUBIN 0.3 0.0 - 1.2 mg/dL [facility] AST 7 0 - 37 U/L [facility] ALT 6 0 - 40 U/L [facility] GLOBULIN 4.2 1 - 4.8 g/dL [facility] EGFR 5(L) >59 mL/min/1.7 3m2 [facility] Comment:Estimated glomerular filtration rate calculated using the CKD-EPI refit equation. ANION GAP 19 10 - 20 mmol/L [facility] Blood 03/25/2024 1:08 PM EDT 03/25/2024 1:23 PM EDT us Joan Newberry MD LAB BLOOD BKR ORDERABLES Final Result [facility] [address] [place] [address] from Last 3 Months or Most Recently Relevant to Health Maintenance Insurance MEDICARE PART A & B [facility] ONE CARE MEDICARE REPLACEMENT MEDICARE PART A & B Member Subscriber Plan / Payer (Ef fective 2019-Present) Name:Verona Holland Member ID:[id number] Relation to Subscriber:Self Name:Verona Holland Subscriber ID:[id number] Payer ID:[id number] Group ID:Not on file Type:Medicare Address: [employer] [address] ONE CARE MEDICARE REPLACEMENT [place] [address] MEDICARE PART A & B CARE MEDICARE REPLACEMENT MEDICARE PART A & B Member Subscriber Plan / Payer (Ef fective 2019-Present) Name:Verona Holland Member ID:[id number] Relation to Subscriber:Self Name:Verona Holland Subscriber ID:[id number] Payer ID:[id number] Group ID:Not on file Type:Medicare Address: [employer] [address] ONE CARE MEDICARE REPLACEMENT MARLA CHEN [address] MEDICARE PART A & B ONE CARE MEDICARE REPLACEMENT MEDICARE PART A & B [facility] ONE CARE MEDICARE [place] [address] [place] [address] ONE CARE MEDICARE REPLACEMENT MEDICARE PART A & B Care Teams Visual Merchandising Assistant Relationship Specialty Start Date End Date Jason Salmon MD [address] [place] [address] [place] [address] PCP - General Internal Medicine 01/22/24 Additional Source Comments The information contained in this document represents components of the legal health record. It is not the complete legal health record.[facility]
--- OUTSIDE RECORDS SUMMARY | 2025-04-29 19:12 | XMS_ITS | Encounter Summary ---
Author Organization [facility] Address [address] [place] [address] Phone Care Team Providers Care Biodiesel Product Development Manager Name Role Phone Jason Salmon MD Primary Care Provider [phone] Encounter Details Date Type Department Care Team (Late st Contact Info) Description 06/19/2024 Procedure Pass [facility], Ct Scan - [facility] [address] [place] [address] Social History Tobacco Use Types Packs/Day Years [...] high school, GED, job training, learning the Latvian language, technical skills, or developing parenting skills)? [...] is your housing situation today? I am alex jeong with others 06/06/2024 How many times have [...] on filedocumented in this encounter Care Teams Biodiesel Product Development Manager Relationship Specialty Start Date End Date Jason Salmon MD [address] [place] [address] [place] [address] PCP - General Internal Medicine 01/22/24 documented as of this encounter Additional Source Comments The information contained in this document represents components of the legal health record. It is not the complete legal health record.[facility]
--- OUTSIDE RECORDS SUMMARY | 2025-04-29 19:12 | XMS_ITS | Patient Health Record ---
Author Organization [facility] Address [address] [facility] [place] [address] Care Team Providers Care Qa Developer Name Role Phone Luis Antonio NAIDU [place] Primary Care Provider Cristóbal Galindo Unavailable [phone] Reason For Referral No Information Medications Medication [...] Problem Type I diabetes mellitus without complication (318231895) Type 1 diabetes mellitus without complications (E10.9) Active confirmed Plan Of Treatment Pending Test Test Name Order Date [id number] NAIL, 6 OR MORE 10/17/2019 [id number] NAIL, 6 OR MORE 02/06/2020 Insurance Providers Payer Name Payer Address Payer Phone Subscriber Number Group Number Insured Name Patient Relationship to Insured Coverage Start Date Coverage End Date Medicare National Govt Svcs Inc [address] [facility] [place] [address] [id number] Verona Holland Self - patient is the insured Medical (General) History Medical History History ICD Code Anemia Anxiety Diabetic High blood pressure Kidney disease thyroid Chicken pox Transfusions Surgical History Surgery Date(Month/Year) fistula left arm 05/13/19
--- OUTSIDE RECORDS SUMMARY | 2025-04-29 19:12 | XMS_ITS | Encounter Summary ---
Author Organization [facility] Address [address] [place] [address] Phone Care Team Providers Care Regulatory Submissions Associate Name Role Phone Jason Salmon MD Primary Care Provider [phone] Encounter Details Date Type Department Care Team (Late st Contact Info) Description 06/19/2024 Procedure Pass [facility] [address] [place] [address] Social History Tobacco Use Types Packs/Day Years [...] high school, GED, job training, learning the Welsh language, technical skills, or developing parenting skills)? [...] on filedocumented in this encounter Care Teams Regulatory Submissions Associate Relationship Specialty Start Date End Date Jason Salmon MD [address] [place] [address] [place] [address] PCP - General Internal Medicine 01/22/24 documented as of this encounter Additional Source Comments The information contained in this document represents components of the legal health record. It is not the complete legal health record.[facility]
--- OUTSIDE RECORDS SUMMARY | 2025-04-29 19:12 | XMS_ITS ---
Author Organization [facility] on Care Team Providers Care Seafood Farmer Name Role Phone Ynes Plaza Unavailable Unavailable Joan Newberry Unavailable Unavailable Katarzyna Carvajal Unavailable Unavailable Miguel Ángel Viera Unavailable Unavailable Beatriz Grissom Unavailable Unavailable Allergies and adverse reactions No Known Allergies Care Team Name Role Address Phone Organization Dates Joan Newberry PCP [address] [place] [address], [address], [place] (Office): : [facility] 03/20/2024 - 04/10/2024 Ynes Plaza [address] [place] [address], [address], [place] (Office): [facility] 03/20/2024 - 04/10/2024 Katarzyna Carvajal [address] [place] [address], [address], [place] (Office): [facility] 03/20/2024 - 04/10/2024 Miguel Ángel Viera [address] [place], [address], [place] (Office): [facility] 03/20/2024 - 04/10/2024 Beatriz Grissom [address] [place] [address], [place], [address], [place] (Office): : [facility] 03/20/2024 - 04/10/2024 Goals Section Goals Description Status Target Date Advanced Directives will be honored and reevalua guillaume as needed Active 06/18/2024 Infection will be resolved without complications Active 06/18/2024 Infection will be resolved without requiring hos pitalization Active 06/18/2024 Minimize risk for falls Active 06/18/19 25 Skin will remain in tact, fr ee from erythema, breakdown, excoriation or bruising until next review Active 06/18/2024 Surgical wound/site will heal without complicati ons Active 06/18/2024 Surgical wound/site will rem ain free of signs and symptoms of infection Active 06/18/2024 Will be clean, dressed and w ell groomed daily to promote dignity and psychosocial well-being Active 06/18/2024 Will be discharged to home w hen clinical and rehabilitation goals are met Active 06/18/2024 Will be free from signs and symptoms of infectio n Active 06/18/2024 Will be free of complications related to disease process Active 06/18/2024 Will be free of complications related to edema/e xcess fluid volume Active 06/18/2024 Will be free of signs and symptoms of edema/exce ss fluid volume Active 06/18/2024 Will consume appropriate caroline unts of food and fluids to maintain nutritional status Active 06/18/2024 Will exhibit electrolyte bal ance and blood pressure control within limits Active 06/18/2024 Will exhibit no acute cardia c distress such as complaints of chest pain, cyanosis, SOB, etc. Active 06/18/2024 Will experience effective symptom management Act karen 06/18/2024 Will express feelings of adj ustment to new surroundings by next review Active 06/18/2024 Will express that pain management is within acce ptable limits Active 06/18/2024 Will have all ADL needs met with staff assistanc e as needed Active 06/18/2024 Will have no complications related to constipati on Active 06/18/2024 Will have no complications r elated to dialysis devices or treatment Active 06/18/2024 Will have no injuries as the result of impaired vision Active 06/18/2024 Will maintain lab parameters as appropriate Acti ve 06/18/2024 Will not experience a signif icant change in weight through next review Active 06/18/2024 Will reduce episodes of util ization of breakthrough pain medication Active 06/18/2024 Will reduce risk of fluid volume deficit Active 06/18/2024 Will remain free of complica tions related to right transmet amputation Active 06/18/2024 Will show no signs of dehydration or fluid overl oad Active 06/18/2024 Will tolerate diet, texture and fluid consistency without signs and symptoms of aspiration Active 06/18/2024 Immunizations Immunization Status Vaccine Details Vaccine Code CodeSystem Date Notes Influenza cancelled Influenza, split virus, trivalent, injectable, contains preservative 141 CVX created date: 03/26/2024 consent date: 03/26/2024 SARS-COV-2 (COVID-19) completed SARS-COV-2 (COVID-19) vaccine, mRNA, spike protein, LNP, preservative free, 30 mcg/0.3mL dose Step 2 of Multi-step with next step required 208 CVX created date: 03/21/2024 administer ed date: 08/26/2020 Verified in [facility] SARS-COV-2 (COVID-19) completed SARS-COV-2 (COVID-19) vaccine, mRNA, spike protein, LNP, preservative free, 100 mcg/0.5mL dose or 50 mcg/0.25mL dose Step 1 of Multi-step with next step required 207 CVX created date: 03/21/2024 administer ed date: 07/15/2020 Verified in [facility] Prevnar 20 Pneumococcal conjugate (PCV20) new Pneumococcal conjugate vaccine 20-valent (PCV20), polysaccharide [id number] conjugate, adjuvant, preservative free 216 CVX created date: 03/26/2024 consent date: 03/26/2024 SARS-COV-2 (COVID-19 BOOSTER) cancelled SARS-COV-2 (COVID-19) vaccine, mRNA, spike protein, LNP, preservative free, bailee-sucrose, 30 mcg/0.3 mL dose 309 CVX created date: 03/26/2024 consent date: 03/26/2024 SARS-COV-2 (COVID-19 BOOSTER) completed SARS-COV-2 (COVID-19) vaccine, mRNA, spike protein, LNP, preservative free, 50 mcg/0.5 mL dose 312 CVX created date: 03/21/2024 administer ed date: 05/24/2023 Verified in [facility] SARS-COV-2 (COVID-19 BOOSTER) completed SARS-COV-2 (COVID-19) vaccine, mRNA, spike protein, LNP, preservative free, 100 mcg/0.5mL dose or 50 mcg/0.25mL dose 207 CVX created date: 03/21/2024 administer ed date: 05/18/2021 Verified in [facility] RSV, bivalent, protein subunit RSVpreF, diluent rec new Respiratory syncytial virus (RSV), vaccine, bivalent, protein subunit RSV prefusion F, diluent reconstituted, 0.5 mL, preservative free 305 CVX created date: 03/26/2024 consent date: 03/26/2024 influenza, unspecified formulation completed influenza virus vaccine, unspecified formulation 88 CVX created date: 03/22/2024 administer ed date: 03/07/2024 Rec'd in the community. Mental Status Section Date Assessment Total Score Description 03/28/2024 CAM 0 No delirium ind icated Insurance Providers Plan of Treatment Section Interventions Intervention Code Code System Display Name Proposed D ate Problems Problem # Description Date of onset Resolved Date Code CodeSystem Concern Status 1 ACQUIRED ABSENCE OF RIGHT FOOT 03/20/[address] active 2 CARRIER OF CARBAPENEM-RESISTANT ENTEROBACTERALES 03/20/[address] active 3 DEPENDENCE ON RENAL DIALYSIS 03/20/[address] active 4 ENCOUNTER FOR ORTHOPEDIC AFTERCARE FOLLOWING SURGICAL AMPUTATION 03/20/[address] active 5 END STAGE RENAL DISEASE 03/20/[address] active 6 ESSENTIAL (PRIMARY) HYPERTENSION 03/20/[address] active 7 HYPOTHYROIDISM, UNSPECIFIED 03/20/[address] active 8 LOCAL INFECTION OF THE SKIN AND SUBCUTANEOUS TISSUE, UNSPECIFIED 03/20/[address] active 9 NECROTIZING FASCIITIS 03/20/[address] active 10 PERIPHERAL VASCULAR DISEASE, UNSPECIFIED 03/20/[address] active 11 TYPE 1 DIABETES MELLITUS WITH DIABETIC NEUROPATHY, UNSPECIFIED 03/20/[address] active 12 TYPE 1 DIABETES MELLITUS WITH OTHER SKIN COMPLICATIONS 03/20/[address] active Reason for Referral No Reasons for Referral Entered Social History Social History Observation Description Start Date End Date Code Code System Current Smoking Status Tobacco smoking consumption unknown 231424268 SNOMED CT Sex Assigned At Female 1985 [address]23-8 [facility] Gender Identity Sexual Orientation Vital Signs Code Code System Vitals Name Values and Units Timing Information 2339-0 [facility] Blood Sugar Jozhv=650.0 Units=mg/dL 03/28/2024 9279-1 [facility] Respiratory Rate Value=18.0 Units=/m in 03/28/2024 8462-4 [facility] Blood Pressure-Diastolic Value=78 Un its=mmHg 03/28/2024 8480-6 [facility] Blood Pressure-Systolic Cyzhv=219 Un its=mmHg 03/28/2024 8310-5 [facility] Body Temperature Value=97.4 Units= F 03/28/2024 8867-4 [facility] Heart rate Value=81.0 Units=/min 89907-9 [facility] O2 % BldC Oximetry Value=97.0 Units= % 03/28/2024 03468-6 [facility] Pain Level Value=0.0 03/28/2024 32352-8 [facility] Weight Dthgq=228.0 Units=Lbs 8302-2 [facility] Height Value=64.0 Units=Inches 03/21/2024
== END 2025-04-29 15:46 | disposition home or self-care (01) ==
LOC: HO.MAMMO 15:45
PROVIDERS: Visit Provider Internal Medicine
DX: Z12.31 Encounter for screening mammogram for malignant neoplasm of breast (principal)
CPT/HCPCS: 77063; 77067

== ENCOUNTER → 2025-04-29 16:15 | Outpatient (BNV) | payer OTHER, SELFPAY | PROVIDERS: Visit Provider Radiology Body Imaging | DX: Z12.31 Encounter for screening mammogram for malignant neoplasm of breast (principal) | CPT/HCPCS: 77063; 77067 ==

== ENCOUNTER 2025-05-23 09:36 | Outpatient (REF) | payer OTHER, SELFPAY ==
--- NOTE | ~2025-05-23 | MM_ITS ---
EXAMINATION: MM DIAGNOSTIC DIGITAL BREAST TOMOSYNTHESIS, LEFT Limited left breast ultrasound. CLINICAL INFORMATION: Call back from baseline mammogram for focal asymmetry in the upper outer left breast posterior depth. COMPARISON: Mammography: Prior's on PACS. TECHNIQUE: Digital breast tomosynthesis is performed in both the craniocaudal and mediolateral oblique views along with computer-aided detection (CAD). Synthesized 2D images are generated from the tomosynthesis. FINDINGS: There are scattered areas of fibroglandular density. Focal asymmetry upper outer breast persists on additional imaging projections. No suspicious calcifications or other abnormal findings. Targeted color Doppler ultrasound scanning in the left upper outer quadrant demonstrates normal fibroglandular breast tissue. There is a patch of dense normal appearing fibroglandular breast tissue. MM/MM tomosynthesis added views L IMPRESSION: Left breast focal asymmetry upper outer breast posterior depth without definite sonographic correlate. Recommend 6 month follow-up for further evaluation of stability. ASSESSMENT: BI-RADS Category 3: Probably benign RECOMMENDATION: 6 Month F/U Results were provided to the patient at time of visit by the technologist. This patient's information was entered into a reminder system with a target due date for their next mammogram. Electronically signed by: Dena Kilgore DO 05/23/2025 11:40 AM ABDON
--- OUTSIDE RECORDS SUMMARY | 2025-05-23 10:22 | XMS_ITS | Patient Health Record ---
Author Organization [facility] Address [address] [place] [address] Care Team Providers Care Rotary Cutter Feeder Name Role Phone Luis Antonio NAIDU [place] Primary Care Provider Cristóbal Galindo Unavailable [phone] Reason For Referral No Information Medications Medication [...] Problem Type I diabetes mellitus without complication (532519367) Type 1 diabetes mellitus without complications (E10.9) Active confirmed Plan Of Treatment Pending Test Test Name Order Date [id number] NAIL, 6 OR MORE 10/17/2019 [id number] NAIL, 6 OR MORE 02/06/2020 Insurance Providers Payer Name Payer Address Payer Phone Subscriber Number Group Number Insured Name Patient Relationship to Insured Coverage Start Date Coverage End Date Medicare National Govt Svcs Inc [address] [place] [address] [id number] Verona Holland Self - patient is the insured Medical (General) History Medical History History ICD Code Anemia Anxiety Diabetic High blood pressure Kidney disease thyroid Chicken pox Transfusions Surgical History Surgery Date(Month/Year) fistula left arm 05/13/19
--- OUTSIDE RECORDS SUMMARY | 2025-05-23 10:22 | XMS_ITS | Encounter Summary ---
Author Organization [facility] Address [address] [facility] [address] [place] [address] Phone Care Team Providers Care Surface Logging Systems Logger Name Role Phone April Sharma MD Primary Care Provider [phone] Reason for Visit * Reason Comments Med Refill Encounter Details Date Type Department Care Team (Late st Contact Info) Description 10/18/2020 Refill [facility] [address] [facility] [address] [place] [id number] Seamus Ramsey MD [address] [facility] [address] [place] [phone] Social History Tobacco Use Types Packs/Day Years [...] on filedocumented in this encounter Care Teams Surface Logging Systems Logger Relationship Specialty Start Date End Date April Sharma MD [address] [place] PCP - General 06/15/20 documented as of this encounter
--- OUTSIDE RECORDS SUMMARY | 2025-05-23 10:23 | XMS_ITS | Clinical Summary ---
Author Organization [facility] Address [address] [place] [address] [place] [address] Phone Care Team Providers Care Laboratory Coordinator Name Role Phone Jason Salmon MD Primary Care Provider [phone] Allergies No known active allergies Medications insulin [...] Active ferrous sulfate 324 mg (65 mg [place] iron) TbEC Take 324 mg by mouth [...] amputee 03/05/2024 Dependence on renal dialysis 01/03/2019 Immunizations Immunization Administration Dates Next Due Hepatitis [...] high school, GED, job training, learning the Bengali language, technical skills, or developing parenting skills)? [...] 02/28/2019, Additional history exists COVID-19 VACCINE ( season) 2025 05/24/2023, 05/18/2021, 08/26/2020, Additional history exists HEMOGLOBIN A1C 06/06/2025 12/04/2024, 07/0 07/2024, 09/06/2024, Additional history exists POTASSIUM LEVEL 01/29/2026 01/29/2025, 08, 01/15/2025, Additional history exists SMOKING STATUS SCREENING [...] 11:14 AM EST) HCV ANTIBODY Negative Negative [facility] Comment:Antibodies to HCV no t detected. Does not exclude the possibility of exposure to HCV. 06/06/2024 11:1 4 AM EST 06/06/2024 12:45 PM EST us Julian Cedillo MD LAB BLOOD BKR ORDER ENOCH Final Result [address] [address] * (ABNORMAL) Hemoglobin A1c (06/06/2024 11:14 AM EST) HEMOGLOBIN A1C 7.0(H) 4.3 - 5.6 % [facility] Comment:HbA1c levels 5.7-6.4 % represent pre-diabetes, indicating impaired glucose control and an increased risk of developing diabetes compared with lower HbA1c levels. The diagnostic HbA1c level for diabetes is 6.5% or greater. CALC MEAN BLD GLUC 154 mg/dL [facility] Comment:There is no establis hed normal range for the Calculated Mean Blood [...] LAB BLOOD BKR ORDER ENOCH Final Result Performing Organization Address City/State/[facility] Co de Phone Number [facility] [address] [place] [address] * (ABNORMAL) Comprehensive metabolic panel (03/25/2024 1:08 PM EDT) SODIUM 138 133 - 146 mmol/L [facility] POTASSIUM 4.3 3.3 - 5.1 mmol/L [facility] CHLORIDE 93(L) 96 - 108 mmol/L [facility] CO2 30 21 - 35 mmol/L [facility] BUN 32(H) 6 - 19 mg/dL [facility] CREATININE 9.90(HH) 0.5 - 1.5 mg/dL [facility] Comment: Critical value: Results called to and read back by: Yasmani Alcocer GLUCOSE 126(H) 70 - 99 mg/dL [facility] ALBUMIN 3.4(L) 3.9 - 4.8 g/dL [facility] TOTAL PROTEIN 7.6 6.5 - 8.0 g/dL [facility] CALCIUM 9.6 8.4 - 10.3 mg/dL [facility] ALKALINE PHOSPHATASE 161(H) 39 - 117 U/L [facility] TOTAL BILIRUBIN 0.3 0.0 - 1.2 mg/dL [facility] AST 7 0 - 37 U/L [facility] ALT 6 0 - 40 U/L [facility] GLOBULIN 4.2 1 - 4.8 g/dL [facility] EGFR 5(L) >59 mL/min/1.7 3m2 [facility] Comment:Estimated glomerular filtration rate calculated using the CKD-EPI refit equation. ANION GAP 19 10 - 20 mmol/L [facility] Blood 03/25/2024 1:08 PM EDT 03/25/2024 1:23 PM EDT us Joan Newberry MD LAB BLOOD BKR ORDERABLES Final Result [facility] [address] [place] [address] from Last 3 Months or Most Recently Relevant to Health Maintenance Insurance MEDICARE PART A & B [employer] [facility] CARE MEDICARE REPLACEMENT MARLA CHEN [facility] MEDICARE PART A & B [facility] ONE CARE MEDICARE REPLACEMENT MEDICARE PART A & B [facility] CARE MEDICARE REPLACEMENT MEDICARE PART A & B Member Subscriber Plan / Payer (Ef fective 2019-Present) Name:Verona Holland Member ID:[id number] Relation to Subscriber:Self Name:Verona Holland Subscriber ID:[id number] Payer ID:[id number] Group ID:Not on file Type:Medicare Address: [employer] [address] ONE CARE MEDICARE REPLACEMENT MEDICARE PART A & B CARE MEDICARE REPLACEMENT MEDICARE PART A & B [facility] ONE CARE MEDIC[place] [address] [place] [address] ONE CARE MEDICARE REPLACEMENT MEDICARE PART A & B Care Teams Laboratory Coordinator Relationship Specialty Start Date End Date Jason Salmon MD [address] [place] [address] [place] [address] PCP - General Internal Medicine 01/22/24 Additional Source Comments The information contained in this document represents components of the legal health record. It is not the complete legal health record.[facility]
--- OUTSIDE RECORDS SUMMARY | 2025-05-23 10:23 | XMS_ITS | Encounter Summary ---
Author Organization [facility] Address [address] [place] [address] Phone Care Team Providers Care Steel Grinder Name Role Phone April Sharma MD Primary Care Provider Reason for Visit * Reason Comments Med Refill Encounter Details Date Type Department Care Team (Late st Contact Info) Description 09/23/2020 Refill [facility] [address] [facility] [address] [place] [address] Seamus Ramsey MD [address] [place] [phone] Social History Tobacco Use Types Packs/Day Years [...] on filedocumented in this encounter Care Teams Steel Grinder Relationship Specialty Start Date End Date April Sharma MD [address] [place] [address] PCP - General 06/15/20 documented as of this encounter
--- OUTSIDE RECORDS SUMMARY | 2025-05-23 10:23 | XMS_ITS | Encounter Summary ---
Author Organization [facility] Address [address] [place] [address] Phone Care Team Providers Care Deployment Manager Name Role Phone Jason Salmon MD Primary Care Provider [phone] Encounter Details Date Type Department Care Team (Late st Contact Info) Description 06/19/2024 Procedure Pass [facility], Ct Scan - [facility] [address] [place] [address] Social History Tobacco Use Types Packs/Day Years [...] high school, GED, job training, learning the Faroese language, technical skills, or developing parenting skills)? [...] on filedocumented in this encounter Care Teams Deployment Manager Relationship Specialty Start Date End Date Jason Salmon MD [address] [place] [address] [place] [address] PCP - General Internal Medicine 01/22/24 documented as of this encounter Additional Source Comments The information contained in this document represents components of the legal health record. It is not the complete legal health record.[facility]
--- OUTSIDE RECORDS SUMMARY | 2025-05-23 10:23 | XMS_ITS | Encounter Summary ---
Author Organization [facility] Address [address] [place] [address] Phone Care Team Providers Care Senior Controller Name Role Phone Jason Salmon MD Primary Care Provider [phone] Encounter Details Date Type Department Care Team (Late st Contact Info) Description 06/19/2024 Procedure Pass [facility] [address] [place] [address] Social History Tobacco Use Types Packs/Day Years [...] high school, GED, job training, learning the Burundian language, technical skills, or developing parenting skills)? [...] is your housing situation today? I am maribeli ng with others 06/06/2024 How many times [...] on filedocumented in this encounter Care Teams Senior Controller Relationship Specialty Start Date End Date Jason Salmon MD [address] [place] [address] [place] [address] PCP - General Internal Medicine 01/22/24 documented as of this encounter Additional Source Comments The information contained in this document represents components of the legal health record. It is not the complete legal health record.[facility]
--- OUTSIDE RECORDS SUMMARY | 2025-05-23 10:23 | XMS_ITS | Encounter Summary ---
Author Organization [facility] Address [address] [address] Phone Care Team Providers Care Materials Supervisor Name Role Phone April Sharma MD Primary Care Provider [phone] Reason for Visit * Reason Comments Med Refill Encounter Details Date Type Department Care Team (Late st Contact Info) Description 05/20/2025 Refill [facility]. [address] [phone] Jesus Patel MD [address] [address] Social History Tobacco Use Types [...] on file documented as of this encounter Procedures Procedure Name Priority Date/Time Associated Diagnosis Comments [facility] (HC) Routine 05/21/2025 3:00 AM EST POTASSIUM Routine 05/21/2025 3:00 AM EST documented in this encounter Results * [facility] (05/21/2025 3:00 AM EST) Lipemia Normal Normal [facility] Icterus Normal Normal [facility] Hemolysis Normal Normal [facility] 05/21/2025 3:00 AM EST 05/22/2025 1:51 PM EST Jesus Patel MD LAB [id number] SOLICITED RESULTS Final Result Performing Organization Address [facility] de Phone Number APS [facility] [address] [place] [address] * Potassium (05/21/2025 3:00 AM EST) Pathologist [facility] Potassium 3.8 3.4 - 5.0 mEq/L [facility] 05/21/2025 3:00 AM EST 05/22/2025 1:51 PM EST Jesus Patel MD LAB BLOOD ORDERABLES Final Re sult Performing Organization Address [facility] de Phone Number [facility] [address] [place] [address] documented in this encounter Visit Diagnoses Not on filedocumented in this encounter Care Teams Materials Supervisor Relationship Specialty Start Date End Date April Sharma MD [facility] [address] [place], [place] PCP - General 06/15/20 documented as of this encounter
--- OUTSIDE RECORDS SUMMARY | 2025-05-23 10:23 | XMS_ITS | Clinical Summary ---
Author Organization [facility] Address [address] [address] Phone Care Team Providers Care Farm Demonstrator Name Role Phone April Sharma MD Primary Care Provider [phone] Medications sevelamer carbonate (RENVELA) 800 MG tablet TAKE 3 TABLET BY MOUTH THREE TIMES A DAY WITH MEALS 279 tablet 11 03/01/20 21 Active cholecalcifero l (VITAMIN D-3) 50 MCG (1999 UT) capsule TAKE 2 CAPSULE BY MOUTH ONCE A DAY SUPPLEMENT 60 capsule 11 10/02/19 22 Active atorvastatin (LIPITOR) 10 MG tablet TAKE 1 TABLET BY MOUTH EVERY DAY 30 tablet 12 04/25/20 23 Active NIFEdipine CC (ADALAT CC) 90 MG 24 hr tablet TAKE 1 TABLET BY MOUTH EVERY DAY 30 tablet 11 05/31/20 23 Active gabapentin (NEURONTIN) 100 MG capsule Take 1 capsule (100 mg total) by mouth in the morning and 1 capsule (100 mg total) in the evening. 30 capsule 2 07/18/19 24 Active ergocalciferol 1.25 MG (75824 UT) capsule TAKE 1 CAPSULE BY MOUTH WEEKLY FOR 8 WEEKS THEN 1 CAP MONTHLY THEREAFTER 8 capsule 2 10/02/19 24 Active Auryxia 1 GM 210 MG(Fe) tablet TAKE 2 TABLETS BY MOUTH 3 TIMES A DAY WITH MEALS 180 tablet 1 06/06/19 25 Active torsemide (DEMADEX) 100 MG tablet TAKE 1 TABLET BY MOUTH TWICE A DAY 60 tablet 11 05/21/20 25 Active metOLazone (ZAROXOLYN) 10 MG tablet TAKE 1 TABLET BY MOUTH ONCE WEEKLY 12 tablet 4 12/17/20 25 Active torsemide (DEMADEX) 100 MG tablet TAKE 1 TABLET BY MOUTH ONCE A DAY DIRECTED TREAT FLUID OVERLOAD 30 tablet 11 02/26/20 22 025 Discontinued metOLazone (ZAROXOLYN) 10 MG tablet TAKE 1 TABLET BY MOUTH ONCE WEEKLY 12 tablet 4 05/05/20 24 025 Discontinued Active Problems Problem Noted Date Diagnosed Date Dependence on renal dialysis 01/03/2019 Encounters Date Type Department Care Team Description 05/20/2025 Refill [facility] [address] [phone] Jesus Patel MD 05/09/2025 Treatment [facility] [address] [phone] Jesus Patel MD End stage renal disease; Dependence on renal dialysis 05/05/2025 Treatment [facility] [address] [phone] Jesus Patel MD End stage renal disease; Dependence on renal dialysis 04/21/2025 Treatment [facility] [address] [phone] Jesus Patel MD End stage renal disease; Dependence on renal dialysis 04/18/2025 Treatment [facility] [address] [phone] Jesus Patel MD End stage renal disease; Dependence on renal dialysis 04/14/2025 Treatment [facility] [address] [phone] Jesus Patel MD End stage renal disease; Dependence on renal dialysis 04/07/2025 Treatment [facility] [address] [phone] Jesus Patel MD End stage renal disease; Dependence on renal dialysis 03/31/2025 Treatment [facility] [address] [place] [phone] Jesus Patel MD End stage renal disease; Dependence on renal dialysis 03/24/2025 Treatment [facility] [address] [phone] Jesus Patel MD End stage renal disease; Dependence on renal dialysis 03/17/2025 Treatment [facility] [address] [phone] Jesus Patel MD End stage renal disease; Dependence on renal dialysis 03/14/2025 Orders Only [facility] [address] [phone] Jesus Patel MD 03/10/2025 Treatment [facility] [address] [phone] Jesus Patel MD End stage renal disease; Dependence on renal dialysis 03/03/2025 Treatment [facility] [address] [phone] Jesus Patel MD End stage renal disease; Dependence on renal dialysis 02/26/2025 Treatment [facility] [address] [phone] Jesus Patel MD End stage renal disease; [...] 07/06/2020 Influenza Vaccine (#1) 2025 4, 03/18/2019, 02/28/2019, Additional history exists Diabetes: Hemoglobin A1C 06/05/2025 025, 12/04/2024, 09/06/2024, Additional history exists Procedures Procedure Name Priority Date/Time Associated Diagnosis Comments LI[facility] (HC) Routine 05/21/2025 3:00 AM EST POTASSIUM Routine 05/21/2025 3:00 AM EST PTH, INTACT Routine 2025 3:00 AM EST LIH (HC) Routine 2025 3:00 AM EST POTASSIUM Routine 2025 3:00 AM EST HEPATITIS B SURFACE ANTIGEN W/REFL CONFIRM Routine 05/09/2025 3:00 AM EST TRANSFERRIN SATURATION Routine 3:00 AM EST PROTEIN, TOTAL, SERUM Routine 05/09/2025 3:00 AM EST MAGNESIUM Routine 05/09/2025 3:00 AM EST LIH (HC) Routine 05/09/2025 3:00 AM EST ELECTROLYTE PANEL Routine 05/09/2025 3:0 0 AM EST GLUCOSE, RANDOM Routine 05/09/2025 3:00 AM EST LACTATE DEHYDROGENASE Routine 05/09/2025 3:00 AM EST BUN/CREATININE RATIO Routine 05/09/2025 3:00 AM EST AST Routine 05/09/2025 3:00 AM EST CREATININE, SERUM Routine 05/09/2025 3:0 0 AM EST BILIRUBIN, TOTAL Routine 05/09/2025 3:00 AM EST ALT Routine 05/09/2025 3:00 AM EST ALKALINE PHOSPHATASE Routine 05/09/2025 3:00 AM EST CALCIUM PHOSPHORUS PRODUCT, ADJUSTED (HC) Routine 05/09/2025 3:00 AM EST FERRITIN Routine 05/09/2025 3:00 AM EST KT/V NATURAL LOG, URR (HC) Routine 05/09/2025 3:00 AM EST CBC AND DIFFERENTIAL Routine 05/09/2025 3:00 AM EST COLLECTION DATE (HC) Routine 05/09/2025 3:00 AM EST LIH (HC) Routine 05/02/2025 3:00 AM EST POTASSIUM Routine 05/02/2025 3:00 AM EST LIH (HC) Routine 04/25/2025 3:00 AM EST CALCIUM PHOSPHORUS PRODUCT, ADJUSTED (HC) Routine 04/25/2025 3:00 AM EST POTASSIUM Routine 04/25/2025 3:00 AM EST HEMOGLOBIN AND HEMATOCRIT, BLOOD Routine 04/25/2025 3:00 AM EST POTASSIUM Routine 04/16/2025 3:00 AM EST LIH (HC) Routine 04/16/2025 3:00 AM EST LIH (HC) Routine 04/14/2025 3:00 AM EST POTASSIUM Routine 04/14/2025 3:00 AM EST HEPATITIS B SURFACE ANTIGEN W/REFL CONFIRM Routine 04/09/2025 3:00 AM EST TRANSFERRIN SATURATION Routine 3:00 AM EST PROTEIN, TOTAL, SERUM Routine 04/09/2025 3:00 AM EST MAGNESIUM Routine 04/09/2025 3:00 AM EST ELECTROLYTE PANEL Routine 04/09/2025 3:0 0 AM EST LIH (HC) Routine 04/09/2025 3:00 AM EST LACTATE DEHYDROGENASE Routine 04/09/2025 3:00 AM EST GLUCOSE, RANDOM Routine 04/09/2025 3:00 AM EST CREATININE, SERUM Routine 04/09/2025 3:0 0 AM EST BUN/CREATININE RATIO Routine 04/09/2025 3:00 AM EST BILIRUBIN, TOTAL Routine 04/09/2025 3:00 AM EST AST Routine 04/09/2025 3:00 AM EST ALT Routine 04/09/2025 3:00 AM EST ALKALINE PHOSPHATASE Routine 04/09/2025 3:00 AM EST CALCIUM PHOSPHORUS PRODUCT, ADJUSTED (HC) Routine 04/09/2025 3:00 AM EST FERRITIN Routine 04/09/2025 3:00 AM EST PTH, INTACT Routine 04/09/2025 3:00 AM EST CBC AND DIFFERENTIAL Routine 04/09/2025 3:00 AM EST KT/V NATURAL LOG, URR (HC) Routine 04/09/2025 3:00 AM EST HEMOGLOBIN Routine 04/04/2025 3:00 AM EDT COLLECTION DATE (HC) Routine 04/04/2025 3:00 AM EDT LIH (HC) Routine 04/02/2025 3:00 AM EDT POTASSIUM Routine 04/02/2025 3:00 AM EDT LIH (HC) Routine 03/26/2025 3:00 AM EDT POTASSIUM Routine 03/26/2025 3:00 AM EDT HEMOGLOBIN AND HEMATOCRIT, BLOOD Routine 03/19/2025 3:00 AM EDT LIH (HC) Routine 03/19/2025 3:00 AM EDT POTASSIUM Routine 03/19/2025 3:00 AM EDT HEPATITIS B SURFACE ANTIBODY QUANT Routine 03/14/2025 3:00 AM EDT LIH (HC) Routine 03/14/2025 3:00 AM EDT POTASSIUM Routine 03/14/2025 3:00 AM EDT HEMOGLOBIN A1C Routine 03/05/2025 3:00 AM EDT FERRITIN Routine 03/05/2025 3:00 AM EDT HEPATITIS B SURFACE ANTIGEN W/REFL CONFIRM Routine 03/05/2025 3:00 AM EDT PTH, INTACT Routine 03/05/2025 3:00 AM EDT TRANSFERRIN SATURATION Routine 3:00 AM EDT PROTEIN, TOTAL, SERUM Routine 03/05/2025 3:00 AM EDT MAGNESIUM Routine 03/05/2025 3:00 AM EDT ELECTROLYTE PANEL Routine 03/05/2025 3:0 0 AM EDT LIPID PANEL Routine 03/05/2025 3:00 AM EDT LIH (HC) Routine 03/05/2025 3:00 AM EDT GLUCOSE, RANDOM Routine 03/05/2025 3:00 AM EDT LACTATE DEHYDROGENASE Routine 03/05/2025 3:00 AM EDT CREATININE, SERUM Routine 03/05/2025 3:0 0 AM EDT BUN/CREATININE RATIO Routine 03/05/2025 3:00 AM EDT BILIRUBIN, TOTAL Routine 03/05/2025 3:00 AM EDT AST Routine 03/05/2025 3:00 AM EDT ALT Routine 03/05/2025 3:00 AM EDT CALCIUM PHOSPHORUS PRODUCT, ADJUSTED (HC) Routine 03/05/2025 3:00 AM EDT ALKALINE PHOSPHATASE Routine 03/05/2025 3:00 AM EDT CBC AND DIFFERENTIAL Routine 03/05/2025 3:00 AM EDT KT/V NATURAL LOG, URR (HC) Routine 03/05/2025 3:00 AM EDT LIH (HC) Routine 02/26/2025 3:00 AM EDT POTASSIUM Routine 02/26/2025 3:00 AM EDT HEMOGLOBIN Routine 02/24/2025 3:00 AM EDT from Last 3 Months Results * LI[facility] (05/21/2025 3:00 AM EST) Only the most recent of14 resultswithin the time period is included. Lipemia Normal Normal [facility] Icterus Normal Normal [facility] Hemolysis Normal Normal [facility] 05/21/2025 3:00 AM EST 05/22/2025 1:51 PM EST us Jesus Patel MD LAB [id number] SOLICITED RESULTS Final Result [facility] [address] [place] [address] * Potassium (05/21/2025 3:00 AM EST) Only the most recent of11 resultswithin the time period is included. Potassium 3.8 3.4 - 5.0 mEq/L [facility] 05/21/2025 3:00 AM EST 05/22/2025 1:51 PM EST Jesus Patel MD LAB BLOOD ORDERABLES Final Re sult Performing Organization Address [facility] de Phone Number [facility] [address] [place] [address] * (ABNORMAL) PTH, Intact (2025 3:00 AM EST) Only the most recent of3 resultswithin the time period is included. PTH, Intact 2,451(H) 160 - 721 pg/mL [facility] Comment: Suggested (KDIGO) ESRD maintenance range is two to nine times the upper normal limit (80.1 pg/mL) for the laboratory. 2025 3:00 AM EST 05/15/2025 2:01 PM EST Jesus Patel MD LAB BLOOD ORDERABLES Final Re sult Performing Organization Address [facility] de Phone Number [facility] [address] [place] [address] * Collection Date (05/09/2025 3:00 AM EST) Only the most recent of2 resultswithin the time period is included. Collection Date See Comment [facility] Comment: Patient sample received may exceed specimen stability, based on the collection date electronically provided. When reviewing patient results, verify collection information and consider specimen stability before acting on any critical or panic results. 05/09/2025 3:00 AM EST Jesus Patel MD LAB [id number] SOLICITED RESULTS Final Result Performing Organization Address [facility] de Phone Number [facility] [address] [place] [address] * (ABNORMAL) Kt/V Natural Log, URR (05/09/2025 3:00 AM EST) Only the most recent of3 resultswithin the time period is included. Treatment Time 240 min [facility] Pre-Weight, lb 109.6 kg [facility] Post-Weight, lb 105.5 kg [facility] BUN Post Dialysis 9 7 - 25 mg/dL [facility] BUN 35(H) 7 - 25 mg/dL [facility] UREA REDUCTION RATIO (%) 74 >=65 % [facility] Kt/V Natural Log 1.61 >=1.2 [facility] Ultrafiltration Rate 10 <=13 mL/kg/hr [facility] Comment: Recommend achieving Ultrafiltration Rate (UFR) <=10 mL/kg/hr References: Rob NELSON et al. Kidney Int. 2010; 79(2):250-257 05/09/2025 3:00 AM EST 05/12/2025 12:31 PM EST Jesus Patel MD LAB HISTORICAL-CONVE RSIONS-UNSOLICITED RESULTS Edited Result - Final Performing Organization Address City/[facility]/ZIP Co de Phone Number [facility] [address] [place] [address] * (ABNORMAL) Calcium Phosphorus Product, Adjusted (05/09/2025 3:00 AM EST) Only the most recent of4 resultswithin the time period is included. Albumin 3.7 3.6 - 5.4 g/dL [facility] Calcium 9.7 8.6 - 10.3 mg/dL [facility] Phosphorus, Serum 8.8(H) 2.5 - 5.0 mg/dL [facility] Ca*PO4 85.4(A) <55.0 mg2/dL2 [facility] Calcium, Adjusted Total 9.9 8.6 - 10.3 mg/dL [facility] CA*PO4 CORRCTD 87.1(A) <55.0 mg2/dL2 [facility] 05/09/2025 3:00 AM EST 05/12/2025 12:31 PM EST Jesus Patel MD LAB [id number] SOLICITED RESULTS Final Result Performing Organization Address City/[facility]/ZIP Co de Phone Number [facility] [address] [place] [address] * Hepatitis B Surface Ag w/Reflex Confirmation (05/09/2025 3:00 AM EST) Only the most recent of3 resultswithin the time period is included. Hep B Surface Antigen Negative Negative [facility] 05/09/2025 3:00 AM EST 05/12/2025 12:31 PM EST Jesus Patel MD LAB BLOOD ORDERABLES Final Re sult Performing Organization Address [facility] Co de Phone Number [facility] [address] [place] [address] * BUN/CREATININE RATIO (05/09/2025 3:00 AM EST) Only the most recent of3 resultswithin the time period is included. BUN/Creatinine Ratio 2.8 <=23.0 [facility] 05/09/2025 3:00 AM EST 05/12/2025 12:31 PM EST Jesus Patel MD LAB [id number] SOLICITED RESULTS Final Result Performing Organization Address [facility] de Phone Number [facility] [address] [place] [address] * (ABNORMAL) TSAT (05/09/2025 3:00 AM EST) Only the most recent of3 resultswithin the time period is included. Iron 60 50 - 170 ug/dL [facility] Transferrin 112(L) 250 - 380 mg/dL [facility] TIBC 157(L) 211 - 406 ug/dL [facility] Iron Saturation (TSat) 38 22 - 52 % [facility] 05/09/2025 3:00 AM EST 05/12/2025 12:31 PM EST Jesus Patel MD LAB BLOOD ORDERABLES Final Re sult Performing Organization Address [facility] Co de Phone Number [facility] [address] [place] [address] * (ABNORMAL) CBC and Differential (05/09/2025 3:00 AM EST) Only the most recent of3 resultswithin the time period is included. DIFFERENTIAL MANUAL, 2 Not Indicated [facility] White Blood Cells 8.7 4.0 - 10.0 K/uL [facility] RBC 3.78(L) 3.93 - 5.22 M/uL [facility] Hgb 10.4(L) 11.2 - 15.7 g/dL [facility] Hemoglobin x 3 31.2(L) 33.6 - 47.1 g/dL [facility] Hematocrit 33.9(L) 34.1 - 44.9 % [facility] MCV 89.7 79.4 - 94.8 fL [facility] MCH 27.5 25.6 - 32.2 pg [facility] MCHC 30.7(L) 32.2 - 35.5 g/dL [facility] RDW 14.2 11.7 - 14.4 % [facility] Platelets 357 182 - 369 K/uL [facility] MPV 11.6 9.2 - 12.8 fL [facility] Neutrophils Relative 62.8 34.0 - 71.1 % [facility] Lymphocytes Relative 26.3 19.3 - 51.7 % [facility] Monocytes 7.3 4.7 - 12.5 % [facility] Eosinophils Relative 2.1 0.7 - 5.8 % [facility] Basophils Relative 0.9 0.1 - 1.2 % [facility] Immature Granulocytes 0.6 0.0 - 1.0 % [facility] 05/09/2025 3:00 AM EST 05/12/2025 12:31 PM EST us Jesus Patel MD LAB BLOOD ORDERABLES Final Re sult [facility] [address] [place] [address] * (ABNORMAL) ALT (05/09/2025 3:00 AM EST) Only the most recent of3 resultswithin the time period is included. ALT (SGPT) 8(L) 10 - 49 U/L [facility] 05/09/2025 3:00 AM EST 05/12/2025 12:31 PM EST us Jesus Patel MD LAB BLOOD ORDERABLES Final Re sult Performing Organization Address [facility] Co de Phone Number [facility] [address] [place] [address] * AST (05/09/2025 3:00 AM EST) Only the most recent of3 resultswithin the time period is included. AST (SGOT) 13 <34 U/L [facility] 05/09/2025 3:00 AM EST 05/12/2025 12:31 PM EST us Jesus Patel MD LAB BLOOD ORDERABLES Final Re sult Performing Organization Address [facility] de Phone Number [facility] [address] [place] [address] * Protein, total (05/09/2025 3:00 AM EST) Only the most recent of3 resultswithin the time period is included. Total Protein 6.4 6.4 - 8.9 g/dL [facility] 05/09/2025 3:00 AM EST 05/12/2025 12:31 PM EST us Jesus Patel MD LAB BLOOD ORDERABLES Final Re sult Performing Organization Address [facility] de Phone Number [facility] [address] [place] [address] * (ABNORMAL) Alkaline phosphatase (05/09/2025 3:00 AM EST) Only the most recent of3 resultswithin the time period is included. Alkaline Phosphatase 221(H) 46 - 116 U/L [facility] 05/09/2025 3:00 AM EST 05/12/2025 12:31 PM EST us Jesus Patel MD LAB BLOOD ORDERABLES Final Re sult Performing Organization Address [facility] Co de Phone Number [facility] [address] [place] [address] * Magnesium (05/09/2025 3:00 AM EST) Only the most recent of3 resultswithin the time period is included. Magnesium 2.3 1.9 - 2.7 mg/dL [facility] 05/09/2025 3:00 AM EST 05/12/2025 12:31 PM EST Jesus Patel MD LAB BLOOD ORDERABLES Final Re sult Performing Organization Address [facility] Co de Phone Number [facility] [address] [place] [address] * (ABNORMAL) Lactate dehydrogenase (05/09/2025 3:00 AM EST) Only the most recent of3 resultswithin the time period is included. LDH 260(H) 120 - 246 U/L [facility] 05/09/2025 3:00 AM EST 05/12/2025 12:31 PM EST Jesus Patel MD LAB BLOOD ORDERABLES Final Re sult Performing Organization Address [facility] de Phone Number [facility] [address] [place] [address] * (ABNORMAL) Glucose, random (05/09/2025 3:00 AM EST) Only the most recent of3 resultswithin the time period is included. Glucose 136(H) 70 - 99 mg/dL [facility] Comment: ADA guidelines outline the following fasting glucose ranges: Normal: <100 Prediabetes: 100-125 Diabetes: >125 05/09/2025 3:00 AM EST 05/12/2025 12:31 PM EST Jesus Patel MD LAB BLOOD ORDERABLES Final Re sult Performing Organization Address [facility] de Phone Number [facility] [address] [place] [address] * (ABNORMAL) Ferritin (05/09/2025 3:00 AM EST) Only the most recent of3 resultswithin the time period is included. Ferritin 913(H) 10 - 291 ng/mL [facility] 05/09/2025 3:00 AM EST 05/12/2025 12:31 PM EST Jesus Patel MD LAB BLOOD ORDERABLES Final Re sult Performing Organization Address [facility] Co de Phone Number [facility] [address] [place] [address] * (ABNORMAL) Creatinine, serum (05/09/2025 3:00 AM EST) Only the most recent of3 resultswithin the time period is included. Creatinine 12.45(H) 0.55 - 1.02 mg/dL [facility] 05/09/2025 3:00 AM EST 05/12/2025 12:31 PM EST Jesus Patel MD LAB BLOOD ORDERABLES Final Re sult Performing Organization Address [facility] de Phone Number [facility] [address] [place] [address] * (ABNORMAL) Bilirubin, total (05/09/2025 3:00 AM EST) Only the most recent of3 resultswithin the time period is included. Total Bilirubin 0.2(L) 0.3 - 1.2 mg/dL [facility] 05/09/2025 3:00 AM EST 05/12/2025 12:31 PM EST Jesus Patel MD LAB BLOOD ORDERABLES Final Re sult Performing Organization Address [facility] de Phone Number [facility] [address] [place] [address] * (ABNORMAL) Electrolyte panel (05/09/2025 3:00 AM EST) Only the most recent of3 resultswithin the time period is included. Sodium 136 136 - 145 mEq/L [facility] Potassium 3.7 3.4 - 5.0 mEq/L [facility] Chloride 96(L) 98 - 107 mEq/L [facility] Bicarbonate (CO2) 21 21 - 31 mEq/L [facility] Anion Gap 19(H) 3 - 14 mEq/L [facility] 05/09/2025 3:00 AM EST 05/12/2025 12:31 PM EST Jesus Patel MD LAB BLOOD ORDERABLES Final Re sult Performing Organization Address [facility] de Phone Number [facility] [address] [place] [address] * (ABNORMAL) Hemoglobin and hematocrit (04/25/2025 3:00 AM EST) Only the most recent of2 resultswithin the time period is included. Hgb 11.0(L) 11.2 - 15.7 g/dL [facility] Hematocrit 34.6 34.1 - 44.9 % [facility] Hemoglobin x 3 33.0(L) 33.6 - 47.1 g/dL [facility] 04/25/2025 3:00 AM EST 04/26/2025 12:50 PM EST Jesus Patel MD LAB BLOOD ORDERABLES Final Re sult Performing Organization Address [facility] de Phone Number [facility] [address] [place] [address] * Hemoglobin (04/04/2025 3:00 AM EDT) Only the most recent of2 resultswithin the time period is included. Hgb 12.0 11.2 - 15.7 g/dL [facility] Hemoglobin x 3 36.0 33.6 - 47.1 g/dL [facility] 04/04/2025 3:00 AM EDT 04/07/2025 12:45 PM EST Jesus Patel MD LAB BLOOD ORDERABLES Final Re sult Performing Organization Address [facility] de Phone Number [facility] [address] [place] [address] * Hepatitis B Surface Antibody (03/14/2025 3:00 AM EDT) Hep B Surface Antibody 13 mIU/mL [facility] Comment: Interpretation: <10: No Immunity >=10: Probable Immunity 03/14/2025 3:00 AM EDT 03/15/2025 1:34 PM EDT Jesus Patel MD LAB BLOOD ORDERABLES Final Re sult Performing Organization Address [facility] de Phone Number [facility] [address] [place] [address] * (ABNORMAL) Hemoglobin A1c (03/05/2025 3:00 AM EDT) Hemoglobin A1C 6.7(H) <5.7 % [facility] Comment: Methodology: Enzymatic Normal: <5.7% Prediabetes: 5.7-6.4% Diabetes: >6.4% Diabetic Glucose Control Evaluation: Therapeutic action suggested at >8.0% ADA recommends a glycemic goal of <7.0% 03/05/2025 3:00 AM EDT 03/06/2025 1:41 PM EDT us Jesus Patel MD LAB BLOOD ORDERABLES Final Re sult Performing Organization Address [facility] de Phone Number [facility] [address] [place] [address] * (ABNORMAL) Lipid panel (03/05/2025 3:00 AM EDT) Cholesterol 248(H) mg/dL [facility] Comment: Optimal: <200 Borderline: 200-239 High Risk: >239 Triglycerides 231(H) mg/dL [facility] Comment: Optimal: <150 Borderline: 150-200 High Risk: >200 HDL 34(L) mg/dL [facility] Comment: Optimal: >59 Borderline: 40-59 High Risk: <40 LDL-Calc 168(H) mg/dL [facility] Comment: Optimal: <100 Borderline: 100-159 High Risk: >159 VLDL Cholesterol Arturo 46(H) mg/dL [facility] Comment: Optimal: <30 Borderline: 30-40 High Risk: >40 Chol/HDL Ratio 7.3(H) [facility] Comment: Optimal: <3.3 High Risk: >6.2 03/05/2025 3:00 AM EDT 03/06/2025 2:01 PM EDT us Jesus Patel MD LAB BLOOD ORDERABLES Final Re sult [facility] [address] [place] [address] from Last 3 Months Insurance * Guarantor: Verona Holland Account Type Relation to Patient Date of Phone Billing Address Personal/Family Self [address] ([id number]) [facility] ([id number]) Care Teams Farm Demonstrator Relationship Specialty Start Date End Date April Sharma MD [facility] [place] [id number] [place], [place] PCP - General 06/15/20
== END 2025-05-23 09:37 | disposition home or self-care (01) ==
LOC: HO.MAMMO 09:36
PROVIDERS: PCP Internal Medicine; Visit Provider Internal Medicine
DX: N64.89 Other specified disorders of breast (principal)
CPT/HCPCS: 76642; 77061; 77065

== ENCOUNTER → 2025-05-23 10:30 | Outpatient (BNV) | payer OTHER, SELFPAY | PROVIDERS: PCP Internal Medicine; Visit Provider Internal Medicine | DX: R92.8 Other abnormal and inconclusive findings on diagnostic imaging of breast (principal) | CPT/HCPCS: 76642; 77065; G0279 ==